=== PATIENT | male | born 1990 | race Caucasian/White ===

== ENCOUNTER 2023-10-12 20:40 | Emergency (ER) | payer SELFPAY ==
[2023-10-12] VITALS (27 sets, daily range): BP systolic 116–152; BP diastolic 68–100; PULSE 64–101; RESP 15–27; TEMP 37; O2SAT 86–99; BMI 34.7
--- NOTE | 2023-10-12 20:52 | XR_ITS ---
[address] [address] Patient Name: KWAKU DURBIN MRN: [id number] date: 1990 Sex: M Assigned Patient Location: ER Current Patient Location: ED.MAIN Accession/Order Number: [id number] Exam Date: 10/12/2023 21:00 Report Date: 10/12/2023 21:47 At the request of: VERONIQUE KING Procedure: XR acute abdomen series EXAM TYPE: XR acute abdomen series EXAM DATE AND TIME: 10/12/2023 9:00 PM EST INDICATION: 33 years old Male with Epigastric pain COMPARISON: None. TECHNIQUE: Frontal view of the chest. Supine and upright views of the abdomen. FINDINGS: No pneumothorax, pleural effusion or focal consolidation. Heart size is within normal limits. Normal nonobstructive bowel gas pattern. No subdiaphragmatic free intraperitoneal air. No pathologic calcifications. Moderate to large volume of stool is seen in the colon. Visualized osseous structures appear unremarkable. XR/XR acute abdomen series IMPRESSION: No acute abnormality. Moderate to large volume of stool is seen in the colon. Electronically authenticated by: SHANIKA RHOADES Date: 10/12/2023 21:47
--- NOTE | 2023-10-12 20:52 | ECG_ITS ---
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
--- NOTE | 2023-10-12 20:58 | ED.GENADUL1 ---
Documented by User: MARCELLUS Bennett 10/12/23 21:37 HPI - General Adult General Chief complaint: Chest Pain Stated complaint: Chest Pain x3 days Time Seen by Provider: 10/12/23 20:47 History of Present Illness HPI narrative: Is a 33-year-old male who presents to the emergency department with concern for epigastric discomfort over the last 3 days. He was using Pepto-Bismol and Tums with some improvement but states the pain worsened today. His significant other at bedside is concerned because the patient had his gallbladder removed 2 years ago and when she had hers removed, she also developed pancreatitis. He had no other associated abdominal surgeries other than the cholecystectomy 2 years ago. He has not had any fevers, chills, nausea, vomiting, diarrhea, urinary symptoms. He reports pain is in the epigastrium and radiates through to his back. He occasionally has left upper quadrant pain. Related Data Home Medications Medication Instructions Recorded Confirmed No Known Home Medications 10/12/23 10/12/23 Allergies Allergy/AdvReac Type Severity Reaction Status Date / Time No Known Drug Allergies Allergy Verified 10/12/23 20:50 Review of Systems ROS Constitutional Denies: fever or chills Ears, nose, mouth, and throat Denies: throat pain Cardiovascular Denies: chest pain Respiratory Denies: shortness of breath Gastrointestinal Reports: abdominal pain; Denies: nausea, vomiting or diarrhea Genitourinary Denies: painful urination Musculoskeletal Denies: back pain Integumentary/Breast Denies: rash Neurological Denies: headache Hematologic/Lymphatic Denies: easy bruising or easy bleeding PFSH PFS Social History Smoking status: Current every day smoker Exam Narrative Exam Narrative: Gen.: Awake, alert, in no distress Head: Normocephalic, atraumatic ENT: Moist mucous membranes Respiratory: No respiratory distress, lungs clear bilaterally Cardio: Regular rate and rhythm Gastrointestinal: Abdomen is soft, nondistended and Tender in the epigastrium with no guarding or rebound. No right upper quadrant tenderness. Extremities: Moves extremities equally Psych: Normal mood and affect Neuro: No focal neuro deficit Skin: Warm, dry, intact Constitutional Vital Signs, click to edit/add: Last Vital Signs Temp 98.6 F 10/12/23 20:47 Pulse 90 10/12/23 22:10 Resp 15 10/12/23 22:10 BP 133/68 10/12/23 23:15 Pulse Ox 96 10/13/23 00:00 O2 Del Method Room Air 10/12/23 20:47 Course Vital Signs Vital signs: Vital Signs Temperature 98.6 F 10/12/23 20:47 Pulse Rate 64 10/12/23 20:47 Respiratory Rate 16 10/12/23 20:47 Blood Pressure 152/100 H 10/12/23 20:47 Pulse Oximetry 99 10/12/23 20:47 Oxygen Delivery Method Room Air 10/12/23 20:47 Temperature 98.6 F 10/12/23 20:47 Pulse Rate 90 10/12/23 22:10 Respiratory Rate 15 10/12/23 22:10 Blood Pressure 133/68 10/12/23 23:15 Pulse Oximetry 96 10/13/23 00:00 Oxygen Delivery Method Room Air 10/12/23 20:47 Medical Decision Making MDM Narrative Medical decision making narrative: 2135: Ordered to have IV fluids, Zofran, Protonix, GI cocktail. He was noted to have mild anemia and low platelet count, consistent with history of blood disorder. He has elevated bilirubin and globally elevated LFTs, he will be sent back over for CT of the abdomen and pelvis with IV contrast. Case is turned over to attending physician at this time for disposition. Medical Records Medical records reviewed: Yes I reviewed the patient's medical records Lab Data Lab results reviewed: Yes I reviewed the patient's lab results Labs: Lab Results 10/12/23 Range/Units 21:00 WBC 14.2 H (4.0-11.0) 10^3/uL RBC 3.04 L (4.70-6.10) 10^6/uL Hgb 9.8 L (14.0-18.0) g/dL Hct 30.6 L (42.0-54.0) % MCV 100.7 H (80.0-94.0) fL MCH 32.2 (25.9-34.0) pg MCHC 32.0 (29.9-35.2) g/dL RDW 17.3 H (11.0-15.0) % Plt Count 22 L* (150-450) 10^3/uL MPV 9.0 L (9.5-13.5) fL Neut % (Auto) 60.3 (43.0-75.0) % Lymph % (Auto) 27.2 (20.5-60.0) % Jerome % (Auto) 7.8 (1.7-12.0) % Eos % (Auto) 2.5 (0.9-7.0) % Baso % (Auto) 0.7 (0.2-2.0) % Neut # (Auto) 8.6 H (1.4-6.5) 10^3/uL Lymph # (Auto) 3.9 H (1.2-3.8) 10^3/uL Jerome # (Auto) 1.1 H (0.3-0.8) 10^3/uL Eos # (Auto) 0.4 (0.0-0.7) 10^3/uL Baso # (Auto) 0.1 (0.0-0.1) 10^3/uL Abs Immat Gran (auto) 0.21 H (0.00-0.03) 10^3/uL Imm/Tot Granulo (auto) 1.5 H (0.0-0.5) % PT 10.9 (9.0-11.6) sec INR 1.03 APTT 27.3 (22.3-36.2) sec Sodium 142 (136-145) mmol/L Potassium 3.9 (3.5-5.1) mmol/L Chloride 105 (98-107) mmol/L Carbon Dioxide 26.2 (21.0-32.0) mmol/L Anion Gap 14.7 BUN 16.0 (7.0-18.0) mg/dL Creatinine 1.11 (0.70-1.30) mg/dL Est GFR ( Amer) >60 (>=60) Est GFR (Non-Af Amer) >60 (>=60) BUN/Creatinine Ratio 14.4 Glucose 111 H (74-106) mg/dL Calcium 9.3 (8.5-10.1) mg/dL Total Bilirubin 2.6 H (0.2-1.0) mg/dL AST 62 H (15-37) U/L ALT 98 H (16-63) U/L Alkaline Phosphatase 132 H (46-116) U/L Troponin I High Sens 20.3 (4.0-76.1) pg/mL Total Protein 8.2 (6.4-8.2) g/dL Albumin 3.7 (3.4-5.0) g/dL Globulin 4.5 g/dL Albumin/Globulin Ratio 0.8 Lipase 20.0 (16.0-77.0) U/L ECG Data Attestation: I personally reviewed and interpreted this ECG as follows: (Sinus tachycardia at a rate of 102, no acute ST elevation or ectopy. EKG reviewed by attending physician) Discharge Plan Discharge Chief Complaint: Chest Pain Clinical Impression: Abdominal pain, Thrombocytopenia, GERD (gastroesophageal reflux disease) Patient Disposition: Home, Self-Care Prescriptions / Home Meds: No Action No Known Home Medications Instructions: GERD (Gastroesophageal Reflux Disease) (ED), Thrombocytopenia (ED) Additional Instructions: take prilosec daily and follow up with your doctor this upcoming week for recheck Stand Alone Forms: Portal Instructions Referrals: ABBIE RIVERA [Primary Care Provider] - 1 week Documented by User: Vincenzo Pa MD 10/13/23 00:44 HPI - General Adult General Chief complaint: Chest Pain Stated complaint: Chest Pain x3 days Time Seen by Provider: 10/12/23 20:47 Related Data Home Medications Medication Instructions Recorded Confirmed No Known Home Medications 10/12/23 10/12/23 Allergies Allergy/AdvReac Type Severity Reaction Status Date / Time No Known Drug Allergies Allergy Verified 10/12/23 20:50 PFSH PFSH Social History Smoking status: Current every day smoker Exam Constitutional Vital Signs, click to edit/add: Last Vital Signs Temp 98.6 F 10/12/23 20:47 Pulse 90 10/12/23 22:10 Resp 15 10/12/23 22:10 BP 133/68 10/12/23 23:15 Pulse Ox 96 10/13/23 00:00 O2 Del Method Room Air 10/12/23 20:47 Course Vital Signs Vital signs: Vital Signs Temperature 98.6 F 10/12/23 20:47 Pulse Rate 64 10/12/23 20:47 Respiratory Rate 16 10/12/23 20:47 Blood Pressure 152/100 H 10/12/23 20:47 Pulse Oximetry 99 10/12/23 20:47 Oxygen Delivery Method Room Air 10/12/23 20:47 Temperature 98.6 F 10/12/23 20:47 Pulse Rate 90 10/12/23 22:10 Respiratory Rate 15 10/12/23 22:10 Blood Pressure 133/68 10/12/23 23:15 Pulse Oximetry 96 10/13/23 00:00 Oxygen Delivery Method Room Air 10/12/23 20:47 Medical Decision Making MDM Narrative Medical decision making narrative: 2135: Ordered to have IV fluids, Zofran, Protonix, GI cocktail. He was noted to have mild anemia and low platelet count, consistent with history of blood disorder. He has elevated bilirubin and globally elevated LFTs, he will be sent back over for CT of the abdomen and pelvis with IV contrast. Case is turned over to attending physician at this time for disposition. CT returned without findings to explain patient's abdominal pain. Patient has mild elevated LFTs. Was able to recall they have been elevated before. Also states he has treated his acid reflux with OTC medications in the past. Ws treated with protonix and GI cocktail here in the department with resolution of his abdominal pain. Discharged home and advised to use Prilosec daily and to follow up with his family doctor for a recheck in the next couple of days Lab Data Labs: Lab Results 10/12/23 Range/Units 21:00 WBC 14.2 H (4.0-11.0) 10^3/uL RBC 3.04 L (4.70-6.10) 10^6/uL Hgb 9.8 L (14.0-18.0) g/dL Hct 30.6 L (42.0-54.0) % MCV 100.7 H (80.0-94.0) fL MCH 32.2 (25.9-34.0) pg MCHC 32.0 (29.9-35.2) g/dL RDW 17.3 H (11.0-15.0) % Plt Count 22 L* (150-450) 10^3/uL MPV 9.0 L (9.5-13.5) fL Neut % (Auto) 60.3 (43.0-75.0) % Lymph % (Auto) 27.2 (20.5-60.0) % Jerome % (Auto) 7.8 (1.7-12.0) % Eos % (Auto) 2.5 (0.9-7.0) % Baso % (Auto) 0.7 (0.2-2.0) % Neut # (Auto) 8.6 H (1.4-6.5) 10^3/uL Lymph # (Auto) 3.9 H (1.2-3.8) 10^3/uL Jerome # (Auto) 1.1 H (0.3-0.8) 10^3/uL Eos # (Auto) 0.4 (0.0-0.7) 10^3/uL Baso # (Auto) 0.1 (0.0-0.1) 10^3/uL Abs Immat Gran (auto) 0.21 H (0.00-0.03) 10^3/uL Imm/Tot Granulo (auto) 1.5 H (0.0-0.5) % PT 10.9 (9.0-11.6) sec INR 1.03 APTT 27.3 (22.3-36.2) sec Sodium 142 (136-145) mmol/L Potassium 3.9 (3.5-5.1) mmol/L Chloride 105 (98-107) mmol/L Carbon Dioxide 26.2 (21.0-32.0) mmol/L Anion Gap 14.7 BUN 16.0 (7.0-18.0) mg/dL Creatinine 1.11 (0.70-1.30) mg/dL Est GFR ( Amer) >60 (>=60) Est GFR (Non-Af Amer) >60 (>=60) BUN/Creatinine Ratio 14.4 Glucose 111 H (74-106) mg/dL Calcium 9.3 (8.5-10.1) mg/dL Total Bilirubin 2.6 H (0.2-1.0) mg/dL AST 62 H (15-37) U/L ALT 98 H (16-63) U/L Alkaline Phosphatase 132 H (46-116) U/L Troponin I High Sens 20.3 (4.0-76.1) pg/mL Total Protein 8.2 (6.4-8.2) g/dL Albumin 3.7 (3.4-5.0) g/dL Globulin 4.5 g/dL Albumin/Globulin Ratio 0.8 Lipase 20.0 (16.0-77.0) U/L Discharge Plan Discharge Chief Complaint: Chest Pain Clinical Impression: Abdominal pain, Thrombocytopenia, GERD (gastroesophageal reflux disease) Patient Disposition: Home, Self-Care Prescriptions / Home Meds: No Action No Known Home Medications Instructions: GERD (Gastroesophageal Reflux Disease) (ED), Thrombocytopenia (ED) Additional Instructions: take prilosec daily and follow up with your doctor this upcoming week for recheck Stand Alone Forms: Portal Instructions Referrals: ABBIE RIVERA [Primary Care Provider] - 1 week
[2023-10-12 21:14] LABS: Basophils Absolute Auto 0.1 10^3/uL (0.0-0.1); Basophils Percent Auto 0.7 % (0.2-2.0); Eosinophils Absolute Auto 0.4 10^3/uL (0.0-0.7); Eosinophils Percent Auto 2.5 % (0.9-7.0); Hematocrit 30.6 % (42.0-54.0); Hemoglobin 9.8 g/dL (14.0-18.0); Immature Granulocytes Abs Auto 0.21 10^3/uL (0.00-0.03); Immature Granulocytes Pct Auto 1.5 % (0.0-0.5); Lymphocytes Absolute Auto 3.9 10^3/uL (1.2-3.8); Lymphocytes Percent Auto 27.2 % (20.5-60.0); Mean Corpuscular Hemoglobin 32.2 pg (25.9-34.0); Mean Corpuscular Volume 100.7 fL (80.0-94.0); Monocytes Absolute Auto 1.1 10^3/uL (0.3-0.8); Monocytes Percent Auto 7.8 % (1.7-12.0); Neutrophils Absolute Auto 8.6 10^3/uL (1.4-6.5); Neutrophils Percent Auto 60.3 % (43.0-75.0); Red Blood Count 3.04 10^6/uL (4.70-6.10); Red Cell Distribution Width 17.3 % (11.0-15.0); White Blood Count 14.2 10^3/uL (4.0-11.0)
[2023-10-12 21:25] LABS: Platelet Count 22 10^3/uL (150-450)
[2023-10-12] MEDS: lidocaine HCL 15 ML, MAG HYDROX/ALUMINUM HYD/SIMETH 30 ML, HYOSCYAMINE SULFATE 0.25 MG PO (21:27)
[2023-10-12] MEDS: 0.9 % SODIUM CHLORIDE 1,000 ML 1000 ML IV (21:28)
[2023-10-12] MEDS: PANTOPRAZOLE SODIUM 40 MG VIAL IV (21:28)
[2023-10-12] MEDS: ONDANSETRON PF 4 MG/2 ML VIAL IV (21:28)
[2023-10-12 21:30] LABS: Alanine Aminotransferase 98 U/L (16-63); Albumin Globulin Ratio 0.8; Albumin Level 3.7 g/dL (3.4-5.0); Alkaline Phosphatase 132 U/L (46-116); Anion Gap 14.7; Aspartate Amino Transferase 62 U/L (15-37); BUN Creatinine Ratio 14.4; Bilirubin Total 2.6 mg/dL (0.2-1.0); Calcium 9.3 mg/dL (8.5-10.1); Carbon Dioxide 26.2 mmol/L (21.0-32.0); Chloride 105 mmol/L (98-107); Estimated GFR (African America >60 (>=60); Estimated GFR (Non-African Ame >60 (>=60); Globulin 4.5 g/dL; Glucose 111 mg/dL (74-106); INR 1.03; Partial Thromboplastin Time 27.3 sec (22.3-36.2); Potassium 3.9 mmol/L (3.5-5.1); Prothrombin Time 10.9 sec (9.0-11.6); Sodium 142 mmol/L (136-145); Total Protein 8.2 g/dL (6.4-8.2); Troponin I High Sensitivity 20.3 pg/mL (4.0-76.1)
--- NOTE | 2023-10-12 21:34 | CT_ITS ---
The [address] [address] Patient Name: KWAKU DURBIN MRN: [id number] date: 1990 Sex: M Assigned Patient Location: ER Current Patient Location: ER Accession/Order Number: [id number] Exam Date: 10/12/2023 22:12 Report Date: 10/12/2023 23:07 At the request of: VERONIQUE KING Procedure: CT abdomen pelvis w con EXAM: CT abdomen pelvis w con HISTORY: Abdominal pain COMPARISON: CT abdomen and pelvis examination dated 05/16/2021. TECHNIQUE: Axial CT images through the abdomen and pelvis were obtained after the intravenous administration of 100 mL Omnipaque 300 contrast. Coronal and sagittal reformats were obtained. Dose reduction techniques were achieved by using automated exposure control and/or adjustment of mA and/or kV according to patient size and/or use of iterative reconstruction technique. FINDINGS: There is mild bibasilar atelectasis. Abdomen: The liver and spleen enhance homogeneously without focal lesion. There is no intra or extrahepatic biliary duct dilatation. The gallbladder is surgically absent. The pancreas, adrenal glands, kidneys, and bowel loops, including the appendix, are unremarkable. There are multiple prominent and enlarged portal caval lymph nodes measuring up to 1.3 cm in short axis diameter, not significantly changed compared to prior examination (series 3, image 48). Pelvis: The bladder and rectum are unremarkable. There are mildly enlarged left inguinal lymph nodes measuring up to 1.3 cm in short axis diameter (series 3, image 181). Bone windows show no aggressive osseous lesions. CT/CT abdomen pelvis w con IMPRESSION: 1. No specific etiology identified to explain the patient's abdominal pain. 2. Status post cholecystectomy. 3. Normal appendix. 4. Mildly enlarged left inguinal lymph nodes, increased in size compared to prior examination though nonspecific. 5. Multiple prominent and enlarged portacaval lymph nodes, not significantly changed compared to prior examination. Electronically authenticated by: Anisa FISHER Date: 10/12/2023 23:07
[2023-10-13] VITALS: O2SAT 96
[2023-10-13 00:49] VITALS: PULSE 88; O2SAT 99
== END 2023-10-13 00:50 | disposition home or self-care (01) ==
PROVIDERS: Physician Assistant; Emergency Provider Internal Medicine; PCP Nurse Practitioner
DX: R10.13 Epigastric pain (principal); D69.6 Thrombocytopenia, unspecified; K21.9 Gastro-esophageal reflux disease without esophagitis; Z90.49 Acquired absence of other specified parts of digestive tract; F17.200 Nicotine dependence, unspecified, uncomplicated
CPT/HCPCS: 36415; 74022; 74177; 80053; 83690; 84484; 85025; 85610; 85730; 93005; 96374; 96375; 99285; J2405; Q9967

== ENCOUNTER 2025-03-20 11:05 | Emergency (ER) | payer SELFPAY ==
[2025-03-20 11:08] VITALS: BP 146/90; PULSE 87; TEMP 36.9; O2SAT 100; BMI 37.2
--- OUTSIDE RECORDS SUMMARY | 2025-03-20 11:14 | XMS_ITS | CCD ---
Author Organization [facility] Care Team Providers Care Junior Project Manager Name Role Phone GRIS, DR KOKO Gardiner Attending Unavailable GRIS, DR KOKO Gardiner Consulting Unavailable GRIS, DR KOKO Gardiner Primary Care Unavailable GRIS, DR KOKO Gardiner Admitting Unavailable FANJEFFERY, DR VEGA Consulting Unavailable NADERER, DR HAI Damian Consulting Unavailable NADERER, DR HAI Damian Procedure Practitioner Katia KING, MARCELLUS PIPER Consulting Unavailable SULEMAN, LEIGHTON Consulting Unavailable Cleveland Ybarra Consulting Unavailable GRIS, DR KOKO Gardiner Attending Unavailable LANDRY, DR KOKO Gardiner Consulting Unavailable GRIS, DR KOKO Gardiner Primary Care Unavailable LANDRY, DR KOKO Gardiner Admitting Unavailable LANDRY, DR KOKO Gardiner Referring Unavailable LANDRY, DR KOKO Gardiner Consulting Unavailable GRIS, DR KOKO Gardiner Primary Care Unavailable LANDRY, DR KOKO Gardiner Admitting Unavailable GRIS, DR KOKO Gardiner Attending Unavailable LANDRY, DR KOKO Gardiner Primary Care Unavailable GARNER, DR CHRIS Lloyd Admitting Unavailable GARNER, DR CHRIS Lloyd Attending Unavailable GARNER, DR CHRIS Lloyd Consulting Unavailable MARKER, DR PARK Admitting Unavailable MARKER, DR PARK Attending Unavailable MARKER, DR PARK Consulting Unavailable GRIS, DR KOKO Gardiner Primary Care Unavailable AHSHANIKA GAMA Consulting Unavailable GRIS, DR KOKO Gardiner Attending Unavailable LANDRY, DR KOKO Gardiner Consulting Unavailable GRIS, DR KOKO Gardiner Primary Care Unavailable GRIS, DR KOKO Gardiner Admitting Unavailable ASHLEIGH, DR CASSIA Aguilar Consulting Unavaildusty BELL, DR OLGA Castellon Consulting Unavailable LORENZA, DR WANDA Lloyd Consulting Unavailable ARIAN REYES Consulting Unavailable Cleveland Garcia Consulting Unavailable Koko Landry MD Primary Care Provider [phone] Mel Parnell Primary Care Physician Mel Parnell Attending Unavailable Mel Parnell Admitting Unavailable Mel Parnell Attending Unavailable Gris VALADEZ, Koko [place] Primary Care Provider Gris VALADEZ, Koko [place] Primary Care Provider Marina DIAMOND, Cydney Mullen Unavailable Unavail able [facility] Primary Care Unavailable MAZZONI, MARTA Referring Unavailable [facility] Primary Care Unavailable MAZZONI, MARTA [facility]available MAZZONI, MARTA Referring [facility]available MAZZONI, MARTA Referring Un[facility] Care Unavailable LANDRY, KOKO [place] Primary Care Unavailable MAZZONI, MARTA Referring [facility] Care Unavailable MAZZONI, MARTA Referring Unavailable MAZZONI, MARTA Attending Unavailable [facility] Primary Care Unavailable MAZZONI, MARTA Referring [facility] Unavailable MAZZONI, MARTA Referring [facility] Primary Care Unavailable MAZZONI, MARTA Referring Unavailable MAZZONI, MARTA Attending Unavailable [facility] Primary Care Unavailable MAZZONI, MARTA Referring Unavailable [facility] Primary Care Unavailable MAZZONI, MARTA Referring Unavailable JUANI HALL Attending Unavailable [facility] Primary Care Unavailable MAZZONI, MARTA Referring Unavailable [facility] Primary Care Unavailable MAZZONI, MARTA Referring Unavailable MAZZONI, MARTA Attending Unavailable [facility] Primary Care Unavailable MAZZONI, MARTA [facility] Unavailable MAZZONI, MARTA Referring Unavailable ELIZA MONTOYA Attending Unavailable [facility] Primary Care Unavailable MAZZONI, MARTA Referring Un[facility] Care Unavailable MAZZONI, MARTA Referring Un[facility] Care Unavailable [facility] Primary Care Unavailable [facility] Primary Care Unavailable MAZZONI, MARTA Referring Unavailable [facility] Primary Care Unavailable NATHALIA RHODES Referring Unavailable [facility] Primary Care Unavailable MAZZONI, MARTA Referring Unavailable MAZZONI, MARTA Attending [facility] Care Unavailable MAZZONI, MARTA Referring Unavailable LANDRYKOKO BROUSSARD LONNY Primary Care Unavailable MARTA KRISHNA Referring Unavailable GRIS KOKO MUKHERJEE Primary Care Unavailable MARTA KRISHNA Referring Unavailable Medications Current Medications Medication Drug Class(es) Dates Sig (Normalized) Sig (Original) amoxicillin 875 mg oral tablet (1 source) Penicillin-class Antibacterial Start: 06-20-2023 End: 06-27-2023 take 1 tablet by mouth twice daily amoxicillin 875 mg Tab 875 mg = 1 tab(s), Oral, BID, X 7 day(s), # 14 tab(s), Refills(s) 0, Pharmacy: [facility]/pharmacy #[id number], 183.5, cm, 06/20/23 9:32:00 EDT, Height/Length Dosing, 120.3, kg, 06/20/23 9:32:00 EDT, Weight Dosing Start Date: 06/20/23 Stop Date: 06/27/23 Status: Ordered caplacizumab-yhdp 11 mg injection (2 sources) Start: 10-27-2023 End: 11-26-2023 inject 11 mg by subcutaneous injection every twenty-four hours caplacizumab-yhdp (CABLIVI) 11 mg injection Indications: TTP (thrombotic thrombocytopenic purpura) ([facility]) Inject 11 mg subcutaneously every 24 hours. Add diluent as directed. Swirl, but do NOT shake. Refrigerate. 30 Each 0 10/27/2023 11/26/2023 Active Comment on above: Inject 11 mg subcuta neously every 24 hours. Add diluent as directed. Swirl, but do NOT shake. Refrigerate. pantoprazole 40 mg delayed release oral tablet (20 sources) Proton Pump Inhibitor Start: 10-29-2023 take 1 tablet by mouth once daily pantoprazole DR (PROTONIX) 40 mg tablet Take 1 tablet by mouth once daily. 30 tablet 2 10/29/2023 Active Start: 10-29-2021 End: 01-27-2022 take 1 tablet by mouth once daily, then take 6 tablets by mouth in the morning pantoprazole DR (PROTONIX) 40 mg tablet Take 1 tablet by mouth DAILY (6 AM). 30 tablet 2 10/29/2021 Suspended Comment on above: Take 1 tablet by ena th DAILY (6 AM). Take 1 tablet by ena th once daily. predniSONE 10 mg oral tablet (10 sources) Start: End: take 2 tablets by mouth once daily, then take 1 tablet by mouth once daily predniSONE (DELTASONE) 10 mg tablet Indications: TTP (thrombotic thrombocytopenic purpura) (HCC) Take 2 tablets by mouth once daily. for two weeks, then one tablet once daily for one week 60 tablet 09/20/2024 10/20/2024 Active Start: 06-24-2024 End: 07-22-2024 take 4 tablets by mouth once daily, then take 3 tablets by mouth once daily, then take 2 tablets by mouth once daily, then take 1 tablet by mouth once daily predniSONE (DELTASONE) 10 mg tablet Indications: TTP (thrombotic thrombocytopenic purpura) (HCC) Take 4 tablets by mouth once daily for 7 days, THEN 3 tablets once daily for 7 days, THEN 2 tablets once daily for 7 days, THEN 1 tablet once daily for 7 days. 70 tablet 06/24/2024 07/22/2024 Active Start: 05-20-2024 End: 06-24-2024 take 1 tablet by mouth once daily predniSONE (DELTASONE) 10 mg tablet Indications: TTP (thrombotic thrombopenic purpura) (HCC) Take 1 tablet by mouth once daily. 40 tablet 1 05/20/2024 06/24/2024 Discontinued Start: 10-30-2023 End: 12-21-2023 predniSONE (DELTASONE) 10 mg tablet Take 8 tablets by mouth once daily for 3 days, THEN 7 tablets once daily for 7 days, THEN 6 tablets once daily for 7 days, THEN 5 tablets once daily for 7 days, THEN 4 tablets once daily for 7 days, THEN 3 tablets once daily for 7 days, THEN 2 tablets once daily for 7 days, THEN 1 tablet once daily for 7 days. Patient should start on October 30, 2023. 220 tablet 0 10/30/2023 12/21/2023 Active PREDNISONE ORAL Take by mouth every other day. 0 Suspended PREDNISONE ORAL Take by mouth every other day. 0 Active Comment on above: Take by mouth every other day. Take 8 tablets by mo [facility] once daily for 3 days, THEN 7 tablets once daily for 7 days, THEN 6 tablets once daily for 7 days, THEN 5 tablets once daily for 7 days, THEN 4 tablets once daily for 7 days, THEN 3 tablets once daily for 7 days, THEN 2 tablets once daily for 7 days, THEN 1 tablet once daily for 7 days. Patient should start on October 30, 2023. sulfamethoxazole 800 mg / trimethoprim 160 mg oral tablet (16 sources) Dihydrofolate Reductase Inhibitor Antibacterial, Sulfonamide Antimicrobial Start: 4 take 1 tablet by mouth once sulfamethoxazo le-trimethopri m (BACTRIM DS) 800-160 mg per tablet Take 1 tablet by mouth every Friday, Friday, and Friday. 36 tablet 10/29/2023 Active Comment on above: Take 1 tablet by ena th every Friday, Friday, and Friday. Completed/Discontinued Medications Medication Drug Class(es) Dates Sig (Normalized) Sig (Original) acetaminophen 500 mg oral tablet (3 sources) Start: 01-07-2025 End: 01-07-2025 take 1 dose by mouth once, then take 4000 mg by mouth once daily 1,000 mg, ORAL, ONCE, 1 dose, On Fri01/07/25 at 1000, No more than 4000 mg of acetaminophen should be given per day (FROM ALL SOURCES) Start: 12-31-2024 End: 12-31-2024 take 1 dose by mouth once, then take 4000 mg by mouth once daily 1,000 mg, ORAL, ONCE, 1 dose, On Fri12/31/24 at 1000, No more than 4000 mg of acetaminophen should be given per day (FROM ALL SOURCES) Start: 12-24-2024 End: 12-24-2024 take 1 dose by mouth once, then take 4000 mg by mouth once daily 1,000 mg, ORAL, ONCE, 1 dose, On Fri12/24/24 at 0900, No more than 4000 mg of acetaminophen should be given per day (FROM ALL SOURCES) diphenhydrAMINE hydrochloride 25 mg oral capsule (3 sources) Histamine-1 Receptor Antagonist Start: 01-07-2025 End: 01-07-2025 take 1 dose by mouth once 50 mg, ORAL, ONCE, 1 dose, On Fri01/07/25 at 1000 Start: 12-31-2024 End: 12-31-2024 take 1 dose by mouth once 50 mg, ORAL, ONCE, 1 dose, O n Fri12/31/24 at 1000 Start: 12-24-2024 End: 12-24-2024 take 1 dose by mouth once 50 mg, ORAL, ONCE, 1 dose, O n Fri12/24/24 at 0900 IBUPROFEN-ACETAMINOPHEN ORAL (3 sources) IBUPROFEN-ACETAM INOPHEN ORAL Take by mouth. 0 Suspended IBUPROFEN-ACETAM INOPHEN ORAL Take by mouth. 0 Active Comment on above: Take by mouth. methylPREDNISolone 125 mg injection (3 sources) Corticosteroid Start: 01-07-2025 End: 01-07-2025 125 mg, INTRAVENOUS, ONCE, 1 dose, On Fri01/07/25 at 1000 Start: 12-31-2024 End: 12-31-2024 125 mg, INTRAVENOUS, ONCE, 1 dose, On Fri12/31/24 at 1000 Start: 12-24-2024 End: 12-24-2024 125 mg, INTRAVENOUS, ONCE, 1 dose, On Fri12/24/24 at 0900 nicotine 2 mg chewing gum (6 sources) Cholinergic Nicotinic Agonist Start: 10-29-2023 End: 06-24-2024 take 4 mg by mouth every two hours as needed nicotine polacrilex (NICORETTE) 2 mg gum Take 2 Each by mouth every 2 hours as needed. 50 Each 10/29/2023 06/24/2024 Discontinued Comment on above: Take 2 Each by mouth every 2 hours as needed. omeprazole 20 mg delayed release oral capsule (3 sources) Proton Pump Inhibitor take 1 capsule by mouth once daily omeprazole (PRILOSEC) 20 mg capsule Take 20 mg by mouth once daily. 0 Suspended Comment on above: Take 20 mg by mouth once daily. riTUXimab 900 mg in NaCl 0.9% 250 mL (RITUXAN) (1 source) Start: 12-31-2024 End: 12-31-2024 900 mg (rounded from 982.5 mg = 375 mg/m2 2.62 m2 Treatment Plan BSA from Recorded weight), INTRAVENOUS, ONCE, 1 dose, On Fri12/31/24 at 1030, EXP: 01/01/2025 0945 RT Total Volume = 250 ml Initiate infusion at a rate of 100 mg/hr. In the absence of infusion toxicity, increase rate by 100 mg/hr increments at 30-minute intervals, to a maximum of 400 mg/hr Refrigerate riTUXimab 900 mg in NaCl 0.9% 630 mL (RITUXAN) (2 sources) Start: 01-07-2025 End: 01-07-2025 900 mg (rounded from 982.5 mg = 375 mg/m2 2.62 m2 Treatment Plan BSA from Recorded weight), INTRAVENOUS, ONCE, 1 dose, On Fri01/07/25 at 1000, EXP: 01/08/2025 1010 RT Infuse at rate of 100mg/hr. If no hypotension, increase rate every 30 minutes by 100mg/hr to a maximum rate of 400mg/hr. Refrigerate Start: 12-24-2024 End: 12-24-2024 900 mg (rounded from 982.5 m g = 375 mg/m2 2.62 m2 Treatment Plan BSA from Recorded weight), INTRAVENOUS, ONCE, 1 dose, On Fri12/24/24 at 0900, EXP: 12/25/2024 0900 RT. Infuse at rate of 100mg/hr. If no hypotension, increase rate every 30 minutes by 100mg/hr to a maximum rate of 400mg/hr. Refrigerate Problems Active Problems Problem Classification Problem Date Documented Date Episodic/Chronic Abdominal pain (6 sources) Right upper quadrant pain; Translations: [Epigastric pain] Onset: 05-07-2021 Episodic Biliary tract disease (2 sources) Acute cholecystitis; Translations: [Chronic cholecystitis] Onset: 05-22-2021 Episodic Coagulation and hemorrhagic disorders (4 sources) Thrombocytopenia, unspecified; Translations: [Disorder of hemostatic system] Onset: 05-16-2021 Chronic Deficiency and other anemia (1 source) Hereditary hemolytic anemia, unspecified; Translations: [HEREDITARY HEMOLYTIC ANEMIA UNS] Onset: 05-30-2021 Chronic Esophageal disorders (1 source) Gastro-esophageal reflux disease without esophagitis; Translations: [GERD WITHOUT ESOPHAGITIS] Onset: 05-08-2021 Chronic Fluid and electrolyte disorders (1 source) Dehydration; Translations: [DEHYDRATION] Onset: 05-16-2021 Episodic Malaise and fatigue (1 source) Fatigue 06-20-2023 Episodic Nausea and vomiting (4 sources) Nausea with vomiting, unspecified; Translations: [NAUSEA WITH VOMITING UNSPECIFIED] Onset: 05-14-2021 Episodic Other circulatory disease (20 sources) Thrombotic thrombocytopenic purpura; Translations: [TTP (thrombotic thrombocytopenic purpura) (HCC)] Onset: 05-18-2021 Resolved: 05-23-2021 10-27-2023 Chronic Other circulatory disease (1 source) Acquired thrombotic thrombocytopenic purpura; Translations: [Acquired TTP (HCC)] 10-23-2023 Chronic Other nutritional; endocrine; and metabolic disorders (1 source) Other disorders of bilirubin metabolism; 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] Onset: 05-30-2021 Chronic Other nutritional; endocrine; and metabolic disorders (20 sources) Obese class I; Translations: [Obesity, unspecified] Onset: 05-23-2021 05-24-2021 Chronic Other upper respiratory disease (1 source) Seasonal allergy 06-20-2023 Chronic Other upper respiratory infections (1 source) Sinusitis 06-20-2023 Chronic Otitis media and related conditions (1 source) Otitis media of right ear 06-20-2023 Episodic Pancreatic disorders (not diabetes) (1 source) Acute pancreatitis without necrosis or infection, unspecified; Translations: [ACUTE PANCREATITIS WO NECRS/INF UNS] Onset: 05-30-2021 Episodic Residual codes; unclassified (1 source) Acquired absence of other specified parts of digestive tract; Translations: [ACQ ABSENCE OTH PART DIGESTV TRACT] Onset: 05-30-2021 Episodic Substance-related disorders (20 sources) Nicotine dependence, cigarettes, uncomplicated; Translations: [Nicotine dependence] Onset: 05-21-2021 05-23-2021 Chronic Systemic lupus erythematosus and connective tissue disorders (3 sources) Thrombotic microangiopathy; Translations: [Thrombotic thrombocytopenic purpura] Onset: 05-30-2021 Chronic Unclassified (4 sources) CONTACT W/AND (SUSP) EXPOS COVID-19; Translations: [CONTACT W/AND (SUSP) EXPOS COVID-19] Onset: 09-19-2020 Unclassified (2 sources) Patient encounter status 06-20-2023 Unclassified (1 source) Established Patient Onset: 12-17-2024 Urinary tract infections (1 source) Urinary tract infection, site not specified; Translations: [UTI SITE NOT SPECIFIED] Onset: 05-30-2021 Episodic Viral infection (1 source) COVID-19; Translations: [COVID-19] Onset: 09-14-2020 Past or Other Problems Problem Classification Problem Date Documented Da te Episodic/Chronic Acute and unspecified renal failure (17 sources) Acute renal failure syndrome; Translations: [Acute kidney failure, unspecified] Onset: 10-24-2023 Resolved: 10-28-2023 10-24-2023 Episodic Diabetes mellitus without complication (16 sources) Steroid-induced hyperglycemia; Translations: [Hyperglycemia, unspecified] Onset: 10-30-2023 10-30-2023 Episodic Diseases of white blood cells (18 sources) Elevated white blood cell count, unspecified; Translations: [Band neutrophil count above reference range] Onset: 05-30-2021 Resolved: 10-28-2023 10-26-2023 Chronic Unclassified (1 source) CONTACT W/AND (SUSP) EXPOS COVID-19; Translations: [CONTACT W/AND (SUSP) EXPOS COVID-19] Onset: 09-15-2020 Results Test Name Value Interpretation Reference Range Facility [id number] EVAL INTERPon 03-11 [id number] INTERP Normal [facility] Comment on above: Order Comment: Speci men Type: BLOOD SPECIMENOrdering Facility: [facility] Address: [address] [place] [address] Result Comment: Norm al - See comment below.[id number] ACTIVITY ASSAY: [id number] activity was measured using fluorescence resonance energy transfer (FRET) technology with a recombinant VWF86 substrate. The RGNBLY55 activity level is not decreased.SUMMARY: There is no current laboratory evidence for thrombotic thrombocytopenic purpura (TTP).Correlation between clinical findings, transfusion therapy and [id number] activity and inhibitor assay results is suggested. Performed By: #### L [id number], ADM13 ####[facility] LABIA [id number] [place] [address] [place] [id number] PATHOLOGIST INTERP Reviewed by Aminata Osuna MD Normal [facility] Comment on above: Order Comment: Speci men Type: BLOOD SPECIMENOrdering Facility: [facility] Address: [address] [place] [address] Performed By: #### L [id number], ADM13 ####[facility] LABCLIA [id number] [place] [id number] [place] [id number] EVALUATIONon 2024 vWf cleaving protease actual/normal Chromogenic method (PPP) [Rel catalytic activity/Vol] 123 % High 60-121 [facility] Comment on above: Order Comment: Speci men Type: BLOOD SPECIMENOrdering Facility: [facility] Address: [address] [place] [address] Result Comment: This test was developed, and its performance characteristics determined by the [facility] Department of Pathology and Laboratory Medicine. It has not been cleared or approved by the FDA. The [facility] Department of Pathology and Laboratory Medicine is regulated under CLIA as qualified to perform high-complexity testing. This test is used for clinical purposes. It should not be regarded as investigational or for research. Performed By: #### L [id number], ADM13 ####[facility] LABCLIA [id number] [place] [address] [place] CBC W Auto Differential pane l (Bld)on 03-11-2025 Basophils (Bld) [#/Vol] 0.08 10*3/uL Normal <0.11 [facility] Comment on above: Order Comment: Speci men Type: BLOOD SPECIMENOrdering Facility: [facility] Address: [address] [place] [address] Performed By: #### 5 7021-8 ####[facility] LABCLIA [id number] [place] [address] Basophils/100 WBC (Bld) 1.0 % Normal [facility] Comment on above: Order Comment: Speci men Type: BLOOD SPECIMENOrdering Facility: [facility] Address: [address] [place] [address] Performed By: #### 5 7021-8 ####[facility] LABCLIA [id number] [place] [address] Differential cell count method Nom (Bld) Auto Normal [facility] Comment on above: Order Comment: Speci men Type: BLOOD SPECIMENOrdering Facility: [facility] Address: [address] [place] [address] Performed By: #### 5 7021-8 ####[facility] LABCLIA [id number] [place] [address] Eosinophils (Bld) [#/Vol] 0.32 10*3/uL Normal <0.46 [facility] Comment on above: Order Comment: Speci men Type: BLOOD SPECIMENOrdering Facility: [facility] Address: [address] [place] [address] Performed By: #### 5 7021-8 ####[facility] LABCLIA [id number] [place] [address] Eosinophils/100 WBC (Bld) 4.1 % Normal [facility] Comment on above: Order Comment: Speci men Type: BLOOD SPECIMENOrdering Facility: [facility] Address: [address] [place] [address] Performed By: #### 5 7021-8 ####[facility] LABCLIA [id number] [place] [address] Erythrocyte distribution width (RBC) [Ratio] 12.7 % Normal 11.5-15.0 [facility] Comment on above: Order Comment: Speci men Type: BLOOD SPECIMENOrdering Facility: [facility] Address: [address] [place] [address] Performed By: #### 5 7021-8 ####[facility] LABCLIA [id number] [place] [address] Hematocrit (Bld) [Volume fraction] 43.1 % Normal 39.0-51.0 [facility] Comment on above: Order Comment: Speci men Type: BLOOD SPECIMENOrdering Facility: [facility] Address: [address] [place] [address] Performed By: #### 5 7021-8 ####[facility] LABCLIA [id number] [place] [address] Hemoglobin (Bld) [Mass/Vol] 14.4 g/dL Normal 13.0-17.0 [facility] Comment on above: Order Comment: Speci men Type: BLOOD SPECIMENOrdering Facility: [facility] Address: [address] [place] [address] Performed By: #### 5 7021-8 ####[facility] LABCLIA [id number] [place] [address] Immature granulocytes (Bld) [#/Vol] 0.03 10*3/uL Normal <0.10 [facility] Comment on above: Order Comment: Speci men Type: BLOOD SPECIMENOrdering Facility: [facility] Address: [address] [place] [address] Performed By: #### 5 7021-8 ####[facility] LABCLIA [id number] [place] [address] Immature granulocytes/100 WBC (Bld) 0.4 % Normal [facility] Comment on above: Order Comment: Speci men Type: BLOOD SPECIMENOrdering Facility: [facility] Address: [address] [place] [address] Performed By: #### 5 7021-8 ####[facility] LABCLIA [id number] [place] [address] Lymphocytes (Bld) [#/Vol] 2.72 10*3/uL Normal 1.00-4.00 [facility] Comment on above: Order Comment: Speci men Type: BLOOD SPECIMENOrdering Facility: [facility] Address: [address] [place] [address] Performed By: #### 5 7021-8 ####[facility] LABCLIA [id number] [place] [address] Lymphocytes/100 WBC (Bld) 34.9 % Normal [facility] Comment on above: Order Comment: Speci men Type: BLOOD SPECIMENOrdering Facility: [facility] Address: [address] [place] [address] Performed By: #### 5 7021-8 ####[facility] LABCLIA [id number] [place] [address] MCH (RBC) [Entitic mass] 30.6 pg Normal 26.0-34.0 [facility] Comment on above: Order Comment: Speci men Type: BLOOD SPECIMENOrdering Facility: [facility] Address: [address] [place] [address] Performed By: #### 5 7021-8 ####[facility] LABCLIA [id number] [place] [address] MCHC (RBC) [Mass/Vol] 33.4 g/dL Normal 30.5-36.0 [facility] Comment on above: Order Comment: Speci men Type: BLOOD SPECIMENOrdering Facility: [facility] Address: [address] [place] [address] Performed By: #### 5 7021-8 ####[facility] LABCLIA [id number] [place] [address] MCV (RBC) [Entitic vol] 91.5 fL Normal 80.0-100.0 [facility] Comment on above: Order Comment: Speci men Type: BLOOD SPECIMENOrdering Facility: [facility] Address: [address] [place] [address] Performed By: #### 5 7021-8 ####[facility] LABCLIA [id number] [place] [address] Monocytes (Bld) [#/Vol] 0.79 10*3/uL Normal <0.87 [facility] Comment on above: Order Comment: Speci men Type: BLOOD SPECIMENOrdering Facility: [facility] Address: [address] [place] [address] Performed By: #### 5 7021-8 ####[facility] [facility] LABCLIA [id number] [place] [address] Monocytes/100 WBC (Bld) 10.1 % Normal [facility] Comment on above: Order Comment: Speci men Type: BLOOD SPECIMENOrdering Facility: [facility] Address: [address] [place] [address] Performed By: #### 5 7021-8 ####[facility] LABCLIA [id number] [place] [address] Neutrophils (Bld) [#/Vol] 3.86 10*3/uL Normal 1.45-7.50 [facility] Comment on above: Order Comment: Speci men Type: BLOOD SPECIMENOrdering Facility: [facility] Address: [address] [place] [address] Performed By: #### 5 7021-8 ####[facility] LABCLIA [id number] [place] [address] Neutrophils/100 WBC (Bld) 49.5 % Normal [facility] Comment on above: Order Comment: Speci men Type: BLOOD SPECIMENOrdering Facility: [facility] Address: [address] [place] [address] Performed By: #### 5 7021-8 ####[facility] LABCLIA [id number] [place] [address] Nucleated RBC (Bld) [#/Vol] 10*3/uL Normal <0.01 [facility] Comment on above: Order Comment: Speci men Type: BLOOD SPECIMENOrdering Facility: [facility] Address: [address] [place] [address] Performed By: #### 5 7021-8 ####[facility] LABCLIA [id number] [place] [address] Nucleated RBC/100 WBC (Bld) [Ratio] 0.0 /100 WBC Normal [facility] Comment on above: Order Comment: Speci men Type: BLOOD SPECIMENOrdering Facility: [facility] Address: [address] [place] [address] Performed By: #### 5 7021-8 ####[facility] LABIA [id number] [place] [address] Platelet mean volume (Bld) [Entitic vol] 9.1 fL Normal 9.0-12.7 [facility] Comment on above: Order Comment: Speci men Type: BLOOD SPECIMENOrdering Facility: [facility] Address: [address] [place] [address] Performed By: #### 5 7021-8 ####[facility] LABCLIA [id number] [place] [address] Platelets (Bld) [#/Vol] 299 10*3/uL Normal 150-400 [facility] Comment on above: Order Comment: Speci men Type: BLOOD SPECIMENOrdering Facility: [facility] Address: [address] [place] [address] Performed By: #### 5 7021-8 ####[facility] LABCLIA [id number] [place] [address] RBC (Bld) [#/Vol] 4.71 10*6/uL Normal 4.20-6.00 [facility] Comment on above: Order Comment: Speci men Type: BLOOD SPECIMENOrdering Facility: [facility] Address: [address] [place] [address] Performed By: #### 5 7021-8 ####[facility] LABCLIA [id number] [place] [address] WBC (Bld) [#/Vol] 7.80 10*3/uL Normal 3.70-11.00 [facility] Comment on above: Order Comment: Speci men Type: BLOOD SPECIMENOrdering Facility: [facility] Address: [address] [place] [address] Performed By: #### 5 7021-8 ####[facility] LABCLIA [id number] [place] [address] Comprehensive metabolic 2000 panelon 03-11-2025 Albumin [Mass/Vol] 4.4 g/dL Normal 3.9-4.9 [facility] Comment on above: Order Comment: Speci men Type: BLOOD SPECIMENOrdering Facility: [facility] Address: [address] [place] [address] Performed By: #### 2 4323-8 ####[facility] LABCLIA [id number] [place] [address] ALP [Catalytic activity/Vol] 106 U/L Normal 38-113 [facility] Comment on above: Order Comment: Speci men Type: BLOOD SPECIMENOrdering Facility: [facility] Address: [address] [place] [address] Performed By: #### 2 4323-8 ####[facility] LABCLIA [id number] [place] [address] ALT [Catalytic activity/Vol] 96 U/L High 10-54 [facility] Comment on above: Order Comment: Speci men Type: BLOOD SPECIMENOrdering Facility: [facility] Address: [address] [place] [address] Performed By: #### 2 4323-8 ####[facility] LABCLIA [id number] [place] [address] Anion gap [Moles/Vol] 7 mmol/L Low 8-15 [facility] Comment on above: Order Comment: Speci men Type: BLOOD SPECIMENOrdering Facility: [facility] Address: [address] [place] [address] Performed By: #### 2 4323-8 ####[facility] LABCLIA [id number] [place] [address] AST [Catalytic activity/Vol] 41 U/L High 14-40 [facility] Comment on above: Order Comment: Speci men Type: BLOOD SPECIMENOrdering Facility: [facility] Address: [address] [place] [address] Performed By: #### 2 4323-8 ####[facility] LABCLIA [id number] [place] [address] Bilirubin [Mass/Vol] 0.7 mg/dL Normal 0.2-1.3 [facility] Comment on above: Order Comment: Speci men Type: BLOOD SPECIMENOrdering Facility: [facility] Address: [address] [place] [address] Performed By: #### 2 4323-8 ####[facility] LABCLIA [id number] [place] [address] Calcium [Mass/Vol] 9.5 mg/dL Normal 8.5-10.2 [facility] Comment on above: Order Comment: Speci men Type: BLOOD SPECIMENOrdering Facility: [facility] Address: [address] [place] [address] Performed By: #### 2 4323-8 ####[facility] LABCLIA [id number] [place] [address] Chloride [Moles/Vol] 104 mmol/L Normal 98-107 [facility] Comment on above: Order Comment: Speci men Type: BLOOD SPECIMENOrdering Facility: [facility] Address: [address] [place] [address] Performed By: #### 2 4323-8 ####[facility] LABCLIA [id number] [place] [address] CO2 [Moles/Vol] 25 mmol/L Normal 22-30 [facility] Comment on above: Order Comment: Speci men Type: BLOOD SPECIMENOrdering Facility: [facility] Address: [address] [place] [address] Performed By: #### 2 4323-8 ####[facility] LABCLIA [id number] [place] [address] Creatinine [Mass/Vol] 0.90 mg/dL Normal 0.73-1.22 [facility] Comment on above: Order Comment: Speci men Type: BLOOD SPECIMENOrdering Facility: [facility] Address: [address] [place] [address] Performed By: #### 2 4323-8 ####[facility] LABCLIA [id number] [place] [address] eGFRcr SerPlBld CKD-EPI 2020 114 mL/min/1.73m??? Normal >=60 [facility] Comment on above: Order Comment: Nicole griffiths Type: BLOOD SPECIMENOrdering Facility: [facility] Address: [address] [place] [address] Result Comment: Julita mated Glomerular Filtration Rate (eGFR) is calculated using the 2020 CKD-EPI creatinine equation. This equation utilizes serum creatinine, sex, and age as parameters. The creatinine assay has traceable calibration to isotope dilution-mass spectrometry. Refer to KDIGO guidelines for clinical interpretation. In patients with unstable renal function, e.g. those with acute kidney injury, the eGFR may not accurately reflect actual GFR. Performed By: #### 2 4323-8 ####[facility] LABCLIA [id number] [place] [address] Glucose [Mass/Vol] 103 mg/dL High 74-99 [facility] Comment on above: Order Comment: Nicole griffiths Type: BLOOD SPECIMENOrdering Facility: [facility] Address: [address] [place] [address] Result Comment: The [place] [employer] (ADA) provides guidance for cutoff values for fasting glucose and random glucose. The ADA defines fasting as no caloric intake for at least 8 hours. Fasting plasma glucose results between 100 to 125 mg/dL indicate increased risk for diabetes (prediabetes).Fasting plasma glucose results greater than or equal to 126 mg/dL meet the criteria for diagnosis of diabetes. In the absence of unequivocal hyperglycemia, results should be confirmed by repeat testing. In a patient with classic symptoms of hyperglycemia or hyperglycemic crisis, random plasma glucose results greater than or equal to 200 mg/dL meet the criteria for diagnosis of diabetes.Reference: Standards of Medical Care in Diabetes 2016, [place] [employer]. Diabetes Care. 2016.39(Suppl 1). Performed By: #### 2 4323-8 ####[facility] LABCLIA [id number] [place] [address] Potassium [Moles/Vol] 4.4 mmol/L Normal 3.7-5.1 [facility] Comment on above: Order Comment: Nicole griffiths Type: BLOOD SPECIMENOrdering Facility: [facility] Address: [address] [place] [address] Performed By: #### 2 4323-8 ####[facility] LABCLIA [id number] [place] [address] Protein [Mass/Vol] 7.2 g/dL Normal 6.3-8.0 [facility] Comment on above: Order Comment: Speci men Type: BLOOD SPECIMENOrdering Facility: [facility] Address: [address] [place] [address] Performed By: #### 2 4323-8 ####[facility] LABCLIA [id number] [place] [address] Sodium [Moles/Vol] 136 mmol/L Normal 136-144 [facility] Comment on above: Order Comment: Speci men Type: BLOOD SPECIMENOrdering Facility: [facility] Address: [address] [place] [address] Performed By: #### 2 4323-8 ####[facility] LABCLIA [id number] [place] [address] Urea nitrogen [Mass/Vol] 13 mg/dL Normal 9-24 [facility] Comment on above: Order Comment: Speci men Type: BLOOD SPECIMENOrdering Facility: [facility] Address: [address] [place] [address] Performed By: #### 2 4323-8 ####[facility] LABCLIA [id number] [place] [address] Haptoglob SerPl-mCncon 03-11 Haptoglobin [Mass/Vol] 119 mg/dL Normal 31-238 [facility] Comment on above: Order Comment: Speci men Type: BLOOD SPECIMENOrdering Facility: [facility] Address: [address] [place] [address] Performed By: #### 4 542-7 ####[facility] LABCLIA [id number] [place] [id number] [place] [id number] EVAL INTERPon 01-28 YPLPSW72 INTERP Normal [facility] Comment on above: Order Comment: Nicole griffiths Type: BLOOD SPECIMENOrdering Facility: [facility] Address: [address] [place] [address] Result Comment: Hernán dickens - see comment below.No laboratory evidence for thrombotic thrombocytopenic purpura (TTP).[id number] ACTIVITY ASSAY:MRKJDL70 activity was measured using Fluorescence resonance energy transfer (FRET) technology with a recombinant VWF86 substrate. The FXZMJY17 activity is normal (111%).JLQIAG66 INHIBITOR SCREEN AND/OR INHIBITOR ASSAY:Not performed because QCJWRB59 activity was not decreased below 30%.SUMMARY:There is no current laboratory evidence for thrombotic thrombocytopenic purpura (TTP).Recent transfusion or plasma exchange therapy can falsely normalize UOACEO16 level, and mask the diagnosis of thrombotic thrombocytopenic purpura (TTP). Please correlate these laboratory results with clinical findings, transfusion and medication history. Performed By: #### L QE6277, ADM13 ####[facility] LABIA [id number] [place] [address] [place] [id number] PATHOLOGIST INTERP Reviewed by Angelica Glynn DO, MPH Normal [facility] Comment on above: Order Comment: Nicole griffiths Type: BLOOD SPECIMENOrdering Facility: [facility] Address: [address] [place] [address] Performed By: #### L ZR4093, ADM13 ####[facility] TROYIA [id number] [place] [address] [place] [id number] EVALUATIONon 2024 vWf cleaving protease actual/normal Chromogenic method (PPP) [Rel catalytic activity/Vol] 111 % Normal 60-121 [facility] Comment on above: Order Comment: Nicole [facility] Type: BLOOD SPECIMENOrdering Facility: [facility] Address: [address] [place] [address] Result Comment: This test was developed, and its performance characteristics determined by the [facility] Department of Pathology and Laboratory Medicine. It has not been cleared or approved by the FDA. The [facility] Department of Pathology and Laboratory Medicine is regulated under CLIA as qualified to perform high-complexity testing. This test is used for clinical purposes. It should not be regarded as investigational or for research. Performed By: #### L MQ6267, ADM13 ####[facility] [id number] [place] [address] [place] CBC W Auto Differential pane l (Bld)on 01-28-2025 Basophils (Bld) [#/Vol] 0.08 10*3/uL Normal <0.11 [facility] Comment on above: Order Comment: Speci men Type: BLOOD SPECIMENOrdering Facility: [facility] Address: [address] [place] [address] Performed By: #### 5 7021-8 ####[facility] [id number] [place] [address] [place] Basophils/100 WBC (Bld) 1.0 % Normal [facility] Comment on above: Order Comment: Speci men Type: BLOOD SPECIMENOrdering Facility: [facility] Address: [address] [place] [address] Performed By: #### 5 7021-8 ####[facility] [id number] [place] [address] [place] Differential cell count method Nom (Bld) Auto Normal [facility] Comment on above: Order Comment: Speci men Type: BLOOD SPECIMENOrdering Facility: [facility] Address: [address] [place] [address] Performed By: #### 5 7021-8 ####[facility] [id number] [place] [address] [place] Eosinophils (Bld) [#/Vol] 0.39 10*3/uL Normal <0.46 [facility] Comment on above: Order Comment: Speci men Type: BLOOD SPECIMENOrdering Facility: [facility] Address: [address] [place] [address] Performed By: #### 5 7021-8 ####[facility] [id number] [place] [address] [place] Eosinophils/100 WBC (Bld) 5.0 % Normal [facility] Comment on above: Order Comment: Speci men Type: BLOOD SPECIMENOrdering Facility: [facility] Address: [address] [place] [address] Performed By: #### 5 7021-8 ####[facility] [id number] [place] [address] [place] Erythrocyte distribution width (RBC) [Ratio] 12.6 % Normal 11.5-15.0 [facility] Comment on above: Order Comment: Speci men Type: BLOOD SPECIMENOrdering Facility: [facility] Address: [address] [place] [address] Performed By: #### 5 7021-8 ####[facility] [id number] [place] [address] [place] Hematocrit (Bld) [Volume fraction] 39.9 % Normal 39.0-51.0 [facility] Comment on above: Order Comment: Speci men Type: BLOOD SPECIMENOrdering Facility: [facility] Address: [address] [place] [address] Performed By: #### 5 7021-8 ####[facility] [id number] [place] [address] [place] Hemoglobin (Bld) [Mass/Vol] 13.7 g/dL Normal 13.0-17.0 [facility] Comment on above: Order Comment: Speci men Type: BLOOD SPECIMENOrdering Facility: [facility] Address: [address] [place] [address] Performed By: #### 5 7021-8 ####[facility] [id number] [place] [address] [place] Immature granulocytes (Bld) [#/Vol] 0.03 10*3/uL Normal <0.10 [facility] Comment on above: Order Comment: Speci men Type: BLOOD SPECIMENOrdering Facility: [facility] Address: [address] [place] [address] Performed By: #### 5 7021-8 ####[facility] [id number] [place] [address] STATES [facility] Immature granulocytes/100 WBC (Bld) 0.4 % Normal [facility] Comment on above: Order Comment: Speci men Type: BLOOD SPECIMENOrdering Facility: [facility] Address: [address] [place] [address] Performed By: #### 5 7021-8 ####[facility] [id number] [place] [address] [place] Lymphocytes (Bld) [#/Vol] 2.93 10*3/uL Normal 1.00-4.00 [facility] Comment on above: Order Comment: Speci men Type: BLOOD SPECIMENOrdering Facility: [facility] Address: [address] [place] [address] Performed By: #### 5 7021-8 ####[facility] [id number] [place] [address] [place] Lymphocytes/100 WBC (Bld) 37.5 % Normal [facility] Comment on above: Order Comment: Speci men Type: BLOOD SPECIMENOrdering Facility: [facility] Address: [address] [place] [address] Performed By: #### 5 7021-8 ####[facility] [id number] [place] [address] [place] MCH (RBC) [Entitic mass] 30.8 pg Normal 26.0-34.0 [facility] Comment on above: Order Comment: Speci men Type: BLOOD SPECIMENOrdering Facility: [facility] Address: [address] [place] [address] Performed By: #### 5 7021-8 ####[facility] [id number] [place] [address] [place] MCHC (RBC) [Mass/Vol] 34.3 g/dL Normal 30.5-36.0 [facility] Comment on above: Order Comment: Speci men Type: BLOOD SPECIMENOrdering Facility: [facility] Address: [address] [place] [address] Performed By: #### 5 7021-8 ####[facility] [id number] [place] [address] [place] MCV (RBC) [Entitic vol] 89.7 fL Normal 80.0-100.0 [facility] Comment on above: Order Comment: Speci men Type: BLOOD SPECIMENOrdering Facility: [facility] Address: [address] [place] [address] Performed By: #### 5 7021-8 ####[facility] [id number] [place] [address] [place] Monocytes (Bld) [#/Vol] 0.85 10*3/uL Normal <0.87 [facility] Comment on above: Order Comment: Speci men Type: BLOOD SPECIMENOrdering Facility: [facility] Address: [address] [place] [address] Performed By: #### 5 7021-8 ####[facility] [id number] [place] [address] [place] Monocytes/100 WBC (Bld) 10.9 % Normal [facility] Comment on above: Order Comment: Speci men Type: BLOOD SPECIMENOrdering Facility: [facility] Address: [address] [place] [address] Performed By: #### 5 7021-8 ####[facility] [id number] [place] [address] [place] Neutrophils (Bld) [#/Vol] 3.53 10*3/uL Normal 1.45-7.50 [facility] Comment on above: Order Comment: Speci men Type: BLOOD SPECIMENOrdering Facility: [facility] Address: [address] [place] [address] Performed By: #### 5 7021-8 ####[facility] [id number] [address] [place] Neutrophils/100 WBC (Bld) 45.2 % Normal [facility] Comment on above: Order Comment: Speci men Type: BLOOD SPECIMENOrdering Facility: [facility] Address: [address] [place] [address] Performed By: #### 5 7021-8 ####[facility] [id number] [place] [address] [place] Nucleated RBC (Bld) [#/Vol] 10*3/uL Normal <0.01 [facility] Comment on above: Order Comment: Speci men Type: BLOOD SPECIMENOrdering Facility: [facility] Address: [address] [place] [address] Performed By: #### 5 7021-8 ####[facility] [id number] [place] [address] [place] Nucleated RBC/100 WBC (Bld) [Ratio] 0.0 /100 WBC Normal [facility] Comment on above: Order Comment: Speci men Type: BLOOD SPECIMENOrdering Facility: [facility] Address: [address] [place] [address] Performed By: #### 5 7021-8 ####[facility] [id number] [place] [address] [place] Platelet mean volume (Bld) [Entitic vol] 9.3 fL Normal 9.0-12.7 [facility] Comment on above: Order Comment: Speci men Type: BLOOD SPECIMENOrdering Facility: [facility] Address: [address] [place] [address] Performed By: #### 5 7021-8 ####[facility] [id number] [place] [address] [place] Platelets (Bld) [#/Vol] 310 10*3/uL Normal 150-400 [facility] Comment on above: Order Comment: Speci men Type: BLOOD SPECIMENOrdering Facility: [facility] Address: [address] [place] [address] Performed By: #### 5 7021-8 ####[facility] [id number] [place] [address] [place] RBC (Bld) [#/Vol] 4.45 10*6/uL Normal 4.20-6.00 [facility] Comment on above: Order Comment: Speci men Type: BLOOD SPECIMENOrdering Facility: [facility] Address: [address] [place] [address] Performed By: #### 5 7021-8 ####[facility] [id number] [place] [address] [place] WBC (Bld) [#/Vol] 7.81 10*3/uL Normal 3.70-11.00 [facility] Comment on above: Order Comment: Speci men Type: BLOOD SPECIMENOrdering Facility: [facility] Address: [address] [place] [address] Performed By: #### 5 7021-8 ####[facility] [id number] [place] [address] [place] CNOVSPon 01-28-2025 CNOVSP Normal [facility] Comprehensive metabolic 2000 panelon 01-28-2025 Albumin [Mass/Vol] 4.1 g/dL Normal 3.9-4.9 [facility] Comment on above: Order Comment: Speci men Type: BLOOD SPECIMENOrdering Facility: [facility] Address: [address] [place] [address] Performed By: #### 2 4323-8 ####[facility] [id number] [place] [address] [place] ALP [Catalytic activity/Vol] 98 U/L Normal 38-113 [facility] Comment on above: Order Comment: Speci men Type: BLOOD SPECIMENOrdering Facility: [facility] Address: [address] [place] [address] Performed By: #### 2 4323-8 ####[facility] [id number] [place] [address] [place] ALT [Catalytic activity/Vol] 99 U/L High 10-54 [facility] Comment on above: Order Comment: Speci men Type: BLOOD SPECIMENOrdering Facility: [facility] Address: [address] [place] [address] Performed By: #### 2 4323-8 ####[facility] [id number] [place] [address] [place] Anion gap [Moles/Vol] 8 mmol/L Normal 8-15 [facility] Comment on above: Order Comment: Speci men Type: BLOOD SPECIMENOrdering Facility: [facility] Address: [address] [place] [address] Performed By: #### 2 4323-8 ####[facility] [id number] [place] [address] [place] AST [Catalytic activity/Vol] 41 U/L High 14-40 [facility] Comment on above: Order Comment: Speci men Type: BLOOD SPECIMENOrdering Facility: [facility] Address: [address] [place] [address] Performed By: #### 2 4323-8 ####[facility] [id number] [address] [place] [address] [place] Bilirubin [Mass/Vol] 0.4 mg/dL Normal 0.2-1.3 [facility] Comment on above: Order Comment: Speci men Type: BLOOD SPECIMENOrdering Facility: [facility] Address: [address] [id number] Performed By: #### 2 4323-8 ####[facility] [id number] [place] [address] [place] Calcium [Mass/Vol] 9.2 mg/dL Normal 8.5-10.2 [facility] Comment on above: Order Comment: Speci men Type: BLOOD SPECIMENOrdering Facility: [facility] Address: [address] [place] [address] Performed By: #### 2 4323-8 ####[facility] [id number] [place] [address] [place] Chloride [Moles/Vol] 105 mmol/L Normal 98-107 [facility] Comment on above: Order Comment: Speci men Type: BLOOD SPECIMENOrdering Facility: [facility] Address: [address] [place] [address] Performed By: #### 2 4323-8 ####[facility] [id number] [place] [address] [place] CO2 [Moles/Vol] 26 mmol/L Normal 22-30 [facility] Comment on above: Order Comment: Speci men Type: BLOOD SPECIMENOrdering Facility: [facility] Address: [address] [place] [address] Performed By: #### 2 4323-8 ####[facility] [id number] [place] [address] [place] Creatinine [Mass/Vol] 0.93 mg/dL Normal 0.73-1.22 [facility] Comment on above: Order Comment: Speci men Type: BLOOD SPECIMENOrdering Facility: [facility] Address: [address] [place] [address] Performed By: #### 2 4323-8 ####[facility] [id number] [place] [address] [place] Creatinine and Glomerular filtration rate.predicted panel (S/P/Bld) 109 mL/min/1.73m??? Normal >=60 [facility] Comment on above: Order Comment: Nicole griffiths Type: BLOOD SPECIMENOrdering Facility: [facility] Address: [address] [place] [address] Result Comment: Julita mated Glomerular Filtration Rate (eGFR) is calculated using the 2020 CKD-EPI creatinine equation. This equation utilizes serum creatinine, sex, and age as parameters. The creatinine assay has traceable calibration to isotope dilution-mass spectrometry. Refer to KDIGO guidelines for clinical interpretation. In patients with unstable renal function, e.g. those with acute kidney injury, the eGFR may not accurately reflect actual GFR. Performed By: #### 2 4323-8 ####[facility] [id number] [place] [address] [place] Glucose [Mass/Vol] 88 mg/dL Normal 74-99 [facility] Comment on above: Order Comment: Nicole griffiths Type: BLOOD SPECIMENOrdering Facility: [facility] Address: [address] [place] [address] Result Comment: The [place] [employer] (ADA) provides guidance for cutoff values for fasting glucose and random glucose. The ADA defines fasting as no caloric intake for at least 8 hours. Fasting plasma glucose results between 100 to 125 mg/dL indicate increased risk for diabetes (prediabetes).Fasting plasma glucose results greater than or equal to 126 mg/dL meet the criteria for diagnosis of diabetes. In the absence of unequivocal hyperglycemia, results should be confirmed by repeat testing. In a patient with classic symptoms of hyperglycemia or hyperglycemic crisis, random plasma glucose results greater than or equal to 200 mg/dL meet the criteria for diagnosis of diabetes.Reference: Standards of Medical Care in Diabetes 2016, [place] [employer]. Diabetes Care. 2016.39(Suppl 1). Performed By: #### 2 4323-8 ####[facility] [id number] [place] [address] [place] Potassium [Moles/Vol] 4.6 mmol/L Normal 3.7-5.1 [facility] Comment on above: Order Comment: Speci men Type: BLOOD SPECIMENOrdering Facility: [facility] Address: [address] [place] [address] Performed By: #### 2 4323-8 ####[facility] [id number] [place] [address] [place] Protein [Mass/Vol] 6.8 g/dL Normal 6.3-8.0 [facility] Comment on above: Order Comment: Speci men Type: BLOOD SPECIMENOrdering Facility: [facility] Address: [address] [place] [address] Performed By: #### 2 4323-8 ####[facility] [id number] [place] [address] [place] Sodium [Moles/Vol] 139 mmol/L Normal 136-144 [facility] Comment on above: Order Comment: Speci men Type: BLOOD SPECIMENOrdering Facility: [facility] Address: [address] [place] [address] Performed By: #### 2 4323-8 ####[facility] [id number] [place] [address] [place] Urea nitrogen [Mass/Vol] 13 mg/dL Normal 9-24 [facility] Comment on above: Order Comment: Speci men Type: BLOOD SPECIMENOrdering Facility: [facility] Address: [address] [place] [address] Performed By: #### 2 4323-8 ####[facility] [id number] [place] [address] [place] Haptoglob SerPl-mCncon 01-28 Haptoglobin [Mass/Vol] 118 mg/dL Normal 31-238 [facility] Comment on above: Order Comment: Speci men Type: BLOOD SPECIMENOrdering Facility: [facility] Address: [address] [place] [address] Performed By: #### 4 542-7 ####[facility] LABIA [id number] [place] [address] [place] [id number] EVAL INTERPon 01-14 [id number] INTERP Normal [facility] Comment on above: Order Comment: Nicole griffiths Type: BLOOD SPECIMENOrdering Facility: [facility] Address: [address] [place] [address] Result Comment: Hernán al - See comment below.[id number] ACTIVITY ASSAY: [id number] activity was measured using fluorescence resonance energy transfer (FRET) technology with a recombinant VWF86 substrate. The TDCRYC79 activity level is normal.[id number] INHIBITOR SCREEN AND/OR INHIBITOR ASSAY: Not indicated with normal PXKCKD37 activity.SUMMARY: There is no current laboratory evidence for thrombotic thrombocytopenic purpura (TTP). History of TTP noted. Current results suggest TTP in remission.Correlation between clinical findings, transfusion therapy and SGZRJE60 activity and inhibitor assay results is suggested. Performed By: #### A DM13, [id number] ####[facility] [id number] [place] [address] [place] [id number] PATHOLOGIST INTERP Reviewed by Claudia Dumont M.D., Ph.D Normal [facility] Comment on above: Order Comment: Nicole griffiths Type: BLOOD SPECIMENOrdering Facility: [facility] Address: [address] [place] [address] Performed By: #### A DM13, [id number] ####[facility] [id number] [place] [address] [place] [id number] EVALUATIONon 2024 vWf cleaving protease actual/normal Chromogenic method (PPP) [Rel catalytic activity/Vol] 111 % Normal 60-121 [facility] Comment on above: Order Comment: Nicole griffiths Type: BLOOD SPECIMENOrdering Facility: [facility] Address: [address] [place] [address] Result Comment: This test was developed, and its performance characteristics determined by the [facility] Department of Pathology and Laboratory Medicine. It has not been cleared or approved by the FDA. The [facility] Department of Pathology and Laboratory Medicine is regulated under CLIA as qualified to perform high-complexity testing. This test is used for clinical purposes. It should not be regarded as investigational or for research. Performed By: #### A DM13, [id number] ####[facility] LABCLIA [id number] [place] [address] [place] CBC W Auto Differential pane l (Bld)on 01-14-2025 Basophils (Bld) [#/Vol] 0.07 10*3/uL Normal <0.11 [facility] Comment on above: Order Comment: Speci men Type: BLOOD SPECIMENOrdering Facility: [facility] Address: [address] [place] [address] Performed By: #### 5 7021-8 ####[facility] LABCLIA [id number] [place] [address] Basophils/100 WBC (Bld) 0.8 % Normal [facility] Comment on above: Order Comment: Speci men Type: BLOOD SPECIMENOrdering Facility: [facility] Address: [address] [place] [address] Performed By: #### 5 7021-8 ####[facility] LABIA [id number] [place] [address] Differential cell count method Nom (Bld) Auto Normal [facility] Comment on above: Order Comment: Speci men Type: BLOOD SPECIMENOrdering Facility: [facility] Address: [address] [place] [address] Performed By: #### 5 7021-8 ####[facility] LABCLIA [id number] [place] [address] Eosinophils (Bld) [#/Vol] 0.19 10*3/uL Normal <0.46 [facility] Comment on above: Order Comment: Speci men Type: BLOOD SPECIMENOrdering Facility: [facility] Address: [address] [place] [address] Performed By: #### 5 7021-8 ####[facility] LABCLIA [id number] [place] [address] Eosinophils/100 WBC (Bld) 2.2 % Normal [facility] Comment on above: Order Comment: Speci men Type: BLOOD SPECIMENOrdering Facility: [facility] Address: [address] [place] [address] Performed By: #### 5 7021-8 ####[facility] LABCLIA [id number] [place] [address] Erythrocyte distribution width (RBC) [Ratio] 12.7 % Normal 11.5-15.0 [facility] Comment on above: Order Comment: Speci men Type: BLOOD SPECIMENOrdering Facility: [facility] Address: [address] [place] [address] Performed By: #### 5 7021-8 ####[facility] LABCLIA [id number] [place] [address] Hematocrit (Bld) [Volume fraction] 43.6 % Normal 39.0-51.0 [facility] Comment on above: Order Comment: Speci men Type: BLOOD SPECIMENOrdering Facility: [facility] Address: [address] [place] [address] Performed By: #### 5 7021-8 ####[facility] LABCLIA [id number] [place] [address] Hemoglobin (Bld) [Mass/Vol] 14.7 g/dL Normal 13.0-17.0 [facility] Comment on above: Order Comment: Speci men Type: BLOOD SPECIMENOrdering Facility: [facility] Address: [address] [place] [address] Performed By: #### 5 7021-8 ####[facility] LABCLIA [id number] [place] [address] Immature granulocytes (Bld) [#/Vol] 0.04 10*3/uL Normal <0.10 [facility] Comment on above: Order Comment: Speci men Type: BLOOD SPECIMENOrdering Facility: [facility] Address: [address] [place] [address] Performed By: #### 5 7021-8 ####[facility] LABCLIA [id number] [place] [address] Immature granulocytes/100 WBC (Bld) 0.5 % Normal [facility] Comment on above: Order Comment: Speci men Type: BLOOD SPECIMENOrdering Facility: [facility] Address: [address] [place] [address] Performed By: #### 5 7021-8 ####[facility] LABCLIA [id number] [place] [address] Lymphocytes (Bld) [#/Vol] 3.11 10*3/uL Normal 1.00-4.00 [facility] Comment on above: Order Comment: Speci men Type: BLOOD SPECIMENOrdering Facility: [facility] Address: [address] [place] [address] Performed By: #### 5 7021-8 ####[facility] LABCLIA [id number] [place] [address] Lymphocytes/100 WBC (Bld) 35.6 % Normal [facility] Comment on above: Order Comment: Speci men Type: BLOOD SPECIMENOrdering Facility: [facility] Address: [address] [place] [address] Performed By: #### 5 7021-8 ####[facility] LABCLIA [id number] [place] [address] MCH (RBC) [Entitic mass] 30.8 pg Normal 26.0-34.0 [facility] Comment on above: Order Comment: Speci men Type: BLOOD SPECIMENOrdering Facility: [facility] Address: [address] [place] [address] Performed By: #### 5 7021-8 ####[facility] LABCLIA [id number] [place] [address] MCHC (RBC) [Mass/Vol] 33.7 g/dL Normal 30.5-36.0 [facility] Comment on above: Order Comment: Speci men Type: BLOOD SPECIMENOrdering Facility: [facility] Address: [address] [place] [address] Performed By: #### 5 7021-8 ####[facility] LABCLIA [id number] [place] [address] MCV (RBC) [Entitic vol] 91.2 fL Normal 80.0-100.0 [facility] Comment on above: Order Comment: Speci men Type: BLOOD SPECIMENOrdering Facility: [facility] Address: [address] [place] [address] Performed By: #### 5 7021-8 ####[facility] LABCLIA [id number] [place] [address] Monocytes (Bld) [#/Vol] 0.87 10*3/uL High <0.87 [facility] Comment on above: Order Comment: Speci men Type: BLOOD SPECIMENOrdering Facility: [facility] Address: [address] [place] [address] Performed By: #### 5 7021-8 ####[facility] LABCLIA [id number] [place] [address] Monocytes/100 WBC (Bld) 10.0 % Normal [facility] Comment on above: Order Comment: Speci men Type: BLOOD SPECIMENOrdering Facility: [facility] Address: [address] [place] [address] Performed By: #### 5 7021-8 ####[facility] LABCLIA [id number] [place] [address] Neutrophils (Bld) [#/Vol] 4.46 10*3/uL Normal 1.45-7.50 [facility] Comment on above: Order Comment: Speci men Type: BLOOD SPECIMENOrdering Facility: [facility] Address: [address] [place] [address] Performed By: #### 5 7021-8 ####[facility] LABCLIA [id number] [place] [address] Neutrophils/100 WBC (Bld) 50.9 % Normal [facility] Comment on above: Order Comment: Speci men Type: BLOOD SPECIMENOrdering Facility: [facility] Address: [address] [place] [address] Performed By: #### 5 7021-8 ####[facility] LABCLIA [id number] [place] [address] Nucleated RBC (Bld) [#/Vol] 10*3/uL Normal <0.01 [facility] Comment on above: Order Comment: Speci men Type: BLOOD SPECIMENOrdering Facility: [facility] Address: [address] [place] [address] Performed By: #### 5 7021-8 ####[facility] LABCLIA [id number] [place] [address] Nucleated RBC/100 WBC (Bld) [Ratio] 0.0 /100 WBC Normal [facility] Comment on above: Order Comment: Speci men Type: BLOOD SPECIMENOrdering Facility: [facility] Address: [address] [place] [address] Performed By: #### 5 7021-8 ####[facility] LABCLIA [id number] [place] [address] Platelet mean volume (Bld) [Entitic vol] 9.2 fL Normal 9.0-12.7 [facility] Comment on above: Order Comment: Speci men Type: BLOOD SPECIMENOrdering Facility: [facility] Address: [address] [place] [address] Performed By: #### 5 7021-8 ####[facility] LABCLIA [id number] [place] [address] Platelets (Bld) [#/Vol] 299 10*3/uL Normal 150-400 [facility] Comment on above: Order Comment: Speci men Type: BLOOD SPECIMENOrdering Facility: [facility] Address: [address] [place] [address] Performed By: #### 5 7021-8 ####[facility] LAB[facility] [id number] [place] [address] RBC (Bld) [#/Vol] 4.78 10*6/uL Normal 4.20-6.00 [facility] Comment on above: Order Comment: Speci men Type: BLOOD SPECIMENOrdering Facility: [facility] Address: [address] [place] [address] Performed By: #### 5 7021-8 ####[facility] LABIA [id number] [place] [address] WBC (Bld) [#/Vol] 8.74 10*3/uL Normal 3.70-11.00 [facility] Comment on above: Order Comment: Speci men Type: BLOOD SPECIMENOrdering Facility: [facility] Address: [address] [place] [address] Performed By: #### 5 7021-8 ####[facility] LABIA [id number] [place] [address] Comprehensive metabolic 2000 panelon 01-14-2025 Albumin [Mass/Vol] 4.3 g/dL Normal 3.9-4.9 [facility] Comment on above: Order Comment: Speci men Type: BLOOD SPECIMENOrdering Facility: [facility] Address: [address] [place] [address] Performed By: #### 2 4323-8 ####[facility] LABIA [id number] [place] [address] ALP [Catalytic activity/Vol] 100 U/L Normal 38-113 [facility] Comment on above: Order Comment: Speci men Type: BLOOD SPECIMENOrdering Facility: [facility] Address: [address] [place] [address] Performed By: #### 2 4323-8 ####[facility] LABCLIA [id number] [place] [address] ALT [Catalytic activity/Vol] 88 U/L High 10-54 [facility] Comment on above: Order Comment: Speci men Type: BLOOD SPECIMENOrdering Facility: [facility] Address: [address] [place] [address] Performed By: #### 2 4323-8 ####[facility] LABCLIA [id number] [place] [address] Anion gap [Moles/Vol] 10 mmol/L Normal 8-15 [facility] Comment on above: Order Comment: Speci men Type: BLOOD SPECIMENOrdering Facility: [facility] Address: [address] [place] [address] Performed By: #### 2 4323-8 ####[facility] LABCLIA [id number] [place] [address] AST [Catalytic activity/Vol] 29 U/L Normal 14-40 [facility] Comment on above: Order Comment: Speci men Type: BLOOD SPECIMENOrdering Facility: [facility] Address: [address] [place] [address] Performed By: #### 2 4323-8 ####[facility] LABCLIA [id number] [place] [address] Bilirubin [Mass/Vol] 0.7 mg/dL Normal 0.2-1.3 [facility] Comment on above: Order Comment: Speci men Type: BLOOD SPECIMENOrdering Facility: [facility] Address: [address] [place], [place] [address] Performed By: #### 2 4323-8 ####[facility] LABCLIA [id number] [place] [address] Calcium [Mass/Vol] 9.6 mg/dL Normal 8.5-10.2 [facility] Comment on above: Order Comment: Speci men Type: BLOOD SPECIMENOrdering Facility: [facility] Address: [address] [place] [address] Performed By: #### 2 4323-8 ####[facility] LABCLIA [id number] [place] [address] Chloride [Moles/Vol] 101 mmol/L Normal 98-107 [facility] Comment on above: Order Comment: Speci men Type: BLOOD SPECIMENOrdering Facility: [facility] Address: [address] [place] [address] Performed By: #### 2 4323-8 ####[facility] LABCLIA [id number] [place] [address] CO2 [Moles/Vol] 25 mmol/L Normal 22-30 [facility] Comment on above: Order Comment: Speci men Type: BLOOD SPECIMENOrdering Facility: [facility] Address: [address] [place] [address] Performed By: #### 2 4323-8 ####[facility] LABCLIA [id number] [place] [address] Creatinine [Mass/Vol] 0.82 mg/dL Normal 0.73-1.22 [facility] Comment on above: Order Comment: Speci men Type: BLOOD SPECIMENOrdering Facility: [facility] Address: [address] [place] [address] Performed By: #### 2 4323-8 ####[facility] LABCLIA [id number] [place] [address] Creatinine and Glomerular filtration rate.predicted panel (S/P/Bld) 117 mL/min/1.73m??? Normal >=60 [facility] Comment on above: Order Comment: Speci men Type: BLOOD SPECIMENOrdering Facility: [facility] Address: [address] [place] [address] Result Comment: Julita mated Glomerular Filtration Rate (eGFR) is calculated using the 2020 CKD-EPI creatinine equation. This equation utilizes serum creatinine, sex, and age as parameters. The creatinine assay has traceable calibration to isotope dilution-mass spectrometry. Refer to KDIGO guidelines for clinical interpretation. In patients with unstable renal function, e.g. those with acute kidney injury, the eGFR may not accurately reflect actual GFR. Performed By: #### 2 4323-8 ####[facility] LABCLIA [id number] [place] [address] Glucose [Mass/Vol] 111 mg/dL High 74-99 [facility] Comment on above: Order Comment: Nicole griffiths Type: BLOOD SPECIMENOrdering Facility: [facility] Address: [address] [place] [address] Result Comment: The [place] [employer] (ADA) provides guidance for cutoff values for fasting glucose and random glucose. The ADA defines fasting as no caloric intake for at least 8 hours. Fasting plasma glucose results between 100 to 125 mg/dL indicate increased risk for diabetes (prediabetes).Fasting plasma glucose results greater than or equal to 126 mg/dL meet the criteria for diagnosis of diabetes. In the absence of unequivocal hyperglycemia, results should be confirmed by repeat testing. In a patient with classic symptoms of hyperglycemia or hyperglycemic crisis, random plasma glucose results greater than or equal to 200 mg/dL meet the criteria for diagnosis of diabetes.Reference: Standards of Medical Care in Diabetes 2016, [place] [employer]. Diabetes Care. 2016.39(Suppl 1). Performed By: #### 2 4323-8 ####[facility] LABCLIA [id number] [place] [address] Potassium [Moles/Vol] 4.3 mmol/L Normal 3.7-5.1 [facility] Comment on above: Order Comment: Nicole griffiths Type: BLOOD SPECIMENOrdering Facility: [facility] Address: [address] [place] [address] Performed By: #### 2 4323-8 ####[facility] LABCLIA [id number] [place] [address] Protein [Mass/Vol] 6.8 g/dL Normal 6.3-8.0 [facility] Comment on above: Order Comment: Nicole griffiths Type: BLOOD SPECIMENOrdering Facility: [facility] Address: [address] [place] [address] Performed By: #### 2 4323-8 ####[facility] LABCLIA [id number] [place] [address] Sodium [Moles/Vol] 136 mmol/L Normal 136-144 [facility] Comment on above: Order Comment: Speci men Type: BLOOD SPECIMENOrdering Facility: [facility] Address: [address] [place] [address] Performed By: #### 2 4323-8 ####[facility] LABCLIA [id number] [place] [address] Urea nitrogen [Mass/Vol] 8 mg/dL Low 9-24 [facility] Comment on above: Order Comment: Speci men Type: BLOOD SPECIMENOrdering Facility: [facility] Address: [address] [place] [address] Performed By: #### 2 4323-8 ####[facility] LABCLIA [id number] [place] [address] Haptoglob SerPl-mCncon 01-14 Haptoglobin [Mass/Vol] 158 mg/dL Normal 31-238 [facility] Comment on above: Order Comment: Speci men Type: BLOOD SPECIMENOrdering Facility: [facility] Address: [address] [place] [address] Performed By: #### 4 542-7 ####[facility] LABCLIA [id number] [place] [address] [place] [id number] EV[place] INTERPon 01-07 [id number] INTERP Normal [facility] Comment on above: Order Comment: Speci men Type: BLOOD SPECIMENOrdering Facility: [facility] Address: [address] [place] [address] Result Comment: Hernán al - See comment below.[id number] ACTIVITY ASSAY: [id number] activity was measured using fluorescence resonance energy transfer (FRET) technology with a recombinant VWF86 substrate. The KDHKII30 activity level is normal.SUMMARY: There is no current laboratory evidence for thrombotic thrombocytopenic purpura (TTP).Correlation between clinical findings, transfusion therapy and OWBUIK06 activity and inhibitor assay results is suggested. Performed By: #### L FS7643, ADM13 ####[facility] [id number] [address] [place] [id number] PATHOLOGIST INTERP Reviewed by Matthew Gibbs MD Normal [facility] Comment on above: Order Comment: Speci men Type: BLOOD SPECIMENOrdering Facility: [facility] Address: [address] [place] [address] Performed By: #### L [id number], ADM13 ####[facility] [id number] [address] OF [place] [id number] EVALUATIONon 2024 vWf cleaving protease actual/normal Chromogenic method (PPP) [Rel catalytic activity/Vol] 96 % Normal 60-121 [facility] Comment on above: Order Comment: Nicole griffiths Type: BLOOD SPECIMENOrdering Facility: [facility] Address: [address] [place] [address] Result Comment: This test was developed, and its performance characteristics determined by the [facility] Department of Pathology and Laboratory Medicine. It has not been cleared or approved by the FDA. The [facility] Department of Pathology and Laboratory Medicine is regulated under CLIA as qualified to perform high-complexity testing. This test is used for clinical purposes. It should not be regarded as investigational or for research. Performed By: #### L UK8802, ADM13 ####[facility] [id number] [place] [id number] [place] CBC W Auto Differential pane l (Bld)on 01-07-2025 Basophils (Bld) [#/Vol] 0.09 10*3/uL [facility] Basophils/100 WBC (Bld) 1.2 % [facility] Differential cell count method Nom (Bld) Auto [facility] Eosinophils (Bld) [#/Vol] 0.43 10*3/uL [facility] Eosinophils/100 WBC (Bld) 5.6 % [facility] Erythrocyte distribution width (RBC) [Ratio] 13.1 % 11.5 - 15.0 % [facility] Hematocrit (Bld) [Volume fraction] 42.6 % 39.0 - 51.0 % [facility] Hemoglobin (Bld) [Mass/Vol] 14.5 g/dL 13.0 - 17.0 g/dL [facility] Immature granulocytes (Bld) [#/Vol] 0.03 10*3/uL [facility] Immature granulocytes/100 WBC (Bld) 0.4 % [facility] Interpretation and review of laboratory results Abnormal [facility] Lymphocytes (Bld) [#/Vol] 2.46 10*3/uL [facility] Lymphocytes/100 WBC (Bld) 32 % [facility] MCH (RBC) [Entitic mass] 30.7 pg 26.0 - 34.0 pg [facility] MCHC (RBC) [Mass/Vol] 34 g/dL 30.5 - 36.0 g/dL [facility] MCV (RBC) [Entitic vol] 90.3 fL 80.0 - 100.0 fL [facility] Monocytes (Bld) [#/Vol] 0.91 10*3/uL High [facility] Monocytes/100 WBC (Bld) 11.8 % [facility] Neutrophils (Bld) [#/Vol] 3.77 10*3/uL [facility] Neutrophils/100 WBC (Bld) 49 % [facility] Nucleated RBC (Bld) [#/Vol] [facility] Nucleated RBC/100 WBC (Bld) [Ratio] 0 % /100 WBC [facility] Platelet mean volume (Bld) [Entitic vol] 9.3 fL 9.0 - 12.7 fL [facility] Platelets (Bld) [#/Vol] 267 10*3/uL [facility] RBC (Bld) [#/Vol] 4.72 10*6/uL 4.20 - 6.0 0 m/uL [facility] WBC (Bld) [#/Vol] 7.69 10*3/uL [facility] Basophils (Bld) [#/Vol] 0.09 10*3/uL Normal <0.11 [facility] Comment on above: Order Comment: Speci men Type: BLOOD SPECIMENOrdering Facility: [facility] Address: [address] [place] [address] Performed By: #### 5 7021-8 ####[facility] LABCLIA [id number] [place] [address] Basophils/100 WBC (Bld) 1.2 % Normal [facility] Comment on above: Order Comment: Speci men Type: BLOOD SPECIMENOrdering Facility: [facility] Address: [address] [place] [address] Performed By: #### 5 7021-8 ####[facility] LABCLIA [id number] [place] [address] Differential cell count method Nom (Bld) Auto Normal [facility] Comment on above: Order Comment: Speci men Type: BLOOD SPECIMENOrdering Facility: [facility] Address: [address] [place] [address] Performed By: #### 5 7021-8 ####[facility] LABCLIA [id number] [place] [address] Eosinophils (Bld) [#/Vol] 0.43 10*3/uL Normal <0.46 [facility] Comment on above: Order Comment: Speci men Type: BLOOD SPECIMENOrdering Facility: [facility] Address: [address] [place] [address] Performed By: #### 5 7021-8 ####[facility] LABCLIA [id number] [place] [address] Eosinophils/100 WBC (Bld) 5.6 % Normal [facility] Comment on above: Order Comment: Speci men Type: BLOOD SPECIMENOrdering Facility: [facility] Address: [address] [place] [address] Performed By: #### 5 7021-8 ####[facility] LABCLIA [id number] [place] [address] Erythrocyte distribution width (RBC) [Ratio] 13.1 % Normal 11.5-15.0 [facility] Comment on above: Order Comment: Speci men Type: BLOOD SPECIMENOrdering Facility: [facility] Address: [address] [place] [address] Performed By: #### 5 7021-8 ####[facility] LABCLIA [id number] [place] [address] Hematocrit (Bld) [Volume fraction] 42.6 % Normal 39.0-51.0 [facility] Comment on above: Order Comment: Speci men Type: BLOOD SPECIMENOrdering Facility: [facility] Address: [address] [place] [address] Performed By: #### 5 7021-8 ####[facility] LABCLIA [id number] [place] [address] Hemoglobin (Bld) [Mass/Vol] 14.5 g/dL Normal 13.0-17.0 [facility] Comment on above: Order Comment: Speci men Type: BLOOD SPECIMENOrdering Facility: [facility] Address: [address] [place] [address] Performed By: #### 5 7021-8 ####[facility] LABCLIA [id number] [place] [address] Immature granulocytes (Bld) [#/Vol] 0.03 10*3/uL Normal <0.10 [facility] Comment on above: Order Comment: Speci men Type: BLOOD SPECIMENOrdering Facility: [facility] Address: [address] [place] [address] Performed By: #### 5 7021-8 ####[facility] LABCLIA [id number] [place] [address] Immature granulocytes/100 WBC (Bld) 0.4 % Normal [facility] Comment on above: Order Comment: Speci men Type: BLOOD SPECIMENOrdering Facility: [facility] Address: [address] [place] [address] Performed By: #### 5 7021-8 ####[facility] LABCLIA [id number] [place] [address] Lymphocytes (Bld) [#/Vol] 2.46 10*3/uL Normal 1.00-4.00 [facility] Comment on above: Order Comment: Speci men Type: BLOOD SPECIMENOrdering Facility: [facility] Address: [address] [place] [address] Performed By: #### 5 7021-8 ####[facility] LABCLIA [id number] [place] [address] Lymphocytes/100 WBC (Bld) 32.0 % Normal [facility] Comment on above: Order Comment: Speci men Type: BLOOD SPECIMENOrdering Facility: [facility] Address: [address] [place] [address] Performed By: #### 5 7021-8 ####[facility] LABIA [id number] [place] [address] MCH (RBC) [Entitic mass] 30.7 pg Normal 26.0-34.0 [facility] Comment on above: Order Comment: Speci men Type: BLOOD SPECIMENOrdering Facility: [facility] Address: [address] [place] [address] Performed By: #### 5 7021-8 ####[facility] LABCLIA [id number] [place] [address] MCHC (RBC) [Mass/Vol] 34.0 g/dL Normal 30.5-36.0 [facility] Comment on above: Order Comment: Speci men Type: BLOOD SPECIMENOrdering Facility: [facility] Address: [address] [place] [address] Performed By: #### 5 7021-8 ####[facility] LABIA [id number] [place] [address] MCV (RBC) [Entitic vol] 90.3 fL Normal 80.0-100.0 [facility] Comment on above: Order Comment: Speci men Type: BLOOD SPECIMENOrdering Facility: [facility] Address: [address] [place] [address] Performed By: #### 5 7021-8 ####[facility] LABCLIA [id number] [place] [address] Monocytes (Bld) [#/Vol] 0.91 10*3/uL High <0.87 [facility] Comment on above: Order Comment: Speci men Type: BLOOD SPECIMENOrdering Facility: [facility] Address: [address] [place] [address] Performed By: #### 5 7021-8 ####[facility] LABCLIA [id number] [place] [address] Monocytes/100 WBC (Bld) 11.8 % Normal [facility] Comment on above: Order Comment: Speci men Type: BLOOD SPECIMENOrdering Facility: [facility] Address: [address] [place] [address] Performed By: #### 5 7021-8 ####[facility] LABCLIA [id number] [place] [address] Neutrophils (Bld) [#/Vol] 3.77 10*3/uL Normal 1.45-7.50 [facility] Comment on above: Order Comment: Speci men Type: BLOOD SPECIMENOrdering Facility: [facility] Address: [address] [place] [address] Performed By: #### 5 7021-8 ####[facility] LABCLIA [id number] [place] [address] Neutrophils/100 WBC (Bld) 49.0 % Normal [facility] Comment on above: Order Comment: Speci men Type: BLOOD SPECIMENOrdering Facility: [facility] Address: [address] [place] [address] Performed By: #### 5 7021-8 ####[facility] LABCLIA [id number] [place] [address] Nucleated RBC (Bld) [#/Vol] 10*3/uL Normal <0.01 [facility] Comment on above: Order Comment: Speci men Type: BLOOD SPECIMENOrdering Facility: [facility] Address: [address] [place] [address] Performed By: #### 5 7021-8 ####[facility] LABCLIA [id number] [place] [address] Nucleated RBC/100 WBC (Bld) [Ratio] 0.0 /100 WBC Normal [facility] Comment on above: Order Comment: Speci men Type: BLOOD SPECIMENOrdering Facility: [facility] Address: [address] [place] [address] Performed By: #### 5 7021-8 ####[facility] LABCLIA [id number] [place] [address] Platelet mean volume (Bld) [Entitic vol] 9.3 fL Normal 9.0-12.7 [facility] Comment on above: Order Comment: Speci men Type: BLOOD SPECIMENOrdering Facility: [facility] Address: [address] [place] [address] Performed By: #### 5 7021-8 ####[facility] LABCLIA [id number] [place] [address] Platelets (Bld) [#/Vol] 267 10*3/uL Normal 150-400 [facility] Comment on above: Order Comment: Speci men Type: BLOOD SPECIMENOrdering Facility: [facility] Address: [address] [place] [address] Performed By: #### 5 7021-8 ####[facility] LABCLIA [id number] [place] [address] RBC (Bld) [#/Vol] 4.72 10*6/uL Normal 4.20-6.00 [facility] Comment on above: Order Comment: Speci men Type: BLOOD SPECIMENOrdering Facility: [facility] Address: [address] [place] [address] Performed By: #### 5 7021-8 ####[facility] LABCLIA [id number] [place] [address] WBC (Bld) [#/Vol] 7.69 10*3/uL Normal 3.70-11.00 [facility] Comment on above: Order Comment: Speci men Type: BLOOD SPECIMENOrdering Facility: [facility] Address: [address] [place] [address] Performed By: #### 5 7021-8 ####[facility] LABCLIA [id number] [place] [address] Comprehensive metabolic 2000 panelOrdered By: You Todd on 01-07-2025 Albumin [Mass/Vol] 4.2 g/dL 3.9 - 4.9 g/dL [facility] ALP [Catalytic activity/Vol] 100 U/L 38 - 113 U/L [facility] ALT [Catalytic activity/Vol] 91 U/L High 10 - 54 U/L [facility] Anion gap [Moles/Vol] 11 mmol/L 8 - 15 mmol/L [facility] AST [Catalytic activity/Vol] 45 U/L High 14 - 40 U/L [facility] Bilirubin [Mass/Vol] 0.8 mg/dL 0.2 - 1 .3 mg/dL [facility] Calcium [Mass/Vol] 9.4 mg/dL 8.5 - 10. 2 mg/dL [facility] Chloride [Moles/Vol] 106 mmol/L 98 - 10 7 mmol/L [facility] CO2 [Moles/Vol] 24 mmol/L 22 - 30 mmol/L [facility] Creatinine [Mass/Vol] 0.73 mg/dL 0.73 - 1.22 mg/dL [facility] GFR/1.73 sq M.predicted among non-blacks MDRD (S/P/Bld) [Vol rate/Area] 121 mL/min/{1.73_m2} - PINF [facility] Comment on above: Estimated Glomerular Filtration Rate (eGFR) is calculated using the 2020 CKD-EPI creatinine equation. This equation utilizes serum creatinine, sex, and age as parameters. The creatinine assay has traceable calibration to isotope dilution-mass spectrometry. Refer to KDIGO guidelines for clinical interpretation. In patients with unstable renal function, e.g. those with acute kidney injury, the eGFR may not accurately reflect actual GFR. Glucose [Mass/Vol] 115 mg/dL High 74 - 99 mg/dL [facility] Comment on above: The [place] Diabete s Association (ADA) provides guidance for cutoff values for fasting glucose and random glucose. The ADA defines fasting as no caloric intake for at least 8 hours. Fasting plasma glucose results between 100 to 125 mg/dL indicate increased risk for diabetes (prediabetes). Fasting plasma glucose results greater than or equal to 126 mg/dL meet the criteria for diagnosis of diabetes. In the absence of unequivocal hyperglycemia, results should be confirmed by repeat testing. In a patient with classic symptoms of hyperglycemia or hyperglycemic crisis, random plasma glucose results greater than or equal to 200 mg/dL meet the criteria for diagnosis of diabetes. Reference: Standards of Medical Care in Diabetes 2016, [place] [employer]. Diabetes Care. 2016.39(Suppl 1). Interpretation and review of laboratory results Abnormal [facility] Potassium [Moles/Vol] 3.7 mmol/L 3.7 - 5.1 mmol/L [facility] Protein [Mass/Vol] 6.9 g/dL 6.3 - 8.0 g/dL [facility] Sodium [Moles/Vol] 141 mmol/L 136 - 144 mmol/L [facility] Urea nitrogen [Mass/Vol] 10 mg/dL 9 - 24 mg/dL [facility] Comprehensive metabolic 2000 panelon 01-07-2025 Albumin [Mass/Vol] 4.2 g/dL Normal 3.9-4.9 [facility] Comment on above: Order Comment: Speci men Type: BLOOD SPECIMENOrdering Facility: [facility] Address: [address] [place] [address] Performed By: #### 2 4323-8 ####[facility] LABCLIA [id number] [place] [address] ALP [Catalytic activity/Vol] 100 U/L Normal 38-113 [facility] Comment on above: Order Comment: Speci men Type: BLOOD SPECIMENOrdering Facility: [facility] Address: [address] [place] [address] Performed By: #### 2 4323-8 ####[facility] LABCLIA [id number] [place] [address] ALT [Catalytic activity/Vol] 91 U/L High 10-54 [facility] Comment on above: Order Comment: Speci men Type: BLOOD SPECIMENOrdering Facility: [facility] Address: [address] [place] [address] Performed By: #### 2 4323-8 ####[facility] LABCLIA [id number] [place] [address] Anion gap [Moles/Vol] 11 mmol/L Normal 8-15 [facility] Comment on above: Order Comment: Speci men Type: BLOOD SPECIMENOrdering Facility: [facility] Address: [address] [place] [address] Performed By: #### 2 4323-8 ####[facility] LABCLIA [id number] [place] [address] AST [Catalytic activity/Vol] 45 U/L High 14-40 [facility] Comment on above: Order Comment: Speci men Type: BLOOD SPECIMENOrdering Facility: [facility] Address: [address] [place] [address] Performed By: #### 2 4323-8 ####[facility] LABCLIA [id number] [place] [address] Bilirubin [Mass/Vol] 0.8 mg/dL Normal 0.2-1.3 [facility] Comment on above: Order Comment: Speci men Type: BLOOD SPECIMENOrdering Facility: [facility] Address: [address] [place], [place] [address] Performed By: #### 2 4323-8 ####[facility] LABCLIA [id number] [place] [address] Calcium [Mass/Vol] 9.4 mg/dL Normal 8.5-10.2 [facility] Comment on above: Order Comment: Speci men Type: BLOOD SPECIMENOrdering Facility: [facility] Address: [address] [place] [address] Performed By: #### 2 4323-8 ####[facility] LABCLIA [id number] [place] [address] Chloride [Moles/Vol] 106 mmol/L Normal 98-107 [facility] Comment on above: Order Comment: Speci men Type: BLOOD SPECIMENOrdering Facility: [facility] Address: [address] [place] [address] Performed By: #### 2 4323-8 ####[facility] LABCLIA [id number] [place] [address] CO2 [Moles/Vol] 24 mmol/L Normal 22-30 [facility] Comment on above: Order Comment: Speci men Type: BLOOD SPECIMENOrdering Facility: [facility] Address: [address] [place] [address] Performed By: #### 2 4323-8 ####[facility] LABCLIA [id number] [place] [address] Creatinine [Mass/Vol] 0.73 mg/dL Normal 0.73-1.22 [facility] Comment on above: Order Comment: Speci men Type: BLOOD SPECIMENOrdering Facility: [facility] Address: [address] [place] [address] Performed By: #### 2 4323-8 ####[facility] LABCLIA [id number] [place] [address] Creatinine and Glomerular filtration rate.predicted panel (S/P/Bld) 121 mL/min/1.73m??? Normal >=60 [facility] Comment on above: Order Comment: Speci men Type: BLOOD SPECIMENOrdering Facility: [facility] Address: [address] [place] [address] Result Comment: Julita mated Glomerular Filtration Rate (eGFR) is calculated using the 2020 CKD-EPI creatinine equation. This equation utilizes serum creatinine, sex, and age as parameters. The creatinine assay has traceable calibration to isotope dilution-mass spectrometry. Refer to KDIGO guidelines for clinical interpretation. In patients with unstable renal function, e.g. those with acute kidney injury, the eGFR may not accurately reflect actual GFR. Performed By: #### 2 4323-8 ####[facility] LABCLIA [id number] [place] [address] Glucose [Mass/Vol] 115 mg/dL High 74-99 [facility] Comment on above: Order Comment: Speci men Type: BLOOD SPECIMENOrdering Facility: [facility] Address: [address] [place] [address] Result Comment: The [place] Diabetes Association (ADA) provides guidance for cutoff values for fasting glucose and random glucose. The ADA defines fasting as no caloric intake for at least 8 hours. Fasting plasma glucose results between 100 to 125 mg/dL indicate increased risk for diabetes (prediabetes).Fasting plasma glucose results greater than or equal to 126 mg/dL meet the criteria for diagnosis of diabetes. In the absence of unequivocal hyperglycemia, results should be confirmed by repeat testing. In a patient with classic symptoms of hyperglycemia or hyperglycemic crisis, random plasma glucose results greater than or equal to 200 mg/dL meet the criteria for diagnosis of diabetes.Reference: Standards of Medical Care in Diabetes 2016, [place] [employer]. Diabetes Care. 2016.39(Suppl 1). Performed By: #### 2 4323-8 ####[facility] LABCLIA [id number] [place] [address] Potassium [Moles/Vol] 3.7 mmol/L Normal 3.7-5.1 [facility] Comment on above: Order Comment: Savannahi aye Type: BLOOD SPECIMENOrdering Facility: [facility] Address: [address] [place] [address] Performed By: #### 2 4323-8 ####[facility] LABCLIA [id number] [place] [address] Protein [Mass/Vol] 6.9 g/dL Normal 6.3-8.0 [facility] Comment on above: Order Comment: Speci men Type: BLOOD SPECIMENOrdering Facility: [facility] Address: [address] [place] [address] Performed By: #### 2 4323-8 ####[facility] LABCLIA [id number] [place] [address] Sodium [Moles/Vol] 141 mmol/L Normal 136-144 [facility] Comment on above: Order Comment: Speci men Type: BLOOD SPECIMENOrdering Facility: [facility] Address: [address] [place] [address] Performed By: #### 2 4323-8 ####[facility] LABCLIA [id number] [place] [address] Urea nitrogen [Mass/Vol] 10 mg/dL Normal 9-24 [facility] Comment on above: Order Comment: Speci men Type: BLOOD SPECIMENOrdering Facility: [facility] Address: [address] [place] [address] Performed By: #### 2 4323-8 ####[facility] LABCLIA [id number] [place] [address] Haptoglob SerPl-mCncon 01-07 Haptoglobin [Mass/Vol] 176 mg/dL Normal 31-238 [facility] Comment on above: Order Comment: Speci men Type: BLOOD SPECIMENOrdering Facility: [facility] Address: [address] [place] [address] Performed By: #### 4 542-7 ####[facility] LABCLIA [id number] [place] [address] [place] [id number] [place] INTERPon 12-31 [id number] INTERP Normal [facility] Comment on above: Order Comment: Speci men Type: BLOOD SPECIMENOrdering Facility: [facility] Address: [address] [place] [address] Result Comment: Norm al - See comment below.[id number] ACTIVITY ASSAY: [id number] activity was measured using fluorescence resonance energy transfer (FRET) technology with a recombinant VWF86 substrate. The ZKHLOB16 activity level is normal.SUMMARY: There is no current laboratory evidence for thrombotic thrombocytopenic purpura (TTP). History of TTP noted. Current results suggest TTP in remission.Correlation between clinical findings, transfusion therapy and FLPHJC59 activity and inhibitor assay results is suggested. Performed By: #### A DM13, [id number] ####[facility] LABCLIA [id number] [place] [id number] [place] [id number] PATHOLOGIST INTERP Reviewed by Claudia Dumont M.D., Ph.D Normal [facility] Comment on above: Order Comment: Nicole griffiths Type: BLOOD SPECIMENOrdering Facility: [facility] Address: [address] [place] [address] Performed By: #### A DM13, [id number] ####[facility] LABIA [id number] [place] [address] [place] [id number] EVALUATIONon 2024 vWf cleaving protease actual/normal Chromogenic method (PPP) [Rel catalytic activity/Vol] 87 % Normal 60-121 [facility] Comment on above: Order Comment: Nicole griffiths Type: BLOOD SPECIMENOrdering Facility: [facility] Address: [address] [place] [address] Result Comment: This test was developed, and its performance characteristics determined by the [facility] Department of Pathology and Laboratory Medicine. It has not been cleared or approved by the FDA. The [facility] Department of Pathology and Laboratory Medicine is regulated under CLIA as qualified to perform high-complexity testing. This test is used for clinical purposes. It should not be regarded as investigational or for research. Performed By: #### A DM13, [id number] ####[facility] LABIA [id number] [place] [address] [place] CBC W Auto Differential pane l (Bld)on 12-31-2024 Basophils (Bld) [#/Vol] 0.08 10*3/[facility] Basophils/100 WBC (Bld) 1.1 % [facility] Differential cell count method Nom (Bld) Auto [facility] Eosinophils (Bld) [#/Vol] 0.25 10*3/uL [facility] Eosinophils/100 WBC (Bld) 3.3 % [facility] Erythrocyte distribution width (RBC) [Ratio] 12.9 % 11.5 - 15.0 % [facility] Hematocrit (Bld) [Volume fraction] 43 % 39.0 - 51.0 % [facility] Hemoglobin (Bld) [Mass/Vol] 14.7 g/dL 13.0 - 17.0 g/dL [facility] Immature granulocytes (Bld) [#/Vol] [facility] Immature granulocytes/100 WBC (Bld) 0.3 % [facility] Lymphocytes (Bld) [#/Vol] 2.22 10*3/uL [facility] Lymphocytes/100 WBC (Bld) 29.4 % [facility] MCH (RBC) [Entitic mass] 30.8 pg 26.0 - 34.0 pg [facility] MCHC (RBC) [Mass/Vol] 34.2 g/dL 30.5 - 36.0 g/dL [facility] MCV (RBC) [Entitic vol] 90 fL 80.0 - 100.0 fL [facility] Monocytes (Bld) [#/Vol] 0.65 10*3/uL [facility] Monocytes/100 WBC (Bld) 8.6 % [facility] Neutrophils (Bld) [#/Vol] 4.34 10*3/uL [facility] Neutrophils/100 WBC (Bld) 57.3 % [facility] Nucleated RBC (Bld) [#/Vol] [facility] Nucleated RBC/100 WBC (Bld) [Ratio] 0 % /100 WBC [facility] Platelet mean volume (Bld) [Entitic vol] 9.5 fL 9.0 - 12.7 fL [facility] Platelets (Bld) [#/Vol] 288 10*3/uL [facility] RBC (Bld) [#/Vol] 4.78 10*6/uL 4.20 - 6.0 0 m/uL [facility] WBC (Bld) [#/Vol] 7.56 10*3/uL [facility] Basophils (Bld) [#/Vol] 0.08 10*3/uL Normal <0.11 [facility] Comment on above: Order Comment: Speci men Type: BLOOD SPECIMENOrdering Facility: [facility] Address: [address] [place] [address] Performed By: #### 5 7021-8 ####[facility] LABCLIA [id number] [place] [address] Basophils/100 WBC (Bld) 1.1 % Normal [facility] Comment on above: Order Comment: Speci men Type: BLOOD SPECIMENOrdering Facility: [facility] Address: [address] [place] [address] Performed By: #### 5 7021-8 ####[facility] LABCLIA [id number] [place] [address] Differential cell count method Nom (Bld) Auto Normal [facility] Comment on above: Order Comment: Speci men Type: BLOOD SPECIMENOrdering Facility: [facility] Address: [address] [place] [address] Performed By: #### 5 7021-8 ####[facility] LABCLIA [id number] [place] [address] Eosinophils (Bld) [#/Vol] 0.25 10*3/uL Normal <0.46 [facility] Comment on above: Order Comment: Speci men Type: BLOOD SPECIMENOrdering Facility: [facility] Address: [address] [place] [address] Performed By: #### 5 7021-8 ####[facility] LABCLIA [id number] [place] [address] Eosinophils/100 WBC (Bld) 3.3 % Normal [facility] Comment on above: Order Comment: Speci men Type: BLOOD SPECIMENOrdering Facility: [facility] Address: [address] [place] [address] Performed By: #### 5 7021-8 ####[facility] LABCLIA [id number] [place] [address] Erythrocyte distribution width (RBC) [Ratio] 12.9 % Normal 11.5-15.0 [facility] Comment on above: Order Comment: Speci men Type: BLOOD SPECIMENOrdering Facility: [facility] Address: [address] [place] [address] Performed By: #### 5 7021-8 ####[facility] LABCLIA [id number] [place] [address] Hematocrit (Bld) [Volume fraction] 43.0 % Normal 39.0-51.0 [facility] Comment on above: Order Comment: Speci men Type: BLOOD SPECIMENOrdering Facility: [facility] Address: [address] [place] [address] Performed By: #### 5 7021-8 ####[facility] LABCLIA [id number] [place] [address] Hemoglobin (Bld) [Mass/Vol] 14.7 g/dL Normal 13.0-17.0 [facility] Comment on above: Order Comment: Speci men Type: BLOOD SPECIMENOrdering Facility: [facility] Address: [address] [place] [address] Performed By: #### 5 7021-8 ####[facility] LABIA [id number] [place] [address] Immature granulocytes (Bld) [#/Vol] 10*3/uL Normal <0.10 [facility] Comment on above: Order Comment: Speci men Type: BLOOD SPECIMENOrdering Facility: [facility] Address: [address] [place] [address] Performed By: #### 5 7021-8 ####[facility] LABCLIA [id number] [place] [address] Immature granulocytes/100 WBC (Bld) 0.3 % Normal [facility] Comment on above: Order Comment: Speci men Type: BLOOD SPECIMENOrdering Facility: [facility] Address: [address] [place] [address] Performed By: #### 5 7021-8 ####[facility] LABCLIA [id number] [place] [address] Lymphocytes (Bld) [#/Vol] 2.22 10*3/uL Normal 1.00-4.00 [facility] Comment on above: Order Comment: Speci men Type: BLOOD SPECIMENOrdering Facility: [facility] Address: [address] [place] [address] Performed By: #### 5 7021-8 ####[facility] LABCLIA [id number] [place] [address] Lymphocytes/100 WBC (Bld) 29.4 % Normal [facility] Comment on above: Order Comment: Speci men Type: BLOOD SPECIMENOrdering Facility: [facility] Address: [address] [place] [address] Performed By: #### 5 7021-8 ####[facility] LABCLIA [id number] [place] [address] MCH (RBC) [Entitic mass] 30.8 pg Normal 26.0-34.0 [facility] Comment on above: Order Comment: Speci men Type: BLOOD SPECIMENOrdering Facility: [facility] Address: [address] [place] [address] Performed By: #### 5 7021-8 ####[facility] LABCLIA [id number] [place] [address] MCHC (RBC) [Mass/Vol] 34.2 g/dL Normal 30.5-36.0 [facility] Comment on above: Order Comment: Speci men Type: BLOOD SPECIMENOrdering Facility: [facility] Address: [address] [place] [address] Performed By: #### 5 7021-8 ####[facility] LABIA [id number] [place] [address] MCV (RBC) [Entitic vol] 90.0 fL Normal 80.0-100.0 [facility] Comment on above: Order Comment: Speci men Type: BLOOD SPECIMENOrdering Facility: [facility] Address: [address] [place] [address] Performed By: #### 5 7021-8 ####[facility] LABCLIA [id number] [place] [address] Monocytes (Bld) [#/Vol] 0.65 10*3/uL Normal <0.87 [facility] Comment on above: Order Comment: Speci men Type: BLOOD SPECIMENOrdering Facility: [facility] Address: [address] [place] [address] Performed By: #### 5 7021-8 ####[facility] LABCLIA [id number] [place] [address] Monocytes/100 WBC (Bld) 8.6 % Normal [facility] Comment on above: Order Comment: Speci men Type: BLOOD SPECIMENOrdering Facility: [facility] Address: [address] [place] [address] Performed By: #### 5 7021-8 ####[facility] LABCLIA [id number] [place] [address] Neutrophils (Bld) [#/Vol] 4.34 10*3/uL Normal 1.45-7.50 [facility] Comment on above: Order Comment: Speci men Type: BLOOD SPECIMENOrdering Facility: [facility] Address: [address] [place] [address] Performed By: #### 5 7021-8 ####[facility] LABCLIA [id number] [place] [address] Neutrophils/100 WBC (Bld) 57.3 % Normal [facility] Comment on above: Order Comment: Speci men Type: BLOOD SPECIMENOrdering Facility: [facility] Address: [address] [place] [address] Performed By: #### 5 7021-8 ####[facility] LABCLIA [id number] [place] [address] Nucleated RBC (Bld) [#/Vol] 10*3/uL Normal <0.01 [facility] Comment on above: Order Comment: Speci men Type: BLOOD SPECIMENOrdering Facility: [facility] Address: [address] [place] [address] Performed By: #### 5 7021-8 ####[facility] LABCLIA [id number] [place] [address] Nucleated RBC/100 WBC (Bld) [Ratio] 0.0 /100 WBC Normal [facility] Comment on above: Order Comment: Speci men Type: BLOOD SPECIMENOrdering Facility: [facility] Address: [address] [place] [address] Performed By: #### 5 7021-8 ####[facility] LABCLIA [id number] [place] [address] Platelet mean volume (Bld) [Entitic vol] 9.5 fL Normal 9.0-12.7 [facility] Comment on above: Order Comment: Speci men Type: BLOOD SPECIMENOrdering Facility: [facility] Address: [address] [place] [address] Performed By: #### 5 7021-8 ####[facility] LABCLIA [id number] [place] [address] Platelets (Bld) [#/Vol] 288 10*3/uL Normal 150-400 [facility] Comment on above: Order Comment: Speci men Type: BLOOD SPECIMENOrdering Facility: [facility] Address: [address] [place] [address] Performed By: #### 5 7021-8 ####[facility] LABCLIA [id number] [place] [address] RBC (Bld) [#/Vol] 4.78 10*6/uL Normal 4.20-6.00 [facility] Comment on above: Order Comment: Speci men Type: BLOOD SPECIMENOrdering Facility: [facility] Address: [address] [place], [place] [address] Performed By: #### 5 7021-8 ####[facility] LABCLIA [id number] [place] [address] WBC (Bld) [#/Vol] 7.56 10*3/uL Normal 3.70-11.00 [facility] Comment on above: Order Comment: Speci men Type: BLOOD SPECIMENOrdering Facility: [facility] Address: [address] [place] [address] Performed By: #### 5 7021-8 ####[facility] LABCLIA [id number] [place] [address] Comprehensive metabolic 2000 panelOrdered By: Elizabeth Roldan on 12-31-2024 Albumin [Mass/Vol] 4.3 g/dL 3.9 - 4.9 g/dL [facility] ALP [Catalytic activity/Vol] 93 U/L 38 - 113 U/L [facility] ALT [Catalytic activity/Vol] 99 U/L High 10 - 54 U/L [facility] Anion gap [Moles/Vol] 12 mmol/L 8 - 15 mmol/L [facility] AST [Catalytic activity/Vol] 39 U/L 14 - 40 U/L [facility] Bilirubin [Mass/Vol] 0.7 mg/dL 0.2 - 1 .3 mg/dL [facility] Calcium [Mass/Vol] 9.7 mg/dL 8.5 - 10. 2 mg/dL [facility] Chloride [Moles/Vol] 103 mmol/L 98 - 10 7 mmol/L [facility] CO2 [Moles/Vol] 23 mmol/L 22 - 30 mmol/L [facility] Creatinine [Mass/Vol] 0.76 mg/dL 0.73 - 1.22 mg/dL [facility] GFR/1.73 sq M.predicted among non-blacks MDRD (S/P/Bld) [Vol rate/Area] 119 mL/min/{1.73_m2} - PINF [facility] Comment on above: Estimated Glomerular Filtration Rate (eGFR) is calculated using the 2020 CKD-EPI creatinine equation. This equation utilizes serum creatinine, sex, and age as parameters. The creatinine assay has traceable calibration to isotope dilution-mass spectrometry. Refer to KDIGO guidelines for clinical interpretation. In patients with unstable renal function, e.g. those with acute kidney injury, the eGFR may not accurately reflect actual GFR. Glucose [Mass/Vol] 114 mg/dL High 74 - 99 mg/dL [facility] Comment on above: The [place] Di[employer] Association (ADA) provides guidance for cutoff values for fasting glucose and random glucose. The ADA defines fasting as no caloric intake for at least 8 hours. Fasting plasma glucose results between 100 to 125 mg/dL indicate increased risk for diabetes (prediabetes). Fasting plasma glucose results greater than or equal to 126 mg/dL meet the criteria for diagnosis of diabetes. In the absence of unequivocal hyperglycemia, results should be confirmed by repeat testing. In a patient with classic symptoms of hyperglycemia or hyperglycemic crisis, random plasma glucose results greater than or equal to 200 mg/dL meet the criteria for diagnosis of diabetes. Reference: Standards of Medical Care in Diabetes 2016, [place] [employer]. Diabetes Care. 2016.39(Suppl 1). Interpretation and review of laboratory results Abnormal [facility] Potassium [Moles/Vol] 3.8 mmol/L 3.7 - 5.1 mmol/L [facility] Protein [Mass/Vol] 7 g/dL 6.3 - 8.0 g/dL [facility] Sodium [Moles/Vol] 138 mmol/L 136 - 144 mmol/L [facility] Urea nitrogen [Mass/Vol] 12 mg/dL 9 - 24 mg/dL [facility] Comprehensive metabolic 2000 panelon 12-31-2024 Albumin [Mass/Vol] 4.3 g/dL Normal 3.9-4.9 [facility] Comment on above: Order Comment: Speci men Type: BLOOD SPECIMENOrdering Facility: [facility] Address: [address] [place] [address] Performed By: #### 2 4323-8 ####[facility] LABCLIA [id number] [place] [address] ALP [Catalytic activity/Vol] 93 U/L Normal 38-113 [facility] Comment on above: Order Comment: Speci men Type: BLOOD SPECIMENOrdering Facility: [facility] Address: [address] [place] [address] Performed By: #### 2 4323-8 ####[facility] LABCLIA [id number] [place] [address] ALT [Catalytic activity/Vol] 99 U/L High 10-54 [facility] Comment on above: Order Comment: Speci men Type: BLOOD SPECIMENOrdering Facility: [facility] Address: [address] [place] [address] Performed By: #### 2 4323-8 ####[facility] LABCLIA [id number] [place] [address] Anion gap [Moles/Vol] 12 mmol/L Normal 8-15 [facility] Comment on above: Order Comment: Speci men Type: BLOOD SPECIMENOrdering Facility: [facility] Address: [address] [place] [address] Performed By: #### 2 4323-8 ####[facility] LABCLIA [id number] [place] [address] AST [Catalytic activity/Vol] 39 U/L Normal 14-40 [facility] Comment on above: Order Comment: Speci men Type: BLOOD SPECIMENOrdering Facility: [facility] Address: [address] [place] [address] Performed By: #### 2 4323-8 ####[facility] LABCLIA [id number] [place] [address] Bilirubin [Mass/Vol] 0.7 mg/dL Normal 0.2-1.3 [facility] Comment on above: Order Comment: Speci men Type: BLOOD SPECIMENOrdering Facility: [facility] Address: [address] [place], [place] [address] Performed By: #### 2 4323-8 ####[facility] LABCLIA [id number] [place] [address] Calcium [Mass/Vol] 9.7 mg/dL Normal 8.5-10.2 [facility] Comment on above: Order Comment: Speci men Type: BLOOD SPECIMENOrdering Facility: [facility] Address: [address] [place] [address] Performed By: #### 2 4323-8 ####[facility] LABCLIA [id number] [place] [address] Chloride [Moles/Vol] 103 mmol/L Normal 98-107 [facility] Comment on above: Order Comment: Speci men Type: BLOOD SPECIMENOrdering Facility: [facility] Address: [address] [place] [address] Performed By: #### 2 4323-8 ####[facility] LABCLIA [id number] [place] [address] CO2 [Moles/Vol] 23 mmol/L Normal 22-30 [facility] Comment on above: Order Comment: Speci men Type: BLOOD SPECIMENOrdering Facility: [facility] Address: [address] [place] [address] Performed By: #### 2 4323-8 ####[facility] LABCLIA [id number] [place] [address] Creatinine [Mass/Vol] 0.76 mg/dL Normal 0.73-1.22 [facility] Comment on above: Order Comment: Speci men Type: BLOOD SPECIMENOrdering Facility: [facility] Address: [address] [place] [address] Performed By: #### 2 4323-8 ####[facility] LABCLIA [id number] [place] [address] Creatinine and Glomerular filtration rate.predicted panel (S/P/Bld) 119 mL/min/1.73m??? Normal >=60 [facility] Comment on above: Order Comment: Speci men Type: BLOOD SPECIMENOrdering Facility: [facility] Address: [address] [place] [address] Result Comment: Julita mated Glomerular Filtration Rate (eGFR) is calculated using the 2020 CKD-EPI creatinine equation. This equation utilizes serum creatinine, sex, and age as parameters. The creatinine assay has traceable calibration to isotope dilution-mass spectrometry. Refer to KDIGO guidelines for clinical interpretation. In patients with unstable renal function, e.g. those with acute kidney injury, the eGFR may not accurately reflect actual GFR. Performed By: #### 2 4323-8 ####[facility] LABCLIA [id number] [place] [address] Glucose [Mass/Vol] 114 mg/dL High 74-99 [facility] Comment on above: Order Comment: Speci men Type: BLOOD SPECIMENOrdering Facility: [facility] Address: [address] [place] [address] Result Comment: The [place] Diabetes Association (ADA) provides guidance for cutoff values for fasting glucose and random glucose. The ADA defines fasting as no caloric intake for at least 8 hours. Fasting plasma glucose results between 100 to 125 mg/dL indicate increased risk for diabetes (prediabetes).Fasting plasma glucose results greater than or equal to 126 mg/dL meet the criteria for diagnosis of diabetes. In the absence of unequivocal hyperglycemia, results should be confirmed by repeat testing. In a patient with classic symptoms of hyperglycemia or hyperglycemic crisis, random plasma glucose results greater than or equal to 200 mg/dL meet the criteria for diagnosis of diabetes.Reference: Standards of Medical Care in Diabetes 2016, [place] [employer]. Diabetes Care. 2016.39(Suppl 1). Performed By: #### 2 4323-8 ####[facility] LABCLIA [id number] [place] [address] Potassium [Moles/Vol] 3.8 mmol/L Normal 3.7-5.1 [facility] Comment on above: Order Comment: Savannahi aye Type: BLOOD SPECIMENOrdering Facility: [facility] Address: [address] [place] [address] Performed By: #### 2 4323-8 ####[facility] LABCLIA [id number] [place] [address] Protein [Mass/Vol] 7.0 g/dL Normal 6.3-8.0 [facility] Comment on above: Order Comment: Speci men Type: BLOOD SPECIMENOrdering Facility: [facility] Address: [address] [place] [address] Performed By: #### 2 4323-8 ####[facility] LABCLIA [id number] [place] [address] Sodium [Moles/Vol] 138 mmol/L Normal 136-144 [facility] Comment on above: Order Comment: Speci men Type: BLOOD SPECIMENOrdering Facility: [facility] Address: [address] [place] [address] Performed By: #### 2 4323-8 ####[facility] LABCLIA [id number] [place] [address] Urea nitrogen [Mass/Vol] 12 mg/dL Normal 9-24 [facility] Comment on above: Order Comment: Speci men Type: BLOOD SPECIMENOrdering Facility: [facility] Address: [address] [place] [address] Performed By: #### 2 4323-8 ####[facility] LABCLIA [id number] [place] [address] Haptoglob SerPl-mCncon 12-31 Haptoglobin [Mass/Vol] 131 mg/dL Normal 31-238 [facility] Comment on above: Order Comment: Speci men Type: BLOOD SPECIMENOrdering Facility: [facility] Address: [address] [place] [address] Performed By: #### 4 542-7 ####[facility] LABCLIA [id number] [place] [address] [place] [id number] EVAL INTERPon 12-24 [id number] INTERP Normal [facility] Comment on above: Order Comment: Speci men Type: BLOOD SPECIMENOrdering Facility: [facility] Address: [address] [place] [address] Result Comment: Norm al - See comment below.[id number] ACTIVITY ASSAY: LBCLQD04 activity was measured using fluorescence resonance energy transfer (FRET) technology with a recombinant VWF86 substrate. The HTTDBQ36 activity level is normal.SUMMARY: History of thrombotic thrombocytopenic purpura (TTP) noted. Current results suggest TTP is in remission.Correlation between clinical findings, transfusion therapy and YFBSLT68 activity and inhibitor assay results is suggested. Performed By: #### A DM13, [id number] ####[facility] LABCLIA [id number] [place] [address] [place] [id number] PATHOLOGIST INTERP Reviewed by Claudia Dumont M.D., Ph.D Normal [facility] Comment on above: Order Comment: Specgrzegorz griffiths Type: BLOOD SPECIMENOrdering Facility: [facility] Address: [address] [place] [address] Performed By: #### A DM13, [id number] ####[facility] LABIA [id number] [place] [address] [place] [id number] EVALUATIONon 2024 vWf cleaving protease actual/normal Chromogenic method (PPP) [Rel catalytic activity/Vol] 67 % Normal 60-121 [facility] Comment on above: Order Comment: Nicole griffiths Type: BLOOD SPECIMENOrdering Facility: [facility] Address: [address] [place] [address] Result Comment: This test was developed, and its performance characteristics determined by the [facility] Department of Pathology and Laboratory Medicine. It has not been cleared or approved by the FDA. The [facility] Department of Pathology and Laboratory Medicine is regulated under CLIA as qualified to perform high-complexity testing. This test is used for clinical purposes. It should not be regarded as investigational or for research. Performed By: #### A DM13, [id number] ####[facility] LABIA [id number] [place] [address] [place] CBC W Auto Differential pane l (Bld)on 12-24-2024 Basophils (Bld) [#/Vol] 0.07 10*3/uL NINF [facility] Basophils/100 WBC (Bld) 0.9 % [facility] Differential cell count method Nom (Bld) Auto [facility] Eosinophils (Bld) [#/Vol] 0.31 10*3/uL [facility] Eosinophils/100 WBC (Bld) 4.2 % [facility] Erythrocyte distribution width (RBC) [Ratio] 13.1 % 11.5 - 15.0 % [facility] Hematocrit (Bld) [Volume fraction] 38.1 % Low 39.0 - 51.0 % [facility] Hemoglobin (Bld) [Mass/Vol] 13 g/dL 13.0 - 17.0 g/dL [facility] Immature granulocytes (Bld) [#/Vol] 0.03 10*3/uL [facility] Immature granulocytes/100 WBC (Bld) 0.4 % [facility] Interpretation and review of laboratory results Abnormal [facility] Lymphocytes (Bld) [#/Vol] 2.7 10*3/uL [facility] Lymphocytes/100 WBC (Bld) 36.4 % [facility] MCH (RBC) [Entitic mass] 30.9 pg 26.0 - 34.0 pg [facility] MCHC (RBC) [Mass/Vol] 34.1 g/dL 30.5 - 36.0 g/dL [facility] MCV (RBC) [Entitic vol] 90.5 fL 80.0 - 100.0 fL [facility] Monocytes (Bld) [#/Vol] 0.93 10*3/uL High [facility] Monocytes/100 WBC (Bld) 12.5 % [facility] Neutrophils (Bld) [#/Vol] 3.38 10*3/uL [facility] Neutrophils/100 WBC (Bld) 45.6 % [facility] Nucleated RBC (Bld) [#/Vol] [facility] Nucleated RBC/100 WBC (Bld) [Ratio] 0 % /100 WBC [facility] Platelet mean volume (Bld) [Entitic vol] 9.1 fL 9.0 - 12.7 fL [facility] Platelets (Bld) [#/Vol] 257 10*3/uL [facility] RBC (Bld) [#/Vol] 4.21 10*6/uL 4.20 - 6.0 0 m/uL [facility] WBC (Bld) [#/Vol] 7.42 10*3/uL [facility] Basophils (Bld) [#/Vol] 0.07 10*3/uL Normal <0.11 [facility] Comment on above: Order Comment: Speci men Type: BLOOD SPECIMENOrdering Facility: [facility] Address: [address] [place] [address] Performed By: #### 5 7021-8 ####[facility] LABCLIA [id number] [place] [address] Basophils/100 WBC (Bld) 0.9 % Normal [facility] Comment on above: Order Comment: Speci men Type: BLOOD SPECIMENOrdering Facility: [facility] Address: [address] [place] [address] Performed By: #### 5 7021-8 ####[facility] LABCLIA [id number] [place] [address] Differential cell count method Nom (Bld) Auto Normal [facility] Comment on above: Order Comment: Speci men Type: BLOOD SPECIMENOrdering Facility: [facility] Address: [address] [place] [address] Performed By: #### 5 7021-8 ####[facility] LABCLIA [id number] [place] [address] Eosinophils (Bld) [#/Vol] 0.31 10*3/uL Normal <0.46 [facility] Comment on above: Order Comment: Speci men Type: BLOOD SPECIMENOrdering Facility: [facility] Address: [address] [place] [address] Performed By: #### 5 7021-8 ####[facility] LABCLIA [id number] [place] [address] Eosinophils/100 WBC (Bld) 4.2 % Normal [facility] Comment on above: Order Comment: Speci men Type: BLOOD SPECIMENOrdering Facility: [facility] Address: [address] [place] [address] Performed By: #### 5 7021-8 ####[facility] LABCLIA [id number] [place] [address] Erythrocyte distribution width (RBC) [Ratio] 13.1 % Normal 11.5-15.0 [facility] Comment on above: Order Comment: Speci men Type: BLOOD SPECIMENOrdering Facility: [facility] Address: [address] [place] [address] Performed By: #### 5 7021-8 ####[facility] LABCLIA [id number] [place] [address] Hematocrit (Bld) [Volume fraction] 38.1 % Low 39.0-51.0 [facility] Comment on above: Order Comment: Speci men Type: BLOOD SPECIMENOrdering Facility: [facility] Address: [address] [place] [address] Performed By: #### 5 7021-8 ####[facility] LABCLIA [id number] [place] [address] Hemoglobin (Bld) [Mass/Vol] 13.0 g/dL Normal 13.0-17.0 [facility] Comment on above: Order Comment: Speci men Type: BLOOD SPECIMENOrdering Facility: [facility] Address: [address] [place] [address] Performed By: #### 5 7021-8 ####[facility] LABCLIA [id number] [place] [address] Immature granulocytes (Bld) [#/Vol] 0.03 10*3/uL Normal <0.10 [facility] Comment on above: Order Comment: Speci men Type: BLOOD SPECIMENOrdering Facility: [facility] Address: [address] [place] [address] Performed By: #### 5 7021-8 ####[facility] LABCLIA [id number] [place] [address] Immature granulocytes/100 WBC (Bld) 0.4 % Normal [facility] Comment on above: Order Comment: Speci men Type: BLOOD SPECIMENOrdering Facility: [facility] Address: [address] [place] [address] Performed By: #### 5 7021-8 ####[facility] LABCLIA [id number] [place] [address] Lymphocytes (Bld) [#/Vol] 2.70 10*3/uL Normal 1.00-4.00 [facility] Comment on above: Order Comment: Speci men Type: BLOOD SPECIMENOrdering Facility: [facility] Address: [address] [place] [address] Performed By: #### 5 7021-8 ####[facility] LABCLIA [id number] [place] [address] Lymphocytes/100 WBC (Bld) 36.4 % Normal [facility] Comment on above: Order Comment: Speci men Type: BLOOD SPECIMENOrdering Facility: [facility] Address: [address] [place] [address] Performed By: #### 5 7021-8 ####[facility] LABCLIA [id number] [place] [address] MCH (RBC) [Entitic mass] 30.9 pg Normal 26.0-34.0 [facility] Comment on above: Order Comment: Speci men Type: BLOOD SPECIMENOrdering Facility: [facility] Address: [address] [place] [address] Performed By: #### 5 7021-8 ####[facility] LABCLIA [id number] [place] [address] MCHC (RBC) [Mass/Vol] 34.1 g/dL Normal 30.5-36.0 [facility] Comment on above: Order Comment: Speci men Type: BLOOD SPECIMENOrdering Facility: [facility] Address: [address] [place] [address] Performed By: #### 5 7021-8 ####[facility] LABCLIA [id number] [place] [address] MCV (RBC) [Entitic vol] 90.5 fL Normal 80.0-100.0 [facility] Comment on above: Order Comment: Speci men Type: BLOOD SPECIMENOrdering Facility: [facility] Address: [address] [place] [address] Performed By: #### 5 7021-8 ####[facility] LABCLIA [id number] [place] [address] Monocytes (Bld) [#/Vol] 0.93 10*3/uL High <0.87 [facility] Comment on above: Order Comment: Speci men Type: BLOOD SPECIMENOrdering Facility: [facility] Address: [address] [place] [address] Performed By: #### 5 7021-8 ####[facility] LABCLIA [id number] [place] [address] Monocytes/100 WBC (Bld) 12.5 % Normal [facility] Comment on above: Order Comment: Speci men Type: BLOOD SPECIMENOrdering Facility: [facility] Address: [address] [place] [address] Performed By: #### 5 7021-8 ####[facility] LABCLIA [id number] [place] [address] Neutrophils (Bld) [#/Vol] 3.38 10*3/uL Normal 1.45-7.50 [facility] Comment on above: Order Comment: Speci men Type: BLOOD SPECIMENOrdering Facility: [facility] Address: [address] [place] [address] Performed By: #### 5 7021-8 ####[facility] LABCLIA [id number] [place] [address] Neutrophils/100 WBC (Bld) 45.6 % Normal [facility] Comment on above: Order Comment: Speci men Type: BLOOD SPECIMENOrdering Facility: [facility] Address: [address] [place] [address] Performed By: #### 5 7021-8 ####[facility] LABCLIA [id number] [place] [address] Nucleated RBC (Bld) [#/Vol] 10*3/uL Normal <0.01 [facility] Comment on above: Order Comment: Speci men Type: BLOOD SPECIMENOrdering Facility: [facility] Address: [address] [place] [address] Performed By: #### 5 7021-8 ####[facility] LABCLIA [id number] [place] [address] Nucleated RBC/100 WBC (Bld) [Ratio] 0.0 /100 WBC Normal [facility] Comment on above: Order Comment: Speci men Type: BLOOD SPECIMENOrdering Facility: [facility] Address: [address] [place] [address] Performed By: #### 5 7021-8 ####[facility] LABIA [id number] [place] [address] Platelet mean volume (Bld) [Entitic vol] 9.1 fL Normal 9.0-12.7 [facility] Comment on above: Order Comment: Speci men Type: BLOOD SPECIMENOrdering Facility: [facility] Address: [address] [place] [address] Performed By: #### 5 7021-8 ####[facility] LABCLIA [id number] [place] [address] Platelets (Bld) [#/Vol] 257 10*3/uL Normal 150-400 [facility] Comment on above: Order Comment: Speci men Type: BLOOD SPECIMENOrdering Facility: [facility] Address: [address] [place] [address] Performed By: #### 5 7021-8 ####[facility] LABCLIA [id number] [place] [address] RBC (Bld) [#/Vol] 4.21 10*6/uL Normal 4.20-6.00 [facility] Comment on above: Order Comment: Speci men Type: BLOOD SPECIMENOrdering Facility: [facility] Address: [address] [place], [place] [address] Performed By: #### 5 7021-8 ####[facility] LABIA [id number] [place] [address] WBC (Bld) [#/Vol] 7.42 10*3/uL Normal 3.70-11.00 [facility] Comment on above: Order Comment: Speci men Type: BLOOD SPECIMENOrdering Facility: [facility] Address: [address] [place], [place] [address] Performed By: #### 5 7021-8 ####[facility] LABCLIA [id number] [place] [address] Comprehensive metabolic 2000 panelOrdered By: You Todd on 12-24-2024 Albumin [Mass/Vol] 3.4 g/dL Low 3.9 - 4.9 g/dL [facility] ALP [Catalytic activity/Vol] 73 U/L 38 - 113 U/L [facility] ALT [Catalytic activity/Vol] 73 U/L High 10 - 54 U/L [facility] Anion gap [Moles/Vol] 7 mmol/L Low 8 - 15 mmol/L [facility] AST [Catalytic activity/Vol] 29 U/L 14 - 40 U/L [facility] Bilirubin [Mass/Vol] 0.4 mg/dL 0.2 - 1 .3 mg/dL [facility] Calcium [Mass/Vol] 7.4 mg/dL Low 8.5 - 10. 2 mg/dL [facility] Chloride [Moles/Vol] 119 mmol/L High 98 - 10 7 mmol/L [facility] CO2 [Moles/Vol] 21 mmol/L Low 22 - 30 mmol/L [facility] Creatinine [Mass/Vol] 0.58 mg/dL Low 0.73 - 1.22 mg/dL [facility] GFR/1.73 sq M.predicted among non-blacks MDRD (S/P/Bld) [Vol rate/Area] 130 mL/min/{1.73_m2} - PINF [facility] Comment on above: Estimated Glomerular Filtration Rate (eGFR) is calculated using the 2020 CKD-EPI creatinine equation. This equation utilizes serum creatinine, sex, and age as parameters. The creatinine assay has traceable calibration to isotope dilution-mass spectrometry. Refer to KDIGO guidelines for clinical interpretation. In patients with unstable renal function, e.g. those with acute kidney injury, the eGFR may not accurately reflect actual GFR. Glucose [Mass/Vol] 66 mg/dL Low 74 - 99 mg/dL [facility] Comment on above: The [place] Diab[employer] s Association (ADA) provides guidance for cutoff values for fasting glucose and random glucose. The ADA defines fasting as no caloric intake for at least 8 hours. Fasting plasma glucose results between 100 to 125 mg/dL indicate increased risk for diabetes (prediabetes). Fasting plasma glucose results greater than or equal to 126 mg/dL meet the criteria for diagnosis of diabetes. In the absence of unequivocal hyperglycemia, results should be confirmed by repeat testing. In a patient with classic symptoms of hyperglycemia or hyperglycemic crisis, random plasma glucose results greater than or equal to 200 mg/dL meet the criteria for diagnosis of diabetes. Reference: Standards of Medical Care in Diabetes 2016, [place] [employer]. Diabetes Care. 2016.39(Suppl 1). Interpretation and review of laboratory results Abnormal [facility] Potassium [Moles/Vol] 3.2 mmol/L Low 3.7 - 5.1 mmol/L [facility] Protein [Mass/Vol] 5.5 g/dL Low 6.3 - 8.0 g/dL [facility] Sodium [Moles/Vol] 147 mmol/L High 136 - 144 mmol/L [facility] Urea nitrogen [Mass/Vol] 11 mg/dL 9 - 24 mg/dL [facility] Comprehensive metabolic 2000 panelon 12-24-2024 Albumin [Mass/Vol] 3.4 g/dL Low 3.9-4.9 [facility] Comment on above: Order Comment: Speci men Type: BLOOD SPECIMENOrdering Facility: [facility] Address: [facility] [place] [address] Performed By: #### 2 4323-8 ####[facility] LABCLIA [id number] [place] [address] ALP [Catalytic activity/Vol] 73 U/L Normal 38-113 [facility] Comment on above: Order Comment: Speci men Type: BLOOD SPECIMENOrdering Facility: [facility] Address: [address] [place] [address] Performed By: #### 2 4323-8 ####[facility] LABCLIA [id number] [place] [address] ALT [Catalytic activity/Vol] 73 U/L High 10-54 [facility] Comment on above: Order Comment: Speci men Type: BLOOD SPECIMENOrdering Facility: [facility] Address: [address] [place] [address] Performed By: #### 2 4323-8 ####[facility] LABCLIA [id number] [place] [address] Anion gap [Moles/Vol] 7 mmol/L Low 8-15 [facility] Comment on above: Order Comment: Speci men Type: BLOOD SPECIMENOrdering Facility: [facility] Address: [address] [place] [address] Performed By: #### 2 4323-8 ####[facility] LABCLIA [id number] [place] [address] AST [Catalytic activity/Vol] 29 U/L Normal 14-40 [facility] Comment on above: Order Comment: Speci men Type: BLOOD SPECIMENOrdering Facility: [facility] Address: [address] [place] [address] Performed By: #### 2 4323-8 ####[facility] LABCLIA [id number] [place] [address] Bilirubin [Mass/Vol] 0.4 mg/dL Normal 0.2-1.3 [facility] Comment on above: Order Comment: Speci men Type: BLOOD SPECIMENOrdering Facility: [facility] Address: [address] [place] [address] Performed By: #### 2 4323-8 ####[facility] LABCLIA [id number] [place] [address] Calcium [Mass/Vol] 7.4 mg/dL Low 8.5-10.2 [facility] Comment on above: Order Comment: Speci men Type: BLOOD SPECIMENOrdering Facility: [facility] Address: [address] [place] [address] Performed By: #### 2 4323-8 ####[facility] LABCLIA [id number] [place] [address] Chloride [Moles/Vol] 119 mmol/L High 98-107 [facility] Comment on above: Order Comment: Speci men Type: BLOOD SPECIMENOrdering Facility: [facility] Address: [address] [place] [address] Performed By: #### 2 4323-8 ####[facility] LABCLIA [id number] [place] [address] CO2 [Moles/Vol] 21 mmol/L Low 22-30 [facility] Comment on above: Order Comment: Speci men Type: BLOOD SPECIMENOrdering Facility: [facility] Address: [address] [place] [address] Performed By: #### 2 4323-8 ####[facility] LABCLIA [id number] [place] [address] Creatinine [Mass/Vol] 0.58 mg/dL Low 0.73-1.22 [facility] Comment on above: Order Comment: Speci men Type: BLOOD SPECIMENOrdering Facility: [facility] Address: [address] [place] [address] Performed By: #### 2 4323-8 ####[facility] LABCLIA [id number] [place] [address] Creatinine and Glomerular filtration rate.predicted panel (S/P/Bld) 130 mL/min/1.73m??? Normal >=60 [facility] Comment on above: Order Comment: Speci men Type: BLOOD SPECIMENOrdering Facility: [facility] Address: [address] [place] [address] Result Comment: Jultia mated Glomerular Filtration Rate (eGFR) is calculated using the 2020 CKD-EPI creatinine equation. This equation utilizes serum creatinine, sex, and age as parameters. The creatinine assay has traceable calibration to isotope dilution-mass spectrometry. Refer to KDIGO guidelines for clinical interpretation. In patients with unstable renal function, e.g. those with acute kidney injury, the eGFR may not accurately reflect actual GFR. Performed By: #### 2 4323-8 ####[facility] LABCLIA [id number] [place] [address] Glucose [Mass/Vol] 66 mg/dL Low 74-99 [facility] Comment on above: Order Comment: Speci men Type: BLOOD SPECIMENOrdering Facility: [facility] Address: [address] [place], [place] [address] Result Comment: The [place] Diabetes Association (ADA) provides guidance for cutoff values for fasting glucose and random glucose. The ADA defines fasting as no caloric intake for at least 8 hours. Fasting plasma glucose results between 100 to 125 mg/dL indicate increased risk for diabetes (prediabetes).Fasting plasma glucose results greater than or equal to 126 mg/dL meet the criteria for diagnosis of diabetes. In the absence of unequivocal hyperglycemia, results should be confirmed by repeat testing. In a patient with classic symptoms of hyperglycemia or hyperglycemic crisis, random plasma glucose results greater than or equal to 200 mg/dL meet the criteria for diagnosis of diabetes.Reference: Standards of Medical Care in Diabetes 2016, [place] [employer]. Diabetes Care. 2016.39(Suppl 1). Performed By: #### 2 4323-8 ####[facility] LABIA [id number] [place] [address] Potassium [Moles/Vol] 3.2 mmol/L Low 3.7-5.1 [facility] Comment on above: Order Comment: Nicole griffiths Type: BLOOD SPECIMENOrdering Facility: [facility] Address: [address] [place] [address] Performed By: #### 2 4323-8 ####[facility] LABCLIA [id number] [place] [address] Protein [Mass/Vol] 5.5 g/dL Low 6.3-8.0 [facility] Comment on above: Order Comment: Speci men Type: BLOOD SPECIMENOrdering Facility: [facility] Address: [address] [place] [address] Performed By: #### 2 4323-8 ####[facility] LABCLIA [id number] [place] [address] Sodium [Moles/Vol] 147 mmol/L High 136-144 [facility] Comment on above: Order Comment: Speci men Type: BLOOD SPECIMENOrdering Facility: [facility] Address: [address] [place] [address] Performed By: #### 2 4323-8 ####[facility] LABCLIA [id number] [place] [address] Urea nitrogen [Mass/Vol] 11 mg/dL Normal 9-24 [facility] Comment on above: Order Comment: Speci men Type: BLOOD SPECIMENOrdering Facility: [facility] Address: [address] [place] [address] Performed By: #### 2 4323-8 ####[facility] LABCLIA [id number] [place] [address] Haptoglob SerPl-mCncon 12-24 Haptoglobin [Mass/Vol] 90 mg/dL Normal 31-238 [facility] Comment on above: Order Comment: Speci men Type: BLOOD SPECIMENOrdering Facility: [facility] Address: [address] [place] [address] Performed By: #### 4 542-7 ####[facility] LABCLIA [id number] [place] [address] [place] [id number] EV[place] INTERPon 12-17 OLLRYU69 INTERP Normal [facility] Comment on above: Order Comment: Speci men Type: BLOOD SPECIMENOrdering Facility: [facility] Address: [address] [place] [address] Result Comment: Abno rmal - see comment below.Mildly low ESHEOL80 activity.FVDRKY40 ACTIVITY ASSAY:PLVFEK34 activity was measured using Fluorescence resonance energy transfer (FRET) technology with a recombinant VWF86 substrate. The YRPDBP78 activity is mildly decreased.History of thrombotic thrombocytopenic purpura (TTP) noted. Current results suggest TTP in treatment. Performed By: #### L OB1818, ADM13 ####[facility] LABIA [id number] [place] [address] [place] [id number] PATHOLOGIST INTERP Reviewed by Claudia Dumont M.D., Ph.D Normal [facility] Comment on above: Order Comment: Nicole griffiths Type: BLOOD SPECIMENOrdering Facility: [facility] Address: [address] [place] [address] Performed By: #### L XW2562, ADM13 ####[facility] [id number] [address] [place] [id number] EVALUATIONon 2024 vWf cleaving protease actual/normal Chromogenic method (PPP) [Rel catalytic activity/Vol] 38 % Low 60-121 [facility] Comment on above: Order Comment: Nicole griffiths Type: BLOOD SPECIMENOrdering Facility: [facility] Address: [address] [place] [address] Result Comment: This test was developed, and its performance characteristics determined by the [facility] Department of Pathology and Laboratory Medicine. It has not been cleared or approved by the FDA. The [facility] Department of Pathology and Laboratory Medicine is regulated under CLIA as qualified to perform high-complexity testing. This test is used for clinical purposes. It should not be regarded as investigational or for research. Performed By: #### L ED2772, ADM13 ####[facility] TROY[facility] [id number] [place] [address] [place] CBC W Auto Differential pane l (Bld)on 12-17-2024 Basophils (Bld) [#/Vol] 0.10 10*3/uL Normal <0.11 [facility] Comment on above: Order Comment: Nicole griffiths Type: BLOOD SPECIMENOrdering Facility: [facility] Address: [address] [place] [address] Performed By: #### 5 7021-8 ####[facility] [id number] [place] [address] [place] Basophils/100 WBC (Bld) 1.2 % Normal [facility] Comment on above: Order Comment: Speci men Type: BLOOD SPECIMENOrdering Facility: [facility] Address: [address] [place] [address] Performed By: #### 5 7021-8 ####[facility] [id number] [place] [address] [place] Differential cell count method Nom (Bld) Auto Normal [facility] Comment on above: Order Comment: Speci men Type: BLOOD SPECIMENOrdering Facility: [facility] Address: [address] [place] [address] Performed By: #### 5 7021-8 ####[facility] [id number] [place] [address] [place] Eosinophils (Bld) [#/Vol] 0.47 10*3/uL High <0.46 [facility] Comment on above: Order Comment: Speci men Type: BLOOD SPECIMENOrdering Facility: [facility] Address: [address] [place] [address] Performed By: #### 5 7021-8 ####[facility] [id number] [place] [address] [place] Eosinophils/100 WBC (Bld) 5.8 % Normal [facility] Comment on above: Order Comment: Speci men Type: BLOOD SPECIMENOrdering Facility: [facility] Address: [address] [place] [address] Performed By: #### 5 7021-8 ####[facility] [place] [id number] [place] [address] [place] Erythrocyte distribution width (RBC) [Ratio] 12.7 % Normal 11.5-15.0 [facility] Comment on above: Order Comment: Speci men Type: BLOOD SPECIMENOrdering Facility: [facility] Address: [address] [place] [address] Performed By: #### 5 7021-8 ####[facility] [id number] [place] [address] [place] Hematocrit (Bld) [Volume fraction] 42.4 % Normal 39.0-51.0 [facility] Comment on above: Order Comment: Speci men Type: BLOOD SPECIMENOrdering Facility: [facility] Address: [address] [place] [address] Performed By: #### 5 7021-8 ####[facility] [place] [id number] [place] [address] [place] Hemoglobin (Bld) [Mass/Vol] 14.5 g/dL Normal 13.0-17.0 [facility] Comment on above: Order Comment: Speci men Type: BLOOD SPECIMENOrdering Facility: [facility] Address: [address] [place] [address] Performed By: #### 5 7021-8 ####[facility] [place] [id number] [place] [address] [place] Immature granulocytes (Bld) [#/Vol] 10*3/uL Normal <0.10 [facility] Comment on above: Order Comment: Speci men Type: BLOOD SPECIMENOrdering Facility: [facility] Address: [address] [place] [address] Performed By: #### 5 7021-8 ####[facility] [place] [id number] [place] [address] [place] Immature granulocytes/100 WBC (Bld) 0.2 % Normal [facility] Comment on above: Order Comment: Speci men Type: BLOOD SPECIMENOrdering Facility: [facility] Address: [address] [place] [address] Performed By: #### 5 7021-8 ####[facility] [id number] [place] [address] [place] Lymphocytes (Bld) [#/Vol] 3.50 10*3/uL Normal 1.00-4.00 [facility] Comment on above: Order Comment: Speci men Type: BLOOD SPECIMENOrdering Facility: [facility] Address: [address] [place] [address] Performed By: #### 5 7021-8 ####[facility] [id number] [place] [address] [place] Lymphocytes/100 WBC (Bld) 43.2 % Normal [facility] Comment on above: Order Comment: Speci men Type: BLOOD SPECIMENOrdering Facility: [facility] Address: [address] [place] [address] Performed By: #### 5 7021-8 ####[facility] [place] [id number] [place] [address] [place] MCH (RBC) [Entitic mass] 30.5 pg Normal 26.0-34.0 [facility] Comment on above: Order Comment: Speci men Type: BLOOD SPECIMENOrdering Facility: [facility] Address: [address] [place] [address] Performed By: #### 5 7021-8 ####[facility] [id number] [place] [address] [place] MCHC (RBC) [Mass/Vol] 34.2 g/dL Normal 30.5-36.0 [facility] Comment on above: Order Comment: Speci men Type: BLOOD SPECIMENOrdering Facility: [facility] Address: [address] [place] [address] Performed By: #### 5 7021-8 ####[facility] [id number] [place] [address] [place] MCV (RBC) [Entitic vol] 89.1 fL Normal 80.0-100.0 [facility] Comment on above: Order Comment: Speci men Type: BLOOD SPECIMENOrdering Facility: [facility] Address: [address] [place] [address] Performed By: #### 5 7021-8 ####[facility] [id number] [place] [address] [place] Monocytes (Bld) [#/Vol] 0.73 10*3/uL Normal <0.87 [facility] Comment on above: Order Comment: Speci men Type: BLOOD SPECIMENOrdering Facility: [facility] Address: [address] [place] [address] Performed By: #### 5 7021-8 ####[facility] [place] [place] [id number] [place] [address] [place] Monocytes/100 WBC (Bld) 9.0 % Normal [facility] Comment on above: Order Comment: Speci men Type: BLOOD SPECIMENOrdering Facility: [facility] Address: [address] [place] [address] Performed By: #### 5 7021-8 ####[facility] [id number] [place] [address] [place] Neutrophils (Bld) [#/Vol] 3.28 10*3/uL Normal 1.45-7.50 [facility] Comment on above: Order Comment: Speci men Type: BLOOD SPECIMENOrdering Facility: [facility] Address: [address] [place] [address] Performed By: #### 5 7021-8 ####[facility] [id number] [place] [address] [place] Neutrophils/100 WBC (Bld) 40.6 % Normal [facility] Comment on above: Order Comment: Speci men Type: BLOOD SPECIMENOrdering Facility: [facility] Address: [address] [place] [address] Performed By: #### 5 7021-8 ####[facility] [id number] [place] [address] [place] Nucleated RBC (Bld) [#/Vol] 10*3/uL Normal <0.01 [facility] Comment on above: Order Comment: Speci men Type: BLOOD SPECIMENOrdering Facility: [facility] Address: [address] [place] [address] Performed By: #### 5 7021-8 ####[facility] [id number] [place] [address] [place] Nucleated RBC/100 WBC (Bld) [Ratio] 0.0 /100 WBC Normal [facility] Comment on above: Order Comment: Speci men Type: BLOOD SPECIMENOrdering Facility: [facility] Address: [address] [place] [address] Performed By: #### 5 7021-8 ####[facility] [id number] [place] [address] [place] Platelet mean volume (Bld) [Entitic vol] 9.3 fL Normal 9.0-12.7 [facility] Comment on above: Order Comment: Speci men Type: BLOOD SPECIMENOrdering Facility: [facility] Address: [address] [place] [address] Performed By: #### 5 7021-8 ####[facility] [id number] [place] [address] [place] Platelets (Bld) [#/Vol] 274 10*3/uL Normal 150-400 [facility] Comment on above: Order Comment: Speci men Type: BLOOD SPECIMENOrdering Facility: [facility] Address: [address] [place] [address] Performed By: #### 5 7021-8 ####[facility] [id number] [place] [address] [place] RBC (Bld) [#/Vol] 4.76 10*6/uL Normal 4.20-6.00 [facility] Comment on above: Order Comment: Speci men Type: BLOOD SPECIMENOrdering Facility: [facility] Address: [address] [place] [address] Performed By: #### 5 7021-8 ####[facility] [id number] [place] [address] [place] WBC (Bld) [#/Vol] 8.10 10*3/uL Normal 3.70-11.00 [facility] Comment on above: Order Comment: Speci men Type: BLOOD SPECIMENOrdering Facility: [facility] Address: [address] [place] [address] Performed By: #### 5 7021-8 ####[facility] [id number] [place] [address] [place] CNOVSPon 12-17-2024 CNOVSP Normal [facility] Comprehensive metabolic 2000 panelon 12-17-2024 Albumin [Mass/Vol] 4.3 g/dL Normal 3.9-4.9 [facility] Comment on above: Order Comment: Speci men Type: BLOOD SPECIMENOrdering Facility: [facility] Address: [address] [place] [address] Performed By: #### 2 4323-8 ####[facility] [id number] [place] [address] [place] ALP [Catalytic activity/Vol] 94 U/L Normal 38-113 [facility] Comment on above: Order Comment: Speci men Type: BLOOD SPECIMENOrdering Facility: [facility] Address: [address] [place] [address] Performed By: #### 2 4323-8 ####[facility] [id number] [address] [id number] [address] [place] ALT [Catalytic activity/Vol] 97 U/L High 10-54 [facility] Comment on above: Order Comment: Speci men Type: BLOOD SPECIMENOrdering Facility: [facility] Address: [address] [place] [address] Performed By: #### 2 4323-8 ####[facility] [id number] [place] [address] [place] Anion gap [Moles/Vol] 10 mmol/L Normal 8-15 [facility] Comment on above: Order Comment: Speci men Type: BLOOD SPECIMENOrdering Facility: [facility] Address: [address] [place] [address] Performed By: #### 2 4323-8 ####[facility] [place] [id number] [place] [address] [place] AST [Catalytic activity/Vol] 40 U/L Normal 14-40 [facility] Comment on above: Order Comment: Speci men Type: BLOOD SPECIMENOrdering Facility: [facility] Address: [address] [place] [address] Performed By: #### 2 4323-8 ####[facility] [id number] [place] [address] [place] Bilirubin [Mass/Vol] 0.4 mg/dL Normal 0.2-1.3 [facility] Comment on above: Order Comment: Speci men Type: BLOOD SPECIMENOrdering Facility: [facility] Address: [address] [place] [address] Performed By: #### 2 4323-8 ####[facility] [id number] [place] [address] [place] Calcium [Mass/Vol] 9.2 mg/dL Normal 8.5-10.2 [facility] Comment on above: Order Comment: Speci men Type: BLOOD SPECIMENOrdering Facility: [facility] Address: [address] [place] [address] Performed By: #### 2 4323-8 ####[facility] [id number] [place] [address] [place] Chloride [Moles/Vol] 105 mmol/L Normal 98-107 [facility] Comment on above: Order Comment: Speci men Type: BLOOD SPECIMENOrdering Facility: [facility] Address: [address] [place] [address] Performed By: #### 2 4323-8 ####[facility] [id number] [place] [address] [place] CO2 [Moles/Vol] 26 mmol/L Normal 22-30 [facility] Comment on above: Order Comment: Speci men Type: BLOOD SPECIMENOrdering Facility: [facility] Address: [address] [place] [address] Performed By: #### 2 4323-8 ####[facility] [id number] [place] [address] [place] Creatinine [Mass/Vol] 0.83 mg/dL Normal 0.73-1.22 [facility] Comment on above: Order Comment: Speci men Type: BLOOD SPECIMENOrdering Facility: [facility] Address: [address] [place] [address] Performed By: #### 2 4323-8 ####[facility] [id number] [place] [address] [place] Creatinine and Glomerular filtration rate.predicted panel (S/P/Bld) 116 mL/min/1.73m??? Normal >=60 [facility] Comment on above: Order Comment: Speci men Type: BLOOD SPECIMENOrdering Facility: [facility] Address: [address] [place] [address] Result Comment: Julita mated Glomerular Filtration Rate (eGFR) is calculated using the 2020 CKD-EPI creatinine equation. This equation utilizes serum creatinine, sex, and age as parameters. The creatinine assay has traceable calibration to isotope dilution-mass spectrometry. Refer to KDIGO guidelines for clinical interpretation. In patients with unstable renal function, e.g. those with acute kidney injury, the eGFR may not accurately reflect actual GFR. Performed By: #### 2 4323-8 ####[facility] [id number] [place] [address] [place] Glucose [Mass/Vol] 104 mg/dL High 74-99 [facility] Comment on above: Order Comment: Speci aye Type: BLOOD SPECIMENOrdering Facility: [facility] Address: [address] [place] [address] Result Comment: The [place] [employer] (ADA) provides guidance for cutoff values for fasting glucose and random glucose. The ADA defines fasting as no caloric intake for at least 8 hours. Fasting plasma glucose results between 100 to 125 mg/dL indicate increased risk for diabetes (prediabetes).Fasting plasma glucose results greater than or equal to 126 mg/dL meet the criteria for diagnosis of diabetes. In the absence of unequivocal hyperglycemia, results should be confirmed by repeat testing. In a patient with classic symptoms of hyperglycemia or hyperglycemic crisis, random plasma glucose results greater than or equal to 200 mg/dL meet the criteria for diagnosis of diabetes.Reference: Standards of Medical Care in Diabetes 2016, [place] [employer]. Diabetes Care. 2016.39(Suppl 1). Performed By: #### 2 4323-8 ####[facility] [id number] [place] [address] [place] Potassium [Moles/Vol] 4.3 mmol/L Normal 3.7-5.1 [facility] Comment on above: Order Comment: Nicole griffiths Type: BLOOD SPECIMENOrdering Facility: [facility] Address: [address] [place] [id number] Performed By: #### 2 4323-8 ####[facility] [id number] [place] [address] [place] Protein [Mass/Vol] 7.1 g/dL Normal 6.3-8.0 [facility] Comment on above: Order Comment: Speci men Type: BLOOD SPECIMENOrdering Facility: [facility] Address: [address] [place] [address] Performed By: #### 2 4323-8 ####[facility] [id number] [place] [address] [place] Sodium [Moles/Vol] 141 mmol/L Normal 136-144 [facility] Comment on above: Order Comment: Speci men Type: BLOOD SPECIMENOrdering Facility: [facility] Address: [address] [place] [address] Performed By: #### 2 4323-8 ####[facility] [id number] [place] [address] [place] Urea nitrogen [Mass/Vol] 12 mg/dL Normal 9-24 [facility] Comment on above: Order Comment: Speci men Type: BLOOD SPECIMENOrdering Facility: [facility] Address: [address] [place] [address] Performed By: #### 2 4323-8 ####[facility] [id number] [place] [address] [place] HBV core Ab Ser Qlon 025 HBV core Ab Ql (S) Negative Normal Negative [facility] Comment on above: Order Comment: Speci men Type: BLOOD SPECIMENOrdering Facility: [facility] Address: [address] [place] [address] Result Comment: No e vidence of current or past infection with Hepatitis B virus. Should recent infection be suspected, repeat testing may be considered 3-4 weeks after this draw. Performed By: #### 2 2322-2, 06566-7, 5195-3 ####[facility] [id number] [address] [place] HBV surface Ab Ql (S)on 11-24 HBV surface Ab Qn (S) 19.30 mIU/mL Normal C [facility] Comment on above: Order Comment: Speci men Type: BLOOD SPECIMENOrdering Facility: [facility] Address: [address] [place] [address] Result Comment: <8 m IU/mL: No serological evidence of immunity to Hepatitis B Virus.>/= 8 to <12 mIU/mL: No serological evidence of immunity to Hepatitis B Virus.>/= 12 mIU/mL: Consistent with serological evidence of immunity to Hepatitis B Virus. Performed By: #### 2 2322-2, 99572-9, 5-3 ####[facility]CL[facility] [id number] [place] [address] [place] HBV surface Ab Ser Qlon 11-24 HBV surface Ab Ql (S) Positive Normal [facility] Comment on above: Order Comment: Speci men Type: BLOOD SPECIMENOrdering Facility: [facility] Address: [address] [place] [address] Result Comment: Cons istent with serological evidence of immunity to Hepatitis B Virus. Performed By: #### 2 2322-2, 12228-6, 5194-3 ####[facility]CL[facility] [id number] [place] [address] [place] HBV surface Ag Ser Qlon 11-24 HBV surface Ag Ql (S) Negative Normal Negative [facility] Comment on above: Order Comment: Speci men Type: BLOOD SPECIMENOrdering Facility: [facility] Address: [address] [place] [address] Performed By: #### 2 2322-2, 42659-8, 5194-3 ####[facility] [id number] [place] [address] [place] HCV Ab Ser Qlon 12-17-2024 HCV Ab Ql (S) Negative Normal Negative [facility] Comment on above: Order Comment: Speci men Type: BLOOD SPECIMENOrdering Facility: [facility] Address: [address] [place] [address] Result Comment: The result suggests no evidence of infection with Hepatitis C virus. Should recent infection be suspected, repeat testing may be considered 4-6 weeks after this draw. Performed By: #### 1 6128-1 ####[facility] [id number] [place] [address] [place] Haptoglob SerPl-mCncon 12-17 Haptoglobin [Mass/Vol] 135 mg/dL Normal 31-238 [facility] Comment on above: Order Comment: Nicole griffiths Type: BLOOD SPECIMENOrdering Facility: [facility] Address: [address] [place] [address] Performed By: #### 4 542-7 ####[facility] [id number] [place] [address] [place] IgG SerPl-mCncon 12-17-2024 IgG [Mass/Vol] 1048 mg/dL Normal 700-1600 [facility] Comment on above: Order Comment: Nicole griffiths Type: BLOOD SPECIMENOrdering Facility: [facility] Address: [address] [place] [address] Performed By: #### 2 465-3 ####[facility] [id number] [place] [address] [place] [id number] EVAL INTERPon 12-09 [id number] INTERP Normal [facility] Comment on above: Order Comment: Nicole griffiths Type: BLOOD SPECIMENOrdering Facility: [facility] Address: [address] [place] [address] Result Comment: Abno rmal - see comment below.Low JWXPHY21 activity.MZRPAC48 ACTIVITY ASSAY:HLRPKG27 activity was measured using Fluorescence resonance energy transfer (FRET) technology with a recombinant VWF86 substrate.The OOUTUP92 activity is mildly decreased. Unlikely thrombotic thrombocytopenic purpura (TTP), suggest searching for other causes. Decreased TZMFAS10 activity can be observed in idiopathic (autoimmune-related) thrombotic thrombocytopenic purpura (TTP), or other clinical conditions such as hemolytic uremic syndrome, hematopoietic stem cell or solid organ transplantation, sepsis, DIC, HIV infection, inflammation, bloody diarrhea, liver disease, , malignancy, or certain drug effects (e.g.,clopidogrel, cyclosporin, mitomycin C, ticlopidine, etc), and congenital XTGAUD32 deficiency (Jae-Lisa syndrome). Performed By: #### L IS2823, 13 ####[facility] [id number] [place] [address] [place] [id number] PATHOLOGIST INTERP Reviewed by Claudia Dumont M.D., Ph.D Normal [facility] Comment on above: Order Comment: Speci men Type: BLOOD SPECIMENOrdering Facility: [facility] Address: [address] [place] [address] Performed By: #### L IP8194, 13 ####[facility] [id number] [place] [address] [place] QAFBTO28 EVALUATIONon 2024 vWf cleaving protease actual/normal Chromogenic method (PPP) [Rel catalytic activity/Vol] 37 % Low 60-121 [facility] Comment on above: Order Comment: Savannahi aye Type: BLOOD SPECIMENOrdering Facility: [facility] Address: [address] [place] [address] Result Comment: This test was developed, and its performance characteristics determined by the [facility] Department of Pathology and Laboratory Medicine. It has not been cleared or approved by the FDA. The [facility] Department of Pathology and Laboratory Medicine is regulated under CLIA as qualified to perform high-complexity testing. This test is used for clinical purposes. It should not be regarded as investigational or for research. Performed By: #### L FZ6165, ADM13 ####[facility] [id number] [place] [address] [place] CBC W Auto Differential pane l (Bld)on 12-09-2024 Basophils (Bld) [#/Vol] 0.09 10*3/uL Normal <0.11 [facility] Comment on above: Order Comment: Speci men Type: BLOOD SPECIMENOrdering Facility: [facility] Address: [address] [place] [address] Performed By: #### 5 7021-8 ####[facility] LABCLIA [id number] [place] [address] Basophils/100 WBC (Bld) 0.9 % Normal [facility] Comment on above: Order Comment: Speci men Type: BLOOD SPECIMENOrdering Facility: [facility] Address: [address] [place] [address] Performed By: #### 5 7021-8 ####[facility] LABCL[facility] [id number] [place] [address] Differential cell count method Nom (Bld) Auto Normal [facility] Comment on above: Order Comment: Speci men Type: BLOOD SPECIMENOrdering Facility: [facility] Address: [address] [place] [address] Performed By: #### 5 7021-8 ####[facility]CL[facility] [id number] [place] [address] Eosinophils (Bld) [#/Vol] 0.32 10*3/uL Normal <0.46 [facility] Comment on above: Order Comment: Speci men Type: BLOOD SPECIMENOrdering Facility: [facility] Address: [address] [place] [address] Performed By: #### 5 7021-8 ####[facility]CL[facility] [id number] [place] [address] Eosinophils/100 WBC (Bld) 3.3 % Normal [facility] Comment on above: Order Comment: Speci men Type: BLOOD SPECIMENOrdering Facility: [facility] Address: [address] [place] [address] Performed By: #### 5 7021-8 ####[facility]CLIA [id number] [place] [address] Erythrocyte distribution width (RBC) [Ratio] 13.2 % Normal 11.5-15.0 [facility] Comment on above: Order Comment: Speci men Type: BLOOD SPECIMENOrdering Facility: [facility] Address: [address] [place] [address] Performed By: #### 5 7021-8 ####[facility]CLIA [id number] [place] [address] Hematocrit (Bld) [Volume fraction] 45.0 % Normal 39.0-51.0 [facility] Comment on above: Order Comment: Speci men Type: BLOOD SPECIMENOrdering Facility: [facility] Address: [address] [place] [address] Performed By: #### 5 7021-8 ####[facility]CLIA [id number] [place] [address] Hemoglobin (Bld) [Mass/Vol] 15.1 g/dL Normal 13.0-17.0 [facility] Comment on above: Order Comment: Speci men Type: BLOOD SPECIMENOrdering Facility: [facility] Address: [address] [place] [address] Performed By: #### 5 7021-8 ####[facility]CL[facility] [id number] [place] [address] Immature granulocytes (Bld) [#/Vol] 10*3/uL Normal <0.10 [facility] Comment on above: Order Comment: Speci men Type: BLOOD SPECIMENOrdering Facility: [facility] Address: [address] [place] [address] Performed By: #### 5 7021-8 ####[facility]CLIA [id number] [place] [address] Immature granulocytes/100 WBC (Bld) 0.2 % Normal [facility] Comment on above: Order Comment: Speci men Type: BLOOD SPECIMENOrdering Facility: [facility] Address: [address] [place] [address] Performed By: #### 5 7021-8 ####[facility] LABCLIA [id number] [place] [address] Lymphocytes (Bld) [#/Vol] 3.86 10*3/uL Normal 1.00-4.00 [facility] Comment on above: Order Comment: Speci men Type: BLOOD SPECIMENOrdering Facility: [facility] Address: [address] [place] [address] Performed By: #### 5 7021-8 ####[facility]CLIA [id number] [place] [address] Lymphocytes/100 WBC (Bld) 40.0 % Normal [facility] Comment on above: Order Comment: Speci men Type: BLOOD SPECIMENOrdering Facility: [facility] Address: [address] [place] [address] Performed By: #### 5 7021-8 ####[facility] LABCLIA [id number] [place] [address] MCH (RBC) [Entitic mass] 30.7 pg Normal 26.0-34.0 [facility] Comment on above: Order Comment: Speci men Type: BLOOD SPECIMENOrdering Facility: [facility] Address: [address] [place] [address] Performed By: #### 5 7021-8 ####[facility]CLIA [id number] [place] [address] MCHC (RBC) [Mass/Vol] 33.6 g/dL Normal 30.5-36.0 [facility] Comment on above: Order Comment: Speci men Type: BLOOD SPECIMENOrdering Facility: [facility] Address: [address] [place] [address] Performed By: #### 5 7021-8 ####[facility]CLIA [id number] [place] [address] MCV (RBC) [Entitic vol] 91.5 fL Normal 80.0-100.0 [facility] Comment on above: Order Comment: Speci men Type: BLOOD SPECIMENOrdering Facility: [facility] Address: [address] [place] [address] Performed By: #### 5 7021-8 ####[facility]CLIA [id number] [place] [address] Monocytes (Bld) [#/Vol] 0.84 10*3/uL Normal <0.87 [facility] Comment on above: Order Comment: Speci men Type: BLOOD SPECIMENOrdering Facility: [facility] Address: [address] [place] [address] Performed By: #### 5 7021-8 ####[facility]CLIA [id number] [place] [address] Monocytes/100 WBC (Bld) 8.7 % Normal [facility] Comment on above: Order Comment: Speci men Type: BLOOD SPECIMENOrdering Facility: [facility] Address: [address] [place] [address] Performed By: #### 5 7021-8 ####[facility]CLIA [id number] [place] [address] Neutrophils (Bld) [#/Vol] 4.52 10*3/uL Normal 1.45-7.50 [facility] Comment on above: Order Comment: Speci men Type: BLOOD SPECIMENOrdering Facility: [facility] Address: [address] [place] [address] Performed By: #### 5 7021-8 ####[facility] LABCLIA [id number] [place] [address] Neutrophils/100 WBC (Bld) 46.9 % Normal [facility] Comment on above: Order Comment: Speci men Type: BLOOD SPECIMENOrdering Facility: [facility] Address: [address] [place] [address] Performed By: #### 5 7021-8 ####[facility] LABCLIA [id number] [place] [address] Nucleated RBC (Bld) [#/Vol] 10*3/uL Normal <0.01 [facility] Comment on above: Order Comment: Speci men Type: BLOOD SPECIMENOrdering Facility: [facility] Address: [address] [place] [address] Performed By: #### 5 7021-8 ####[facility] LABCLIA [id number] [place] [address] Nucleated RBC/100 WBC (Bld) [Ratio] 0.0 /100 WBC Normal [facility] Comment on above: Order Comment: Speci men Type: BLOOD SPECIMENOrdering Facility: [facility] Address: [address] [place] [address] Performed By: #### 5 7021-8 ####[facility] LABCLIA [id number] [place] [address] Platelet mean volume (Bld) [Entitic vol] 9.1 fL Normal 9.0-12.7 [facility] Comment on above: Order Comment: Speci men Type: BLOOD SPECIMENOrdering Facility: [facility] Address: [address] [place] [address] Performed By: #### 5 7021-8 ####[facility] LABCLIA [id number] [place] [address] Platelets (Bld) [#/Vol] 288 10*3/uL Normal 150-400 [facility] Comment on above: Order Comment: Speci men Type: BLOOD SPECIMENOrdering Facility: [facility] Address: [address] [place] [address] Performed By: #### 5 7021-8 ####[facility] LABCLIA [id number] [place] [address] RBC (Bld) [#/Vol] 4.92 10*6/uL Normal 4.20-6.00 [facility] Comment on above: Order Comment: Speci men Type: BLOOD SPECIMENOrdering Facility: [facility] Address: [address] [place] [address] Performed By: #### 5 7021-8 ####[facility] LABCLIA [id number] [place] [address] WBC (Bld) [#/Vol] 9.65 10*3/uL Normal 3.70-11.00 [facility] Comment on above: Order Comment: Speci men Type: BLOOD SPECIMENOrdering Facility: [facility] Address: [address] [place] [address] Performed By: #### 5 7021-8 ####[facility] LABCLIA [id number] [place] [address] CNOVSPon 12-09-2024 CNOVSP Normal [facility] metabolic 2000 panelon 12-09-2024 Albumin [Mass/Vol] 4.4 g/dL Normal 3.9-4.9 [facility] Comment on above: Order Comment: Speci men Type: BLOOD SPECIMENOrdering Facility: [facility] Address: [address] [place] [address] Performed By: #### 2 4323-8 ####[facility] LABCLIA [id number] [place] [address] ALP [Catalytic activity/Vol] 97 U/L Normal 38-113 [facility] Comment on above: Order Comment: Speci men Type: BLOOD SPECIMENOrdering Facility: [facility] Address: [address] [place] [address] Performed By: #### 2 4323-8 ####[facility] LABCLIA [id number] [place] [address] ALT [Catalytic activity/Vol] 94 U/L High 10-54 [facility] Comment on above: Order Comment: Speci men Type: BLOOD SPECIMENOrdering Facility: [facility] Address: [address] [place] [address] Performed By: #### 2 4323-8 ####[facility] LABCLIA [id number] [place] [address] Anion gap [Moles/Vol] 9 mmol/L Normal 8-15 [facility] Comment on above: Order Comment: Speci men Type: BLOOD SPECIMENOrdering Facility: [facility] Address: [address] [place] [address] Performed By: #### 2 4323-8 ####[facility] LABCLIA [id number] [place] [address] AST [Catalytic activity/Vol] 38 U/L Normal 14-40 [facility] Comment on above: Order Comment: Speci men Type: BLOOD SPECIMENOrdering Facility: [facility] Address: [address] [place] [address] Performed By: #### 2 4323-8 ####[facility] LABCLIA [id number] [place] [address] Bilirubin [Mass/Vol] 0.6 mg/dL Normal 0.2-1.3 [facility] Comment on above: Order Comment: Speci men Type: BLOOD SPECIMENOrdering Facility: [facility] Address: [address] [place] [address] Performed By: #### 2 4323-8 ####[facility] LABCLIA [id number] [place] [address] Calcium [Mass/Vol] 10.0 mg/dL Normal 8.5-10.2 [facility] Comment on above: Order Comment: Speci men Type: BLOOD SPECIMENOrdering Facility: [facility] Address: [address] [place] [address] Performed By: #### 2 4323-8 ####[facility] LABCLIA [id number] [place] [address] Chloride [Moles/Vol] 105 mmol/L Normal 98-107 [facility] Comment on above: Order Comment: Speci men Type: BLOOD SPECIMENOrdering Facility: [facility] Address: [address] [place] [address] Performed By: #### 2 4323-8 ####[facility] LABCLIA [id number] [place] [address] CO2 [Moles/Vol] 25 mmol/L Normal 22-30 [facility] Comment on above: Order Comment: Speci men Type: BLOOD SPECIMENOrdering Facility: [facility] Address: [address] [place] [address] Performed By: #### 2 4323-8 ####[facility] LABCLIA [id number] [place] [address] Creatinine [Mass/Vol] 0.89 mg/dL Normal 0.73-1.22 [facility] Comment on above: Order Comment: Speci men Type: BLOOD SPECIMENOrdering Facility: [facility] Address: [address] [place] [address] Performed By: #### 2 4323-8 ####[facility] LABIA [id number] [place] [address] Creatinine and Glomerular filtration rate.predicted panel (S/P/Bld) 114 mL/min/1.73m??? Normal >=60 [facility] Comment on above: Order Comment: Speci men Type: BLOOD SPECIMENOrdering Facility: [facility] Address: [address] [place] [address] Result Comment: Julita mated Glomerular Filtration Rate (eGFR) is calculated using the 2020 CKD-EPI creatinine equation. This equation utilizes serum creatinine, sex, and age as parameters. The creatinine assay has traceable calibration to isotope dilution-mass spectrometry. Refer to KDIGO guidelines for clinical interpretation. In patients with unstable renal function, e.g. those with acute kidney injury, the eGFR may not accurately reflect actual GFR. Performed By: #### 2 4323-8 ####[facility] LABIA [id number] [place] [address] Glucose [Mass/Vol] 101 mg/dL High 74-99 [facility] Comment on above: Order Comment: Speci men Type: BLOOD SPECIMENOrdering Facility: [facility] Address: [address] [place] [address] Result Comment: The [place] [employer] (ADA) provides guidance for cutoff values for fasting glucose and random glucose. The ADA defines fasting as no caloric intake for at least 8 hours. Fasting plasma glucose results between 100 to 125 mg/dL indicate increased risk for diabetes (prediabetes).Fasting plasma glucose results greater than or equal to 126 mg/dL meet the criteria for diagnosis of diabetes. In the absence of unequivocal hyperglycemia, results should be confirmed by repeat testing. In a patient with classic symptoms of hyperglycemia or hyperglycemic crisis, random plasma glucose results greater than or equal to 200 mg/dL meet the criteria for diagnosis of diabetes.Reference: Standards of Medical Care in Diabetes 2016, [place] [employer]. Diabetes Care. 2016.39(Suppl 1). Performed By: #### 2 4323-8 ####[facility] LABCLIA [id number] [place] [address] Potassium [Moles/Vol] 5.3 mmol/L High 3.7-5.1 [facility] Comment on above: Order Comment: Speci men Type: BLOOD SPECIMENOrdering Facility: [facility] Address: [address] [place] [address] Performed By: #### 2 4323-8 ####[facility] LABCLIA [id number] [place] [address] Protein [Mass/Vol] 7.2 g/dL Normal 6.3-8.0 [facility] Comment on above: Order Comment: Speci men Type: BLOOD SPECIMENOrdering Facility: [facility] Address: [address] [place] [address] Performed By: #### 2 4323-8 ####[facility] LABCLIA [id number] [place] [address] Sodium [Moles/Vol] 139 mmol/L Normal 136-144 [facility] Comment on above: Order Comment: Speci men Type: BLOOD SPECIMENOrdering Facility: [facility] Address: [address] [place] [address] Performed By: #### 2 4323-8 ####[facility] LABCLIA [id number] [place] [address] Urea nitrogen [Mass/Vol] 13 mg/dL Normal 9-24 [facility] Comment on above: Order Comment: Nicole griffiths Type: BLOOD SPECIMENOrdering Facility: [facility] Address: [address] [place] [address] Performed By: #### 2 4323-8 ####DONYDCMANOJ [facility] LABCLIA [id number] [place] [address] Haptoglob SerPl-mCncon 12-09 Haptoglobin [Mass/Vol] 150 mg/dL Normal 31-238 [facility] Comment on above: Order Comment: Nicole griffiths Type: BLOOD SPECIMENOrdering Facility: [facility] Address: [address] [place] [address] Performed By: #### 4 542-7 ####[facility] LABCLIA [id number] [address] [place] [id number] [place] INTERPon 12-03 PMIVWQ99 INTERP Normal [facility] Comment on above: Order Comment: Nicole griffiths Type: BLOOD SPECIMENOrdering Facility: [facility] Address: [address] [place] [address] Result Comment: Moni salmon - see comment below.[id number] ACTIVITY ASSAY: TJQWKX86 activity was measured using Fluorescence resonance energy transfer (FRET) technology with a recombinant VWF86 substrate. The KXBVSV89 activity is decreased.Unlikely thrombotic thrombocytopenic purpura (TTP), suggest searching for other causesDecreased GMZBJP58 activity can be observed in idiopathic (autoimmune-related) thrombotic thrombocytopenic purpura (TTP), or other clinical conditions such as hemolytic uremic syndrome, hematopoietic stem cell or solid organ transplantation, sepsis, DIC, HIV infection, inflammation, bloody diarrhea, liver disease, , malignancy, or certain drug effects (e.g.,clopidogrel, cyclosporin, mitomycin C, ticlopidine, etc), and congenital ZBFHOV23 deficiency (Jae-Lisa syndrome). If clinically indicated, antibody assay is suggested to rule out thrombotic thrombocytopenic purpura (TTP), idiopathic (autoimmune-related) type. Performed By: #### L DP9518, ADM13 ####[facility] LABCLIA [id number] [place] [address] [place] [id number] PATHOLOGIST INTERP Reviewed by Aminata Osuna MD Normal [facility] Comment on above: Order Comment: Speci men Type: BLOOD SPECIMENOrdering Facility: [facility] Address: [address] [place] [address] Performed By: #### L AW5962, ADM13 ####[facility] LABCLIA [id number] [place] [id number] [place] [id number] EVALUATIONon 2024 vWf cleaving protease actual/normal Chromogenic method (PPP) [Rel catalytic activity/Vol] 32 % Low 60-121 [facility] Comment on above: Order Comment: Nicole griffiths Type: BLOOD SPECIMENOrdering Facility: [facility] Address: [address] [place] [address] Result Comment: This test was developed, and its performance characteristics determined by the [facility] Department of Pathology and Laboratory Medicine. It has not been cleared or approved by the FDA. The [facility] Department of Pathology and Laboratory Medicine is regulated under CLIA as qualified to perform high-complexity testing. This test is used for clinical purposes. It should not be regarded as investigational or for research. Performed By: #### L BD6853, ADM13 ####[facility] LABIA [id number] [place] [address] [place] CBC W Auto Differential pane l (Bld)on 12-03-2024 Basophils (Bld) [#/Vol] 0.06 10*3/uL Normal <0.11 [facility] Comment on above: Order Comment: Speci men Type: BLOOD SPECIMENOrdering Facility: [facility] Address: [address] [place] [address] Performed By: #### 5 7021-8 ####[facility] LABCLIA [id number] [place] [address] Basophils/100 WBC (Bld) 0.6 % Normal [facility] Comment on above: Order Comment: Speci men Type: BLOOD SPECIMENOrdering Facility: [facility] Address: [address] [place] [address] Performed By: #### 5 7021-8 ####[facility] LABCLIA [id number] [place] [address] Differential cell count method Nom (Bld) Auto Normal [facility] Comment on above: Order Comment: Speci men Type: BLOOD SPECIMENOrdering Facility: [facility] Address: [address] [place] [address] Performed By: #### 5 7021-8 ####[facility] LABCLIA [id number] [place] [address] Eosinophils (Bld) [#/Vol] 0.08 10*3/uL Normal <0.46 [facility] Comment on above: Order Comment: Speci men Type: BLOOD SPECIMENOrdering Facility: [facility] Address: [address] [place] [address] Performed By: #### 5 7021-8 ####[facility] LABCLIA [id number] [place] [address] Eosinophils/100 WBC (Bld) 0.8 % Normal [facility] Comment on above: Order Comment: Speci men Type: BLOOD SPECIMENOrdering Facility: [facility] Address: [address] [place] [address] Performed By: #### 5 7021-8 ####[facility] LABCLIA [id number] [place] [address] Erythrocyte distribution width (RBC) [Ratio] 13.2 % Normal 11.5-15.0 [facility] Comment on above: Order Comment: Speci men Type: BLOOD SPECIMENOrdering Facility: [facility] Address: [address] [place] [address] Performed By: #### 5 7021-8 ####[facility] LABCLIA [id number] [place] [address] Hematocrit (Bld) [Volume fraction] 43.4 % Normal 39.0-51.0 [facility] Comment on above: Order Comment: Speci men Type: BLOOD SPECIMENOrdering Facility: [facility] Address: [address] [place] [address] Performed By: #### 5 7021-8 ####[facility] LABCLIA [id number] [place] [address] Hemoglobin (Bld) [Mass/Vol] 14.6 g/dL Normal 13.0-17.0 [facility] Comment on above: Order Comment: Speci men Type: BLOOD SPECIMENOrdering Facility: [facility] Address: [address] [place] [address] Performed By: #### 5 7021-8 ####[facility] LABCLIA [id number] [place] [address] Immature granulocytes (Bld) [#/Vol] 0.03 10*3/uL Normal <0.10 [facility] Comment on above: Order Comment: Speci men Type: BLOOD SPECIMENOrdering Facility: [facility] Address: [address] [place] [address] Performed By: #### 5 7021-8 ####[facility] LABCLIA [id number] [place] [address] Immature granulocytes/100 WBC (Bld) 0.3 % Normal [facility] Comment on above: Order Comment: Speci men Type: BLOOD SPECIMENOrdering Facility: [facility] Address: [address] [place] [address] Performed By: #### 5 7021-8 ####[facility] LABCLIA [id number] [place] [address] Lymphocytes (Bld) [#/Vol] 3.77 10*3/uL Normal 1.00-4.00 [facility] Comment on above: Order Comment: Speci men Type: BLOOD SPECIMENOrdering Facility: [facility] Address: [address] [place] [address] Performed By: #### 5 7021-8 ####[facility] LABCLIA [id number] [place] [address] Lymphocytes/100 WBC (Bld) 38.1 % Normal [facility] Comment on above: Order Comment: Speci men Type: BLOOD SPECIMENOrdering Facility: [facility] Address: [address] [place] [address] Performed By: #### 5 7021-8 ####[facility] LABCLIA [id number] [place] [address] MCH (RBC) [Entitic mass] 30.5 pg Normal 26.0-34.0 [facility] Comment on above: Order Comment: Speci men Type: BLOOD SPECIMENOrdering Facility: [facility] Address: [address] [place] [address] Performed By: #### 5 7021-8 ####[facility] LABIA [id number] [place] [address] MCHC (RBC) [Mass/Vol] 33.6 g/dL Normal 30.5-36.0 [facility] Comment on above: Order Comment: Speci men Type: BLOOD SPECIMENOrdering Facility: [facility] Address: [address] [place] [address] Performed By: #### 5 7021-8 ####[facility] LABCLIA [id number] [place] [address] MCV (RBC) [Entitic vol] 90.8 fL Normal 80.0-100.0 [facility] Comment on above: Order Comment: Speci men Type: BLOOD SPECIMENOrdering Facility: [facility] Address: [address] [place] [address] Performed By: #### 5 7021-8 ####[facility] LABIA [id number] [place] [address] Monocytes (Bld) [#/Vol] 0.52 10*3/uL Normal <0.87 [facility] Comment on above: Order Comment: Speci men Type: BLOOD SPECIMENOrdering Facility: [facility] Address: [address] [place] [address] Performed By: #### 5 7021-8 ####[facility] LABCLIA [id number] [place] [address] Monocytes/100 WBC (Bld) 5.3 % Normal [facility] Comment on above: Order Comment: Speci men Type: BLOOD SPECIMENOrdering Facility: [facility] Address: [address] [place] [address] Performed By: #### 5 7021-8 ####[facility] LABCLIA [id number] [place] [address] Neutrophils (Bld) [#/Vol] 5.44 10*3/uL Normal 1.45-7.50 [facility] Comment on above: Order Comment: Speci men Type: BLOOD SPECIMENOrdering Facility: [facility] Address: [address] [place] [address] Performed By: #### 5 7021-8 ####[facility] LABCLIA [id number] [place] [address] Neutrophils/100 WBC (Bld) 54.9 % Normal [facility] Comment on above: Order Comment: Speci men Type: BLOOD SPECIMENOrdering Facility: [facility] Address: [address] [place] [address] Performed By: #### 5 7021-8 ####[facility] LABCLIA [id number] [place] [address] Nucleated RBC (Bld) [#/Vol] 10*3/uL Normal <0.01 [facility] Comment on above: Order Comment: Speci men Type: BLOOD SPECIMENOrdering Facility: [facility] Address: [address] [place] [address] Performed By: #### 5 7021-8 ####[facility] LABCLIA [id number] [place] [address] Nucleated RBC/100 WBC (Bld) [Ratio] 0.0 /100 WBC Normal [facility] Comment on above: Order Comment: Speci men Type: BLOOD SPECIMENOrdering Facility: [facility] Address: [address] [place] [address] Performed By: #### 5 7021-8 ####[facility] LABCLIA [id number] [place] [address] Platelet mean volume (Bld) [Entitic vol] 9.1 fL Normal 9.0-12.7 [facility] Comment on above: Order Comment: Speci men Type: BLOOD SPECIMENOrdering Facility: [facility] Address: [address] [place] [address] Performed By: #### 5 7021-8 ####[facility] LABIA [id number] [place] [address] Platelets (Bld) [#/Vol] 310 10*3/uL Normal 150-400 [facility] Comment on above: Order Comment: Speci men Type: BLOOD SPECIMENOrdering Facility: [facility] Address: [address] [place] [address] Performed By: #### 5 7021-8 ####[facility] LABCLIA [id number] [place] [address] RBC (Bld) [#/Vol] 4.78 10*6/uL Normal 4.20-6.00 [facility] Comment on above: Order Comment: Speci men Type: BLOOD SPECIMENOrdering Facility: [facility] Address: [address] [place] [address] Performed By: #### 5 7021-8 ####[facility] LABIA [id number] [place] [address] WBC (Bld) [#/Vol] 9.90 10*3/uL Normal 3.70-11.00 [facility] Comment on above: Order Comment: Speci men Type: BLOOD SPECIMENOrdering Facility: [facility] Address: [address] [place] [id number] Performed By: #### 5 7021-8 ####DAGOBERTO [facility] LABCLIA [id number] [place] [address] Comprehensive metabolic 2000 panelon 12-03-2024 Albumin [Mass/Vol] 4.6 g/dL Normal 3.9-4.9 [facility] Comment on above: Order Comment: Speci men Type: BLOOD SPECIMENOrdering Facility: [facility] Address: [address] [place], [place] [address] Performed By: #### 2 4323-8 ####[facility] LABCLIA [id number] [place] [address] [place] ALP [Catalytic activity/Vol] 89 U/L Normal 38-113 [facility] Comment on above: Order Comment: Speci men Type: BLOOD SPECIMENOrdering Facility: [facility] Address: [address] [place], [place] [address] Performed By: #### 2 4323-8 ####[facility] LABCLIA [id number] [place] [address] [place] ALT [Catalytic activity/Vol] 106 U/L High 10-54 [facility] Comment on above: Order Comment: Speci men Type: BLOOD SPECIMENOrdering Facility: [facility] Address: [address] [place], [place] [address] Performed By: #### 2 4323-8 ####[facility] LABCLIA [id number] [place] [id number] [place] Anion gap [Moles/Vol] 11 mmol/L Normal 8-15 [facility] Comment on above: Order Comment: Speci men Type: BLOOD SPECIMENOrdering Facility: [facility] Address: [address] [place], [place] [address] Performed By: #### 2 4323-8 ####[facility] LABCLIA [id number] [place] [id number] [place] AST [Catalytic activity/Vol] 39 U/L Normal 14-40 [facility] Comment on above: Order Comment: Speci men Type: BLOOD SPECIMENOrdering Facility: [facility] Address: [address] [place] [address] Performed By: #### 2 4323-8 ####[facility] LABCLIA [id number] [place] [address] [place] Bilirubin [Mass/Vol] 0.6 mg/dL Normal 0.2-1.3 [facility] Comment on above: Order Comment: Speci men Type: BLOOD SPECIMENOrdering Facility: [facility] Address: [address] [place] [address] Performed By: #### 2 4323-8 ####[facility] LABCLIA [id number] [place] [address] [place] Calcium [Mass/Vol] 10.4 mg/dL High 8.5-10.2 [facility] Comment on above: Order Comment: Speci men Type: BLOOD SPECIMENOrdering Facility: [facility] Address: [address] [place] [address] Performed By: #### 2 4323-8 ####[facility] LABCLIA [id number] [place] [address] [place] Chloride [Moles/Vol] 103 mmol/L Normal 98-107 [facility] Comment on above: Order Comment: Speci men Type: BLOOD SPECIMENOrdering Facility: [facility] Address: [address] [place] [address] Performed By: #### 2 4323-8 ####[facility] LABCLIA [id number] [place] [id number] [place] CO2 [Moles/Vol] 26 mmol/L Normal 22-30 [facility] Comment on above: Order Comment: Speci men Type: BLOOD SPECIMENOrdering Facility: [facility] Address: [address] [place] [address] Performed By: #### 2 4323-8 ####[facility] [id number] [place] [id number] [place] Creatinine [Mass/Vol] 0.87 mg/dL Normal 0.73-1.22 [facility] Comment on above: Order Comment: Speci men Type: BLOOD SPECIMENOrdering Facility: [facility] Address: [address] [place] [address] Performed By: #### 2 4323-8 ####[facility] LABIA [id number] [address] [place] Creatinine and Glomerular filtration rate.predicted panel (S/P/Bld) 115 mL/min/1.73m??? Normal >=60 [facility] Comment on above: Order Comment: Speci men Type: BLOOD SPECIMENOrdering Facility: [facility] Address: [address] [place] [address] Result Comment: Julita mated Glomerular Filtration Rate (eGFR) is calculated using the 2020 CKD-EPI creatinine equation. This equation utilizes serum creatinine, sex, and age as parameters. The creatinine assay has traceable calibration to isotope dilution-mass spectrometry. Refer to KDIGO guidelines for clinical interpretation. In patients with unstable renal function, e.g. those with acute kidney injury, the eGFR may not accurately reflect actual GFR. Performed By: #### 2 4323-8 ####[facility]IA [id number] [place] [id number] [place] Glucose [Mass/Vol] 111 mg/dL High 74-99 [facility] Comment on above: Order Comment: Speci men Type: BLOOD SPECIMENOrdering Facility: [facility] Address: [address] [place] [address] Result Comment: The [place] Diabetes [employer] (ADA) provides guidance for cutoff values for fasting glucose and random glucose. The ADA defines fasting as no caloric intake for at least 8 hours. Fasting plasma glucose results between 100 to 125 mg/dL indicate increased risk for diabetes (prediabetes).Fasting plasma glucose results greater than or equal to 126 mg/dL meet the criteria for diagnosis of diabetes. In the absence of unequivocal hyperglycemia, results should be confirmed by repeat testing. In a patient with classic symptoms of hyperglycemia or hyperglycemic crisis, random plasma glucose results greater than or equal to 200 mg/dL meet the criteria for diagnosis of diabetes.Reference: Standards of Medical Care in Diabetes 2016, [place] [employer]. Diabetes Care. 2016.39(Suppl 1). Performed By: #### 2 4323-8 ####[facility] LABCLIA [id number] [address] [address] [place] Potassium [Moles/Vol] 4.3 mmol/L Normal 3.7-5.1 [facility] Comment on above: Order Comment: Speci men Type: BLOOD SPECIMENOrdering Facility: [facility] Address: [address] [place] [address] Performed By: #### 2 4323-8 ####[facility]IA [id number] [place] [id number] [place] Protein [Mass/Vol] 7.7 g/dL Normal 6.3-8.0 [facility] Comment on above: Order Comment: Speci men Type: BLOOD SPECIMENOrdering Facility: [facility] Address: [address] [place] [address] Performed By: #### 2 4323-8 ####[facility] LABCLIA [id number] [place] [id number] [place] Sodium [Moles/Vol] 140 mmol/L Normal 136-144 [facility] Comment on above: Order Comment: Speci men Type: BLOOD SPECIMENOrdering Facility: [facility] Address: [address] [place] [address] Performed By: #### 2 4323-8 ####[facility] LABCLIA [id number] [address] [address] [place] Urea nitrogen [Mass/Vol] 12 mg/dL Normal 9-24 [facility] Comment on above: Order Comment: Speci men Type: BLOOD SPECIMENOrdering Facility: [facility] Address: [address] [place] [address] Performed By: #### 2 4323-8 ####[facility] LABCLIA [id number] [place] [address] [place] Haptoglob SerPl-mCncon 12-03 Haptoglobin [Mass/Vol] 108 mg/dL Normal 31-238 [facility] Comment on above: Order Comment: Speci men Type: BLOOD SPECIMENOrdering Facility: [facility] Address: [address] [place] [address] Performed By: #### 4 542-7 ####[facility] LABCLIA [id number] [place] [address] [place] [id number] EVAL INTERPon 11-19 [id number] INTERP Normal [facility] Comment on above: Order Comment: Savannahi men Type: BLOOD SPECIMENOrdering Facility: [facility] Address: [address] [place] [address] Result Comment: Abno rmal - see comment below.No laboratory evidence for thrombotic thrombocytopenic purpura (TTP).Decreased GPAYXU00 inkxctepMYRCQY16 ACTIVITY ASSAY:FJGZXB39 activity was measured using Fluorescence resonance energy transfer (FRET) technology with a recombinant VWF86 substrate.The RNGHDZ79 activity is decreased.MZRKWL93 INHIBITOR SCREEN AND/OR INHIBITOR ASSAY:WOVCVZ62 inhibitor assay was performed using mixing studies after 1:1 mixing of normal pooled plasma and the patient's plasma, and residual RCZNGR54 activity was measured using FRET technology. No FMOGIP37 inhibitor is detected (< or = 0.4 Inhibitor Units).The history of thrombotic thrombocytopenic purpura (TTP) is noted. In comparison with previous results from 10/29/2024, the current TRFYEG65 activity is more decreased.Please correlate these laboratory results with clinical findings, medication and transfusion history. Performed By: #### L EX3772, ADM13 ####[facility] LABCLIA [id number] [address] [place] [id number] PATHOLOGIST INTERP Reviewed by Claudia Dumont M.D., Ph.D Normal [facility] Comment on above: Order Comment: Specgrzegorz griffiths Type: BLOOD SPECIMENOrdering Facility: [facility] Address: [address] [place] [address] Performed By: #### L JC7574, ADM13 ####[facility] [id number] [address] [place] [id number] EVALUATIONon 2024 vWf cleaving protease actual/normal Chromogenic method (PPP) [Rel catalytic activity/Vol] 27 % Low 60-121 [facility] Comment on above: Order Comment: Nicole griffiths Type: BLOOD SPECIMENOrdering Facility: [facility] Address: [address] [place] [address] Result Comment: This test was developed, and its performance characteristics determined by the [facility] Department of Pathology and Laboratory Medicine. It has not been cleared or approved by the FDA. The [facility] Department of Pathology and Laboratory Medicine is regulated under CLIA as qualified to perform high-complexity testing. This test is used for clinical purposes. It should not be regarded as investigational or for research. Performed By: #### L LC4039, ADM13 ####[facility] LABCLIA [id number] [address] [place] vWf cleaving protease inhibitor Qn (PPP) <0.4 Normal <=0.4 [facility] Comment on above: Order Comment: Speci aye Type: BLOOD SPECIMENOrdering Facility: [facility] Address: [address] [place] [address] Result Comment: This test was developed, and its performance characteristics determined by the [facility] Department of Pathology and Laboratory Medicine. It has not been cleared or approved by the FDA. The [facility] Department of Pathology and Laboratory Medicine is regulated under CLIA as qualified to perform high-complexity testing. This test is used for clinical purposes. It should not be regarded as investigational or for research. Performed By: #### L CZ6897, ADM13 ####[facility] LABCLIA [id number] [address], [place] [address] [place] CBC W Auto Differential pane l (Bld)on 11-19-2024 Basophils (Bld) [#/Vol] 0.07 10*3/uL Normal <0.11 [facility] Comment on above: Order Comment: Speci men Type: BLOOD SPECIMENOrdering Facility: [facility] Address: [address] [place] [address] Performed By: #### 5 7021-8 ####[facility] LABCLIA [id number] [address], [place] [address] [place] Basophils/100 WBC (Bld) 0.7 % Normal [facility] Comment on above: Order Comment: Speci men Type: BLOOD SPECIMENOrdering Facility: [facility] Address: [address] [place] [address] Performed By: #### 5 7021-8 ####[facility] LABCLIA [id number] [address], [place] [address] [place] Differential cell count method Nom (Bld) Auto Normal [facility] Comment on above: Order Comment: Speci men Type: BLOOD SPECIMENOrdering Facility: [facility] Address: [address] [place] [address] Performed By: #### 5 7021-8 ####[facility] LABCLIA [id number] [place] [address] [place] Eosinophils (Bld) [#/Vol] 0.24 10*3/uL Normal <0.46 [facility] Comment on above: Order Comment: Speci men Type: BLOOD SPECIMENOrdering Facility: [facility] Address: [address] [place] [address] Performed By: #### 5 7021-8 ####[facility] LABCLIA [id number] [address], [facility]95 [place] Eosinophils/100 WBC (Bld) 2.6 % Normal [facility] Comment on above: Order Comment: Speci men Type: BLOOD SPECIMENOrdering Facility: [facility] Address: [address] [place] [address] Performed By: #### 5 7021-8 ####[facility] LABCLIA [id number] [place] [id number] [place] Erythrocyte distribution width (RBC) [Ratio] 13.1 % Normal 11.5-15.0 [facility] Comment on above: Order Comment: Speci men Type: BLOOD SPECIMENOrdering Facility: [facility] Address: [address] [place] [address] Performed By: #### 5 7021-8 ####[facility] [id number] [place] [address] [place] Hematocrit (Bld) [Volume fraction] 44.6 % Normal 39.0-51.0 [facility] Comment on above: Order Comment: Speci men Type: BLOOD SPECIMENOrdering Facility: [facility] Address: [address] [place] [address] Performed By: #### 5 7021-8 ####[facility]IA [id number] [place] [address] [place] Hemoglobin (Bld) [Mass/Vol] 14.7 g/dL Normal 13.0-17.0 [facility] Comment on above: Order Comment: Speci men Type: BLOOD SPECIMENOrdering Facility: [facility] Address: [address] [place] [address] Performed By: #### 5 7021-8 ####[facility] [id number] [place] [address] [place] Immature granulocytes (Bld) [#/Vol] 10*3/uL Normal <0.10 [facility] Comment on above: Order Comment: Speci men Type: BLOOD SPECIMENOrdering Facility: [facility] Address: [address] [place] [address] Performed By: #### 5 7021-8 ####[facility]IA [id number] [place] [address] [place] Immature granulocytes/100 WBC (Bld) 0.2 % Normal [facility] Comment on above: Order Comment: Speci men Type: BLOOD SPECIMENOrdering Facility: [facility] Address: [address] [place] [address] Performed By: #### 5 7021-8 ####[facility] LABIA [id number] [place] [address] [place] Lymphocytes (Bld) [#/Vol] 4.12 10*3/uL High 1.00-4.00 [facility] Comment on above: Order Comment: Speci men Type: BLOOD SPECIMENOrdering Facility: [facility] Address: [address] [place] [address] Performed By: #### 5 7021-8 ####[facility]IA [id number] [place] [address] [place] Lymphocytes/100 WBC (Bld) 44.0 % Normal [facility] Comment on above: Order Comment: Speci men Type: BLOOD SPECIMENOrdering Facility: [facility] Address: [address] [place] [address] Performed By: #### 5 7021-8 ####[facility]IA [id number] [place] [address] [place] MCH (RBC) [Entitic mass] 30.8 pg Normal 26.0-34.0 [facility] Comment on above: Order Comment: Speci men Type: BLOOD SPECIMENOrdering Facility: [facility] Address: [address] [place] [address] Performed By: #### 5 7021-8 ####[facility]IA [id number] [place] [address] [place] MCHC (RBC) [Mass/Vol] 33.0 g/dL Normal 30.5-36.0 [facility] Comment on above: Order Comment: Speci men Type: BLOOD SPECIMENOrdering Facility: [facility] Address: [address] [place] [address] Performed By: #### 5 7021-8 ####[facility] LABCLIA [id number] [place] [address] [place] MCV (RBC) [Entitic vol] 93.3 fL Normal 80.0-100.0 [facility] Comment on above: Order Comment: Speci men Type: BLOOD SPECIMENOrdering Facility: [facility] Address: [address] [place] [address] Performed By: #### 5 7021-8 ####[facility] [id number] [place] [address] [place] Monocytes (Bld) [#/Vol] 0.85 10*3/uL Normal <0.87 [facility] Comment on above: Order Comment: Speci men Type: BLOOD SPECIMENOrdering Facility: [facility] Address: [address] [place] [address] Performed By: #### 5 7021-8 ####[facility]IA [id number] [place] [address] [place] Monocytes/100 WBC (Bld) 9.1 % Normal [facility] Comment on above: Order Comment: Speci men Type: BLOOD SPECIMENOrdering Facility: [facility] Address: [address] [place] [address] Performed By: #### 5 7021-8 ####[facility] LABIA [id number] [place] [id number] [place] Neutrophils (Bld) [#/Vol] 4.07 10*3/uL Normal 1.45-7.50 [facility] Comment on above: Order Comment: Speci men Type: BLOOD SPECIMENOrdering Facility: [facility] Address: [address] [place] [address] Performed By: #### 5 7021-8 ####[facility] LABCLIA [id number] [place] [address] [place] Neutrophils/100 WBC (Bld) 43.4 % Normal [facility] Comment on above: Order Comment: Speci men Type: BLOOD SPECIMENOrdering Facility: [facility] Address: [address] [place] [address] Performed By: #### 5 7021-8 ####[facility] LABCLIA [id number] [place] [address] [place] Nucleated RBC (Bld) [#/Vol] 10*3/uL Normal <0.01 [facility] Comment on above: Order Comment: Speci men Type: BLOOD SPECIMENOrdering Facility: [facility] Address: [address] [place] [address] Performed By: #### 5 7021-8 ####[facility] [id number] [place] [address] [place] Nucleated RBC/100 WBC (Bld) [Ratio] 0.0 /100 WBC Normal [facility] Comment on above: Order Comment: Speci men Type: BLOOD SPECIMENOrdering Facility: [facility] Address: [address] [place] [address] Performed By: #### 5 7021-8 ####[facility] [id number] [place] [id number] [place] Platelet mean volume (Bld) [Entitic vol] 10.9 fL Normal 9.0-12.7 [facility] Comment on above: Order Comment: Speci men Type: BLOOD SPECIMENOrdering Facility: [facility] Address: [address] [place] [address] Performed By: #### 5 7021-8 ####[facility] [id number] [place] [id number] [place] Platelets (Bld) [#/Vol] 302 10*3/uL Normal 150-400 [facility] Comment on above: Order Comment: Speci men Type: BLOOD SPECIMENOrdering Facility: [facility] Address: [address] [place] [address] Performed By: #### 5 7021-8 ####[facility] LABCLIA [id number] [place] [address] [place] RBC (Bld) [#/Vol] 4.78 10*6/uL Normal 4.20-6.00 [facility] Comment on above: Order Comment: Speci men Type: BLOOD SPECIMENOrdering Facility: [facility] Address: [address] [place] [address] Performed By: #### 5 7021-8 ####[facility] LABCLIA [id number] [place] [address] [place] WBC (Bld) [#/Vol] 9.37 10*3/uL Normal 3.70-11.00 [facility] Comment on above: Order Comment: Speci men Type: BLOOD SPECIMENOrdering Facility: [facility] Address: [address] [place] [address] Performed By: #### 5 7021-8 ####[facility] LABCLIA [id number] [place] [id number] [place] Comprehensive metabolic 2000 panelon 11-19-2024 Albumin [Mass/Vol] 4.6 g/dL Normal 3.9-4.9 [facility] Comment on above: Order Comment: Speci men Type: BLOOD SPECIMENOrdering Facility: [facility] Address: [address] [place] [address] Performed By: #### 2 4323-8 ####[facility] LABCLIA [id number] [place] [id number] [place] ALP [Catalytic activity/Vol] 100 U/L Normal 38-113 [facility] Comment on above: Order Comment: Speci men Type: BLOOD SPECIMENOrdering Facility: [facility] Address: [address] [place] [id number] Performed By: #### 2 4323-8 ####[facility] LABCLIA [id number] [address] [address] [place] ALT [Catalytic activity/Vol] 124 U/L High 10-54 [facility] Comment on above: Order Comment: Speci men Type: BLOOD SPECIMENOrdering Facility: [facility] Address: [address] [place], [place] [address] Performed By: #### 2 4323-8 ####[facility] LABCLIA [id number] [place] [id number] [place] Anion gap [Moles/Vol] 20 mmol/L High 8-15 [facility] Comment on above: Order Comment: Speci men Type: BLOOD SPECIMENOrdering Facility: [facility] Address: [address] [place] [address] Performed By: #### 2 4323-8 ####[facility] LABCLIA [id number] [place] [id number] [place] AST [Catalytic activity/Vol] 54 U/L High 14-40 [facility] Comment on above: Order Comment: Speci men Type: BLOOD SPECIMENOrdering Facility: [facility] Address: [address] [place], [place] [address] Performed By: #### 2 4323-8 ####[facility]CLIA [id number] [address] [address] [place] Bilirubin [Mass/Vol] 0.4 mg/dL Normal 0.2-1.3 [facility] Comment on above: Order Comment: Speci men Type: BLOOD SPECIMENOrdering Facility: [facility] Address: [address] [place], [place] [address] Performed By: #### 2 4323-8 ####[facility]CLIA [id number] [facility] [address] [place] [address] [place] Calcium [Mass/Vol] 10.2 mg/dL Normal 8.5-10.2 [facility] Comment on above: Order Comment: Speci men Type: BLOOD SPECIMENOrdering Facility: [facility] Address: [address] [place], [place] [address] Performed By: #### 2 4323-8 ####[facility] LABCLIA [id number] [address] [place] [address] [place] Chloride [Moles/Vol] 105 mmol/L Normal 98-107 [facility] Comment on above: Order Comment: Speci men Type: BLOOD SPECIMENOrdering Facility: [facility] Address: [address] [place] [address] Performed By: #### 2 4323-8 ####[facility]CL[facility] [id number] [place] [id number] [place] CO2 [Moles/Vol] 19 mmol/L Low 22-30 [facility] Comment on above: Order Comment: Speci men Type: BLOOD SPECIMENOrdering Facility: [facility] Address: [address] [place] [address] Performed By: #### 2 4323-8 ####[facility]CLIA [id number] [place] [id number] [place] Creatinine [Mass/Vol] 0.94 mg/dL Normal 0.73-1.22 [facility] Comment on above: Order Comment: Speci men Type: BLOOD SPECIMENOrdering Facility: [facility] Address: [address] [place] [address] Performed By: #### 2 4323-8 ####[facility]CLIA [id number] [address] [address] [place] Creatinine and Glomerular filtration rate.predicted panel (S/P/Bld) 108 mL/min/1.73m??? Normal >=60 [facility] Comment on above: Order Comment: Nicole griffiths Type: BLOOD SPECIMENOrdering Facility: [facility] Address: [address] [place] [address] Result Comment: Julita mated Glomerular Filtration Rate (eGFR) is calculated using the 2020 CKD-EPI creatinine equation. This equation utilizes serum creatinine, sex, and age as parameters. The creatinine assay has traceable calibration to isotope dilution-mass spectrometry. Refer to KDIGO guidelines for clinical interpretation. In patients with unstable renal function, e.g. those with acute kidney injury, the eGFR may not accurately reflect actual GFR. Performed By: #### 2 4323-8 ####[facility] [id number] [place] [address] [place] Glucose [Mass/Vol] 98 mg/dL Normal 74-99 [facility] Comment on above: Order Comment: Nicole griffiths Type: BLOOD SPECIMENOrdering Facility: [facility] Address: [address] [place] [address] Result Comment: The [place] [employer] (ADA) provides guidance for cutoff values for fasting glucose and random glucose. The ADA defines fasting as no caloric intake for at least 8 hours. Fasting plasma glucose results between 100 to 125 mg/dL indicate increased risk for diabetes (prediabetes).Fasting plasma glucose results greater than or equal to 126 mg/dL meet the criteria for diagnosis of diabetes. In the absence of unequivocal hyperglycemia, results should be confirmed by repeat testing. In a patient with classic symptoms of hyperglycemia or hyperglycemic crisis, random plasma glucose results greater than or equal to 200 mg/dL meet the criteria for diagnosis of diabetes.Reference: Standards of Medical Care in Diabetes 2016, [place] [employer]. Diabetes Care. 2016.39(Suppl 1). Performed By: #### 2 4323-8 ####[facility] [id number] [place] [address] [place] Potassium [Moles/Vol] 4.6 mmol/L Normal 3.7-5.1 [facility] Comment on above: Order Comment: Nicole griffiths Type: BLOOD SPECIMENOrdering Facility: [facility] Address: [address] [place] [address] Performed By: #### 2 4323-8 ####[facility]CL[facility] [id number] [address] [place] [address] [place] Protein [Mass/Vol] 7.6 g/dL Normal 6.3-8.0 [facility] Comment on above: Order Comment: Speci men Type: BLOOD SPECIMENOrdering Facility: [facility] Address: [address] [place] [address] Performed By: #### 2 4323-8 ####[facility]CL[facility] [id number] [address] [place] [address] [place] Sodium [Moles/Vol] 144 mmol/L Normal 136-144 [facility] Comment on above: Order Comment: Speci men Type: BLOOD SPECIMENOrdering Facility: [facility] Address: [address] [place] [address] Performed By: #### 2 4323-8 ####[facility]CL[facility] [id number] [address], [facility]95 [place] Urea nitrogen [Mass/Vol] 14 mg/dL Normal 9-24 [facility] Comment on above: Order Comment: Speci men Type: BLOOD SPECIMENOrdering Facility: [facility] Address: [address] [place] [address] Performed By: #### 2 4323-8 ####[facility]CL[facility] [id number] [address] [place] [address] [place] Haptoglob SerPl-mCncon 11-19 Haptoglobin [Mass/Vol] 112 mg/dL Normal 31-238 [facility] Comment on above: Order Comment: Speci men Type: BLOOD SPECIMENOrdering Facility: [facility] Address: [address] [place] [address] Performed By: #### 4 542-7 ####[facility] LABCLIA [id number] [address] [place] [address] [place] [id number] EVAL INTERPon 10-29 [id number] INTERP Normal [facility] Comment on above: Order Comment: Speci men Type: BLOOD SPECIMENOrdering Facility: [facility] Address: [address] [place] [address] Result Comment: Moni salmon - see comment below.Significant findings:1. Mildly decreased QDBHQD35 fesozgopBVJHYK75 ACTIVITY ASSAY: CEDVRA29 activity was measured using Fluorescence resonance energy transfer (FRET) technology with a recombinant VWF86 substrate. The XQYSQX92 activity is mildly decreased (41%).LOBESU07 INHIBITOR SCREEN AND/OR INHIBITOR ASSAY: Not performed because PKTUTO89 activity was not decreased below 30%.SUMMARY: The history of thrombotic thrombocytopenic purpura (TTP) is noted. In comparison with previous results from 10/08/2024, the current PJYHGQ45 activity is slightly more decreased. Decreased ERPUUZ78 activity can be observed in idiopathic (autoimmune-related) thrombotic thrombocytopenic purpura (TTP), or other clinical conditions such as hemolytic uremic syndrome, hematopoietic stem cell or solid organ transplantation, sepsis, DIC, HIV infection, inflammation, bloody diarrhea, liver disease, , malignancy, or certain drug effects (e.g.,clopidogrel, cyclosporin, mitomycin C, ticlopidine, etc), and congenital NRGZIJ02 deficiency (Jae-Lisa syndrome). Severe hemolysis (Hb 2 g/L), hyperbilirubinemia, hyperlipidemia and elevated von Willebrand factor antigen levels can interfere with PNKCML52 activity assay. Recent transfusion or plasma exchange therapy can falsely normalize STCDSL72 level, and mask the diagnosis of thrombotic thrombocytopenic purpura (TTP). Please correlate these laboratory results with clinical findings, medication and transfusion history Performed By: #### L DM6739, ADM13 ####[facility] LABCLIA [id number] [place] [address] [place] [id number] PATHOLOGIST INTERP Reviewed by Angelica Glynn DO, MPH Normal [facility] Comment on above: Order Comment: Speci men Type: BLOOD SPECIMENOrdering Facility: [facility] Address: [address] [place] [address] Performed By: #### L OM9862, ADM13 ####[facility] LABCLIA [id number] [place] [address] [place] [id number] EVALUATIONon 2024 vWf cleaving protease actual/normal Chromogenic method (PPP) [Rel catalytic activity/Vol] 41 % Low 60-121 [facility] Comment on above: Order Comment: Speci men Type: BLOOD SPECIMENOrdering Facility: [facility] Address: [address] [place] [address] Result Comment: This test was developed, and its performance characteristics determined by the [facility] Department of Pathology and Laboratory Medicine. It has not been cleared or approved by the FDA. The [facility] Department of Pathology and Laboratory Medicine is regulated under CLIA as qualified to perform high-complexity testing. This test is used for clinical purposes. It should not be regarded as investigational or for research. Performed By: #### L IV1080, ADM13 ####[facility] LABCLIA [id number] [place] [address] [place] CBC W Auto Differential pane l (Bld)on 10-29-2024 Basophils (Bld) [#/Vol] 0.10 10*3/uL Normal <0.11 [facility] Comment on above: Order Comment: Speci men Type: BLOOD SPECIMENOrdering Facility: [facility] Address: [address] [place] [address] Performed By: #### 5 7021-8 ####[facility] LABIA [id number] [place] [address] [place] Basophils/100 WBC (Bld) 1.0 % Normal [facility] Comment on above: Order Comment: Speci men Type: BLOOD SPECIMENOrdering Facility: [facility] Address: [address] [place] [address] Performed By: #### 5 7021-8 ####[facility] LABIA [id number] [place] [address] [place] Differential cell count method Nom (Bld) Auto Normal [facility] Comment on above: Order Comment: Speci men Type: BLOOD SPECIMENOrdering Facility: [facility] Address: [address] [place] [address] Performed By: #### 5 7021-8 ####[facility] LABCLIA [id number] [address], [place] [address] [place] Eosinophils (Bld) [#/Vol] 0.32 10*3/uL Normal <0.46 [facility] Comment on above: Order Comment: Speci men Type: BLOOD SPECIMENOrdering Facility: [facility] Address: [address] [place] [address] Performed By: #### 5 7021-8 ####[facility] LABCLIA [id number] [address], [place] [address] [place] Eosinophils/100 WBC (Bld) 3.2 % Normal [facility] Comment on above: Order Comment: Speci men Type: BLOOD SPECIMENOrdering Facility: [facility] Address: [address] [place] [address] Performed By: #### 5 7021-8 ####[facility] LABCLIA [id number] [facility] [address], [place] [address] [place] Erythrocyte distribution width (RBC) [Ratio] 13.0 % Normal 11.5-15.0 [facility] Comment on above: Order Comment: Speci men Type: BLOOD SPECIMENOrdering Facility: [facility] Address: [address] [place] [address] Performed By: #### 5 7021-8 ####[facility] LABCLIA [id number] [facility] [address], [facility] [place] Hematocrit (Bld) [Volume fraction] 44.7 % Normal 39.0-51.0 [facility] Comment on above: Order Comment: Speci men Type: BLOOD SPECIMENOrdering Facility: [facility] Address: [address] [place] [address] Performed By: #### 5 7021-8 ####[facility] LABCLIA [id number] [place] [address] [place] Hemoglobin (Bld) [Mass/Vol] 14.7 g/dL Normal 13.0-17.0 [facility] Comment on above: Order Comment: Speci men Type: BLOOD SPECIMENOrdering Facility: [facility] Address: [address] [place] [address] Performed By: #### 5 7021-8 ####[facility] LABCLIA [id number] [place] [address] [place] Immature granulocytes (Bld) [#/Vol] 10*3/uL Normal <0.10 [facility] Comment on above: Order Comment: Speci men Type: BLOOD SPECIMENOrdering Facility: [facility] Address: [address] [place] [address] Performed By: #### 5 7021-8 ####[facility] LABCLIA [id number] [place] [address] [place] Immature granulocytes/100 WBC (Bld) 0.2 % Normal [facility] Comment on above: Order Comment: Speci men Type: BLOOD SPECIMENOrdering Facility: [facility] Address: [address] [place] [address] Performed By: #### 5 7021-8 ####[facility] LABCLIA [id number] [place] [address] [place] Lymphocytes (Bld) [#/Vol] 4.22 10*3/uL High 1.00-4.00 [facility] Comment on above: Order Comment: Speci men Type: BLOOD SPECIMENOrdering Facility: [facility] Address: [address] [place] [address] Performed By: #### 5 7021-8 ####[facility] LABCLIA [id number] [place] [address] [place] Lymphocytes/100 WBC (Bld) 41.9 % Normal [facility] Comment on above: Order Comment: Speci men Type: BLOOD SPECIMENOrdering Facility: [facility] Address: [address] [place] [address] Performed By: #### 5 7021-8 ####[facility] LABIA [id number] [place] [address] [place] MCH (RBC) [Entitic mass] 30.7 pg Normal 26.0-34.0 [facility] Comment on above: Order Comment: Speci men Type: BLOOD SPECIMENOrdering Facility: [facility] Address: [address] [place] [address] Performed By: #### 5 7021-8 ####[facility] LABIA [id number] [place] [address] [place] MCHC (RBC) [Mass/Vol] 32.9 g/dL Normal 30.5-36.0 [facility] Comment on above: Order Comment: Speci men Type: BLOOD SPECIMENOrdering Facility: [facility] Address: [address] [place] [address] Performed By: #### 5 7021-8 ####[facility] LABIA [id number] [place] [address] [place] MCV (RBC) [Entitic vol] 93.3 fL Normal 80.0-100.0 [facility] Comment on above: Order Comment: Speci men Type: BLOOD SPECIMENOrdering Facility: [facility] Address: [address] [place] [address] Performed By: #### 5 7021-8 ####[facility] LABIA [id number] [place] [address] [place] Monocytes (Bld) [#/Vol] 0.97 10*3/uL High <0.87 [facility] Comment on above: Order Comment: Speci men Type: BLOOD SPECIMENOrdering Facility: [facility] Address: [address] [place] [address] Performed By: #### 5 7021-8 ####[facility] LABCLIA [id number] [place] [address] [place] Monocytes/100 WBC (Bld) 9.6 % Normal [facility] Comment on above: Order Comment: Speci men Type: BLOOD SPECIMENOrdering Facility: [facility] Address: [address] [place] [address] Performed By: #### 5 7021-8 ####[facility] LABCLIA [id number] [place] [address] [place] Neutrophils (Bld) [#/Vol] 4.44 10*3/uL Normal 1.45-7.50 [facility] Comment on above: Order Comment: Speci men Type: BLOOD SPECIMENOrdering Facility: [facility] Address: [address] [place] [address] Performed By: #### 5 7021-8 ####[facility] LABCLIA [id number] [place] [address] [place] Neutrophils/100 WBC (Bld) 44.1 % Normal [facility] Comment on above: Order Comment: Speci men Type: BLOOD SPECIMENOrdering Facility: [facility] Address: [address] [place] [address] Performed By: #### 5 7021-8 ####[facility] LABCLIA [id number] [place] [address] [place] Nucleated RBC (Bld) [#/Vol] 10*3/uL Normal <0.01 [facility] Comment on above: Order Comment: Speci men Type: BLOOD SPECIMENOrdering Facility: [facility] Address: [address] [place] [address] Performed By: #### 5 7021-8 ####[facility] LABCLIA [id number] [place] [address] [place] Nucleated RBC/100 WBC (Bld) [Ratio] 0.0 /100 WBC Normal [facility] Comment on above: Order Comment: Speci men Type: BLOOD SPECIMENOrdering Facility: [facility] Address: [address] [place] [address] Performed By: #### 5 7021-8 ####[facility] LABIA [id number] [place] [address] [place] Platelet mean volume (Bld) [Entitic vol] 10.5 fL Normal 9.0-12.7 [facility] Comment on above: Order Comment: Speci men Type: BLOOD SPECIMENOrdering Facility: [facility] Address: [address] [place] [address] Performed By: #### 5 7021-8 ####[facility] LABIA [id number] [place] [address] [place] Platelets (Bld) [#/Vol] 314 10*3/uL Normal 150-400 [facility] Comment on above: Order Comment: Speci men Type: BLOOD SPECIMENOrdering Facility: [facility] Address: [address] [place] [address] Performed By: #### 5 7021-8 ####[facility] LABIA [id number] [place] [address] [place] RBC (Bld) [#/Vol] 4.79 10*6/uL Normal 4.20-6.00 [facility] Comment on above: Order Comment: Speci men Type: BLOOD SPECIMENOrdering Facility: [facility] Address: [address] [place] [address] Performed By: #### 5 7021-8 ####[facility] LABCLIA [id number] [place] [address] [place] WBC (Bld) [#/Vol] 10.07 10*3/uL Normal 3.70-11.00 [facility] Comment on above: Order Comment: Speci men Type: BLOOD SPECIMENOrdering Facility: [facility] Address: [address] [place] [address] Performed By: #### 5 7021-8 ####[facility] LABIA [id number] [place] [address] [place] [id number] EVAL INTERPon 10-08 VPVVHW09 INTERP Normal [facility] Comment on above: Order Comment: Speci men Type: BLOOD SPECIMENOrdering Facility: [facility] Address: [address] [place] [address] Result Comment: Abno rmal - see comment below.Significant findings:Mildly decreased VEMCFQ46 juhwrfejGOPCLS49 ACTIVITY ASSAY:VHNAWK82 activity was measured using Fluorescence resonance energy transfer (FRET) technology with a recombinant VWF86 substrate.The XFQCKN19 activity is mildly decreased.History of thrombotic thrombocytopenic purpura (TTP) is noted. In comparison with previous results from 09/17/2024 , the current VLGMPI58 activity is more increased. Please correlate these laboratory results with clinical findings and medication history.HJR 10/11/2024 Performed By: #### L ST2525, ADM13 ####[facility] [id number] [place] [address] [place] [id number] PATHOLOGIST INTERP Reviewed by Ramón Newell MD, PhD Normal [facility] Comment on above: Order Comment: Nicole griffiths Type: BLOOD SPECIMENOrdering Facility: [facility] Address: [address] [place] [address] Performed By: #### L BM9309, ADM13 ####[facility] [id number] [place] [address] [place] [id number] EVALUATIONon 2024 vWf cleaving protease actual/normal Chromogenic method (PPP) [Rel catalytic activity/Vol] 53 % Low 60-121 [facility] Comment on above: Order Comment: Savannahi men Type: BLOOD SPECIMENOrdering Facility: [facility] Address: [address] [place] [address] Result Comment: This test was developed, and its performance characteristics determined by the [facility] Department of Pathology and Laboratory Medicine. It has not been cleared or approved by the FDA. The [facility] Department of Pathology and Laboratory Medicine is regulated under CLIA as qualified to perform high-complexity testing. This test is used for clinical purposes. It should not be regarded as investigational or for research. Performed By: #### L DA0704, ADM13 ####[facility] LABCLIA [id number] [facility] [address] [place] CBC W Auto Differential pane l (Bld)on 10-08-2024 Basophils (Bld) [#/Vol] 0.08 10*3/uL Normal <0.11 [facility] Comment on above: Order Comment: Speci men Type: BLOOD SPECIMENOrdering Facility: [facility] Address: [address] [place] [address] Performed By: #### 5 7021-8 ####[facility] LABCLIA [id number] [place] [address] Basophils/100 WBC (Bld) 0.9 % Normal [facility] Comment on above: Order Comment: Speci men Type: BLOOD SPECIMENOrdering Facility: [facility] Address: [address] [place] [address] Performed By: #### 5 7021-8 ####[facility] LABCLIA [id number] [place] [address] Differential cell count method Nom (Bld) Auto Normal [facility] Comment on above: Order Comment: Speci men Type: BLOOD SPECIMENOrdering Facility: [facility] Address: [address] [place] [address] Performed By: #### 5 7021-8 ####[facility] LABCLIA [id number] [place] [address] Eosinophils (Bld) [#/Vol] 0.22 10*3/uL Normal <0.46 [facility] Comment on above: Order Comment: Speci men Type: BLOOD SPECIMENOrdering Facility: [facility] Address: [address] [place] [address] Performed By: #### 5 7021-8 ####[facility] LABCLIA [id number] [place] [address] Eosinophils/100 WBC (Bld) 2.5 % Normal [facility] Comment on above: Order Comment: Speci men Type: BLOOD SPECIMENOrdering Facility: [facility] Address: [address] [place] [address] Performed By: #### 5 7021-8 ####[facility] LABCLIA [id number] [place] [address] Erythrocyte distribution width (RBC) [Ratio] 13.2 % Normal 11.5-15.0 [facility] Comment on above: Order Comment: Speci men Type: BLOOD SPECIMENOrdering Facility: [facility] Address: [address] [place] [address] Performed By: #### 5 7021-8 ####[facility] LABCLIA [id number] [place] [address] Hematocrit (Bld) [Volume fraction] 44.1 % Normal 39.0-51.0 [facility] Comment on above: Order Comment: Speci men Type: BLOOD SPECIMENOrdering Facility: [facility] Address: [address] [place] [address] Performed By: #### 5 7021-8 ####[facility] LABCLIA [id number] [place] [address] Hemoglobin (Bld) [Mass/Vol] 14.3 g/dL Normal 13.0-17.0 [facility] Comment on above: Order Comment: Speci men Type: BLOOD SPECIMENOrdering Facility: [facility] Address: [address] [place] [address] Performed By: #### 5 7021-8 ####[facility] LABCLIA [id number] [place] [address] Immature granulocytes (Bld) [#/Vol] 10*3/uL Normal <0.10 [facility] Comment on above: Order Comment: Speci men Type: BLOOD SPECIMENOrdering Facility: [facility] Address: [address] [place] [address] Performed By: #### 5 7021-8 ####[facility] LABIA [id number] [place] [address] Immature granulocytes/100 WBC (Bld) 0.2 % Normal [facility] Comment on above: Order Comment: Speci men Type: BLOOD SPECIMENOrdering Facility: [facility] Address: [address] [place] [address] Performed By: #### 5 7021-8 ####[facility] LABCLIA [id number] [place] [address] Lymphocytes (Bld) [#/Vol] 2.50 10*3/uL Normal 1.00-4.00 [facility] Comment on above: Order Comment: Speci men Type: BLOOD SPECIMENOrdering Facility: [facility] Address: [address] [place] [address] Performed By: #### 5 7021-8 ####[facility] LABIA [id number] [place] [address] Lymphocytes/100 WBC (Bld) 28.0 % Normal [facility] Comment on above: Order Comment: Speci men Type: BLOOD SPECIMENOrdering Facility: [facility] Address: [address] [place] [address] Performed By: #### 5 7021-8 ####[facility] LABCLIA [id number] [place] [address] MCH (RBC) [Entitic mass] 30.6 pg Normal 26.0-34.0 [facility] Comment on above: Order Comment: Speci men Type: BLOOD SPECIMENOrdering Facility: [facility] Address: [address] [place] [address] Performed By: #### 5 7021-8 ####[facility] LABCLIA [id number] [place] [address] MCHC (RBC) [Mass/Vol] 32.4 g/dL Normal 30.5-36.0 [facility] Comment on above: Order Comment: Speci men Type: BLOOD SPECIMENOrdering Facility: [facility] Address: [address] [place] [address] Performed By: #### 5 7021-8 ####[facility] LABCLIA [id number] [place] [address] MCV (RBC) [Entitic vol] 94.2 fL Normal 80.0-100.0 [facility] Comment on above: Order Comment: Speci men Type: BLOOD SPECIMENOrdering Facility: [facility] Address: [address] [place] [address] Performed By: #### 5 7021-8 ####[facility] LABCLIA [id number] [place] [address] Monocytes (Bld) [#/Vol] 0.81 10*3/uL Normal <0.87 [facility] Comment on above: Order Comment: Speci men Type: BLOOD SPECIMENOrdering Facility: [facility] Address: [address] [place] [address] Performed By: #### 5 7021-8 ####[facility] LABCLIA [id number] [place] [address] Monocytes/100 WBC (Bld) 9.1 % Normal [facility] Comment on above: Order Comment: Speci men Type: BLOOD SPECIMENOrdering Facility: [facility] Address: [address] [place] [address] Performed By: #### 5 7021-8 ####[facility] LABCLIA [id number] [place] [address] Neutrophils (Bld) [#/Vol] 5.29 10*3/uL Normal 1.45-7.50 [facility] Comment on above: Order Comment: Speci men Type: BLOOD SPECIMENOrdering Facility: [facility] Address: [address] [place] [address] Performed By: #### 5 7021-8 ####[facility] LABCLIA [id number] [place] [address] Neutrophils/100 WBC (Bld) 59.3 % Normal [facility] Comment on above: Order Comment: Speci men Type: BLOOD SPECIMENOrdering Facility: [facility] Address: [address] [place] [address] Performed By: #### 5 7021-8 ####[facility] LABCLIA [id number] [place] [address] Nucleated RBC (Bld) [#/Vol] 10*3/uL Normal <0.01 [facility] Comment on above: Order Comment: Speci men Type: BLOOD SPECIMENOrdering Facility: [facility] Address: [address] [place] [address] Performed By: #### 5 7021-8 ####[facility] LABCLIA [id number] [place] [address] Nucleated RBC/100 WBC (Bld) [Ratio] 0.0 /100 WBC Normal [facility] Comment on above: Order Comment: Speci men Type: BLOOD SPECIMENOrdering Facility: [facility] Address: [address] [place] [address] Performed By: #### 5 7021-8 ####[facility] LABCLIA [id number] [place] [address] Platelet mean volume (Bld) [Entitic vol] 9.1 fL Normal 9.0-12.7 [facility] Comment on above: Order Comment: Speci men Type: BLOOD SPECIMENOrdering Facility: [facility] Address: [address] [place] [address] Performed By: #### 5 7021-8 ####[facility] LABCLIA [id number] [place] [address] Platelets (Bld) [#/Vol] 297 10*3/uL Normal 150-400 [facility] Comment on above: Order Comment: Speci men Type: BLOOD SPECIMENOrdering Facility: [facility] Address: [address] [place] [address] Performed By: #### 5 7021-8 ####[facility] LABIA [id number] [place] [address] RBC (Bld) [#/Vol] 4.68 10*6/uL Normal 4.20-6.00 [facility] Comment on above: Order Comment: Speci men Type: BLOOD SPECIMENOrdering Facility: [facility] Address: [address] [place] [address] Performed By: #### 5 7021-8 ####[facility] LABIA [id number] [place] [address] WBC (Bld) [#/Vol] 8.92 10*3/uL Normal 3.70-11.00 [facility] Comment on above: Order Comment: Speci men Type: BLOOD SPECIMENOrdering Facility: [facility] Address: [address] [place] [address] Performed By: #### 5 7021-8 ####[facility] LABIA [id number] [place] [address] Comprehensive metabolic 2000 panelon 10-08-2024 Albumin [Mass/Vol] 4.5 g/dL Normal 3.9-4.9 [facility] Comment on above: Order Comment: Speci men Type: BLOOD SPECIMENOrdering Facility: [facility] Address: [address] [place] [address] Performed By: #### 2 4323-8 ####[facility] LABIA [id number] [place] [address] ALP [Catalytic activity/Vol] 88 U/L Normal 38-113 [facility] Comment on above: Order Comment: Speci men Type: BLOOD SPECIMENOrdering Facility: [facility] Address: [address] [place] [address] Performed By: #### 2 4323-8 ####[facility] LABCLIA [id number] [place] [address] ALT [Catalytic activity/Vol] 142 U/L High 10-54 [facility] Comment on above: Order Comment: Speci men Type: BLOOD SPECIMENOrdering Facility: [facility] Address: [address] [place], [place] [address] Performed By: #### 2 4323-8 ####[facility] [facility] LABCLIA [id number] [place] [address] Anion gap [Moles/Vol] 9 mmol/L Normal 8-15 [facility] Comment on above: Order Comment: Speci men Type: BLOOD SPECIMENOrdering Facility: [facility] Address: [address] [place] [address] Performed By: #### 2 4323-8 ####[facility] LABCLIA [id number] [place] [address] AST [Catalytic activity/Vol] 44 U/L High 14-40 [facility] Comment on above: Order Comment: Speci men Type: BLOOD SPECIMENOrdering Facility: [facility] Address: [address] [place] [address] Performed By: #### 2 4323-8 ####[facility] LABCLIA [id number] [place] [address] Bilirubin [Mass/Vol] 0.6 mg/dL Normal 0.2-1.3 [facility] Comment on above: Order Comment: Speci men Type: BLOOD SPECIMENOrdering Facility: [facility] Address: [address] [place] [address] Performed By: #### 2 4323-8 ####[facility] LABCLIA [id number] [place] [address] Calcium [Mass/Vol] 9.8 mg/dL Normal 8.5-10.2 [facility] Comment on above: Order Comment: Speci men Type: BLOOD SPECIMENOrdering Facility: [facility] Address: [address] [place] [address] Performed By: #### 2 4323-8 ####[facility] LABCLIA [id number] [place] [address] Chloride [Moles/Vol] 107 mmol/L Normal 98-107 [facility] Comment on above: Order Comment: Speci men Type: BLOOD SPECIMENOrdering Facility: [facility] Address: [address] [place] [address] Performed By: #### 2 4323-8 ####[facility] LABCLIA [id number] [place] [address] CO2 [Moles/Vol] 27 mmol/L Normal 22-30 [facility] Comment on above: Order Comment: Speci men Type: BLOOD SPECIMENOrdering Facility: [facility] Address: [address] [place] [address] Performed By: #### 2 4323-8 ####[facility] LABCLIA [id number] [place] [address] Creatinine [Mass/Vol] 0.89 mg/dL Normal 0.73-1.22 [facility] Comment on above: Order Comment: Speci men Type: BLOOD SPECIMENOrdering Facility: [facility] Address: [address] [place] [address] Performed By: #### 2 4323-8 ####[facility] LABCLIA [id number] [place] [address] Creatinine and Glomerular filtration rate.predicted panel (S/P/Bld) 114 mL/min/1.73m??? Normal >=60 [facility] Comment on above: Order Comment: Speci men Type: BLOOD SPECIMENOrdering Facility: [facility] Address: [address] [place] [address] Result Comment: Julita mated Glomerular Filtration Rate (eGFR) is calculated using the 2020 CKD-EPI creatinine equation. This equation utilizes serum creatinine, sex, and age as parameters. The creatinine assay has traceable calibration to isotope dilution-mass spectrometry. Refer to KDIGO guidelines for clinical interpretation. In patients with unstable renal function, e.g. those with acute kidney injury, the eGFR may not accurately reflect actual GFR. Performed By: #### 2 4323-8 ####[facility] LABCLIA [id number] [place] [address] Glucose [Mass/Vol] 104 mg/dL High 74-99 [facility] Comment on above: Order Comment: Nicole griffiths Type: BLOOD SPECIMENOrdering Facility: [facility] Address: [address] [place] [address] Result Comment: The [place] [employer] (ADA) provides guidance for cutoff values for fasting glucose and random glucose. The ADA defines fasting as no caloric intake for at least 8 hours. Fasting plasma glucose results between 100 to 125 mg/dL indicate increased risk for diabetes (prediabetes).Fasting plasma glucose results greater than or equal to 126 mg/dL meet the criteria for diagnosis of diabetes. In the absence of unequivocal hyperglycemia, results should be confirmed by repeat testing. In a patient with classic symptoms of hyperglycemia or hyperglycemic crisis, random plasma glucose results greater than or equal to 200 mg/dL meet the criteria for diagnosis of diabetes.Reference: Standards of Medical Care in Diabetes 2016, [place] [employer]. Diabetes Care. 2016.39(Suppl 1). Performed By: #### 2 4323-8 ####[facility] LABCLIA [id number] [place] [address] Potassium [Moles/Vol] 4.9 mmol/L Normal 3.7-5.1 [facility] Comment on above: Order Comment: Nicole griffiths Type: BLOOD SPECIMENOrdering Facility: [facility] Address: [address] [place] [address] Performed By: #### 2 4323-8 ####[facility] LABCLIA [id number] [place] [address] Protein [Mass/Vol] 6.9 g/dL Normal 6.3-8.0 [facility] Comment on above: Order Comment: Nicole griffiths Type: BLOOD SPECIMENOrdering Facility: [facility] Address: [address] [place] [address] Performed By: #### 2 4323-8 ####[facility] LABCLIA [id number] [place] [address] Sodium [Moles/Vol] 143 mmol/L Normal 136-144 [facility] Comment on above: Order Comment: Speci men Type: BLOOD SPECIMENOrdering Facility: [facility] Address: [address] [place] [address] Performed By: #### 2 4323-8 ####[facility] LABCLIA [id number] [place] [address] Urea nitrogen [Mass/Vol] 13 mg/dL Normal 9-24 [facility] Comment on above: Order Comment: Speci men Type: BLOOD SPECIMENOrdering Facility: [facility] Address: [address] [place] [address] Performed By: #### 2 4323-8 ####[facility] LABCLIA [id number] [place] [address] Haptoglob SerPl-mCncon 10-08 Haptoglobin [Mass/Vol] 136 mg/dL Normal 31-238 [facility] Comment on above: Order Comment: Speci men Type: BLOOD SPECIMENOrdering Facility: [facility] Address: [address] [place] [address] Performed By: #### 4 542-7 ####[facility] LABCLIA [id number] [place] [address] [place] [id number] [place] INTERPon 09-21 [id number] INTERP Normal [facility] Comment on above: Order Comment: Speci men Type: BLOOD SPECIMENOrdering Facility: [facility] Address: [address] [place] [address] Result Comment: Inte rp\X09\Abnormal - see comment below.Decreased [id number] phzsyxroALKCIQ96 ACTIVITY ASSAY:FKTNPF69 activity was measured using Fluorescence resonance energy transfer (FRET) technology with a recombinant VWF86 substrate.The MTUHBS31 activity is decreased.History of thrombotic thrombocytopenic purpura (TTP) is noted. In comparison with previous results from 09/17/2024 , current YTORBQ74 activity is more decreased raising concerns for relapsing TTP. Performed By: #### L SN3885, ADM13 ####[facility] LABIA [id number] [place] [address] [place] [id number] PATHOLOGIST INTERP Reviewed by Claudia Dumont M.D., Ph.D Normal [facility] Comment on above: Order Comment: Nicole griffiths Type: BLOOD SPECIMENOrdering Facility: [facility] Address: [address] [place] [address] Performed By: #### L QQ8599, ADM13 ####[facility] [id number] [place] [address] [place] [id number] EVALUATIONon 2024 vWf cleaving protease actual/normal Chromogenic method (PPP) [Rel catalytic activity/Vol] 30 % Low 60-121 [facility] Comment on above: Order Comment: Nicole griffiths Type: BLOOD SPECIMENOrdering Facility: [facility] Address: [address] [place] [address] Result Comment: This test was developed, and its performance characteristics determined by the [facility] Department of Pathology and Laboratory Medicine. It has not been cleared or approved by the FDA. The [facility] Department of Pathology and Laboratory Medicine is regulated under CLIA as qualified to perform high-complexity testing. This test is used for clinical purposes. It should not be regarded as investigational or for research. Performed By: #### L EV8426, ADM13 ####[facility] [id number] [place] [address] [place] CBC W Auto Differential pane l (Bld)on 09-21-2024 Basophils (Bld) [#/Vol] 0.07 10*3/uL Normal <0.11 [facility] Comment on above: Order Comment: Nicole griffiths Type: BLOOD SPECIMENOrdering Facility: [facility] Address: [address] [place] [address] Performed By: #### 5 7021-8 ####[facility] LABCLIA [id number] [place] [address] Basophils/100 WBC (Bld) 0.9 % Normal [facility] Comment on above: Order Comment: Speci men Type: BLOOD SPECIMENOrdering Facility: [facility] Address: [address] [place] [address] Performed By: #### 5 7021-8 ####[facility] LABCLIA [id number] [place] [address] Differential cell count method Nom (Bld) Auto Normal [facility] Comment on above: Order Comment: Speci men Type: BLOOD SPECIMENOrdering Facility: [facility] Address: [address] [place] [address] Performed By: #### 5 7021-8 ####[facility] LABCLIA [id number] [place] [address] Eosinophils (Bld) [#/Vol] 0.16 10*3/uL Normal <0.46 [facility] Comment on above: Order Comment: Speci men Type: BLOOD SPECIMENOrdering Facility: [facility] Address: [address] [place] [address] Performed By: #### 5 7021-8 ####[facility] LABCLIA [id number] [place] [address] Eosinophils/100 WBC (Bld) 2.0 % Normal [facility] Comment on above: Order Comment: Speci men Type: BLOOD SPECIMENOrdering Facility: [facility] Address: [address] [place] [address] Performed By: #### 5 7021-8 ####[facility] LABCLIA [id number] [place] [address] Erythrocyte distribution width (RBC) [Ratio] 12.4 % Normal 11.5-15.0 [facility] Comment on above: Order Comment: Speci men Type: BLOOD SPECIMENOrdering Facility: [facility] Address: [address] [place] [address] Performed By: #### 5 7021-8 ####[facility] LABCLIA [id number] [place] [address] Hematocrit (Bld) [Volume fraction] 41.2 % Normal 39.0-51.0 [facility] Comment on above: Order Comment: Speci men Type: BLOOD SPECIMENOrdering Facility: [facility] Address: [address] [place] [address] Performed By: #### 5 7021-8 ####[facility] LABCLIA [id number] [place] [address] Hemoglobin (Bld) [Mass/Vol] 13.9 g/dL Normal 13.0-17.0 [facility] Comment on above: Order Comment: Speci men Type: BLOOD SPECIMENOrdering Facility: [facility] Address: [address] [place] [address] Performed By: #### 5 7021-8 ####[facility] LABCLIA [id number] [place] [address] Immature granulocytes (Bld) [#/Vol] 0.03 10*3/uL Normal <0.10 [facility] Comment on above: Order Comment: Speci men Type: BLOOD SPECIMENOrdering Facility: [facility] Address: [address] [place] [address] Performed By: #### 5 7021-8 ####[facility] LABCLIA [id number] [place] [address] Immature granulocytes/100 WBC (Bld) 0.4 % Normal [facility] Comment on above: Order Comment: Speci men Type: BLOOD SPECIMENOrdering Facility: [facility] Address: [address] [place] [address] Performed By: #### 5 7021-8 ####[facility] LABCLIA [id number] [place] [address] Lymphocytes (Bld) [#/Vol] 2.52 10*3/uL Normal 1.00-4.00 [facility] Comment on above: Order Comment: Speci men Type: BLOOD SPECIMENOrdering Facility: [facility] Address: [address] [place] [address] Performed By: #### 5 7021-8 ####[facility] LABCLIA [id number] [place] [address] Lymphocytes/100 WBC (Bld) 31.5 % Normal [facility] Comment on above: Order Comment: Speci men Type: BLOOD SPECIMENOrdering Facility: [facility] Address: [address] [place] [address] Performed By: #### 5 7021-8 ####[facility] LABCLIA [id number] [place] [address] MCH (RBC) [Entitic mass] 30.8 pg Normal 26.0-34.0 [facility] Comment on above: Order Comment: Speci men Type: BLOOD SPECIMENOrdering Facility: [facility] Address: [address] [place] [address] Performed By: #### 5 7021-8 ####[facility] LABCLIA [id number] [place] [address] MCHC (RBC) [Mass/Vol] 33.7 g/dL Normal 30.5-36.0 [facility] Comment on above: Order Comment: Speci men Type: BLOOD SPECIMENOrdering Facility: [facility] Address: [address] [place] [address] Performed By: #### 5 7021-8 ####[facility] LABCLIA [id number] [place] [address] MCV (RBC) [Entitic vol] 91.4 fL Normal 80.0-100.0 [facility] Comment on above: Order Comment: Speci men Type: BLOOD SPECIMENOrdering Facility: [facility] Address: [address] [place] [address] Performed By: #### 5 7021-8 ####[facility] LABCLIA [id number] [place] [address] Monocytes (Bld) [#/Vol] 0.76 10*3/uL Normal <0.87 [facility] Comment on above: Order Comment: Speci men Type: BLOOD SPECIMENOrdering Facility: [facility] Address: [address] [place] [address] Performed By: #### 5 7021-8 ####[facility] LABCLIA [id number] [place] [address] Monocytes/100 WBC (Bld) 9.5 % Normal [facility] Comment on above: Order Comment: Speci men Type: BLOOD SPECIMENOrdering Facility: [facility] Address: [address] [place] [address] Performed By: #### 5 7021-8 ####[facility] LABCLIA [id number] [place] [address] Neutrophils (Bld) [#/Vol] 4.46 10*3/uL Normal 1.45-7.50 [facility] Comment on above: Order Comment: Speci men Type: BLOOD SPECIMENOrdering Facility: [facility] Address: [address] [place] [address] Performed By: #### 5 7021-8 ####[facility] LABCLIA [id number] [place] [address] Neutrophils/100 WBC (Bld) 55.7 % Normal [facility] Comment on above: Order Comment: Speci men Type: BLOOD SPECIMENOrdering Facility: [facility] Address: [address] [place] [address] Performed By: #### 5 7021-8 ####[facility] LABCLIA [id number] [place] [address] Nucleated RBC (Bld) [#/Vol] 10*3/uL Normal <0.01 [facility] Comment on above: Order Comment: Speci men Type: BLOOD SPECIMENOrdering Facility: [facility] Address: [address] [place] [address] Performed By: #### 5 7021-8 ####DONYDCMANOJ [facility] LABIA [id number] [place] [address] Nucleated RBC/100 WBC (Bld) [Ratio] 0.0 /100 WBC Normal [facility] Comment on above: Order Comment: Speci men Type: BLOOD SPECIMENOrdering Facility: [facility] Address: [address] [place] [address] Performed By: #### 5 7021-8 ####DAGOBERTO [facility] LABIA [id number] [place] [address] Platelet mean volume (Bld) [Entitic vol] 8.9 fL Low 9.0-12.7 [facility] Comment on above: Order Comment: Speci men Type: BLOOD SPECIMENOrdering Facility: [facility] Address: [address] [place] [address] Performed By: #### 5 7021-8 ####DAGOBERTO [facility] LABIA [id number] [place] [address] Platelets (Bld) [#/Vol] 314 10*3/uL Normal 150-400 [facility] Comment on above: Order Comment: Speci men Type: BLOOD SPECIMENOrdering Facility: [facility] Address: [address] [place] [address] Performed By: #### 5 7021-8 ####[facility] LABIA [id number] [place] [address] RBC (Bld) [#/Vol] 4.51 10*6/uL Normal 4.20-6.00 [facility] Comment on above: Order Comment: Speci men Type: BLOOD SPECIMENOrdering Facility: [facility] Address: [address] [place] [address] Performed By: #### 5 7021-8 ####[facility] LABCLIA [id number] [place] [address] WBC (Bld) [#/Vol] 8.00 10*3/uL Normal 3.70-11.00 [facility] Comment on above: Order Comment: Speci men Type: BLOOD SPECIMENOrdering Facility: [facility] Address: [address] [place] [address] Performed By: #### 5 7021-8 ####[facility] LABCLIA [id number] [place] [address] CNPNon 09-20-2024 CNPN Normal [facility] [id number] [place] INTERPon 09-17 [id number] INTERP Normal [facility] Comment on above: Order Comment: Speci men Type: BLOOD SPECIMENOrdering Facility: [facility] Address: [address] [place] [address] Result Comment: Abno rmal - see comment below.Decreased [id number] ACTIVITY ASSAY:SRJSTE96 activity was measured using Fluorescence resonance energy transfer (FRET) technology with a recombinant VWF86 substrate.The HXIGIZ38 activity is decreased.History of thrombotic thrombocytopenic purpura (TTP) is noted. In comparison with previous results from 06/04/24, current MXDSUB63 activity is more decreased raising concerns for relapsing TTP. Performed By: #### L FI3647, ADM13 ####[facility] LABIA [id number] [place] [address] [place] [id number] PATHOLOGIST INTERP Reviewed by Claudia Dumont M.D., Ph.D Normal [facility] Comment on above: Order Comment: Speci men Type: BLOOD SPECIMENOrdering Facility: [facility] Address: [address] [place] [address] Performed By: #### L XC1928, ADM13 ####[facility] LABCLIA [id number] [place] [id number] [place] [id number] EVALUATIONon 2024 vWf cleaving protease actual/normal Chromogenic method (PPP) [Rel catalytic activity/Vol] 36 % Low 60-121 [facility] Comment on above: Order Comment: Speci men Type: BLOOD SPECIMENOrdering Facility: [facility] Address: [address] [place] [address] Result Comment: This test was developed, and its performance characteristics determined by the [facility] Department of Pathology and Laboratory Medicine. It has not been cleared or approved by the FDA. The [facility] Department of Pathology and Laboratory Medicine is regulated under CLIA as qualified to perform high-complexity testing. This test is used for clinical purposes. It should not be regarded as investigational or for research. Performed By: #### L KK1510, ADM13 ####[facility] LABCLIA [id number] [place] [address] [place] CBC W Auto Differential pane l (Bld)on 09-17-2024 Basophils (Bld) [#/Vol] 0.07 10*3/uL Normal <0.11 [facility] Comment on above: Order Comment: Speci men Type: BLOOD SPECIMENOrdering Facility: [facility] Address: [address] [place] [address] Performed By: #### 5 7021-8 ####[facility] LABCLIA [id number] [place] [id number] Basophils/100 WBC (Bld) 0.7 % Normal [facility] Comment on above: Order Comment: Speci men Type: BLOOD SPECIMENOrdering Facility: [facility] Address: [address] [place] [address] Performed By: #### 5 7021-8 ####[facility] LABCLIA [id number] [place] [address] Differential cell count method Nom (Bld) Auto Normal [facility] Comment on above: Order Comment: Speci men Type: BLOOD SPECIMENOrdering Facility: [facility] Address: [address] [place] [address] Performed By: #### 5 7021-8 ####[facility] LABCLIA [id number] [place] [address] Eosinophils (Bld) [#/Vol] 0.10 10*3/uL Normal <0.46 [facility] Comment on above: Order Comment: Speci men Type: BLOOD SPECIMENOrdering Facility: [facility] Address: [address] [place] [address] Performed By: #### 5 7021-8 ####[facility] LABCLIA [id number] [place] [address] Eosinophils/100 WBC (Bld) 1.0 % Normal [facility] Comment on above: Order Comment: Speci men Type: BLOOD SPECIMENOrdering Facility: [facility] Address: [address] [place] [address] Performed By: #### 5 7021-8 ####[facility] LABIA [id number] [place] [address] Erythrocyte distribution width (RBC) [Ratio] 12.8 % Normal 11.5-15.0 [facility] Comment on above: Order Comment: Speci men Type: BLOOD SPECIMENOrdering Facility: [facility] Address: [address] [place] [address] Performed By: #### 5 7021-8 ####[facility] LABCLIA [id number] [place] [address] Hematocrit (Bld) [Volume fraction] 45.9 % Normal 39.0-51.0 [facility] Comment on above: Order Comment: Speci men Type: BLOOD SPECIMENOrdering Facility: [facility] Address: [address] [place] [address] Performed By: #### 5 7021-8 ####[facility] LABIA [id number] [place] [address] Hemoglobin (Bld) [Mass/Vol] 15.5 g/dL Normal 13.0-17.0 [facility] Comment on above: Order Comment: Speci men Type: BLOOD SPECIMENOrdering Facility: [facility] Address: [address] [place] [address] Performed By: #### 5 7021-8 ####[facility] LABCLIA [id number] [place] [address] Immature granulocytes (Bld) [#/Vol] 0.05 10*3/uL Normal <0.10 [facility] Comment on above: Order Comment: Speci men Type: BLOOD SPECIMENOrdering Facility: [facility] Address: [address] [place] [address] Performed By: #### 5 7021-8 ####[facility] LABIA [id number] [place] [address] Immature granulocytes/100 WBC (Bld) 0.5 % Normal [facility] Comment on above: Order Comment: Speci men Type: BLOOD SPECIMENOrdering Facility: [facility] Address: [address] [place] [address] Performed By: #### 5 7021-8 ####[facility] LABIA [id number] [place] [address] Lymphocytes (Bld) [#/Vol] 1.99 10*3/uL Normal 1.00-4.00 [facility] Comment on above: Order Comment: Speci men Type: BLOOD SPECIMENOrdering Facility: [facility] Address: [address] [place] [address] Performed By: #### 5 7021-8 ####[facility] LABCLIA [id number] [place] [address] Lymphocytes/100 WBC (Bld) 19.0 % Normal [facility] Comment on above: Order Comment: Speci men Type: BLOOD SPECIMENOrdering Facility: [facility] Address: [address] [place] [address] Performed By: #### 5 7021-8 ####[facility] LABIA [id number] [place] [address] MCH (RBC) [Entitic mass] 30.8 pg Normal 26.0-34.0 [facility] Comment on above: Order Comment: Speci men Type: BLOOD SPECIMENOrdering Facility: [facility] Address: [address] [place] [address] Performed By: #### 5 7021-8 ####[facility] LABCLIA [id number] [place] [address] MCHC (RBC) [Mass/Vol] 33.8 g/dL Normal 30.5-36.0 [facility] Comment on above: Order Comment: Speci men Type: BLOOD SPECIMENOrdering Facility: [facility] Address: [address] [place] [address] Performed By: #### 5 7021-8 ####[facility] LABCLIA [id number] [place] [address] MCV (RBC) [Entitic vol] 91.1 fL Normal 80.0-100.0 [facility] Comment on above: Order Comment: Speci men Type: BLOOD SPECIMENOrdering Facility: [facility] Address: [address] [place] [address] Performed By: #### 5 7021-8 ####[facility] LABCLIA [id number] [place] [address] Monocytes (Bld) [#/Vol] 1.50 10*3/uL High <0.87 [facility] Comment on above: Order Comment: Speci men Type: BLOOD SPECIMENOrdering Facility: [facility] Address: [address] [place] [address] Performed By: #### 5 7021-8 ####[facility] LABCLIA [id number] [place] [address] Monocytes/100 WBC (Bld) 14.3 % Normal [facility] Comment on above: Order Comment: Speci men Type: BLOOD SPECIMENOrdering Facility: [facility] Address: [address] [place] [address] Performed By: #### 5 7021-8 ####[facility] LABCLIA [id number] [place] [address] Neutrophils (Bld) [#/Vol] 6.75 10*3/uL Normal 1.45-7.50 [facility] Comment on above: Order Comment: Speci men Type: BLOOD SPECIMENOrdering Facility: [facility] Address: [address] [place] [address] Performed By: #### 5 7021-8 ####[facility] LABCLIA [id number] [place] [address] Neutrophils/100 WBC (Bld) 64.5 % Normal [facility] Comment on above: Order Comment: Speci men Type: BLOOD SPECIMENOrdering Facility: [facility] Address: [address] [place] [address] Performed By: #### 5 7021-8 ####[facility] LABCLIA [id number] [place] [address] Nucleated RBC (Bld) [#/Vol] 10*3/uL Normal <0.01 [facility] Comment on above: Order Comment: Speci men Type: BLOOD SPECIMENOrdering Facility: [facility] Address: [address] [place] [address] Performed By: #### 5 7021-8 ####[facility] LABCLIA [id number] [place] [address] Nucleated RBC/100 WBC (Bld) [Ratio] 0.0 /100 WBC Normal [facility] Comment on above: Order Comment: Speci men Type: BLOOD SPECIMENOrdering Facility: [facility] Address: [address] [place] [address] Performed By: #### 5 7021-8 ####[facility] LABIA [id number] [place] [address] Platelet mean volume (Bld) [Entitic vol] 9.0 fL Normal 9.0-12.7 [facility] Comment on above: Order Comment: Speci men Type: BLOOD SPECIMENOrdering Facility: [facility] Address: [address] [place] [address] Performed By: #### 5 7021-8 ####[facility] LABCLIA [id number] [place] [address] Platelets (Bld) [#/Vol] 246 10*3/uL Normal 150-400 [facility] Comment on above: Order Comment: Speci men Type: BLOOD SPECIMENOrdering Facility: [facility] Address: [address] [place] [address] Performed By: #### 5 7021-8 ####[facility] LABCLIA [id number] [place] [address] RBC (Bld) [#/Vol] 5.04 10*6/uL Normal 4.20-6.00 [facility] Comment on above: Order Comment: Speci men Type: BLOOD SPECIMENOrdering Facility: [facility] Address: [address] [place] [address] Performed By: #### 5 7021-8 ####[facility] LABIA [id number] [place] [address] WBC (Bld) [#/Vol] 10.46 10*3/uL Normal 3.70-11.00 [facility] Comment on above: Order Comment: Speci men Type: BLOOD SPECIMENOrdering Facility: [facility] Address: [address] [place] [address] Performed By: #### 5 7021-8 ####[facility] LABCLIA [id number] [place] [address] Comprehensive metabolic 2000 panelon 09-17-2024 Albumin [Mass/Vol] 4.5 g/dL Normal 3.9-4.9 [facility] Comment on above: Order Comment: Speci men Type: BLOOD SPECIMENOrdering Facility: [facility] Address: [address] [place] [address] Performed By: #### 2 4323-8 ####[facility] LABCLIA [id number] [place] [address] ALP [Catalytic activity/Vol] 101 U/L Normal 38-113 [facility] Comment on above: Order Comment: Speci men Type: BLOOD SPECIMENOrdering Facility: [facility] Address: [address] [place] [address] Performed By: #### 2 4323-8 ####[facility] LABCLIA [id number] [place] [address] ALT [Catalytic activity/Vol] 81 U/L High 10-54 [facility] Comment on above: Order Comment: Speci men Type: BLOOD SPECIMENOrdering Facility: [facility] Address: [address] [place] [address] Performed By: #### 2 4323-8 ####[facility] LABCLIA [id number] [place] [address] Anion gap [Moles/Vol] 10 mmol/L Normal 8-15 [facility] Comment on above: Order Comment: Speci men Type: BLOOD SPECIMENOrdering Facility: [facility] Address: [address] [place] [address] Performed By: #### 2 4323-8 ####[facility] LABCLIA [id number] [place] [address] AST [Catalytic activity/Vol] 20 U/L Normal 14-40 [facility] Comment on above: Order Comment: Speci men Type: BLOOD SPECIMENOrdering Facility: [facility] Address: [address] [place] [address] Performed By: #### 2 4323-8 ####[facility] LABCLIA [id number] [place] [address] Bilirubin [Mass/Vol] 0.9 mg/dL Normal 0.2-1.3 [facility] Comment on above: Order Comment: Speci men Type: BLOOD SPECIMENOrdering Facility: [facility] Address: [address] [place] [address] Performed By: #### 2 4323-8 ####[facility] LABCLIA [id number] [place] [address] Calcium [Mass/Vol] 9.7 mg/dL Normal 8.5-10.2 [facility] Comment on above: Order Comment: Speci men Type: BLOOD SPECIMENOrdering Facility: [facility] Address: [address] [place] [address] Performed By: #### 2 4323-8 ####[facility] LABCLIA [id number] [place] [address] Chloride [Moles/Vol] 99 mmol/L Normal 98-107 [facility] Comment on above: Order Comment: Speci men Type: BLOOD SPECIMENOrdering Facility: [facility] Address: [address] [place] [address] Performed By: #### 2 4323-8 ####[facility] LABCLIA [id number] [place] [address] CO2 [Moles/Vol] 28 mmol/L Normal 22-30 [facility] Comment on above: Order Comment: Speci men Type: BLOOD SPECIMENOrdering Facility: [facility] Address: [address] [place] [address] Performed By: #### 2 4323-8 ####[facility] LABCLIA [id number] [place] [address] Creatinine [Mass/Vol] 1.07 mg/dL Normal 0.73-1.22 [facility] Comment on above: Order Comment: Speci men Type: BLOOD SPECIMENOrdering Facility: [facility] Address: [address] [place] [address] Performed By: #### 2 4323-8 ####[facility] LABCLIA [id number] [place] [address] Creatinine and Glomerular filtration rate.predicted panel (S/P/Bld) 92 mL/min/1.73m??? Normal >=60 [facility] Comment on above: Order Comment: Nicole griffiths Type: BLOOD SPECIMENOrdering Facility: [facility] Address: [address] [id number] Result Comment: Julita mated Glomerular Filtration Rate (eGFR) is calculated using the 2020 CKD-EPI creatinine equation. This equation utilizes serum creatinine, sex, and age as parameters. The creatinine assay has traceable calibration to isotope dilution-mass spectrometry. Refer to KDIGO guidelines for clinical interpretation. In patients with unstable renal function, e.g. those with acute kidney injury, the eGFR may not accurately reflect actual GFR. Performed By: #### 2 4323-8 ####[facility] LABCLIA [id number] [place] [address] Glucose [Mass/Vol] 92 mg/dL Normal 74-99 [facility] Comment on above: Order Comment: Nicole griffiths Type: BLOOD SPECIMENOrdering Facility: [facility] Address: [address] [id number] Result Comment: The [place] [employer] (ADA) provides guidance for cutoff values for fasting glucose and random glucose. The ADA defines fasting as no caloric intake for at least 8 hours. Fasting plasma glucose results between 100 to 125 mg/dL indicate increased risk for diabetes (prediabetes).Fasting plasma glucose results greater than or equal to 126 mg/dL meet the criteria for diagnosis of diabetes. In the absence of unequivocal hyperglycemia, results should be confirmed by repeat testing. In a patient with classic symptoms of hyperglycemia or hyperglycemic crisis, random plasma glucose results greater than or equal to 200 mg/dL meet the criteria for diagnosis of diabetes.Reference: Standards of Medical Care in Diabetes 2016, [place] [employer]. Diabetes Care. 2016.39(Suppl 1). Performed By: #### 2 4323-8 ####[facility] LABCLIA [id number] [place] [address] Potassium [Moles/Vol] 3.7 mmol/L Normal 3.7-5.1 [facility] Comment on above: Order Comment: Nicole griffiths Type: BLOOD SPECIMENOrdering Facility: [facility] Address: [address] [place] [address] Performed By: #### 2 4323-8 ####[facility] LABCLIA [id number] [place] [address] Protein [Mass/Vol] 7.8 g/dL Normal 6.3-8.0 [facility] Comment on above: Order Comment: Speci men Type: BLOOD SPECIMENOrdering Facility: [facility] Address: [address] [place] [address] Performed By: #### 2 4323-8 ####[facility] LABCLIA [id number] [place] [address] Sodium [Moles/Vol] 137 mmol/L Normal 136-144 [facility] Comment on above: Order Comment: Speci men Type: BLOOD SPECIMENOrdering Facility: [facility] Address: [address] [place] [address] Performed By: #### 2 4323-8 ####[facility] LABCLIA [id number] [place] [address] Urea nitrogen [Mass/Vol] 12 mg/dL Normal 9-24 [facility] Comment on above: Order Comment: Speci men Type: BLOOD SPECIMENOrdering Facility: [facility] Address: [address] [place] [address] Performed By: #### 2 4323-8 ####[facility] LABCLIA [id number] [place] [address] [id number] [place] INTERPon 07-20 [id number] INTERP Normal [facility] Comment on above: Order Comment: Speci men Type: BLOOD SPECIMENOrdering Facility: [facility] Address: [address] [place] [address] Result Comment: Abno rmal - see comment below.Mildly decreased CQSBUF52 activity and negative inhibitor sgjiQWWCZQ05 ACTIVITY ASSAY:RMCISX82 activity was measured using Fluorescence resonance energy transfer (FRET) technology with a recombinant VWF86 substrate.The DAXAQK54 activity is mildly decreased.WGWJEY79 INHIBITOR SCREEN AND/OR INHIBITOR ASSAY:GWHIQN58 inhibitor assay was performed using mixing studies after 1:1 mixing of normal pooled plasma and the patient's plasma, and residual YUGAJF49 activity was measured using FRET technology. No MWTKTY29 inhibitor is detected (< or = 0.4 Inhibitor Units).Cannot exclude thrombotic thrombocytopenic purpura (TTP). History of TTP is noted. In comparison to previous results from 07/05/24, current HENXRQ45 activity is more decreased by inhibitor remains undetectable.Please correlate these laboratory results with clinical findings and medication history. Performed By: #### A DM13, [id number] ####[facility] LABCLIA [id number] [place] [address] [place] [id number] PATHOLOGIST INTERP Reviewed by Claudia Dumont M.D., Ph.D Normal [facility] Comment on above: Order Comment: Nicole griffiths Type: BLOOD SPECIMENOrdering Facility: [facility] Address: [address] [place] [address] Performed By: #### A DM13, [id number] ####[facility] LABIA [id number] [place] [address] [place] [id number] EVALUATIONon 2023 vWf cleaving protease actual/normal Chromogenic method (PPP) [Rel catalytic activity/Vol] 59 % Low >67 [facility] Comment on above: Order Comment: Nicole griffiths Type: BLOOD SPECIMENOrdering Facility: [facility] Address: [address] [place] [address] Result Comment: This test was developed, and its performance characteristics determined by the [facility] Department of Pathology and Laboratory Medicine. It has not been cleared or approved by the FDA. The [facility] Department of Pathology and Laboratory Medicine is regulated under CLIA as qualified to perform high-complexity testing. This test is used for clinical purposes. It should not be regarded as investigational or for research. Performed By: #### A DM13, [id number] ####[facility] LABCLIA [id number] [place] [address] [place] vWf cleaving protease inhibitor Qn (PPP) <0.4 Normal <=0.4 [facility] Comment on above: Order Comment: Speci men Type: BLOOD SPECIMENOrdering Facility: [facility] Address: [address] [place] [address] Result Comment: This test was developed, and its performance characteristics determined by the [facility] Department of Pathology and Laboratory Medicine. It has not been cleared or approved by the FDA. The [facility] Department of Pathology and Laboratory Medicine is regulated under CLIA as qualified to perform high-complexity testing. This test is used for clinical purposes. It should not be regarded as investigational or for research. Performed By: #### A DM13, [id number] ####[facility] LABCLIA [id number] [place] [address] [place] Comprehensive metabolic 2000 panelon 07-20-2024 Albumin [Mass/Vol] 4.3 g/dL Normal 3.9-4.9 [facility] Comment on above: Order Comment: Speci men Type: BLOOD SPECIMENOrdering Facility: [facility] Address: [address] [place] [address] Performed By: #### 2 4323-8 ####[facility] LABCLIA [id number] [place] [address] ALP [Catalytic activity/Vol] 82 U/L Normal 38-113 [facility] Comment on above: Order Comment: Speci men Type: BLOOD SPECIMENOrdering Facility: [facility] Address: [address] [place] [address] Performed By: #### 2 4323-8 ####[facility] LABCLIA [id number] [place] [address] ALT [Catalytic activity/Vol] 67 U/L High 10-54 [facility] Comment on above: Order Comment: Speci men Type: BLOOD SPECIMENOrdering Facility: [facility] Address: [address] [place] [address] Performed By: #### 2 4323-8 ####[facility] LABCLIA [id number] [place] [address] Anion gap [Moles/Vol] 11 mmol/L Normal 8-15 [facility] Comment on above: Order Comment: Speci men Type: BLOOD SPECIMENOrdering Facility: [facility] Address: [address] [place] [address] Performed By: #### 2 4323-8 ####[facility] LABCLIA [id number] [place] [address] AST [Catalytic activity/Vol] 23 U/L Normal 14-40 [facility] Comment on above: Order Comment: Speci men Type: BLOOD SPECIMENOrdering Facility: [facility] Address: [address] [place] [address] Performed By: #### 2 4323-8 ####[facility] LABCLIA [id number] [place] [address] Bilirubin [Mass/Vol] 0.3 mg/dL Normal 0.2-1.3 [facility] Comment on above: Order Comment: Speci men Type: BLOOD SPECIMENOrdering Facility: [facility] Address: [address] [place] [address] Performed By: #### 2 4323-8 ####[facility] LABCLIA [id number] [place] [address] Calcium [Mass/Vol] 9.3 mg/dL Normal 8.5-10.2 [facility] Comment on above: Order Comment: Speci men Type: BLOOD SPECIMENOrdering Facility: [facility] Address: [address] [place] [address] Performed By: #### 2 4323-8 ####[facility] LABCLIA [id number] [place] [address] Chloride [Moles/Vol] 104 mmol/L Normal 98-107 [facility] Comment on above: Order Comment: Speci men Type: BLOOD SPECIMENOrdering Facility: [facility] Address: [address] [place] [address] Performed By: #### 2 4323-8 ####[facility] LABCLIA [id number] [place] [address] CO2 [Moles/Vol] 25 mmol/L Normal 22-30 [facility] Comment on above: Order Comment: Speci men Type: BLOOD SPECIMENOrdering Facility: [facility] Address: [address] [place] [address] Performed By: #### 2 4323-8 ####[facility] LABCLIA [id number] [place] [address] Creatinine [Mass/Vol] 0.85 mg/dL Normal 0.73-1.22 [facility] Comment on above: Order Comment: Speci men Type: BLOOD SPECIMENOrdering Facility: [facility] Address: [address] [place] [address] Performed By: #### 2 4323-8 ####[facility] LABCLIA [id number] [place] [address] Creatinine and Glomerular filtration rate.predicted panel (S/P/Bld) 115 mL/min/1.73m??? Normal >=60 [facility] Comment on above: Order Comment: Speci men Type: BLOOD SPECIMENOrdering Facility: [facility] Address: [address] [place] [address] Result Comment: Julita mated Glomerular Filtration Rate (eGFR) is calculated using the 2020 CKD-EPI creatinine equation. This equation utilizes serum creatinine, sex, and age as parameters. The creatinine assay has traceable calibration to isotope dilution-mass spectrometry. Refer to KDIGO guidelines for clinical interpretation. In patients with unstable renal function, e.g. those with acute kidney injury, the eGFR may not accurately reflect actual GFR. Performed By: #### 2 4323-8 ####[facility] LABCLIA [id number] [place] [address] Glucose [Mass/Vol] 111 mg/dL High 74-99 [facility] Comment on above: Order Comment: Speci men Type: BLOOD SPECIMENOrdering Facility: [facility] Address: [address] [place] [address] Result Comment: The [place] [employer] (ADA) provides guidance for cutoff values for fasting glucose and random glucose. The ADA defines fasting as no caloric intake for at least 8 hours. Fasting plasma glucose results between 100 to 125 mg/dL indicate increased risk for diabetes (prediabetes).Fasting plasma glucose results greater than or equal to 126 mg/dL meet the criteria for diagnosis of diabetes. In the absence of unequivocal hyperglycemia, results should be confirmed by repeat testing. In a patient with classic symptoms of hyperglycemia or hyperglycemic crisis, random plasma glucose results greater than or equal to 200 mg/dL meet the criteria for diagnosis of diabetes.Reference: Standards of Medical Care in Diabetes 2016, [place] [employer]. Diabetes Care. 2016.39(Suppl 1). Performed By: #### 2 4323-8 ####[facility] LABCLIA [id number] [place] [address] Potassium [Moles/Vol] 4.3 mmol/L Normal 3.7-5.1 [facility] Comment on above: Order Comment: Speci men Type: BLOOD SPECIMENOrdering Facility: [facility] Address: [address] [place] [address] Performed By: #### 2 4323-8 ####[facility] LABCLIA [id number] [place] [address] Protein [Mass/Vol] 6.9 g/dL Normal 6.3-8.0 [facility] Comment on above: Order Comment: Speci men Type: BLOOD SPECIMENOrdering Facility: [facility] Address: [address] [place] [address] Performed By: #### 2 4323-8 ####[facility] LABCLIA [id number] [place] [address] Sodium [Moles/Vol] 140 mmol/L Normal 136-144 [facility] Comment on above: Order Comment: Speci men Type: BLOOD SPECIMENOrdering Facility: [facility] Address: [address] [id number] Performed By: #### 2 4323-8 ####[facility] LABCLIA [id number] [place] [address] Urea nitrogen [Mass/Vol] 17 mg/dL Normal - [facility] Comment on above: Order Comment: Speci men Type: BLOOD SPECIMENOrdering Facility: [facility] Address: [address] [place] [address] Performed By: #### 2 4323-8 ####[facility] LABCLIA [id number] [address] [id number] [place] INTERPon 07-05 [id number] INTERP Normal [facility] Comment on above: Order Comment: Speci men Type: BLOOD SPECIMENOrdering Facility: [facility] Address: [address] [place] [address] Result Comment: Hernán al - See comment below.SESVIO55 ACTIVITY ASSAY: AVTOGH87 activity was measured using fluorescence resonance energy transfer (FRET) technology with a recombinant VWF86 substrate. The EFXXUF01 activity level is normal.MYVGVK88 INHIBITOR SCREEN AND/OR INHIBITOR ASSAY: ALKXEL59 inhibitor assay was performed using mixing studies after 1:1 mixing of normal pooled plasma and the patient's plasma, and residual JHOXDS90 activity was measured using FRET technology. No NTEXBZ60 inhibitor is detected (< or = 0.4 Inhibitor Units)SUMMARY: There is no current laboratory evidence for thrombotic thrombocytopenic purpura (TTP). The history of TTP status post therapy is noted. In comparison to previous results from 06/21/24, current SFFBKI71 activity is higher and inhibitor is now undetectable. Correlation between clinical findings and transfusion history is suggested. Performed By: #### L UN4847, ADM13 ####[facility] LABCLIA [id number] [facility] [id number] [address] [place] [id number] PATHOLOGIST INTERP Reviewed by Angelica Glynn DO, MPH Normal [facility] Comment on above: Order Comment: Speci men Type: BLOOD SPECIMENOrdering Facility: [facility] Address: [address] [place] [address] Performed By: #### L TG4074, ADM13 ####[facility] LABCLIA [id number] [address] [id number] [place] [id number] EVALUATIONon 2023 vWf cleaving protease actual/normal Chromogenic method (PPP) [Rel catalytic activity/Vol] 80 % Normal >67 [facility] Comment on above: Order Comment: Nicole griffiths Type: BLOOD SPECIMENOrdering Facility: [facility] Address: [address] [place] [address] Result Comment: This test was developed, and its performance characteristics determined by the [facility] Department of Pathology and Laboratory Medicine. It has not been cleared or approved by the FDA. The [facility] Department of Pathology and Laboratory Medicine is regulated under CLIA as qualified to perform high-complexity testing. This test is used for clinical purposes. It should not be regarded as investigational or for research. Performed By: #### L UW1820, ADM13 ####[facility] LABCLIA [id number] [place] [address] [place] vWf cleaving protease inhibitor Qn (PPP) <0.4 Normal <=0.4 [facility] Comment on above: Order Comment: Nicole griffiths Type: BLOOD SPECIMENOrdering Facility: [facility] Address: [address] [place] [address] Result Comment: This test was developed, and its performance characteristics determined by the [facility] Department of Pathology and Laboratory Medicine. It has not been cleared or approved by the FDA. The [facility] of Pathology and Laboratory Medicine is regulated under CLIA as qualified to perform high-complexity testing. This test is used for clinical purposes. It should not be regarded as investigational or for research. Performed By: #### L GC7194, ADM13 ####[facility] LABIA [id number] [place] [address] [place] CBC W Auto Differential pane l (Bld)on 07-05-2024 Basophils (Bld) [#/Vol] 0.09 10*3/uL Normal <0.11 [facility] Comment on above: Order Comment: Nicole griffiths Type: BLOOD SPECIMENOrdering Facility: [facility] Address: [address] [place] [address] Performed By: #### 5 7021-8 ####[facility] LABCLIA [id number] [place] [address] Basophils/100 WBC (Bld) 0.6 % Normal [facility] Comment on above: Order Comment: Speci men Type: BLOOD SPECIMENOrdering Facility: [facility] Address: [address] [place] [address] Performed By: #### 5 7021-8 ####[facility] LABCLIA [id number] [place] [address] Differential cell count method Nom (Bld) Auto Normal [facility] Comment on above: Order Comment: Speci men Type: BLOOD SPECIMENOrdering Facility: [facility] Address: [address] [place] [address] Performed By: #### 5 7021-8 ####[facility] LABCLIA [id number] [place] [address] Eosinophils (Bld) [#/Vol] 0.03 10*3/uL Normal <0.46 [facility] Comment on above: Order Comment: Speci men Type: BLOOD SPECIMENOrdering Facility: [facility] Address: [address] [place] [address] Performed By: #### 5 7021-8 ####[facility] LABCLIA [id number] [place] [address] Eosinophils/100 WBC (Bld) 0.2 % Normal [facility] Comment on above: Order Comment: Speci men Type: BLOOD SPECIMENOrdering Facility: [facility] Address: [address] [place] [address] Performed By: #### 5 7021-8 ####[facility] LABCLIA [id number] [place] [address] Erythrocyte distribution width (RBC) [Ratio] 13.6 % Normal 11.5-15.0 [facility] Comment on above: Order Comment: Speci men Type: BLOOD SPECIMENOrdering Facility: [facility] Address: [address] [place] [address] Performed By: #### 5 7021-8 ####[facility] LABCLIA [id number] [place] [address] Hematocrit (Bld) [Volume fraction] 43.2 % Normal 39.0-51.0 [facility] Comment on above: Order Comment: Speci men Type: BLOOD SPECIMENOrdering Facility: [facility] Address: [address] [place] [address] Performed By: #### 5 7021-8 ####[facility] LABCLIA [id number] [place] [address] Hemoglobin (Bld) [Mass/Vol] 14.7 g/dL Normal 13.0-17.0 [facility] Comment on above: Order Comment: Speci men Type: BLOOD SPECIMENOrdering Facility: [facility] Address: [address] [place] [address] Performed By: #### 5 7021-8 ####[facility] LABCLIA [id number] [place] [address] Immature granulocytes (Bld) [#/Vol] 0.25 10*3/uL High <0.10 [facility] Comment on above: Order Comment: Speci men Type: BLOOD SPECIMENOrdering Facility: [facility] Address: [address] [place] [address] Performed By: #### 5 7021-8 ####[facility] LABCLIA [id number] [place] [address] Immature granulocytes/100 WBC (Bld) 1.6 % Normal [facility] Comment on above: Order Comment: Speci men Type: BLOOD SPECIMENOrdering Facility: [facility] Address: [address] [place] [address] Performed By: #### 5 7021-8 ####[facility] LABCLIA [id number] [place] [address] Lymphocytes (Bld) [#/Vol] 4.04 10*3/uL High 1.00-4.00 [facility] Comment on above: Order Comment: Speci men Type: BLOOD SPECIMENOrdering Facility: [facility] Address: [address] [place] [address] Performed By: #### 5 7021-8 ####[facility] LABCLIA [id number] [place] [address] Lymphocytes/100 WBC (Bld) 25.3 % Normal [facility] Comment on above: Order Comment: Speci men Type: BLOOD SPECIMENOrdering Facility: [facility] Address: [address] [place] [address] Performed By: #### 5 7021-8 ####[facility] LABCLIA [id number] [place] [address] MCH (RBC) [Entitic mass] 31.1 pg Normal 26.0-34.0 [facility] Comment on above: Order Comment: Speci men Type: BLOOD SPECIMENOrdering Facility: [facility] Address: [address] [place] [address] Performed By: #### 5 7021-8 ####[facility] LABCLIA [id number] [place] [address] MCHC (RBC) [Mass/Vol] 34.0 g/dL Normal 30.5-36.0 [facility] Comment on above: Order Comment: Speci men Type: BLOOD SPECIMENOrdering Facility: [facility] Address: [address] [place] [address] Performed By: #### 5 7021-8 ####[facility] LABCLIA [id number] [place] [address] MCV (RBC) [Entitic vol] 91.5 fL Normal 80.0-100.0 [facility] Comment on above: Order Comment: Speci men Type: BLOOD SPECIMENOrdering Facility: [facility] Address: [address] [place] [address] Performed By: #### 5 7021-8 ####[facility] LABCLIA [id number] [place] [address] Monocytes (Bld) [#/Vol] 1.04 10*3/uL High <0.87 [facility] Comment on above: Order Comment: Speci men Type: BLOOD SPECIMENOrdering Facility: [facility] Address: [address] [place] [address] Performed By: #### 5 7021-8 ####[facility] LABCLIA [id number] [place] [address] Monocytes/100 WBC (Bld) 6.5 % Normal [facility] Comment on above: Order Comment: Speci men Type: BLOOD SPECIMENOrdering Facility: [facility] Address: [address] [place] [address] Performed By: #### 5 7021-8 ####[facility] LABCLIA [id number] [place] [address] Neutrophils (Bld) [#/Vol] 10.52 10*3/uL High 1.45-7.50 [facility] Comment on above: Order Comment: Speci men Type: BLOOD SPECIMENOrdering Facility: [facility] Address: [address] [place] [address] Performed By: #### 5 7021-8 ####[facility] LABCLIA [id number] [place] [address] Neutrophils/100 WBC (Bld) 65.8 % Normal [facility] Comment on above: Order Comment: Speci men Type: BLOOD SPECIMENOrdering Facility: [facility] Address: [address] [place] [address] Performed By: #### 5 7021-8 ####[facility] LABCLIA [id number] [place] [address] Nucleated RBC (Bld) [#/Vol] 10*3/uL Normal <0.01 [facility] Comment on above: Order Comment: Speci men Type: BLOOD SPECIMENOrdering Facility: [facility] Address: [address] [place] [address] Performed By: #### 5 7021-8 ####[facility] LABCLIA [id number] [place] [address] Nucleated RBC/100 WBC (Bld) [Ratio] 0.0 /100 WBC Normal [facility] Comment on above: Order Comment: Speci men Type: BLOOD SPECIMENOrdering Facility: [facility] Address: [address] [place] [address] Performed By: #### 5 7021-8 ####[facility] LABIA [id number] [place] [address] Platelet mean volume (Bld) [Entitic vol] 8.9 fL Low 9.0-12.7 [facility] Comment on above: Order Comment: Speci men Type: BLOOD SPECIMENOrdering Facility: [facility] Address: [address] [place] [address] Performed By: #### 5 7021-8 ####[facility] LABIA [id number] [place] [address] Platelets (Bld) [#/Vol] 335 10*3/uL Normal 150-400 [facility] Comment on above: Order Comment: Speci men Type: BLOOD SPECIMENOrdering Facility: [facility] Address: [address] [place] [address] Performed By: #### 5 7021-8 ####[facility] LABIA [id number] [place] [address] RBC (Bld) [#/Vol] 4.72 10*6/uL Normal 4.20-6.00 [facility] Comment on above: Order Comment: Speci men Type: BLOOD SPECIMENOrdering Facility: [facility] Address: [address] [place] [address] Performed By: #### 5 7021-8 ####[facility] LABCLIA [id number] [place] [address] WBC (Bld) [#/Vol] 15.97 10*3/uL High 3.70-11.00 [facility] Comment on above: Order Comment: Speci men Type: BLOOD SPECIMENOrdering Facility: [facility] Address: [address] [place] [address] Performed By: #### 5 7021-8 ####[facility] LABCLIA [id number] [place] [address] Comprehensive metabolic 2000 panelon 07-05-2024 Albumin [Mass/Vol] 4.7 g/dL Normal 3.9-4.9 [facility] Comment on above: Order Comment: Speci men Type: BLOOD SPECIMENOrdering Facility: [facility] Address: [address] [place] [address] Performed By: #### 2 4323-8 ####[facility] LABCLIA [id number] [place] [address] ALP [Catalytic activity/Vol] 86 U/L Normal 38-113 [facility] Comment on above: Order Comment: Speci men Type: BLOOD SPECIMENOrdering Facility: [facility] Address: [address] [place] [address] Performed By: #### 2 4323-8 ####[facility] LABCLIA [id number] [place] [address] ALT [Catalytic activity/Vol] 72 U/L High 10-54 [facility] Comment on above: Order Comment: Speci men Type: BLOOD SPECIMENOrdering Facility: [facility] Address: [address] [place] [address] Performed By: #### 2 4323-8 ####[facility] LABCLIA [id number] [place] [address] Anion gap [Moles/Vol] 11 mmol/L Normal 8-15 [facility] Comment on above: Order Comment: Speci men Type: BLOOD SPECIMENOrdering Facility: [facility] Address: [address] [place] [address] Performed By: #### 2 4323-8 ####[facility] LABCLIA [id number] [place] [address] AST [Catalytic activity/Vol] 25 U/L Normal 14-40 [facility] Comment on above: Order Comment: Speci men Type: BLOOD SPECIMENOrdering Facility: [facility] Address: [address] [place] [address] Performed By: #### 2 4323-8 ####[facility] LABCLIA [id number] [place] [address] Bilirubin [Mass/Vol] 0.3 mg/dL Normal 0.2-1.3 [facility] Comment on above: Order Comment: Speci men Type: BLOOD SPECIMENOrdering Facility: [facility] Address: [address] [place] [address] Performed By: #### 2 4323-8 ####[facility] LABCLIA [id number] [place] [address] Calcium [Mass/Vol] 10.1 mg/dL Normal 8.5-10.2 [facility] Comment on above: Order Comment: Speci men Type: BLOOD SPECIMENOrdering Facility: [facility] Address: [address] [place] [address] Performed By: #### 2 4323-8 ####[facility] LABCLIA [id number] [place] [address] Chloride [Moles/Vol] 104 mmol/L Normal 98-107 [facility] Comment on above: Order Comment: Speci men Type: BLOOD SPECIMENOrdering Facility: [facility] Address: [address] [place] [address] Performed By: #### 2 4323-8 ####[facility] LABCLIA [id number] [place] [address] CO2 [Moles/Vol] 26 mmol/L Normal 22-30 [facility] Comment on above: Order Comment: Speci men Type: BLOOD SPECIMENOrdering Facility: [facility] Address: [address] [place] [address] Performed By: #### 2 4323-8 ####[facility] LABCLIA [id number] [place] [address] Creatinine [Mass/Vol] 0.83 mg/dL Normal 0.73-1.22 [facility] Comment on above: Order Comment: Speci men Type: BLOOD SPECIMENOrdering Facility: [facility] Address: [address] [place] [address] Performed By: #### 2 4323-8 ####[facility] LABCLIA [id number] [place] [address] Creatinine and Glomerular filtration rate.predicted panel (S/P/Bld) 116 mL/min/1.73m??? Normal >=60 [facility] Comment on above: Order Comment: Speci men Type: BLOOD SPECIMENOrdering Facility: [facility] Address: [address] [place] [address] Result Comment: Julita mated Glomerular Filtration Rate (eGFR) is calculated using the 2020 CKD-EPI creatinine equation. This equation utilizes serum creatinine, sex, and age as parameters. The creatinine assay has traceable calibration to isotope dilution-mass spectrometry. Refer to KDIGO guidelines for clinical interpretation. In patients with unstable renal function, e.g. those with acute kidney injury, the eGFR may not accurately reflect actual GFR. Performed By: #### 2 4323-8 ####[facility] LABCLIA [id number] [place] [address] Glucose [Mass/Vol] 120 mg/dL High 74-99 [facility] Comment on above: Order Comment: Speci men Type: BLOOD SPECIMENOrdering Facility: [facility] Address: [address] [place] [address] Result Comment: The [place] [employer] (ADA) provides guidance for cutoff values for fasting glucose and random glucose. The ADA defines fasting as no caloric intake for at least 8 hours. Fasting plasma glucose results between 100 to 125 mg/dL indicate increased risk for diabetes (prediabetes).Fasting plasma glucose results greater than or equal to 126 mg/dL meet the criteria for diagnosis of diabetes. In the absence of unequivocal hyperglycemia, results should be confirmed by repeat testing. In a patient with classic symptoms of hyperglycemia or hyperglycemic crisis, random plasma glucose results greater than or equal to 200 mg/dL meet the criteria for diagnosis of diabetes.Reference: Standards of Medical Care in Diabetes 2016, [place] [employer]. Diabetes Care. 2016.39(Suppl 1). Performed By: #### 2 4323-8 ####[facility] LABCLIA [id number] [place] [address] Potassium [Moles/Vol] 4.6 mmol/L Normal 3.7-5.1 [facility] Comment on above: Order Comment: Speci men Type: BLOOD SPECIMENOrdering Facility: [facility] Address: [address] [place] [address] Performed By: #### 2 4323-8 ####[facility] LABCLIA [id number] [place] [address] Protein [Mass/Vol] 7.5 g/dL Normal 6.3-8.0 [facility] Comment on above: Order Comment: Speci men Type: BLOOD SPECIMENOrdering Facility: [facility] Address: [address] [place] [address] Performed By: #### 2 4323-8 ####[facility] LABCLIA [id number] [place] [address] Sodium [Moles/Vol] 141 mmol/L Normal 136-144 [facility] Comment on above: Order Comment: Speci men Type: BLOOD SPECIMENOrdering Facility: [facility] Address: [address] [place] [address] Performed By: #### 2 4323-8 ####[facility] LABCLIA [id number] [place] [address] Urea nitrogen [Mass/Vol] 21 mg/dL Normal 9-24 [facility] Comment on above: Order Comment: Specgrzegorz griffiths Type: BLOOD SPECIMENOrdering Facility: [facility] Address: [address] [place] [address] Performed By: #### 2 4323-8 ####DONYDCMANOJ [facility] LABCLIA [id number] [place] [id number] EVALUATIONon 2023 vWf cleaving protease actual/normal Chromogenic method (PPP) [Rel catalytic activity/Vol] 40 % Low >67 [facility] Comment on above: Order Comment: Specgrzegorz griffiths Type: BLOOD SPECIMENOrdering Facility: [facility] Address: [address] [place] [address] Result Comment: This test was developed, and its performance characteristics determined by the [facility] Department of Pathology and Laboratory Medicine. It has not been cleared or approved by the FDA. The [facility] Department of Pathology and Laboratory Medicine is regulated under CLIA as qualified to perform high-complexity testing. This test is used for clinical purposes. It should not be regarded as investigational or for research. Performed By: #### A DM13 ####[facility] LABIA [id number] [place] [address] [place] vWf cleaving protease inhibitor Qn (PPP) 0.7 [place] units High <=0.4 [facility] Comment on above: Order Comment: Nicole griffiths Type: BLOOD SPECIMENOrdering Facility: [facility] Address: [address] [place] [address] Result Comment: This test was developed, and its performance characteristics determined by the [facility] Department of Pathology and Laboratory Medicine. It has not been cleared or approved by the FDA. The [facility] Department of Pathology and Laboratory Medicine is regulated under CLIA as qualified to perform high-complexity testing. This test is used for clinical purposes. It should not be regarded as investigational or for research. Performed By: #### A DM13 ####[facility] LABIA [id number] [place] [address] [place] CBC W Auto Differential pane l (Bld)on 06-21-2024 Basophils (Bld) [#/Vol] 0.07 10*3/uL Normal <0.11 [facility] Comment on above: Order Comment: Speci men Type: BLOOD SPECIMENOrdering Facility: [facility] Address: [address] [place] [address] Performed By: #### 5 7021-8 ####[facility] LABCLIA [id number] [place] [address] Basophils/100 WBC (Bld) 0.6 % Normal [facility] Comment on above: Order Comment: Speci men Type: BLOOD SPECIMENOrdering Facility: [facility] Address: [address] [place] [address] Performed By: #### 5 7021-8 ####[facility] LABCLIA [id number] [place] [address] Differential cell count method Nom (Bld) Auto Normal [facility] Comment on above: Order Comment: Speci men Type: BLOOD SPECIMENOrdering Facility: [facility] Address: [address] [place] [address] Performed By: #### 5 7021-8 ####[facility] LABCLIA [id number] [place] [address] Eosinophils (Bld) [#/Vol] 0.25 10*3/uL Normal <0.46 [facility] Comment on above: Order Comment: Speci men Type: BLOOD SPECIMENOrdering Facility: [facility] Address: [address] [place] [address] Performed By: #### 5 7021-8 ####[facility] LABCLIA [id number] [place] [address] Eosinophils/100 WBC (Bld) 2.1 % Normal [facility] Comment on above: Order Comment: Speci men Type: BLOOD SPECIMENOrdering Facility: [facility] Address: [address] [place] [address] Performed By: #### 5 7021-8 ####[facility] LABCLIA [id number] [place] [address] Erythrocyte distribution width (RBC) [Ratio] 12.7 % Normal 11.5-15.0 [facility] Comment on above: Order Comment: Speci men Type: BLOOD SPECIMENOrdering Facility: [facility] Address: [address] [place] [address] Performed By: #### 5 7021-8 ####[facility] LABCLIA [id number] [place] [address] Hematocrit (Bld) [Volume fraction] 44.8 % Normal 39.0-51.0 [facility] Comment on above: Order Comment: Speci men Type: BLOOD SPECIMENOrdering Facility: [facility] Address: [address] [place] [address] Performed By: #### 5 7021-8 ####[facility] LABCLIA [id number] [place] [address] Hemoglobin (Bld) [Mass/Vol] 15.5 g/dL Normal 13.0-17.0 [facility] Comment on above: Order Comment: Speci men Type: BLOOD SPECIMENOrdering Facility: [facility] Address: [address] [place] [address] Performed By: #### 5 7021-8 ####[facility] LABCLIA [id number] [place] [address] Immature granulocytes (Bld) [#/Vol] 0.08 10*3/uL Normal <0.10 [facility] Comment on above: Order Comment: Speci men Type: BLOOD SPECIMENOrdering Facility: [facility] Address: [address] [place] [address] Performed By: #### 5 7021-8 ####[facility] LABCLIA [id number] [place] [address] Immature granulocytes/100 WBC (Bld) 0.7 % Normal [facility] Comment on above: Order Comment: Speci men Type: BLOOD SPECIMENOrdering Facility: [facility] Address: [address] [place] [address] Performed By: #### 5 7021-8 ####[facility] LABCLIA [id number] [place] [address] Lymphocytes (Bld) [#/Vol] 4.33 10*3/uL High 1.00-4.00 [facility] Comment on above: Order Comment: Speci men Type: BLOOD SPECIMENOrdering Facility: [facility] Address: [address] [place] [address] Performed By: #### 5 7021-8 ####[facility] LABCLIA [id number] [place] [address] Lymphocytes/100 WBC (Bld) 36.0 % Normal [facility] Comment on above: Order Comment: Speci men Type: BLOOD SPECIMENOrdering Facility: [facility] Address: [address] [place] [address] Performed By: #### 5 7021-8 ####[facility] LABCLIA [id number] [place] [address] MCH (RBC) [Entitic mass] 31.3 pg Normal 26.0-34.0 [facility] Comment on above: Order Comment: Speci men Type: BLOOD SPECIMENOrdering Facility: [facility] Address: [address] [place] [address] Performed By: #### 5 7021-8 ####[facility] LABCLIA [id number] [place] [address] MCHC (RBC) [Mass/Vol] 34.6 g/dL Normal 30.5-36.0 [facility] Comment on above: Order Comment: Speci men Type: BLOOD SPECIMENOrdering Facility: [facility] Address: [address] [place] [address] Performed By: #### 5 7021-8 ####[facility] LABCLIA [id number] [place] [address] MCV (RBC) [Entitic vol] 90.3 fL Normal 80.0-100.0 [facility] Comment on above: Order Comment: Speci men Type: BLOOD SPECIMENOrdering Facility: [facility] Address: [address] [place] [address] Performed By: #### 5 7021-8 ####[facility] LABCLIA [id number] [place] [address] Monocytes (Bld) [#/Vol] 0.81 10*3/uL Normal <0.87 [facility] Comment on above: Order Comment: Speci men Type: BLOOD SPECIMENOrdering Facility: [facility] Address: [address] [place] [address] Performed By: #### 5 7021-8 ####[facility] LABCLIA [id number] [place] [address] Monocytes/100 WBC (Bld) 6.7 % Normal [facility] Comment on above: Order Comment: Speci men Type: BLOOD SPECIMENOrdering Facility: [facility] Address: [address] [place] [address] Performed By: #### 5 7021-8 ####[facility] LABCLIA [id number] [place] [address] Neutrophils (Bld) [#/Vol] 6.50 10*3/uL Normal 1.45-7.50 [facility] Comment on above: Order Comment: Speci men Type: BLOOD SPECIMENOrdering Facility: [facility] Address: [address] [place] [address] Performed By: #### 5 7021-8 ####[facility] LABCLIA [id number] [place] [address] Neutrophils/100 WBC (Bld) 53.9 % Normal [facility] Comment on above: Order Comment: Speci men Type: BLOOD SPECIMENOrdering Facility: [facility] Address: [address] [place] [address] Performed By: #### 5 7021-8 ####[facility] LABCLIA [id number] [place] [address] Nucleated RBC (Bld) [#/Vol] 10*3/uL Normal <0.01 [facility] Comment on above: Order Comment: Speci men Type: BLOOD SPECIMENOrdering Facility: [facility] Address: [address] [place] [address] Performed By: #### 5 7021-8 ####[facility] LABCLIA [id number] [place] [address] Nucleated RBC/100 WBC (Bld) [Ratio] 0.0 /100 WBC Normal [facility] Comment on above: Order Comment: Speci men Type: BLOOD SPECIMENOrdering Facility: [facility] Address: [address] [place] [address] Performed By: #### 5 7021-8 ####[facility] LABCLIA [id number] [place] [address] Platelet mean volume (Bld) [Entitic vol] 8.8 fL Low 9.0-12.7 [facility] Comment on above: Order Comment: Speci men Type: BLOOD SPECIMENOrdering Facility: [facility] Address: [address] [place] [address] Performed By: #### 5 7021-8 ####[facility] LABCLIA [id number] [place] [address] Platelets (Bld) [#/Vol] 297 10*3/uL Normal 150-400 [facility] Comment on above: Order Comment: Speci men Type: BLOOD SPECIMENOrdering Facility: [facility] Address: [address] [place] [address] Performed By: #### 5 7021-8 ####[facility] LABCLIA [id number] [place] [address] RBC (Bld) [#/Vol] 4.96 10*6/uL Normal 4.20-6.00 [facility] Comment on above: Order Comment: Speci men Type: BLOOD SPECIMENOrdering Facility: [facility] Address: [address] [place] [address] Performed By: #### 5 7021-8 ####[facility] LABCLIA [id number] [place] [address] WBC (Bld) [#/Vol] 12.04 10*3/uL High 3.70-11.00 [facility] Comment on above: Order Comment: Speci men Type: BLOOD SPECIMENOrdering Facility: [facility] Address: [address] [place] [address] Performed By: #### 5 7021-8 ####[facility] LABCLIA [id number] [place] [address] Comprehensive metabolic 2000 panelon 06-21-2024 Albumin [Mass/Vol] 4.6 g/dL Normal 3.9-4.9 [facility] Comment on above: Order Comment: Speci men Type: BLOOD SPECIMENOrdering Facility: [facility] Address: [address] [place] [address] Performed By: #### 2 4323-8, 2532-0 ####[facility] LABCLIA [id number] [place] [address] ALP [Catalytic activity/Vol] 99 U/L Normal 38-113 [facility] Comment on above: Order Comment: Speci men Type: BLOOD SPECIMENOrdering Facility: [facility] Address: [address] [place] [address] Performed By: #### 2 4323-8, 2532-0 ####[facility] LABCLIA [id number] [place] [address] ALT [Catalytic activity/Vol] 75 U/L High 10-54 [facility] Comment on above: Order Comment: Speci men Type: BLOOD SPECIMENOrdering Facility: [facility] Address: [address] [place] [address] Performed By: #### 2 4323-8, 2531-0 ####[facility] LABCLIA [id number] [place] [address] Anion gap [Moles/Vol] 10 mmol/L Normal 8-15 [facility] Comment on above: Order Comment: Speci men Type: BLOOD SPECIMENOrdering Facility: [facility] Address: [address] [place], [place] [address] Performed By: #### 2 432-8, 2531-0 ####[facility] LABCLIA [id number] [place] [address] AST [Catalytic activity/Vol] 27 U/L Normal 14-40 [facility] Comment on above: Order Comment: Speci men Type: BLOOD SPECIMENOrdering Facility: [facility] Address: [address] [place] [address] Performed By: #### 2 432-8, 2531-0 ####DONYDCMANOJ [facility] LABCLIA [id number] [place] [address] Bilirubin [Mass/Vol] 0.4 mg/dL Normal 0.2-1.3 [facility] Comment on above: Order Comment: Speci men Type: BLOOD SPECIMENOrdering Facility: [facility] Address: [address] [place] [address] Performed By: #### 2 4323-8, 2531-0 ####[facility] LABCLIA [id number] [place] [address] Calcium [Mass/Vol] 9.9 mg/dL Normal 8.5-10.2 [facility] Comment on above: Order Comment: Speci men Type: BLOOD SPECIMENOrdering Facility: [facility] Address: [address] [place] [address] Performed By: #### 2 4323-8, 2531-0 ####[facility] LABCLIA [id number] [place] [address] Chloride [Moles/Vol] 100 mmol/L Normal 98-107 [facility] Comment on above: Order Comment: Speci men Type: BLOOD SPECIMENOrdering Facility: [facility] Address: [address] [place], [place] [address] Performed By: #### 2 4323-8, 2532-0 ####[facility] LABCLIA [id number] [place] [address] CO2 [Moles/Vol] 27 mmol/L Normal 22-30 [facility] Comment on above: Order Comment: Speci men Type: BLOOD SPECIMENOrdering Facility: [facility] Address: [address] [place] [address] Performed By: #### 2 4323-8, 2532-0 ####[facility] LABCLIA [id number] [place] [address] Creatinine [Mass/Vol] 0.95 mg/dL Normal 0.73-1.22 [facility] Comment on above: Order Comment: Speci men Type: BLOOD SPECIMENOrdering Facility: [facility] Address: [address] [place] [address] Performed By: #### 2 4323-8, 2532-0 ####[facility] LABCLIA [id number] [place] [address] Creatinine and Glomerular filtration rate.predicted panel (S/P/Bld) 106 mL/min/1.73m??? Normal >=60 [facility] Comment on above: Order Comment: Speci men Type: BLOOD SPECIMENOrdering Facility: [facility] Address: [address] [place] [address] Result Comment: Julita mated Glomerular Filtration Rate (eGFR) is calculated using the 2020 CKD-EPI creatinine equation. This equation utilizes serum creatinine, sex, and age as parameters. The creatinine assay has traceable calibration to isotope dilution-mass spectrometry. Refer to KDIGO guidelines for clinical interpretation. In patients with unstable renal function, e.g. those with acute kidney injury, the eGFR may not accurately reflect actual GFR. Performed By: #### 2 4323-8, 0 ####[facility] LABCLIA [id number] [place] [address] Glucose [Mass/Vol] 92 mg/dL Normal 74-99 [facility] Comment on above: Order Comment: Speci men Type: BLOOD SPECIMENOrdering Facility: [facility] Address: [address] [place] [address] Result Comment: The [place] Diabetes [employer] (ADA) provides guidance for cutoff values for fasting glucose and random glucose. The ADA defines fasting as no caloric intake for at least 8 hours. Fasting plasma glucose results between 100 to 125 mg/dL indicate increased risk for diabetes (prediabetes).Fasting plasma glucose results greater than or equal to 126 mg/dL meet the criteria for diagnosis of diabetes. In the absence of unequivocal hyperglycemia, results should be confirmed by repeat testing. In a patient with classic symptoms of hyperglycemia or hyperglycemic crisis, random plasma glucose results greater than or equal to 200 mg/dL meet the criteria for diagnosis of diabetes.Reference: Standards of Medical Care in Diabetes 2016, [place] [employer]. Diabetes Care. 2016.39(Suppl 1). Performed By: #### 2 4323-8, 0 ####[facility] LABCLIA [id number] [place] [address] Potassium [Moles/Vol] 4.5 mmol/L Normal 3.7-5.1 [facility] Comment on above: Order Comment: Speci men Type: BLOOD SPECIMENOrdering Facility: [facility] Address: [address] [place] [address] Performed By: #### 2 4323-8, 0 ####[facility] LABIA [id number] [place] [address] Protein [Mass/Vol] 7.7 g/dL Normal 6.3-8.0 [facility] Comment on above: Order Comment: Speci men Type: BLOOD SPECIMENOrdering Facility: [facility] Address: [address] [place] [address] Performed By: #### 2 4323-8, 2532-0 ####[facility] LABCLIA [id number] [place] [address] Sodium [Moles/Vol] 137 mmol/L Normal 136-144 [facility] Comment on above: Order Comment: Speci men Type: BLOOD SPECIMENOrdering Facility: [facility] Address: [address] [place] [address] Performed By: #### 2 4323-8, 2532-0 ####[facility] LABCLIA [id number] [place] [address] Urea nitrogen [Mass/Vol] 13 mg/dL Normal 9-24 [facility] Comment on above: Order Comment: Speci men Type: BLOOD SPECIMENOrdering Facility: [facility] Address: [address] [place] [address] Performed By: #### 2 4323-8, 253-0 ####[facility] LABCLIA [id number] [place] [address] Haptoglob SerPl-mCncon 06-21 Haptoglobin [Mass/Vol] 157 mg/dL Normal 31-238 [facility] Comment on above: Order Comment: Speci men Type: BLOOD SPECIMENOrdering Facility: [facility] Address: [address] [place] [address] Performed By: #### 4 542-7 ####[facility] LABCLIA [id number] [place] [address] [place] LDH SerPl-cCncon 06-21-2024 LDH [Catalytic activity/Vol] 191 U/L Normal 135-225 [facility] Comment on above: Order Comment: Speci men Type: BLOOD SPECIMENOrdering Facility: [facility] Address: [address] [place] [address] Result Comment: Hemo lysis present. The origin of the hemolysis, in vitro versus an in vivo hemolytic process, cannot be distinguished via this assay alone. In vitro hemolysis may lead to non-physiological (spurious) elevation in lactate dehydrogenase (LDH) results. Theresult should be interpreted in context of the clinical setting and other test results. Suggest reorder as clinically indicated. Performed By: #### 2 4323-8, 2532-0 ####[facility] LABCLIA [id number] [place] [address] [id number] EVALUATIONon 2023 vWf cleaving protease actual/normal Chromogenic method (PPP) [Rel catalytic activity/Vol] 66 % Low >67 [facility] Comment on above: Order Comment: Speci aye Type: BLOOD SPECIMENOrdering Facility: [facility] Address: [address] [place] [address] Result Comment: This test was developed, and its performance characteristics determined by the [facility] Department of Pathology and Laboratory Medicine. It has not been cleared or approved by the FDA. The [facility] Department of Pathology and Laboratory Medicine is regulated under CLIA as qualified to perform high-complexity testing. This test is used for clinical purposes. It should not be regarded as investigational or for research. Performed By: #### A DM13 ####[facility] LABCLIA [id number] [place] [address] [place] vWf cleaving protease inhibitor Qn (PPP) <0.4 Normal <=0.4 [facility] Comment on above: Order Comment: Nicole griffiths Type: BLOOD SPECIMENOrdering Facility: [facility] Address: [address] [place] [address] Result Comment: This test was developed, and its performance characteristics determined by the [facility] Department of Pathology and Laboratory Medicine. It has not been cleared or approved by the FDA. The [facility] Department of Pathology and Laboratory Medicine is regulated under CLIA as qualified to perform high-complexity testing. This test is used for clinical purposes. It should not be regarded as investigational or for research. Performed By: #### A DM13 ####[facility] LABCLIA [id number] [place] [address] [place] CBC W Auto Differential pane l (Bld)on 06-04-2024 Basophils (Bld) [#/Vol] 0.09 10*3/uL Normal <0.11 [facility] Comment on above: Order Comment: Speci men Type: BLOOD SPECIMENOrdering Facility: [facility] Address: [address] [place] [address] Performed By: #### 5 7021-8 ####[facility] LABCLIA [id number] [place] [address] Basophils/100 WBC (Bld) 0.9 % Normal [facility] Comment on above: Order Comment: Speci men Type: BLOOD SPECIMENOrdering Facility: [facility] Address: [address] [place] [address] Performed By: #### 5 7021-8 ####[facility] LABCLIA [id number] [place] [address] Differential cell count method Nom (Bld) Auto Normal [facility] Comment on above: Order Comment: Speci men Type: BLOOD SPECIMENOrdering Facility: [facility] Address: [address] [place] [address] Performed By: #### 5 7021-8 ####[facility] LABCLIA [id number] [place] [address] Eosinophils (Bld) [#/Vol] 0.35 10*3/uL Normal <0.46 [facility] Comment on above: Order Comment: Speci men Type: BLOOD SPECIMENOrdering Facility: [facility] Address: [address] [place] [address] Performed By: #### 5 7021-8 ####[facility] LABCLIA [id number] [place] [address] Eosinophils/100 WBC (Bld) 3.6 % Normal [facility] Comment on above: Order Comment: Speci men Type: BLOOD SPECIMENOrdering Facility: [facility] Address: [address] [place] [address] Performed By: #### 5 7021-8 ####[facility] LABCLIA [id number] [place] [address] Erythrocyte distribution width (RBC) [Ratio] 12.6 % Normal 11.5-15.0 [facility] Comment on above: Order Comment: Speci men Type: BLOOD SPECIMENOrdering Facility: [facility] Address: [address] [place] [address] Performed By: #### 5 7021-8 ####[facility] LABCLIA [id number] [place] [address] Hematocrit (Bld) [Volume fraction] 46.2 % Normal 39.0-51.0 [facility] Comment on above: Order Comment: Speci men Type: BLOOD SPECIMENOrdering Facility: [facility] Address: [address] [place] [address] Performed By: #### 5 7021-8 ####[facility] LABCLIA [id number] [place] [address] Hemoglobin (Bld) [Mass/Vol] 15.6 g/dL Normal 13.0-17.0 [facility] Comment on above: Order Comment: Speci men Type: BLOOD SPECIMENOrdering Facility: [facility] Address: [address] [place] [address] Performed By: #### 5 7021-8 ####[facility] LABCLIA [id number] [place] [address] Immature granulocytes (Bld) [#/Vol] 0.06 10*3/uL Normal <0.10 [facility] Comment on above: Order Comment: Speci men Type: BLOOD SPECIMENOrdering Facility: [facility] Address: [address] [place] [address] Performed By: #### 5 7021-8 ####[facility] LABCLIA [id number] [place] [address] Immature granulocytes/100 WBC (Bld) 0.6 % Normal [facility] Comment on above: Order Comment: Speci men Type: BLOOD SPECIMENOrdering Facility: [facility] Address: [address] [place] [address] Performed By: #### 5 7021-8 ####[facility] LABCLIA [id number] [place] [address] Lymphocytes (Bld) [#/Vol] 2.69 10*3/uL Normal 1.00-4.00 [facility] Comment on above: Order Comment: Speci men Type: BLOOD SPECIMENOrdering Facility: [facility] Address: [address] [place] [address] Performed By: #### 5 7021-8 ####[facility] LABCLIA [id number] [place] [address] Lymphocytes/100 WBC (Bld) 27.4 % Normal [facility] Comment on above: Order Comment: Speci men Type: BLOOD SPECIMENOrdering Facility: [facility] Address: [address] [place] [address] Performed By: #### 5 7021-8 ####[facility] LABCLIA [id number] [place] [address] MCH (RBC) [Entitic mass] 30.9 pg Normal 26.0-34.0 [facility] Comment on above: Order Comment: Speci men Type: BLOOD SPECIMENOrdering Facility: [facility] Address: [address] [place] [address] Performed By: #### 5 7021-8 ####[facility] LABCLIA [id number] [place] [address] MCHC (RBC) [Mass/Vol] 33.8 g/dL Normal 30.5-36.0 [facility] Comment on above: Order Comment: Speci men Type: BLOOD SPECIMENOrdering Facility: [facility] Address: [address] [place] [address] Performed By: #### 5 7021-8 ####[facility] LABCLIA [id number] [place] [address] MCV (RBC) [Entitic vol] 91.5 fL Normal 80.0-100.0 [facility] Comment on above: Order Comment: Speci men Type: BLOOD SPECIMENOrdering Facility: [facility] Address: [address] [place] [address] Performed By: #### 5 7021-8 ####[facility] LABCLIA [id number] [place] [address] Monocytes (Bld) [#/Vol] 0.77 10*3/uL Normal <0.87 [facility] Comment on above: Order Comment: Speci men Type: BLOOD SPECIMENOrdering Facility: [facility] Address: [address] [place] [address] Performed By: #### 5 7021-8 ####[facility] LABCLIA [id number] [place] [address] Monocytes/100 WBC (Bld) 7.8 % Normal [facility] Comment on above: Order Comment: Speci men Type: BLOOD SPECIMENOrdering Facility: [facility] Address: [address] [place] [address] Performed By: #### 5 7021-8 ####[facility] LABCLIA [id number] [place] [address] Neutrophils (Bld) [#/Vol] 5.86 10*3/uL Normal 1.45-7.50 [facility] Comment on above: Order Comment: Speci men Type: BLOOD SPECIMENOrdering Facility: [facility] Address: [address] [place] [address] Performed By: #### 5 7021-8 ####[facility] LABCLIA [id number] [place] [address] Neutrophils/100 WBC (Bld) 59.7 % Normal [facility] Comment on above: Order Comment: Speci men Type: BLOOD SPECIMENOrdering Facility: [facility] Address: [address] [place] [address] Performed By: #### 5 7021-8 ####[facility] LABCLIA [id number] [place] [address] Nucleated RBC (Bld) [#/Vol] 10*3/uL Normal <0.01 [facility] Comment on above: Order Comment: Speci men Type: BLOOD SPECIMENOrdering Facility: [facility] Address: [address] [place] [address] Performed By: #### 5 7021-8 ####[facility] LABCLIA [id number] [place] [address] Nucleated RBC/100 WBC (Bld) [Ratio] 0.0 /100 WBC Normal [facility] Comment on above: Order Comment: Speci men Type: BLOOD SPECIMENOrdering Facility: [facility] Address: [address] [place] [address] Performed By: #### 5 7021-8 ####[facility] LABCLIA [id number] [place] [address] Platelet mean volume (Bld) [Entitic vol] 8.9 fL Low 9.0-12.7 [facility] Comment on above: Order Comment: Speci men Type: BLOOD SPECIMENOrdering Facility: [facility] Address: [address] [place] [address] Performed By: #### 5 7021-8 ####[facility] LABCLIA [id number] [place] [address] Platelets (Bld) [#/Vol] 281 10*3/uL Normal 150-400 [facility] Comment on above: Order Comment: Speci men Type: BLOOD SPECIMENOrdering Facility: [facility] Address: [address] [place] [address] Performed By: #### 5 7021-8 ####[facility] LABCLIA [id number] [place] [address] RBC (Bld) [#/Vol] 5.05 10*6/uL Normal 4.20-6.00 [facility] Comment on above: Order Comment: Speci men Type: BLOOD SPECIMENOrdering Facility: [facility] Address: [address] [place], [place] [address] Performed By: #### 5 7021-8 ####[facility] LABCLIA [id number] [place] [address] WBC (Bld) [#/Vol] 9.82 10*3/uL Normal 3.70-11.00 [facility] Comment on above: Order Comment: Speci men Type: BLOOD SPECIMENOrdering Facility: [facility] Address: [address] [place] [address] Performed By: #### 5 7021-8 ####[facility] LABCLIA [id number] [place] [address] Comprehensive metabolic 2000 panelon 06-04-2024 Albumin [Mass/Vol] 4.4 g/dL Normal 3.9-4.9 [facility] Comment on above: Order Comment: Speci men Type: BLOOD SPECIMENOrdering Facility: [facility] Address: [address] [place], [place] [address] Performed By: #### 2 4323-8 ####[facility] LABCLIA [id number] [place] [address] ALP [Catalytic activity/Vol] 97 U/L Normal 38-113 [facility] Comment on above: Order Comment: Speci men Type: BLOOD SPECIMENOrdering Facility: [facility] Address: [address] [place], [place] [address] Performed By: #### 2 4323-8 ####[facility] LABCLIA [id number] [place] [address] ALT [Catalytic activity/Vol] 92 U/L High 10-54 [facility] Comment on above: Order Comment: Speci men Type: BLOOD SPECIMENOrdering Facility: [facility] Address: [address] [place], [place] [address] Performed By: #### 2 4323-8 ####[facility] LABCLIA [id number] [place] [address] Anion gap [Moles/Vol] 10 mmol/L Normal 8-15 [facility] Comment on above: Order Comment: Speci men Type: BLOOD SPECIMENOrdering Facility: [facility] Address: [address] [place] [address] Performed By: #### 2 4323-8 ####[facility] LABCLIA [id number] [place] [address] AST [Catalytic activity/Vol] 33 U/L Normal 14-40 [facility] Comment on above: Order Comment: Speci men Type: BLOOD SPECIMENOrdering Facility: [facility] Address: [address] [place] [address] Performed By: #### 2 4323-8 ####[facility] LABCLIA [id number] [place] [address] Bilirubin [Mass/Vol] 0.4 mg/dL Normal 0.2-1.3 [facility] Comment on above: Order Comment: Speci men Type: BLOOD SPECIMENOrdering Facility: [facility] Address: [address] [place] [address] Performed By: #### 2 4323-8 ####[facility] LABCLIA [id number] [place] [address] Calcium [Mass/Vol] 9.6 mg/dL Normal 8.5-10.2 [facility] Comment on above: Order Comment: Speci men Type: BLOOD SPECIMENOrdering Facility: [facility] Address: [address] [place] [address] Performed By: #### 2 4323-8 ####[facility] LABCLIA [id number] [place] [address] Chloride [Moles/Vol] 102 mmol/L Normal 98-107 [facility] Comment on above: Order Comment: Speci men Type: BLOOD SPECIMENOrdering Facility: [facility] Address: [address] [place] [address] Performed By: #### 2 4323-8 ####[facility] LABCLIA [id number] [place] [address] CO2 [Moles/Vol] 27 mmol/L Normal 22-30 [facility] Comment on above: Order Comment: Speci men Type: BLOOD SPECIMENOrdering Facility: [facility] Address: [address] [place] [address] Performed By: #### 2 4323-8 ####[facility] LABCLIA [id number] [place] [address] Creatinine [Mass/Vol] 0.95 mg/dL Normal 0.73-1.22 [facility] Comment on above: Order Comment: Speci men Type: BLOOD SPECIMENOrdering Facility: [facility] Address: [address] [place] [address] Performed By: #### 2 4323-8 ####[facility] LABCLIA [id number] [place] [address] Creatinine and Glomerular filtration rate.predicted panel (S/P/Bld) 106 mL/min/1.73m??? Normal >=60 [facility] Comment on above: Order Comment: Speci men Type: BLOOD SPECIMENOrdering Facility: [facility] Address: [address] [place] [address] Result Comment: Juilta mated Glomerular Filtration Rate (eGFR) is calculated using the 2020 CKD-EPI creatinine equation. This equation utilizes serum creatinine, sex, and age as parameters. The creatinine assay has traceable calibration to isotope dilution-mass spectrometry. Refer to KDIGO guidelines for clinical interpretation. In patients with unstable renal function, e.g. those with acute kidney injury, the eGFR may not accurately reflect actual GFR. Performed By: #### 2 4323-8 ####[facility] LABCLIA [id number] [place] [address] Glucose [Mass/Vol] 153 mg/dL High 74-99 [facility] Comment on above: Order Comment: Speci men Type: BLOOD SPECIMENOrdering Facility: [facility] Address: [address] [place] [id number] Result Comment: The [place] [employer] (ADA) provides guidance for cutoff values for fasting glucose and random glucose. The ADA defines fasting as no caloric intake for at least 8 hours. Fasting plasma glucose results between 100 to 125 mg/dL indicate increased risk for diabetes (prediabetes).Fasting plasma glucose results greater than or equal to 126 mg/dL meet the criteria for diagnosis of diabetes. In the absence of unequivocal hyperglycemia, results should be confirmed by repeat testing. In a patient with classic symptoms of hyperglycemia or hyperglycemic crisis, random plasma glucose results greater than or equal to 200 mg/dL meet the criteria for diagnosis of diabetes.Reference: Standards of Medical Care in Diabetes 2016, [place] [employer]. Diabetes Care. 2016.39(Suppl 1). Performed By: #### 2 4323-8 ####[facility] LABCLIA [id number] [place] [address] Potassium [Moles/Vol] 4.8 mmol/L Normal 3.7-5.1 [facility] Comment on above: Order Comment: Speci men Type: BLOOD SPECIMENOrdering Facility: [facility] Address: [address] [place] [address] Performed By: #### 2 4323-8 ####[facility] LABCLIA [id number] [place] [address] Protein [Mass/Vol] 7.1 g/dL Normal 6.3-8.0 [facility] Comment on above: Order Comment: Speci men Type: BLOOD SPECIMENOrdering Facility: [facility] Address: [address] [place] [address] Performed By: #### 2 4323-8 ####[facility] LABCLIA [id number] [place] [address] Sodium [Moles/Vol] 139 mmol/L Normal 136-144 [facility] Comment on above: Order Comment: Speci men Type: BLOOD SPECIMENOrdering Facility: [facility] Address: [address] [id number] Performed By: #### 2 4323-8 ####[facility] LABCLIA [id number] [place] [address] Urea nitrogen [Mass/Vol] 13 mg/dL Normal 9-24 [facility] Comment on above: Order Comment: Speci men Type: BLOOD SPECIMENOrdering Facility: [facility] Address: [address] [place] [address] Performed By: #### 2 4323-8 ####[facility] LABCLIA [id number] [place] [address] [id number] EVALUATIONOrdered B y: Camila Elmore on 05-21-2024 Interpretation and review of laboratory results Abnormal [facility] vWf cleaving protease actual/normal Chromogenic method (PPP) [Rel catalytic activity/Vol] 50 % Low 67 - PINF % [facility] Comment on above: This test was develo ped, and its performance characteristics determined by the [facility] Department of Pathology and Laboratory Medicine. It has not been cleared or approved by the FDA. The [facility] Department of Pathology and Laboratory Medicine is regulated under CLIA as qualified to perform high-complexity testing. This test is used for clinical purposes. It should not be regarded as investigational or for research. vWf cleaving protease inhibitor Qn (PPP) 0.6 High NINF [facility] Comment on above: This test was develo ped, and its performance characteristics determined by the [facility] Department of Pathology and Laboratory Medicine. It has not been cleared or approved by the FDA. The [facility] Department of Pathology and Laboratory Medicine is regulated under CLIA as qualified to perform high-complexity testing. This test is used for clinical purposes. It should not be regarded as investigational or for research. [facility] [id number] EVAL INTERPOrdered By: Claudia Dumont on 05-20-2024 [id number] Interp Abnormal - see comment below. Laboratory findings consistent with history of thrombotic thrombocytopenic purpura (TTP) [id number] ACTIVITY ASSAY: KMBEYR29 activity was measured using Fluorescence resonance energy transfer (FRET) technology with a recombinant VWF86 substrate. The BNENZE82 activity is mildly decreased. GKIPYG55 INHIBITOR SCREEN AND/OR INHIBITOR ASSAY: FFPWAG65 inhibitor assay was performed using mixing studies after 1:1 mixing of normal pooled plasma and the patient's plasma, and residual IEJPPL53 activity was measured using FRET technology. VEKTYP88 inhibitor is detected (>0.4 Inhibitor Unit). Prior history of relapsed thrombotic thrombocytopenic purpura (TTP), for which he has /received therapy, is noted. In comparion to most recent previous result (03/02/2024), the WWSUEP42 activity is decreasing with a weak inhibitor detected. Recommend close monitoring of the activity and inhibitor levels. Please correlate these laboratory results with clinical findings and medication history. [facility] Work Phone: [id number] Pathologist Interp Reviewed by Claudia Dumont M.D., Ph.D [facility] Work Phone: [facility] Work Phone: Basic metabolic 2000 panelon 05-20-2024 Anion gap [Moles/Vol] 10 mmol/L 8 - 15 mmol/L [facility] Calcium [Mass/Vol] 10.1 mg/dL 8.5 - 10. 2 mg/dL [facility] Chloride [Moles/Vol] 105 mmol/L 98 - 10 7 mmol/L [facility] CO2 [Moles/Vol] 23 mmol/L 22 - 30 mmol/L [facility] Creatinine [Mass/Vol] 0.97 mg/dL 0.73 - 1.22 mg/dL [facility] GFR/1.73 sq M.predicted among non-blacks MDRD (S/P/Bld) [Vol rate/Area] 104 mL/min/{1.73_m2} - PINF [facility] Comment on above: Estimated Glomerular Filtration Rate (eGFR) is calculated using the 2020 CKD-EPI creatinine equation. This equation utilizes serum creatinine, sex, and age as parameters. The creatinine assay has traceable calibration to isotope dilution-mass spectrometry. Refer to KDIGO guidelines for clinical interpretation. In patients with unstable renal function, e.g. those with acute kidney injury, the eGFR may not accurately reflect actual GFR. Glucose [Mass/Vol] 109 mg/dL High 74 - 99 mg/dL [facility] Comment on above: The [place] Diab[employer] s Association (ADA) provides guidance for cutoff values for fasting glucose and random glucose. The ADA defines fasting as no caloric intake for at least 8 hours. Fasting plasma glucose results between 100 to 125 mg/dL indicate increased risk for diabetes (prediabetes). Fasting plasma glucose results greater than or equal to 126 mg/dL meet the criteria for diagnosis of diabetes. In the absence of unequivocal hyperglycemia, results should be confirmed by repeat testing. In a patient with classic symptoms of hyperglycemia or hyperglycemic crisis, random plasma glucose results greater than or equal to 200 mg/dL meet the criteria for diagnosis of diabetes. Reference: Standards of Medical Care in Diabetes 2016, [place] [employer]. Diabetes Care. 2016.39(Suppl 1). Interpretation and review of laboratory results Abnormal [facility] Potassium [Moles/Vol] 4.4 mmol/L 3.7 - 5.1 mmol/L [facility] Sodium [Moles/Vol] 138 mmol/L 136 - 144 mmol/L [facility] Urea nitrogen [Mass/Vol] 16 mg/dL 9 - 24 mg/dL [facility] CNPNon 05-20-2024 CNPN Normal [facility] HAPTOGLOBIN BLDon 05-20-2024 Haptoglobin [Mass/Vol] 143 mg/dL 31 - 238 mg/dL [facility] Haptoglobin [Mass/Vol]on Interpretation and review of laboratory results Normal [facility] LD LACTATE DEHYDROOrdered By : You Todd on 05-20-2024 LDH [Catalytic activity/Vol] 202 U/L 135 - 225 U/L [facility] Comment on above: Hemolysis present. T he origin of the hemolysis, in vitro versus an in vivo hemolytic process, cannot be distinguished via this assay alone. In vitro hemolysis may lead to non-physiological (spurious) elevation in lactate dehydrogenase (LDH) results. The result should be interpreted in context of the clinical setting and other test results. Suggest reorder as clinically indicated. LDH [Catalytic activity/Vol] Ordered By: You Todd on 05-20-2024 Interpretation and review of laboratory results Normal [facility] [id number] EVALUATIONon 2023 vWf cleaving protease actual/normal Chromogenic method (PPP) [Rel catalytic activity/Vol] 50 % Low >67 [facility] Comment on above: Order Comment: Speci men Type: BLOOD SPECIMENOrdering Facility: [facility] Address: [address] [place] [address] [place] [address] Result Comment: This test was developed, and its performance characteristics determined by the [facility] Department of Pathology and Laboratory Medicine. It has not been cleared or approved by the FDA. The [facility] Department of Pathology and Laboratory Medicine is regulated under CLIA as qualified to perform high-complexity testing. This test is used for clinical purposes. It should not be regarded as investigational or for research. Performed By: #### A DM13 ####[facility] LABCLIA [id number] [place] [id number] [place] vWf cleaving protease inhibitor Qn (PPP) 0.6 [place] units High <=0.4 [facility] Comment on above: Order Comment: Speci men Type: BLOOD SPECIMENOrdering Facility: [facility] Address: [address] [place] [address] Result Comment: This test was developed, and its performance characteristics determined by the [facility] Department of Pathology and Laboratory Medicine. It has not been cleared or approved by the FDA. The [facility] Department of Pathology and Laboratory Medicine is regulated under CLIA as qualified to perform high-complexity testing. This test is used for clinical purposes. It should not be regarded as investigational or for research. Performed By: #### A DM13 ####[facility] LABCLIA [id number] [place] [address] [place] Basic metabolic 2000 panelon 05-19-2024 Anion gap [Moles/Vol] 10 mmol/L Normal 8-15 [facility] Comment on above: Order Comment: Speci men Type: BLOOD SPECIMENOrdering Facility: [facility] Address: [address] [place] [address] Performed By: #### 2 4321-2, 2532-0 ####[facility] LABCLIA [id number] [place] [address] Calcium [Mass/Vol] 10.1 mg/dL Normal 8.5-10.2 [facility] Comment on above: Order Comment: Speci men Type: BLOOD SPECIMENOrdering Facility: [facility] Address: [address] [place] [address] Performed By: #### 2 4321-2, 2532-0 ####[facility] LABCLIA [id number] [place] [address] Chloride [Moles/Vol] 105 mmol/L Normal 98-107 [facility] Comment on above: Order Comment: Speci men Type: BLOOD SPECIMENOrdering Facility: [facility] Address: [address] [place] [address] Performed By: #### 2 4321-2, 2-0 ####[facility] LABCLIA [id number] [place] [address] CO2 [Moles/Vol] 23 mmol/L Normal 22-30 [facility] Comment on above: Order Comment: Speci men Type: BLOOD SPECIMENOrdering Facility: [facility] Address: [address] [place] [address] Performed By: #### 2 432-2, 2531-0 ####[facility] LABCLIA [id number] [place] [address] Creatinine [Mass/Vol] 0.97 mg/dL Normal 0.73-1.22 [facility] Comment on above: Order Comment: Speci men Type: BLOOD SPECIMENOrdering Facility: [facility] Address: [address] [place] [address] Performed By: #### 2 432-2, 2531-0 ####[facility] LABCLIA [id number] [place] [address] Creatinine and Glomerular filtration rate.predicted panel (S/P/Bld) 104 mL/min/1.73m??? Normal >=60 [facility] Comment on above: Order Comment: Speci men Type: BLOOD SPECIMENOrdering Facility: [facility] Address: [address] [place] [address] Result Comment: Julita mated Glomerular Filtration Rate (eGFR) is calculated using the 2020 CKD-EPI creatinine equation. This equation utilizes serum creatinine, sex, and age as parameters. The creatinine assay has traceable calibration to isotope dilution-mass spectrometry. Refer to KDIGO guidelines for clinical interpretation. In patients with unstable renal function, e.g. those with acute kidney injury, the eGFR may not accurately reflect actual GFR. Performed By: #### 2 43208-26, ####[facility] LABCLIA [id number] [place] [address] Glucose [Mass/Vol] 109 mg/dL High 74-99 [facility] Comment on above: Order Comment: Speci men Type: BLOOD SPECIMENOrdering Facility: [facility] Address: [address] [place] [address] Result Comment: The [place] Diabetes Association (ADA) provides guidance for cutoff values for fasting glucose and random glucose. The ADA defines fasting as no caloric intake for at least 8 hours. Fasting plasma glucose results between 100 to 125 mg/dL indicate increased risk for diabetes (prediabetes).Fasting plasma glucose results greater than or equal to 126 mg/dL meet the criteria for diagnosis of diabetes. In the absence of unequivocal hyperglycemia, results should be confirmed by repeat testing. In a patient with classic symptoms of hyperglycemia or hyperglycemic crisis, random plasma glucose results greater than or equal to 200 mg/dL meet the criteria for diagnosis of diabetes.Reference: Standards of Medical Care in Diabetes 2016, [place] [employer]. Diabetes Care. 2016.39(Suppl 1). Performed By: #### 2 43208-26, ####[facility] LABCLIA [id number] [place] [address] Potassium [Moles/Vol] 4.4 mmol/L Normal 3.7-5.1 [facility] Comment on above: Order Comment: Speci men Type: BLOOD SPECIMENOrdering Facility: [facility] Address: [address] [place] [address] Performed By: #### 2 43208-26, ####[facility] LABCLIA [id number] [place] [address] Sodium [Moles/Vol] 138 mmol/L Normal 136-144 [facility] Comment on above: Order Comment: Speci men Type: BLOOD SPECIMENOrdering Facility: [facility] Address: [address] [place] [address] Performed By: #### 2 4321-2, 2532-0 ####[facility] LABCLIA [id number] [place] [address] Urea nitrogen [Mass/Vol] 16 mg/dL Normal 9-24 [facility] Comment on above: Order Comment: Speci men Type: BLOOD SPECIMENOrdering Facility: [facility] Address: [address] [id number] Performed By: #### 2 4321-2, 253-0 ####[facility] LABCLIA [id number] [place] [address] CBC W Auto Differential pane l (Bld)on 05-19-2024 Basophils (Bld) [#/Vol] 0.08 10*3/uL [facility] Basophils/100 WBC (Bld) 1.0 % [facility] Differential cell count method Nom (Bld) Auto [facility] Eosinophils (Bld) [#/Vol] 0.27 10*3/uL [facility] Eosinophils/100 WBC (Bld) 3.3 % [facility] Erythrocyte distribution width (RBC) [Ratio] 12.3 % 11.5 - 15.0 % [facility] Hematocrit (Bld) [Volume fraction] 42.9 % 39.0 - 51.0 % [facility] Hemoglobin (Bld) [Mass/Vol] 14.9 g/dL 13.0 - 17.0 g/dL [facility] Immature granulocytes (Bld) [#/Vol] 0.04 10*3/uL [facility] Immature granulocytes/100 WBC (Bld) 0.5 % [facility] Lymphocytes (Bld) [#/Vol] 3.48 10*3/uL [facility] Lymphocytes/100 WBC (Bld) 42.5 % [facility] MCH (RBC) [Entitic mass] 31.3 pg 26.0 - 34.0 pg [facility] MCHC (RBC) [Mass/Vol] 34.7 g/dL 30.5 - 36.0 g/dL [facility] MCV (RBC) [Entitic vol] 90.1 fL 80.0 - 100.0 fL [facility] Monocytes (Bld) [#/Vol] 0.53 10*3/uL NINF [facility] Monocytes/100 WBC (Bld) 6.5 % [facility] Neutrophils (Bld) [#/Vol] 3.79 10*3/uL [facility] Neutrophils/100 WBC (Bld) 46.2 % [facility] Nucleated RBC (Bld) [#/Vol] NINF [facility] Nucleated RBC/100 WBC (Bld) [Ratio] 0.0 % /100 WBC [facility] Platelet mean volume (Bld) [Entitic vol] 9.2 fL 9.0 - 12.7 fL [facility] Platelets (Bld) [#/Vol] 288 10*3/uL [facility] RBC (Bld) [#/Vol] 4.76 10*6/uL 4.20 - 6.0 0 m/uL [facility] WBC (Bld) [#/Vol] 8.19 10*3/uL [facility] Basophils (Bld) [#/Vol] 0.08 10*3/uL Normal <0.11 [facility] Comment on above: Order Comment: Speci men Type: BLOOD SPECIMENOrdering Facility: [facility] Address: [address] [place] [address] Performed By: #### 5 7021-8 ####[facility] LABCLIA [id number] [place] [address] Basophils/100 WBC (Bld) 1.0 % Normal [facility] Comment on above: Order Comment: Speci men Type: BLOOD SPECIMENOrdering Facility: [facility] Address: [address] [place] [address] Performed By: #### 5 7021-8 ####[facility] LABCLIA [id number] [place] [address] Differential cell count method Nom (Bld) Auto Normal [facility] Comment on above: Order Comment: Speci men Type: BLOOD SPECIMENOrdering Facility: [facility] Address: [address] [place] [address] Performed By: #### 5 7021-8 ####[facility] LABCLIA [id number] [place] [address] Eosinophils (Bld) [#/Vol] 0.27 10*3/uL Normal <0.46 [facility] Comment on above: Order Comment: Speci men Type: BLOOD SPECIMENOrdering Facility: [facility] Address: [address] [place] [address] Performed By: #### 5 7021-8 ####[facility] LABCLIA [id number] [place] [address] Eosinophils/100 WBC (Bld) 3.3 % Normal [facility] Comment on above: Order Comment: Speci men Type: BLOOD SPECIMENOrdering Facility: [facility] Address: [address] [place] [address] Performed By: #### 5 7021-8 ####[facility] LABCLIA [id number] [place] [address] Erythrocyte distribution width (RBC) [Ratio] 12.3 % Normal 11.5-15.0 [facility] Comment on above: Order Comment: Speci men Type: BLOOD SPECIMENOrdering Facility: [facility] Address: [address] [place] [address] Performed By: #### 5 7021-8 ####[facility] LABCLIA [id number] [place] [address] Hematocrit (Bld) [Volume fraction] 42.9 % Normal 39.0-51.0 [facility] Comment on above: Order Comment: Speci men Type: BLOOD SPECIMENOrdering Facility: [facility] Address: [address] [place] [address] Performed By: #### 5 7021-8 ####[facility] LABIA [id number] [place] [address] Hemoglobin (Bld) [Mass/Vol] 14.9 g/dL Normal 13.0-17.0 [facility] Comment on above: Order Comment: Speci men Type: BLOOD SPECIMENOrdering Facility: [facility] Address: [address] [place] [address] Performed By: #### 5 7021-8 ####[facility] LABCLIA [id number] [place] [address] Immature granulocytes (Bld) [#/Vol] 0.04 10*3/uL Normal <0.10 [facility] Comment on above: Order Comment: Speci men Type: BLOOD SPECIMENOrdering Facility: [facility] Address: [address] [place] [address] Performed By: #### 5 7021-8 ####[facility] LABCLIA [id number] [place] [address] Immature granulocytes/100 WBC (Bld) 0.5 % Normal [facility] Comment on above: Order Comment: Speci men Type: BLOOD SPECIMENOrdering Facility: [facility] Address: [address] [place] [address] Performed By: #### 5 7021-8 ####[facility] LABCLIA [id number] [place] [address] Lymphocytes (Bld) [#/Vol] 3.48 10*3/uL Normal 1.00-4.00 [facility] Comment on above: Order Comment: Speci men Type: BLOOD SPECIMENOrdering Facility: [facility] Address: [address] [place] [address] Performed By: #### 5 7021-8 ####[facility] LABCLIA [id number] [place] [address] Lymphocytes/100 WBC (Bld) 42.5 % Normal [facility] Comment on above: Order Comment: Speci men Type: BLOOD SPECIMENOrdering Facility: [facility] Address: [address] [place] [address] Performed By: #### 5 7021-8 ####[facility] LABCLIA [id number] [place] [address] MCH (RBC) [Entitic mass] 31.3 pg Normal 26.0-34.0 [facility] Comment on above: Order Comment: Speci men Type: BLOOD SPECIMENOrdering Facility: [facility] Address: [address] [place] [address] Performed By: #### 5 7021-8 ####[facility] LABCLIA [id number] [place] [address] MCHC (RBC) [Mass/Vol] 34.7 g/dL Normal 30.5-36.0 [facility] Comment on above: Order Comment: Speci men Type: BLOOD SPECIMENOrdering Facility: [facility] Address: [address] [place] [address] Performed By: #### 5 7021-8 ####[facility] LABCLIA [id number] [place] [address] MCV (RBC) [Entitic vol] 90.1 fL Normal 80.0-100.0 [facility] Comment on above: Order Comment: Speci men Type: BLOOD SPECIMENOrdering Facility: [facility] Address: [address] [place] [address] Performed By: #### 5 7021-8 ####[facility] LABCLIA [id number] [place] [address] Monocytes (Bld) [#/Vol] 0.53 10*3/uL Normal <0.87 [facility] Comment on above: Order Comment: Speci men Type: BLOOD SPECIMENOrdering Facility: [facility] Address: [address] [place] [address] Performed By: #### 5 7021-8 ####[facility] LABCLIA [id number] [place] [address] Monocytes/100 WBC (Bld) 6.5 % Normal [facility] Comment on above: Order Comment: Speci men Type: BLOOD SPECIMENOrdering Facility: [facility] Address: [address] [place] [address] Performed By: #### 5 7021-8 ####[facility] LABCLIA [id number] [place] [address] Neutrophils (Bld) [#/Vol] 3.79 10*3/uL Normal 1.45-7.50 [facility] Comment on above: Order Comment: Speci men Type: BLOOD SPECIMENOrdering Facility: [facility] Address: [address] [place] [address] Performed By: #### 5 7021-8 ####[facility] LABCLIA [id number] [place] [address] Neutrophils/100 WBC (Bld) 46.2 % Normal [facility] Comment on above: Order Comment: Speci men Type: BLOOD SPECIMENOrdering Facility: [facility] Address: [address] [place] [address] Performed By: #### 5 7021-8 ####[facility] LABCLIA [id number] [place] [address] Nucleated RBC (Bld) [#/Vol] 10*3/uL Normal <0.01 [facility] Comment on above: Order Comment: Speci men Type: BLOOD SPECIMENOrdering Facility: [facility] Address: [address] [place] [address] Performed By: #### 5 7021-8 ####[facility] LABCLIA [id number] [place] [address] Nucleated RBC/100 WBC (Bld) [Ratio] 0.0 /100 WBC Normal [facility] Comment on above: Order Comment: Speci men Type: BLOOD SPECIMENOrdering Facility: [facility] Address: [address] [place] [address] Performed By: #### 5 7021-8 ####[facility] LABCLIA [id number] [place] [address] Platelet mean volume (Bld) [Entitic vol] 9.2 fL Normal 9.0-12.7 [facility] Comment on above: Order Comment: Speci men Type: BLOOD SPECIMENOrdering Facility: [facility] Address: [address] [place] [address] Performed By: #### 5 7021-8 ####[facility] LABCLIA [id number] [place] [address] Platelets (Bld) [#/Vol] 288 10*3/uL Normal 150-400 [facility] Comment on above: Order Comment: Speci men Type: BLOOD SPECIMENOrdering Facility: [facility] Address: [address] [place] [address] Performed By: #### 5 7021-8 ####[facility] LABCLIA [id number] [place] [address] RBC (Bld) [#/Vol] 4.76 10*6/uL Normal 4.20-6.00 [facility] Comment on above: Order Comment: Speci men Type: BLOOD SPECIMENOrdering Facility: [facility] Address: [address] [place], [place] [address] Performed By: #### 5 7021-8 ####[facility] LABIA [id number] [place] [address] WBC (Bld) [#/Vol] 8.19 10*3/uL Normal 3.70-11.00 [facility] Comment on above: Order Comment: Speci men Type: BLOOD SPECIMENOrdering Facility: [facility] Address: [address] [place] [address] Performed By: #### 5 7021-8 ####[facility] LABIA [id number] [place] [address] CNOVon 05-19-2024 CNOV Normal [facility] Haptoglob SerPl-mCncon 05-19 Haptoglobin [Mass/Vol] 143 mg/dL Normal 31-238 [facility] Comment on above: Order Comment: Speci men Type: BLOOD SPECIMENOrdering Facility: [facility] Address: [address] [place] [address] Performed By: #### 4 542-7 ####[facility] LABCLIA [id number] [facility] [id number] [address] [place] LDH SerPl-cCncon 05-19-2024 LDH [Catalytic activity/Vol] 202 U/L Normal 135-225 [facility] Comment on above: Order Comment: Speci men Type: BLOOD SPECIMENOrdering Facility: [facility] Address: [address] [place] [address] Result Comment: Hemo lysis present. The origin of the hemolysis, in vitro versus an in vivo hemolytic process, cannot be distinguished via this assay alone. In vitro hemolysis may lead to non-physiological (spurious) elevation in lactate dehydrogenase (LDH) results. Theresult should be interpreted in context of the clinical setting and other test results. Suggest reorder as clinically indicated. Performed By: #### 2 4321-2, 2532-0 ####[facility] LABCLIA [id number] [place] [address] CNOVSPon 04-16-2024 CNOVSP Normal [facility] [id number] ACTIVITY ASSAYon vWf cleaving protease actual/normal Chromogenic method (PPP) [Rel catalytic activity/Vol] Low >67 % [facility] [id number] INHIBITOR ASSAYon 0 10-24-2023 vWf cleaving protease inhibitor Qn (PPP) 1.5 [place] units High <0.5 [place] units [facility] CBC W Auto Differential pane l (Bld)on 10-23-2023 Basophils (Bld) [#/Vol] 0.09 10*3/uL <0.11 k/uL [facility] Basophils/100 WBC (Bld) 0.8 % [facility] Differential cell count method Nom (Bld) Auto [facility] Eosinophils (Bld) [#/Vol] 0.43 10*3/uL <0.46 k/uL [facility] Eosinophils/100 WBC (Bld) 3.9 % [facility] Erythrocyte distribution width (RBC) [Ratio] 18.9 % High 11.5 - 15.0 % [facility] Hematocrit (Bld) [Volume fraction] 31.8 % Low 39.0 - 51.0 % [facility] Hemoglobin (Bld) [Mass/Vol] 10.1 g/dL Low 13.0 - 17.0 g/dL [facility] Immature granulocytes (Bld) [#/Vol] 0.10 10*3/uL High <0.10 k/uL [facility] Immature granulocytes/100 WBC (Bld) 0.9 % [facility] Lymphocytes (Bld) [#/Vol] 3.79 10*3/uL 1.00 - 4.00 k/uL [facility] Lymphocytes/100 WBC (Bld) 34.4 % [facility] MCH (RBC) [Entitic mass] 32.8 pg 26.0 - 34.0 pg [facility] MCHC (RBC) [Mass/Vol] 31.8 g/dL 30.5 - 36.0 g/dL [facility] MCV (RBC) [Entitic vol] 103.2 fL High 80.0 - 100.0 fL [facility] Monocytes (Bld) [#/Vol] 0.66 10*3/uL <0.87 k/uL [facility] Monocytes/100 WBC (Bld) 6.0 % [facility] Neutrophils (Bld) [#/Vol] 5.94 10*3/uL 1.45 - 7.50 k/uL [facility] Neutrophils/100 WBC (Bld) 54.0 % [facility] Nucleated RBC (Bld) [#/Vol] 0.02 10*3/uL High <0.01 k/uL [facility] Nucleated RBC/100 WBC (Bld) [Ratio] 0.2 /100 WBC [facility] Platelet mean volume (Bld) [Entitic vol] 10.8 fL 9.0 - 12.7 fL [facility] Platelets (Bld) [#/Vol] 56 10*3/uL Low 150 - 400 k/uL [facility] RBC (Bld) [#/Vol] 3.08 10*6/uL Low 4.20 - 6.0 0 m/uL [facility] WBC (Bld) [#/Vol] 11.01 10*3/uL High 3.70 - 11 .00 k/uL [facility] Comprehensive metabolic 2000 panelon 10-23-2023 Albumin [Mass/Vol] 4.7 g/dL 3.9 - 4.9 g/dL [facility] ALP [Catalytic activity/Vol] 130 U/L High 38 - 113 U/L [facility] ALT [Catalytic activity/Vol] 60 U/L High 10 - 54 U/L [facility] Anion gap [Moles/Vol] 11 mmol/L 9 - 18 mmol/L [facility] AST [Catalytic activity/Vol] 32 U/L 14 - 40 U/L [facility] Bilirubin [Mass/Vol] 1.3 mg/dL 0.2 - 1 .3 mg/dL [facility] Calcium [Mass/Vol] 10.3 mg/dL High 8.5 - 10. 2 mg/dL [facility] Chloride [Moles/Vol] 103 mmol/L 97 - 10 5 mmol/L [facility] CO2 [Moles/Vol] 27 mmol/L 22 - 30 mmol/L [facility] Creatinine [Mass/Vol] 1.13 mg/dL 0.73 - 1.22 mg/dL [facility] Estimated Glomerular Filtration Rate 87 mL/min/1.73m >=60 mL/min/1.73m [facility] Glucose [Mass/Vol] 96 mg/dL 74 - 99 mg/dL [facility] Potassium [Moles/Vol] 4.3 mmol/L 3.7 - 5.1 mmol/L [facility] Protein [Mass/Vol] 7.9 g/dL 6.3 - 8.0 g/dL [facility] Sodium [Moles/Vol] 141 mmol/L 136 - 144 mmol/L [facility] Urea nitrogen [Mass/Vol] 15 mg/dL 9 - 24 mg/dL [facility] HAPTOGLOBIN BLDon 10-23-2023 Haptoglobin [Mass/Vol] Low 31 - 238 mg/dL [facility] LD LACTATE DEHYDROon 024 LDH [Catalytic activity/Vol] 589 U/L High 135 - 225 U/L [facility] RETIC COUNTon 10-23-2023 Reticulocytes (Bld) [#/Vol] 0.02530 10*3/uL High 0.018 - 0.100 M/uL [facility] Reticulocytes (Bld) [#/Vol]o n 10-23-2023 Reticulocytes/100 RBC (Bld) 13.8 % High 0.4 - 2.0 % [facility] ED Note-Physicianon 10-13-19 ED Note-Physician [id number] #1.00TIFF Normal [facility] RAD - CT Reporton 10-13-2023 RAD - CT Report [id number] #1.00TIFF Normal [facility] RAD - MISCon 10-13-2023 RAD - MISC [id number] #1.00TIFF Normal [facility] Ambulatory Visit Summaryon 1 Ambulatory Visit Summary KWAKU NICHOLS III :1990 Visit Date:06/20/2023 Ambulatory Visit Instructions Your Diagnosis Wellness examination Fatigue Clotting disorder Screening for hyperlipidemia Seasonal allergies Right otitis media Sinusitis BMI 35.0-35.9,adult Heavy smoker Your Care Team Attending Physician - Mel Uribe Primary Care Physician - Mel Uribe This Is Your Medications List amoxicillin (amoxicillin 875 mg Tab) Procedures Performed Cholecystostomy. Discharge Vitals Heart Rate (Peripheral) 98 Respiratory Rate 18 Blood Pressure 138/92 Height 183.5 cm Height 72 in Weight 120.3 kg Weight 264.66 lb BMI 35.73 Medications What How Much When Why Instructions New amoxicillin (amoxicillin 875 mg Tab) 1 Tablets By Mouth 2 times a day Wellness examination Fatigue Clotting disorder Screening for hyperlipidemia Seasonal allergies Right otitis media Sinusitis BMI 35.0-35.9,adult Heavy smoker Duration: 7 Days Pickup at [facility]/pharmacy #[id number] Pharmacy Information [facility]/pharmacy #[id number]: [address], [place] [id number] [phone] Allergies No Known Allergies Problems Ongoing - Any problem that you are currently receiving treatment for. Clotting disorder Fatigue Right otitis media Screening for hyperlipidemia Seasonal allergies Sinusitis Wellness examination Patient Survey You may receive a survey via text or e-mail asking about your office visit. Please share your experience with us by completing your survey. We appreciate your feedback and thank you for choosing us for your care. Normal [facility] Auto Diffon 06-20-2023 Basophils/100 WBC (Bld) 1.3 % Normal 0.0-2.0 [facility] Comment on above: Order Comment: Order Added by Discern Expert. Performed By: #### 2 341162, 3359711, 6987814, 2109314, 8544222, 10674182 #### [facility] [address] [place] [address] Basophils/Leukocytes Auto (Bld) [Pure # fraction] 0.1 E9/L Normal 0.0-0.2 [facility] Comment on above: Order Comment: Order Added by Discern Expert. Performed By: #### 2 433756, 8333869, 2862638, 9887485, 4111419, 02877465 #### [facility] [address] [place] [address] Eosinophils/100 WBC (Bld) 7.4 % Normal 0.0-8.0 [facility] Comment on above: Order Comment: Order Added by Discern Expert. Performed By: #### 2 228032, 9696539, 2387323, 1692870, 5426604, 32758120 #### [facility] [address] [place] [address] Eosinophils/Leukocyte s Auto (Bld) [Pure # fraction] 0.6 E9/L High 0.0-0.5 [facility] Comment on above: Order Comment: Order Added by Discern Expert. Performed By: #### 2 715029, 5004522, 3097292, 1567011, 3021328, 69359395 #### [facility] [address] [place] [address] Lymphocytes/100 WBC (Bld) 36.9 % Normal 14.0-50.0 [facility] Comment on above: Order Comment: Order Added by Discern Expert. Performed By: #### 2 150877, 9875053, 2630648, 7904015, 8406858, 54811194 #### [facility] [address] [place] [address] Lymphocytes/Leukocyte s Auto (Bld) [Pure # fraction] 3.2 E9/L Normal 1.0-4.0 [facility] Comment on above: Order Comment: Order Added by Discern Expert. Performed By: #### 2 564024, 4866627, 5065728, 1792251, 5158590, 58581135 #### [facility] [address] [place] [address] Monocytes/100 WBC (Bld) 13.9 % Normal 4.0-14.0 [facility] Comment on above: Order Comment: Order Added by Discern Expert. Performed By: #### 2 826804, 4309601, 5659366, 7673276, 0770331, 05079902 #### [facility] [address] [place] [address] Monocytes/Leukocytes Auto (Bld) [Pure # fraction] 1.2 E9/L High 0.2-1.0 [facility] Comment on above: Order Comment: Order Added by Discern Expert. Performed By: #### 2 537899, 0576285, 0193950, 5973032, 7828693, 18596077 #### [facility] [address] [place] [address] Neutrophils/100 WBC (Bld) 40.5 % Normal 36.0-75.0 [facility] Comment on above: Order Comment: Order Added by Discern Expert. Performed By: #### 2 965023, 0533410, 7114058, 6547304, 5032241, 74490580 #### [facility] [address] [place] [address] Neutrophils/Leukocyte s Auto (Bld) [Pure # fraction] 3.5 E9/L Normal 2.0-7.5 [facility] Comment on above: Order Comment: Order Added by Discern Expert. Performed By: #### 2 698991, 4140557, 8919764, 9264244, 3981055, 84888734 #### [facility] [address] [place] [address] CBC w/ Auto Diffon 3 Erythrocyte distribution width (RBC) [Ratio] 13.4 % Normal 10.9-14.2 [facility] Comment on above: Performed By: #### 2 379430, 3795872, 2102682, 0016379, 6709303, 74487274 #### [facility] [address] [place] [address] Hematocrit (Bld) [Volume fraction] 47.8 % Normal 37.7-49.0 [facility] Comment on above: Performed By: #### 2 080222, 6220420, 1995528, 8918668, 7262208, 95488657 #### [facility] [address] [place] [address] Hemoglobin (Bld) [Mass/Vol] 16.1 g/dL Normal 13.5-17.5 [facility] Comment on above: Performed By: #### 2 629694, 1853692, 7641959, 9499320, 5358651, 83351520 #### [facility] [address] [place] [address] MCH (RBC) [Entitic mass] 31.5 pg Normal 27.0-34.0 [facility] Comment on above: Performed By: #### 2 413373, 0848269, 2040948, 1284762, 6317024, 37693373 #### [facility] [address] [place] [address] MCHC (RBC) [Mass/Vol] 33.7 g/dL Normal 31.4-36.0 [facility] Comment on above: Performed By: #### 2 251808, 0058497, 1251371, 7290744, 8042496, 63279364 #### [facility] [address] [place] [address] MCV (RBC) [Entitic vol] 93.4 fL Normal 80.0-100.0 [facility] Comment on above: Performed By: #### 2 096819, 6355350, 6105780, 5947573, 1475158, 50842782 #### [facility] [address] [place] [address] Platelet mean volume (Bld) [Entitic vol] 8.1 fL Normal 6.4-10.8 [facility] Comment on above: Performed By: #### 2 957160, 5247652, 8399815, 4150425, 5707539, 01749173 #### [facility] [address] [place] [address] Platelets (Bld) [#/Vol] 314.0 E9/L Normal 150.0-500.0 [facility] Comment on above: Performed By: #### 2 909639, 2053525, 4187924, 6676070, 7604027, 49591573 #### [facility] [address] [place] [address] RBC (Bld) [#/Vol] 5.1 E12/L Normal 4.3-5.9 [facility] Comment on above: Performed By: #### 2 079541, 8798208, 3071091, 8600319, 5780828, 27007248 #### [facility] [address] [place] [address] WBC corrected for nucl RBC Auto (Bld) [#/Vol] 8.6 E9/L Normal 4.0-11.0 [facility] Comment on above: Performed By: #### 2 774472, 1042725, 3742353, 4370185, 3791357, 87788237 #### [facility] [address] [place] [address] CHEMISTRYOrdered By: SYSTEM SYSTEM on 06-20-2023 Albumin [Mass/Vol] 4.2 g/dL Normal 3.3 - 5.0 gm/dL [facility] Albumin/Globulin [Mass ratio] 1.3 {ratio} Normal 1.1 - 2.2 [facility] ALP [Catalytic activity/Vol] 98 [iU]/d Normal 21 - 98 Int._Unit/L [facility] ALT No additional P-5'-P [Catalytic activity/Vol] 74 [iU]/d High 6 - 46 Int._Unit/L [facility] Anion gap [Moles/Vol] 10 mmol/L Normal 6 - 16 mEq/L [facility] AST [Catalytic activity/Vol] 35 [iU]/d Normal 5 - 43 Int._Unit/L [facility] Bilirubin [Mass/Vol] 0.3 mg/dL Normal 0.0 - 1 .1 mg/dL [facility] Calcium [Mass/Vol] 9.7 mg/dL Normal 8.9 - 11. 1 mg/dL [facility] Chloride [Moles/Vol] 105 mmol/L Normal 101 - 1 11 mmol/L [facility] Cholesterol [Mass/Vol] 165 mg/dL Normal 120 - 200 mg/dL [facility] Cholesterol in HDL [Mass/Vol] 30 mg/dL Invalid Interpretation Code [facility] Comment on above: Interpretive Data: H DL > or equal to 60 mg/dL: Low cardiovascular risk HDL < 40 mg/dL : High cardiovascular risk Cholesterol in LDL [Mass/Vol] 98 mg/dL Normal <=129mg/dL [facility] Cholesterol in VLDL [Mass/Vol] 48 mg/dL High 7 - 40 mg/dL [facility] CO2 [Moles/Vol] 25 mmol/L Normal 21 - 31 mmol/L [facility] Creatinine [Mass/Vol] 1.0 mg/dL Normal 0.5 - 1.3 mg/dL [facility] GFR/1.73 sq M.predicted among non-blacks MDRD (S/P/Bld) [Vol rate/Area] 101 mL/min/1.73 m2 Normal >=59mL/min/1. 73 m2 [facility] Comment on above: Interpretive Data: C hronic kidney disease could be indicated at eGFR's of less than 60 mL/min/1.73m2. Kidney failure is indicated at less than 15 mL/min/1.73m2. Globulin (S) [Mass/Vol] 3.3 g/dL Normal 1.4 - 4.0 gm/dL [facility] Glucose [Mass/Vol] 99 mg/dL Normal 55 - 199 mg/dL [facility] Comment on above: Interpretive Data: I f this glucose result represents a fasting glucose, interpretation should refer to the following reference range: 55-99 mg/dL Potassium [Moles/Vol] 3.5 mmol/L Normal 3.5 - 5.3 mmol/L [facility] Protein [Mass/Vol] 7.5 g/dL Normal 6.0 - 7.8 gm/dL [facility] Sodium [Moles/Vol] 136 mmol/L Normal 135 - 145 mmol/L [facility] Triglyceride [Mass/Vol] 239 mg/dL High <=149mg/dL [facility] TSH Qn 1.86 m[IU]/L Normal 0.34 - 5.60 mcIU/mL [facility] Urea nitrogen [Mass/Vol] 11 mg/dL Normal 5 - 21 mg/dL [facility] Urea nitrogen/Creatinine [Mass ratio] 11 mg/mg Normal - 20 [facility] CMPon 06-20-2023 Albumin [Mass/Vol] 4.2 g/dL Normal 3.3-5.0 [facility] Comment on above: Performed By: #### 2 880346, 3365479, 6120799, 9377125, 7055910, 08544209 #### [facility] [address] [place] [address] Albumin/Globulin (S) [Mass conc ratio] 1.3 Normal 1.1-2.2 [facility] Comment on above: Performed By: #### 2 702763, 7882413, 1222148, 3199195, 8843276, 39100125 #### [facility] [address] [place] [address] ALP [Catalytic activity/Vol] 98 Int._Unit/L Normal 21-98 [facility] Comment on above: Performed By: #### 2 954028, 8897113, 9752836, 0778614, 9215686, 47414431 #### [facility] [address] [place] [address] ALT No additional P-5'-P [Catalytic activity/Vol] 74 Int._Unit/L High 6-46 [facility] Comment on above: Performed By: #### 2 366501, 3257113, 5601126, 5770504, 0453374, 34715541 #### [facility] [address] [place] [address] Anion gap [Moles/Vol] 10 mmol/L Normal 6-16 [facility] Comment on above: Performed By: #### 2 211363, 2293436, 4313109, 1663809, 7351171, 14140013 #### [facility] [address] [place] [address] AST [Catalytic activity/Vol] 35 Int._Unit/L Normal 5-43 [facility] Comment on above: Performed By: #### 2 022237, 4575225, 9784339, 3448675, 8201854, 47988274 #### [facility] [address] [place] [address] Bilirubin [Mass/Vol] 0.3 mg/dL Normal 0.0-1.1 [facility] Comment on above: Performed By: #### 2 730501, 5368836, 7781443, 5803636, 0593773, 89725934 #### [facility] [address] [place] [address] Calcium [Mass/Vol] 9.7 mg/dL Normal 8.9-11.1 [facility] Comment on above: Performed By: #### 2 069218, 0514530, 2026711, 7969960, 0531613, 88362323 #### [facility] [address] [place] [address] Chloride [Moles/Vol] 105 mmol/L Normal 101-111 [facility] Comment on above: Performed By: #### 2 532257, 7908470, 5217195, 6412784, 7054615, 40965373 #### [facility] [address] [place] [address] CO2 [Moles/Vol] 25 mmol/L Normal 21-31 [facility] Comment on above: Performed By: #### 2 456175, 8058283, 8647414, 2274368, 0114006, 16845736 #### [facility] [address] [place] [address] Creatinine [Mass/Vol] 1.0 mg/dL Normal 0.5-1.3 [facility] Comment on above: Performed By: #### 2 970425, 9834122, 3099217, 8060836, 8226562, 95012818 #### [facility] [address] [place] [address] Globulin (S) [Mass/Vol] 3.3 g/dL Normal 1.4-4.0 [facility] Comment on above: Performed By: #### 2 575318, 2294734, 0570021, 8264451, 6442865, 02865557 #### [facility] [address] [place] [address] Glucose [Mass/Vol] 99 mg/dL Normal 55-199 [facility] Comment on above: Result Comment: If t his glucose result represents a fasting glucose, interpretation should refer to the following reference range: 55-99 mg/dL Performed By: #### 2 186553, 3270522, 4201142, 9074847, 1498039, 78260134 #### [facility] [address] [place] [address] Potassium [Moles/Vol] 3.5 mmol/L Normal 3.5-5.3 [facility] Comment on above: Performed By: #### 2 263822, 9928095, 3396836, 0850999, 1968023, 96170464 #### [facility] [address] [place] [address] Protein [Mass/Vol] 7.5 g/dL Normal 6.0-7.8 [facility] Comment on above: Performed By: #### 2 528370, 0735035, 1872241, 9539776, 9287843, 56782693 #### [facility] [address] [place] [address] Sodium [Moles/Vol] 136 mmol/L Normal 135-145 [facility] Comment on above: Performed By: #### 2 798523, 0996973, 2833700, 3621180, 9884466, 39852932 #### [facility] [address] [place] [address] Urea nitrogen [Mass/Vol] 11 mg/dL Normal 5-21 [facility] Comment on above: Performed By: #### 2 437712, 0618075, 0746511, 0067993, 0038989, 71782539 #### [facility] [address] [place] [address] Urea nitrogen/Creatinine [Mass ratio] 11 No Units Normal 10-20 [facility] Comment on above: Performed By: #### 2 173579, 1772971, 2664033, 4063122, 0841031, 14007807 #### [facility] [address] [place] [address] Consenton 06-20-2023 Consent [id number] #1.00TIFF Normal [facility] Family Medicine Office/Clini c Noteon 06-20-2023 Family Medicine Office/Clinic Note HPI Staff Kwaku is a 33 year old male presenting to establish care Establish Care: History: Any previous diagnosis: Blood disorder History of seeing any specialist: [facility] [employer] out of [facility] When was your last doctors visit: Last provider: Dr Landry Any recent labs: none in the last year Health Maintenance UTD: Colonoscopy: no PSA: no Respiratory C/O: Onset: 2 days ago Body aches: no Chest congestion: yes Chills: no Cough: yes Sputum production: yes brown Sore throat: no Ear complaints: no Eye itching/watering: no Fever: no Headache: yes Nasal congestion: yes Nasal discharge: yes clear Poor appetite: no Reduced activity: no Sinus pain/pressure: no Sneezing: no Wheezing: no Ill contacts: no Remedies tried: Cold/Flu/sinus tablet Questions/Concerns: pt states he usually will get a Kenalog shot and works well History of Present Illness pt presents today to establish care. has not had a wellness visit in years Review of Systems PHQ Score Initial Depression Screen Score: 0 ROS - Provider Constitutional: no fever, no chills, no sweats, no fatigue Respiratory: no shortness of breath, yes cough, no orthopnea, no wheezing., nasal congestion, chest congestion Cardiovascular: no chest pain, no palpitations, no edema. Neurologic: no headache, no dizziness, no numbness, no weakness. Physical Exam Vitals & Measurements HR: 98(Peripheral) RR: 18 BP: 138/92 SpO2: 97% HT: 72 in HT: 183.5 cm WT: 120.3 kg WT: 264.66 lb BMI: 35.73 General: alert, no acute distress ENMT: oral mucosa moist, no pharyngeal erythema or exudate, right TM and canal red moderate amount of fluid Cardiovascular: regular rate and rhythm, normal peripheral perfusion Respiratory: Lungs CTA, respirations non labored Extremities: no deformity, no trauma Neurological: oriented x 4, LOC appropriate for age, CN II-XII intact, motor strength equal & normal bilaterally, speech normal Assessment/Plan 1. Wellness examination (Z00.00: Encounter for general adult medical examination without abnormal findings) pt presents today to establish. has not had wellness visit in many years. will draw labs in office today. pt has some URI symptoms. otherwise denies needs. all questions answered. RTC as needed Ordered: amoxicillin, 875 mg = 1 tab(s), Oral, BID, X 7 day(s), # 14 tab(s), Refills(s) 0, Pharmacy: [facility] #[id number], 183.5, cm, 06/20/23 9:32:00 EDT, Height/Length Dosing, 120.3, kg, 06/20/23 9:32:00 EDT, Weight Dosing CBC w/ Auto Diff Comprehensive Metabolic Panel Lipid Panel Thyroid Stimulating Hormone 2. Fatigue (R53.83: Other fatigue) TSH drawn Ordered: amoxicillin, 875 mg = 1 tab(s), Oral, BID, X 7 day(s), # 14 tab(s), Refills(s) 0, Pharmacy: [facility] #[id number], 183.5, cm, 06/20/23 9:32:00 EDT, Height/Length Dosing, 120.3, kg, 06/20/23 9:32:00 EDT, Weight Dosing CBC w/ Auto Diff Comprehensive Metabolic Panel Lipid Panel Thyroid Stimulating Hormone 3. Clotting disorder (D68.9: Coagulation defect, unspecified) CBC drawn Ordered: amoxicillin, 875 mg = 1 tab(s), Oral, BID, X 7 day(s), # 14 tab(s), Refills(s) 0, Pharmacy: [facility]/pharmacy #[id number], 183.5, cm, 06/20/23 9:32:00 EDT, Height/Length Dosing, 120.3, kg, 06/20/23 9:32:00 EDT, Weight Dosing CBC w/ Auto Diff Comprehensive Metabolic Panel Lipid Panel Thyroid Stimulating Hormone 4. Screening for hyperlipidemia (Z13.220: Encounter for screening for lipoid disorders) lipid panel drawn Ordered: amoxicillin, 875 mg = 1 tab(s), Oral, BID, X 7 day(s), # 14 tab(s), Refills(s) 0, Pharmacy: [facility]/pharmacy #[id number], 183.5, cm, 06/20/23 9:32:00 EDT, Height/Length Dosing, 120.3, kg, 06/20/23 9:32:00 EDT, Weight Dosing CBC w/ Auto Diff Comprehensive Metabolic Panel Lipid Panel Thyroid Stimulating Hormone 5. Seasonal allergies (J30.2: Other seasonal allergic rhinitis) kenalog 40mg give in office today Ordered: amoxicillin, 875 mg = 1 tab(s), Oral, BID, X 7 day(s), # 14 tab(s), Refills(s) 0, Pharmacy: [facility]/pharmacy #[id number], 183.5, cm, 06/20/23 9:32:00 EDT, Height/Length Dosing, 120.3, kg, 06/20/23 9:32:00 EDT, Weight Dosing 6. Right otitis media (H66.91: Otitis media, unspecified, right ear) RIght otits media noted on exam will send amoxicilin. kenalog given Ordered: amoxicillin, 875 mg = 1 tab(s), Oral, BID, X 7 day(s), # 14 tab(s), Refills(s) 0, Pharmacy: [facility]/pharmacy #[id number], 183.5, cm, 06/20/23 9:32:00 EDT, Height/Length Dosing, 120.3, kg, 06/20/23 9:32:00 EDT, Weight Dosing 7. Sinusitis (J32.9: Chronic sinusitis, unspecified) nasal congestion and sinus tenderness will send amoxicillin Ordered: amoxicillin, 875 mg = 1 tab(s), Oral, BID, X 7 day(s), # 14 tab(s), Refills(s) 0, Pharmacy: [facility]/pharmacy #[id number], 183.5, cm, 06/20/23 9:32:00 EDT, Height/Length Dosing, 120.3, kg, 06/20/23 9:32:00 EDT, Weight Dosing 8. BMI 35.0-35.9,adult (Z68.35: Body mass index [BMI] 35.0-35.9, adult) BMI education complete Ordered: am (more content not included)... Normal [facility] Comment on above: Result Comment: Elec tronically Signed By: Soehila HENSLEY, Mel Lord\.br\Date and Time Signed: 06/20/23 09:55 EDT HEMATOLOGYOrdered By: SYSTEM SYSTEM on 06-20-2023 Basophils/100 WBC (Bld) 1.3 % Normal 0.0 - 2.0 % [facility] Basophils/Leukocytes Auto (Bld) [Pure # fraction] 0.1 E9/L Normal 0.0 - 0.2 E9/L [facility]eAutoSS Eosinophils/100 WBC (Bld) 7.4 % Normal 0.0 - 8.0 % [facility]eAutoSS Eosinophils/Leukocyte s Auto (Bld) [Pure # fraction] 0.6 E9/L High 0.0 - 0.5 E9/L [facility]eAutoSS Lymphocytes/100 WBC (Bld) 36.9 % Normal 14.0 - 50.0 % [facility] Lymphocytes/Leukocyte s Auto (Bld) [Pure # fraction] 3.2 E9/L Normal 1.0 - 4.0 E9/L [facility] Monocytes/100 WBC (Bld) 13.9 % Normal 4.0 - 14.0 % [facility] Monocytes/Leukocytes Auto (Bld) [Pure # fraction] 1.2 E9/L High 0.2 - 1.0 E9/L [facility] Neutrophils/100 WBC (Bld) 40.5 % Normal 36.0 - 75.0 % [facility] Neutrophils/Leukocyte s Auto (Bld) [Pure # fraction] 3.5 E9/L Normal 2.0 - 7.5 E9/L [facility] HEMATOLOGYOrdered By: Cynthia Marie on 06-20-2023 Erythrocyte distribution width (RBC) [Ratio] 13.4 % Normal 10.9 - 14.2 % [facility] Hematocrit (Bld) [Volume fraction] 47.8 % Normal 37.7 - 49.0 % [facility] Hemoglobin (Bld) [Mass/Vol] 16.1 g/dL Normal 13.5 - 17.5 gm/dL [facility] MCH (RBC) [Entitic mass] 31.5 pg Normal 27.0 - 34.0 pg [facility] MCHC (RBC) [Mass/Vol] 33.7 g/dL Normal 31.4 - 36.0 gm/dL [facility] MCV (RBC) [Entitic vol] 93.4 fL Normal 80.0 - 100.0 fL [facility] Platelet mean volume (Bld) [Entitic vol] 8.1 fL Normal 6.4 - 10.8 fL [facility] Platelets (Bld) [#/Vol] 314.0 E9/L Normal 150.0 - 500.0 E9/L [facility] RBC (Bld) [#/Vol] 5.1 E12/L Normal 4.3 - 5.9 E12/L [facility] WBC corrected for nucl RBC Auto (Bld) [#/Vol] 8.6 E9/L Normal 4.0 - 11.0 E9/L [facility] Lipid Panelon 06-20-2023 Cholesterol [Mass/Vol] 165 mg/dL Normal 120-200 [facility] Comment on above: Performed By: #### 2 [id number], [id number], [id number], 2147514, [id number], [id number] #### [facility] [address] [place] [address] Cholesterol in HDL [Mass/Vol] 30 mg/dL Invalid Interpretation Code [facility] Comment on above: Result Comment: HDL > or equal to 60 mg/dL: Low cardiovascular risk HDL < 40 mg/dL : High cardiovascular risk Performed By: #### 2 [id number], 3255181, 1010304, 6260461, [id number], [id number] #### [facility] [address] [place] [address] Cholesterol in LDL [Mass/Vol] 98 mg/dL Normal <=129 [facility] Comment on above: Performed By: #### 2 [id number], 1367776, 1956067, 1390705, [id number], [id number] #### [facility] [address] [place] [address] Cholesterol in VLDL [Mass/Vol] 48 mg/dL High 7-40 [facility] Comment on above: Performed By: #### 2 757995, 0179125, 5019134, 8924379, 8685071, [id number] #### [facility] [address] [place] [address] Triglyceride [Mass/Vol] 239 mg/dL High <=149 [facility] Comment on above: Performed By: #### 2 950683, 1350850, 8853146, 6873182, 8994419, [id number] #### [facility] [address] [place] [address] TSHon 06-20-2023 TSH Qn 1.86 m[IU]/L Normal 0.34-5.60 [facility] Comment on above: Performed By: #### 2 799658, 6350203, 6283572, 7503795, 1957546, [id number] #### [facility] [address] [place] [address] eGFRon 06-20-2023 GFR/1.73 sq M.predicted among non-blacks MDRD (S/P/Bld) [Vol rate/Area] 101 mL/min/1.73 m2 Normal >=59 [facility] Comment on above: Order Comment: Order added by Discern Expert. Result Comment: Pulmonology Technician alondra kidney disease could be indicated at eGFR's of less than 60 mL/min/1.73m2. Kidney failure is indicated at less than 15 mL/min/1.73m2. Performed By: #### 2 638280, 3792864, 9420511, 8591765, 1229138, [id number] #### [facility] [address] [place] [address] FRESH FROZ PLASMAon 05-23-20 FRESH FROZ PLASMA Unit Blood Type A Pos Unit Number [id number] Status Information Transfused Product ID FFP Product Code [id number] [facility] Comment on above: Performed By: #### C XIANG ROGERS LIPA #### [facility] [address] [place] [address] Dr. Ros Jorge PLAT PHER/LRon 05-23-2021 PLAT PHER/LR Unit Blood Type A Pos Unit Number [id number] Status Information Transfused Product ID Platelets Product Code [id number] [facility] Comment on above: Performed By: #### P LTPH #### [facility] [address] [place] [address] Dr. Ros Jorge PLAT PHER/LR Unit Blood Type A Pos Unit Number [id number] Status Information Transfused Product ID Platelets Product Code [id number] [facility] Comment on above: Performed By: #### P LTPH #### [facility] [address] [place] [address] Dr. Ros Jorge PLAT PHER/LR Unit Blood Type A Pos Unit Number [id number] Status Information Transfused Product ID Platelets Product Code [id number] [facility] Comment on above: Performed By: #### C VDAGA #### [facility] [address] [place] [address] Ken Fry PRBC LEUKOREDUCEDon 05-23-20 PRBC LEUKOREDUCED Cross Match Result Compatible Blood Bank Notes completed by jomar sánchez [id number] 05/17/21 Unit Blood Type A Pos Unit Number [id number] Status Information Transfused Product ID Red Blood Cells Product Code [id number] [facility] Comment on above: Performed By: #### P RBC #### [facility] [address] [place] [address] Dr. Ros Jorge PRBC LEUKOREDUCED Cross Match Result Compatible Unit Blood Type A Pos Unit Number [id number] Status Information Transfused Product ID Red Blood Cells Product Code [id number] [facility] Comment on above: Performed By: #### C XIANG ROGERS LIPA #### [facility] [address] [place] [address] Dr. Ros Jorge CBC AUTO DIFFon 05-18-2021 BASO # 0.1 103/ul Normal 0.0-0.1 [facility] Comment on above: Performed By: #### C XIANG ROGERS, LIPA #### [facility] [address] [place] [address] Dr. Ros Jorge Basophils/100 WBC (Bld) 0.4 % Normal 0.2-2.0 [facility] Comment on above: Performed By: #### C XIANG ROGERS LIPA #### [facility] [address] [place] [address] Dr. Ros Jorge EO # 0.0 103/ul Normal 0.0-0.7 [facility] Comment on above: Performed By: #### C XIANG ROGERS LIPA #### [facility] [address] [place] [address] Dr. Ros Joreg Eosinophils/100 WBC (Bld) 0.1 % Critically low 0.9-7.0 [facility] Comment on above: Performed By: #### C XIANG ROGERS LIPA #### [facility] [address] [place] [address] Dr. Ros Jorge Erythrocyte distribution width (RBC) [Ratio] 15.4 % Critically high 11.0-15.0 [facility] Comment on above: Performed By: #### C XIANG ROGERS LIPA #### [facility] [address] [place] [address] Dr. Ros Jorge Hematocrit (Bld) [Volume fraction] 23.0 % Critically low 42.0-54.0 [facility] Comment on above: Result Comment: test repeated critical value verified Performed By: #### C XIANG ROGERS LIPA #### [facility] [address] [place] [address] Dr. Ros Jorge Hemoglobin (Bld) [Mass/Vol] 7.8 g/dL Critically low 14.0-18.0 [facility] Comment on above: Performed By: #### C XIANG ROGERS LIPA #### [facility] [address] [address] [address] Ros Jorge IG # 1.10 10e3/ul Critically high 0.00-0.03 [facility] Comment on above: Performed By: #### C MP, XIANG, LIPA #### [facility] [address] [address] [address] Ros Jorge IG % 6.7 % Critically high 0.0-0.5 [facility] Comment on above: Performed By: #### C MP, XIANG, LIPA #### [facility] [address] [place] [address] Dr. Ros Jorge LYMPH # 2.7 103/ul Normal 1.2-3.8 [facility] Comment on above: Performed By: #### C MP, XIANG, LIPA #### [facility] [address] [place] [address] Dr. Ros Jorge Lymphocytes/100 WBC (Bld) 16.3 % Critically low 20.5-60.0 [facility] Comment on above: Performed By: #### C MP, XIANG, LIPA #### [facility] [address] [place] [address] Dr. Ros Jorge MANUAL DIFF REQ NO Normal [facility] Comment on above: Performed By: #### C MP, XIANG, LIPA #### [facility] [address] [place] [address] Dr. Ros Jorge MCH (RBC) [Entitic mass] 31.1 pg Normal 25.9-34.0 [facility] Comment on above: Performed By: #### C MP, XIANG, LIPA #### [facility] [address] [place] [address] Dr. Ros Jorge MCHC (RBC) [Mass/Vol] 33.9 g/dL Normal 29.9-35.2 [facility] Comment on above: Performed By: #### C MP, XIANG, LIPA #### [facility] [address] [place] [address] Dr. Ros Jorge MCV (RBC) [Entitic vol] 91.6 fL Normal 80.0-94.0 [facility] Comment on above: Performed By: #### C XIANG ROGERS, LIPA #### [facility] [address] [place] [address] Dr. Ros Jorge MONO # 1.5 103/ul Critically high 0.3-0.8 [facility] Comment on above: Performed By: #### C XIANG ROGERS, LIPA #### [facility] [address] [place] [address] Dr. Ros Jorge Monocytes/100 WBC (Bld) 9.1 % Normal 1.7-12.0 [facility] Comment on above: Performed By: #### C XIANG ROGERS, LIPA #### [facility] [address] [place] [address] Dr. Ros Jorge NEUT # 11.1 103/ul Critically high 1.4-6.5 [facility] Comment on above: Performed By: #### C XIANG ROGERS LIPA #### [facility] [address] [place] [address] Dr. Ros Jorge Neutrophils/100 WBC (Bld) 67.4 % Normal 43.0-75.0 [facility] Comment on above: Performed By: #### C XIANG ROGERS LIPA #### [facility] [address] [place] [address] Dr. Ros Jorge PLT 10 103/ul Critically low 150-[address] [facility] Comment on above: Result Comment: test repeated critical value verified Performed By: #### C XIANG ROGERS, LIPA #### [facility] [address] [place] [address] Dr. Ros Jorge RBC 2.51 106/ul Critically low 4.70-6.10 [facility] Comment on above: Performed By: #### C XIANG ROGERS, LIPA #### [facility] [address] [place] [address] Dr. Ros Jorge WBC 16.5 103/ul Critically high 4.0-11.0 [facility] Comment on above: Performed By: #### C XIANG ROGERS, LIPA #### [facility] [address] [place] [address] Dr. Ros Jorge FRESH FROZ PLASMAon 05-18-20 21 FRESH FROZ PLASMA Unit Blood Type A Pos Unit Number [id number] Status Information Ready Product ID FFP Product Code [id number] [facility] Comment on above: Performed By: #### F FP #### [facility] [address] [place] [address] Dr. Ros Jorge HAPTOGLOBINon 05-18-2021 Haptoglobin <10 Critically low 17-317 [facility] Comment on above: Performed By: #### P RBC #### [facility] [address] [place] [address] Dr. Ros Jorge LAB TESTINGon 05-18-2021 RECV HEADER SEE SCANNED REPORT IN HPF [facility] Comment on above: Performed By: #### C VDAGA #### [facility] [address] [place] [address] Ken Fry REV FROM REF LAB 06/27/2021 [facility] Comment on above: Performed By: #### C VDAGA #### [facility] [address] [place] [address] Kenstephanie Fry SENT TO REF LAB 05/18/2021 [facility] Comment on above: Performed By: #### C VDAGA #### [facility] [address] [place] [address] Ken Fry LIPASEon 05-18-2021 Lipase [Catalytic activity/Vol] 353.0 U/L Critically high 23.0-300.0 [facility] Comment on above: Performed By: #### C MP XIANG, LIPA #### [facility] [address] [place] [address] Dr. Ros Jorge PROF 14(COMP METB)on 021 Albumin [Mass/Vol] 3.1 g/dL Critically low 3.5-5.0 Th e [facility] Comment on above: Performed By: #### C KEN XIANG, LIPA #### [facility] [address] [place] [address] Dr. Ros Jorge Albumin/Globulin [Mass ratio] 0.7 {ratio} Normal [facility] Comment on above: Performed By: #### C MP, XIANG, LIPA #### [facility] [address] [place] [address] Dr. Ros Jorge ALP [Catalytic activity/Vol] 109 U/L Normal 38-126 [facility] Comment on above: Performed By: #### C MP, XIANG, LIPA #### [facility] [address] [place] [address] Dr. Ros Jorge ALT [Catalytic activity/Vol] 53 U/L Normal 21-72 [facility] Comment on above: Performed By: #### C MP, XIANG, LIPA #### [facility] [address] [place] [address] Dr. Ros Jorge Anion gap [Moles/Vol] 12.6 mmol/L Normal [facility] Comment on above: Performed By: #### C MP, XIANG, LIPA #### [facility] [address] [place] [address] Dr. Ros Jorge AST [Catalytic activity/Vol] 48 U/L Normal 17-59 [facility] Comment on above: Performed By: #### C MP, XIANG, LIPA #### [facility] [address] [place] [address] Dr. Ros Jorge Bilirubin [Mass/Vol] 3.9 mg/dL Critically high 0.2-1.3 [facility] Comment on above: Performed By: #### C MP, XIANG, LIPA #### [facility] [address] [place] [address] Dr. Ros Jorge Calcium [Mass/Vol] 8.7 mg/dL Normal 8.4-10.2 [facility] Comment on above: Performed By: #### C MP, XIANG, LIPA #### [facility] [address] [place] [address] Dr. Ros Jorge Chloride [Moles/Vol] 107 mmol/L Normal 98-107 [facility] Comment on above: Performed By: #### C MP, XIANG, LIPA #### [facility] [address] [place] [address] Dr. Ros Jorge CO2 [Moles/Vol] 24.3 mmol/L Normal 22.0-30.0 [facility] Comment on above: Performed By: #### C XIANG ROGERS LIPA #### [facility] [address] [address] [address] Ros Jorge Creatinine [Mass/Vol] 1.22 mg/dL Normal 0.66-1.25 [facility] Comment on above: Performed By: #### C XIANG ROGERS LIPA #### [facility] [address] [address] [address] Ros Jorge EGFR-AF MONGOLIAN >60 Normal >=60 [facility] Comment on above: Performed By: #### C XIANG ROGERS LIPA #### [facility] [address] [address] [address] Ros Jorge EGFR-NON AF MONGOLIAN >60 Normal >=60 [facility] Comment on above: Performed By: #### C XIANG ROGERS LIPA #### [facility] [address] [address] [address] Ros Jorge Globulin (S) [Mass/Vol] 4.3 g/dL Normal [facility] Comment on above: Performed By: #### C XIANG ROGERS LIPA #### [facility] [address] [address] [address] Ros Jorge Glucose [Mass/Vol] 121 mg/dL Critically high 74-106 [facility] Comment on above: Performed By: #### C XIANG ROGERS LIPA #### [facility] [address] [address] [address] Ros Jorge Potassium [Moles/Vol] 3.9 mmol/L Normal 3.4-5.0 [facility] Comment on above: Performed By: #### C XIANG ROGERS, LIPA #### [facility] [address] [address] [address] Ros Jorge Protein [Mass/Vol] 7.4 g/dL Normal 6.1-8.2 [facility] Comment on above: Performed By: #### C XIANG ROGERS, LIPA #### [facility] [address] [place] [address] Dr. Ros Jorge Sodium [Moles/Vol] 140 mmol/L Normal 137-145 [facility] Comment on above: Performed By: #### C MP, XIANG, LIPA #### [facility] [address] [place] [address] Dr. Ros Jorge Urea nitrogen [Mass/Vol] 32.0 mg/dL Critically high 9.0-20.0 [facility] Comment on above: Performed By: #### C MP, XIANG, LIPA #### [facility] [address] [place] [address] Dr. Ros Jorge Urea nitrogen/Creatinine [Mass ratio] 26.2 mg/mg Normal [facility] Comment on above: Performed By: #### C MP, XIANG, LIPA #### [facility] [address] [place] [address] Dr. Ros Jorge CBC AUTO DIFFon 05-17-2021 BASO # 0.1 103/ul Normal 0.0-0.1 [facility] Comment on above: Performed By: #### C MP, XIANG, LIPA #### [facility] [address] [place] [address] Dr. Ros Jorge Basophils/100 WBC (Bld) 0.4 % Normal 0.2-2.0 [facility] Comment on above: Performed By: #### C MP, XIANG, LIPA #### [facility] [address] [place] [address] Dr. Ros Jorge EO # 0.0 103/ul Normal 0.0-0.7 [facility] Comment on above: Performed By: #### C MP, XIANG, LIPA #### [facility] [address] [place] [address] Dr. Ros Jorge Eosinophils/100 WBC (Bld) 0.0 % Critically low 0.9-7.0 [facility] Comment on above: Performed By: #### C MP, XIANG, LIPA #### [facility] [address] [place] [address] Dr. Ros Jorge Erythrocyte distribution width (RBC) [Ratio] 15.6 % Critically high 11.0-15.0 [facility] Comment on above: Performed By: #### C XIANG ROGERS LIPA #### [facility] [address] [address] [address] Ros Jorge Hematocrit (Bld) [Volume fraction] 22.1 % Critically low 42.0-54.0 [facility] Comment on above: Result Comment: test repeated critical value verified Performed By: #### C XIANG ROGERS LIPA #### [facility] [address] [address] [address] Ros Jorge Hemoglobin (Bld) [Mass/Vol] 7.6 g/dL Critically low 14.0-18.0 [facility] Comment on above: Performed By: #### C XIANG ROGERS LIPA #### [facility] [address] [place] [address] Dr. Ros Jorge IG # 0.80 10e3/ul Critically high 0.00-0.03 [facility] Comment on above: Performed By: #### C XIANG ROGERS LIPA #### [facility] [address] [address] [address] Ros Jorge IG % 4.8 % Critically high 0.0-0.5 [facility] Comment on above: Performed By: #### C XIANG ROGERS, LIPA #### [facility] [address] [place] [address] Dr. Ros Jorge LYMPH # 1.8 103/ul Normal 1.2-3.8 [facility] Comment on above: Performed By: #### C XIANG ROGERS, LIPA #### [facility] [address] [place] [address] Dr. Ros Jorge Lymphocytes/100 WBC (Bld) 10.8 % Critically low 20.5-60.0 [facility] Comment on above: Performed By: #### C XIANG ROGERS, LIPA #### [facility] [address] [place] [address] Dr. Ros Jorge MANUAL DIFF REQ NO Normal [facility] Comment on above: Performed By: #### C XIANG ROGERS, LIPA #### [facility] [address] [place] [address] Dr. Ros Jorge MCH (RBC) [Entitic mass] 30.9 pg Normal 25.9-34.0 [facility] Comment on above: Performed By: #### C XIANG ROGERS, LIPA #### [facility] [address] [place] [address] Dr. Ros Jorge MCHC (RBC) [Mass/Vol] 34.4 g/dL Normal 29.9-35.2 [facility] Comment on above: Performed By: #### C XIANG ROGERS, LIPA #### [facility] [address] [place] [address] Dr. Ros Jorge MCV (RBC) [Entitic vol] 89.8 fL Normal 80.0-94.0 [facility] Comment on above: Performed By: #### C XIANG ROGERS LIPA #### [facility] [address] [place] [address] Dr. Ros Jorge MONO # 0.7 103/ul Normal 0.3-0.8 [facility] Comment on above: Performed By: #### C XIANG ROGERS LIPA #### [facility] [address] [place] [address] Dr. Ros Jorge Monocytes/100 WBC (Bld) 4.4 % Normal 1.7-12.0 [facility] Comment on above: Performed By: #### C XIANG ROGERS, LIPA #### [facility] [address] [place] [address] Dr. Ros Jorge NEUT # 13.4 103/ul Critically high 1.4-6.5 [facility] Comment on above: Performed By: #### C XIANG ROGERS, LIPA #### [facility] [address] [place] [address] Dr. Ros Jorge Neutrophils/100 WBC (Bld) 79.6 % Critically high 43.0-75.0 [facility] Comment on above: Performed By: #### C XIANG ROGERS, LIPA #### [facility] [address] [address] [address] Ros Jorge PLT 16 103/ul Critically low 150-[address] [facility] Comment on above: Result Comment: test repeated critical value verified Performed By: #### C XIANG ROGERS, LIPA #### [facility] [facility] [address] [place] [address] Dr. Ros Jorge RBC 2.46 106/ul Critically low 4.70-6.10 [facility] Comment on above: Performed By: #### C XIANG ROGERS, LIPA #### [facility] [address] [address] [address] Ros Jorge WBC 16.8 103/ul Critically high 4.0-11.0 [facility] Comment on above: Performed By: #### C KEN XIANG, LIPA #### [facility] [address] [place] [address] Dr. Ros Jorge BASO # 0.1 103/ul Normal 0.0-0.1 [facility] Comment on above: Performed By: #### C KEN XIANG, LIPA #### [facility] [address] [place] [address] Dr. Ros Jorge Basophils/100 WBC (Bld) 0.4 % Normal 0.2-2.0 [facility] Comment on above: Performed By: #### C KEN XIANG, LIPA #### [facility] [address] [place] [address] Dr. Ros Jorge EO # 0.0 103/ul Normal 0.0-0.7 [facility] Comment on above: Performed By: #### C KEN XIANG, LIPA #### [facility] [address] [place] [address] Dr. Ros Jorge Eosinophils/100 WBC (Bld) 0.2 % Critically low 0.9-7.0 [facility] Comment on above: Performed By: #### C KEN XIANG, LIPA #### [facility] [address] [place] [address] Dr. Ros Jorge Erythrocyte distribution width (RBC) [Ratio] 15.8 % Critically high 11.0-15.0 [facility] Comment on above: Performed By: #### C XIANG ROGERS, LIPA #### [facility] [address] [place] [address] Dr. Ros Jorge Hematocrit (Bld) [Volume fraction] 22.2 % Critically low 42.0-54.0 [facility] Comment on above: Performed By: #### C XIANG ROGERS, LIPA #### [facility] [address] [place] [address] Dr. Ros Jorge Hemoglobin (Bld) [Mass/Vol] 7.4 g/dL Critically low 14.0-18.0 [facility] Comment on above: Performed By: #### C XIANG ROGERS LIPA #### [facility] [address] [place] [address] Dr. Ros Jorge IG # 0.43 10e3/ul Critically high 0.00-0.03 [facility] Comment on above: Performed By: #### C XIANG ROGERS LIPA #### [facility] [address] [place] [address] Dr. Ros Jorge IG % 3.5 % Critically high 0.0-0.5 [facility] Comment on above: Performed By: #### C XIANG ROGERS LIPA #### [facility] [address] [place] [address] Dr. Ros Jorge LYMPH # 1.2 103/ul Normal 1.2-3.8 [facility] Comment on above: Performed By: #### C XIANG ROGERS LIPA #### [facility] [address] [place] [address] Dr. Ros Jorge Lymphocytes/100 WBC (Bld) 9.5 % Critically low 20.5-60.0 [facility] Comment on above: Performed By: #### C XIANG ROGERS, LIPA #### [facility] [address] [place] [address] Dr. Ros Jorge MANUAL DIFF REQ NO Normal [facility] Comment on above: Performed By: #### C XIANG ROGERS, LIPA #### [facility] [address] [place] [address] Dr. Ros Jorge MCH (RBC) [Entitic mass] 30.3 pg Normal 25.9-34.0 [facility] Comment on above: Performed By: #### C MP, XIANG, LIPA #### [facility] [address] [address] [address] Ros Jorge MCHC (RBC) [Mass/Vol] 33.3 g/dL Normal 29.9-35.2 [facility] Comment on above: Performed By: #### C MP, XIANG, LIPA #### [facility] [address] [address] [address] Ros Jorge MCV (RBC) [Entitic vol] 91.0 fL Normal 80.0-94.0 [facility] Comment on above: Performed By: #### C MP, XIANG, LIPA #### [facility] [address] [place] [address] Dr. Ros Jorge MONO # 0.4 103/ul Normal 0.3-0.8 [facility] Comment on above: Performed By: #### C MP, XIANG, LIPA #### [facility] [address] [address] [address] Ros Jorge Monocytes/100 WBC (Bld) 2.9 % Normal 1.7-12.0 [facility] Comment on above: Performed By: #### C MP, XIANG, LIPA #### [facility] [address] [place] [address] Dr. Ros Jorge NEUT # 10.3 103/ul Critically high 1.4-6.5 [facility] Comment on above: Performed By: #### C MP, XIANG, LIPA #### [facility] [address] [place] [address] Dr. Ros Jorge Neutrophils/100 WBC (Bld) 83.5 % Critically high 43.0-75.0 [facility] Comment on above: Performed By: #### C MP, XIANG, LIPA #### [facility] [address] [address] [address] Ros Jorge Platelet mean volume (Bld) [Entitic vol] 7.8 fL Critically low 9.5-13.5 [facility] Comment on above: Performed By: #### C XIANG ROGERS LIPA #### [facility] [address] [address] [address] Ros Jorge PLT 12 103/ul Critically low 150-[address] [facility] Comment on above: Result Comment: PLAT ELETS RECEIVED Performed By: #### C XIANG ROGERS LIPA #### [facility] [address] [address] [address] Ros Jorge RBC 2.44 106/ul Critically low 4.70-6.10 [facility] Comment on above: Performed By: #### C XIANG ROGERS LIPA #### [facility] [address] [address] [address] Ros Jorge WBC 12.4 103/ul Critically high 4.0-11.0 [facility] [place] Comment on above: Performed By: #### C XIANG ROGERS LIPA #### [facility] [address] [address] [address] Ros Jorge [facility] SARS-CoV-2 (COVID-19) RNA SOLO+probe Ql (Unsp spec) Not detected Normal NOT DETECTED [facility] Comment on above: Result Comment: This test is not yet approved or cleared by the [place] FDA. When there are no FDA-approved or cleared tests available, and other criteria are met, FDA can make tests available under an emergency access mechanism called an Emergency Use Authorization (EUA). The EUA for this test is supported by the [place] of Health and Human Service's (HHS's) declaration that circumstances exist to justify the emergency use of in vitro diagnostics for the detection and/or diagnosis of the virus that causes COVID-19. This EUA will remain in effect (meaning this test can be used) for the duration of the COVID-19 declaration justifying emergency of IVDs, unless it is terminated or revoked by FDA (after which the test may no longer be used). When diagnostic testing is negative, the possibility of a false negative should be considered in the context of a patient's recent exposures and the presence of clinical signs and symptoms consistent with SARS-CoV-2. Performed By: #### C MP XIANG, LIPA #### [facility] [address] [place] [address] Dr. Ros Jorge DIRECT COOMBSon 05-17-2021 DIRECT NATHAN Direct Nathan Negative Blood Bank Notes PERFORMED BY MARIO [facility] Comment on above: Performed By: #### D IRCMB #### [facility] [address] [place] [address] Dr. Ros Jorge LIPASEon 05-17-2021 Lipase [Catalytic activity/Vol] 480.0 U/L Critically high 23.0-300.0 [facility] Comment on above: Performed By: #### C KEN XIANG, LIPA #### [facility] [address] [place] [address] Dr. Ros Jorge PROF 14(COMP METB)on 021 Albumin [Mass/Vol] 3.4 g/dL Critically low 3.5-5.0 [facility] Comment on above: Performed By: #### C KEN XIANG, LIPA #### [facility] [address] [place] [address] Dr. Ros Jorge Albumin/Globulin [Mass ratio] 0.8 {ratio} [facility] Comment on above: Performed By: #### C KEN XIANG, LIPA #### [facility] [address] [place] [address] Dr. Ros Jorge ALP [Catalytic activity/Vol] 114 U/L Normal 38-126 [facility] Comment on above: Performed By: #### C MP, XIANG, LIPA #### [facility] [address] [place] [address] Dr. Ros Jorge ALT [Catalytic activity/Vol] 54 U/L Normal 21-72 [facility] Comment on above: Performed By: #### C MP, XIANG, LIPA #### [facility] [address] [place] [address] Dr. Ros Jorge Anion gap [Moles/Vol] 12.6 mmol/L Normal [facility] Comment on above: Performed By: #### C MP, XIANG, LIPA #### [facility] [address] [address] [address] Ros Jorge AST [Catalytic activity/Vol] 54 U/L Normal 17-59 [facility] Comment on above: Performed By: #### C MP, XIANG, LIPA #### [facility] [address] [place] [address] Dr. Ros Jorge Bilirubin [Mass/Vol] 3.9 mg/dL Critically high 0.2-1.3 [facility] Comment on above: Performed By: #### C MP, XIANG, LIPA #### [facility] [address] [address] [address] Ros Jorge Calcium [Mass/Vol] 9.3 mg/dL Normal 8.4-10.2 [facility] Comment on above: Performed By: #### C MP, XIANG, LIPA #### [facility] [address] [place] [address] Dr. Ros Jorge Chloride [Moles/Vol] 104 mmol/L Normal 98-107 [facility] Comment on above: Performed By: #### C MP, XIANG, LIPA #### [facility] [address] [place] [address] Dr. Ros Jorge CO2 [Moles/Vol] 24.7 mmol/L Normal 22.0-30.0 [facility] Comment on above: Performed By: #### C MP, XIANG, LIPA #### [facility] [address] [place] [address] Dr. Ros Jorge Creatinine [Mass/Vol] 1.24 mg/dL Normal 0.66-1.25 [facility] Comment on above: Performed By: #### C MP, XIANG, LIPA #### [facility] [address] [place] [address] Dr. Ros Jorge EGFR-AF MONGOLIAN >60 Normal >=60 [facility] [place] Comment on above: Performed By: #### C MP, XIANG, LIPA #### [facility] [address] [place] [address] Dr. Ros Jorge EGFR-NON AF MONGOLIAN >60 Normal >=60 [facility] Comment on above: Performed By: #### C XIANG ROGERS, LIPA #### [facility] [address] [place] [address] Dr. Ros Jorge Globulin (S) [Mass/Vol] 4.4 g/dL Normal [facility] Comment on above: Performed By: #### C KEN XIANG, LIPA #### [facility] [address] [place] [address] Dr. Ros Jorge Glucose [Mass/Vol] 118 mg/dL Critically high 74-106 [facility] Comment on above: Performed By: #### C XIANG ROGERS, LIPA #### [facility] [address] [place] [address] Dr. Ros Jorge Potassium [Moles/Vol] 4.3 mmol/L Normal 3.4-5.0 [facility] Comment on above: Performed By: #### C KEN XIANG, LIPA #### [facility] [address] [place] [address] Dr. Ros Jorge Protein [Mass/Vol] 7.8 g/dL Normal 6.1-8.2 [facility] Comment on above: Performed By: #### C XIANG ROGERS, LIPA #### [facility] [address] [place] [address] Dr. Ros Jorge Sodium [Moles/Vol] 137 mmol/L Normal 137-145 [facility] Comment on above: Performed By: #### C KEN XIANG, LIPA #### [facility] [address] [place] [address] Dr. Ros Jorge Urea nitrogen [Mass/Vol] 31.0 mg/dL Critically high 9.0-20.0 [facility] Comment on above: Performed By: #### C KEN XIANG, LIPA #### [facility] [address] [place] [address] Dr. Ros Jorge Urea nitrogen/Creatinine [Mass ratio] 25.0 mg/mg Normal [facility] Comment on above: Performed By: #### C KEN XIANG, LIPA #### [facility] [address] [place] [address] Dr. Ros Jorge AMYLASEon 05-16-2021 Amylase [Catalytic activity/Vol] 112 U/L Critically high 31-110 [facility] Comment on above: Performed By: #### C XIANG ROGERS LIPA #### [facility] [address] [place] [address] Dr. Ros Jorge BILIRUBIN CONJUGATED (DIRECT )on 05-16-2021 BILI, CONJUGATED 0.6 mg/dL Critically high 0.0-0.3 [facility] Comment on above: Result Comment: TEST REPEATED; CRITICAL VALUE VERIFIED Performed By: #### C XIANG ROGERS LIPA #### [facility] [address] [place] [address] Dr. Ros Jorge CBC AUTO DIFFon 05-16-2021 BASO # 0.1 103/ul Normal 0.0-0.1 [facility] Comment on above: Performed By: #### C XIANG ROGERS LIPA #### [facility] [address] [place] [address] Dr. Ros Jorge Basophils/100 WBC (Bld) 0.6 % Normal 0.2-2.0 [facility] Comment on above: Performed By: #### C XIANG ROGERS LIPA #### [facility] [address] [place] [address] Dr. Ros Jorge EO # 0.2 103/ul Normal 0.0-0.7 [facility] Comment on above: Performed By: #### C XIANG ROGERS LIPA #### [facility] [address] [place] [address] Dr. Ros Jorge Eosinophils/100 WBC (Bld) 1.2 % Normal 0.9-7.0 [facility] Comment on above: Performed By: #### C XIANG ROGERS LIPA #### [facility] [address] [place] [address] Dr. Ros Jorge Erythrocyte distribution width (RBC) [Ratio] 15.1 % Critically high 11.0-15.0 [facility] Comment on above: Performed By: #### C XIANG ROGERS LIPA #### [facility] [address] [place] [address] Dr. Ros Jorge Hematocrit (Bld) [Volume fraction] 25.0 % Critically low 42.0-54.0 [facility] Comment on above: Performed By: #### C MP, XIANG, LIPA #### [facility] [address] [place] [address] Dr. Ros Jorge Hemoglobin (Bld) [Mass/Vol] 8.4 g/dL Critically low 14.0-18.0 [facility] Comment on above: Performed By: #### C MP, XIANG, LIPA #### [facility] [address] [place] [address] Dr. Ros Jorge IG # 0.29 10e3/ul Critically high 0.00-0.03 [facility] Comment on above: Performed By: #### C MP, XIANG, LIPA #### [facility] [address] [place] [address] Dr. Ros Jorge IG % 2.4 % Critically high 0.0-0.5 [facility] Comment on above: Performed By: #### C MP, XIANG, LIPA #### [facility] [address] [place] [address] Dr. Ros Jorge LYMPH # 2.4 103/ul Normal 1.2-3.8 [facility] Comment on above: Performed By: #### C KEN XIANG, LIPA #### [facility] [address] [place] [address] Dr. Ros Jorge Lymphocytes/100 WBC (Bld) 19.9 % Critically low 20.5-60.0 [facility] Comment on above: Performed By: #### C MP, XIANG, LIPA #### [facility] [address] [place] [address] Dr. Ros Jorge MANUAL DIFF REQ NO Normal [facility] Comment on above: Performed By: #### C MP, XIANG, LIPA #### [facility] [address] [place] [address] Dr. Ros Jorge MCH (RBC) [Entitic mass] 30.3 pg Normal 25.9-34.0 [facility] Comment on above: Performed By: #### C XIANG ROGERS LIPA #### [facility] [address] [place] [address] Dr. Ros Jorge MCHC (RBC) [Mass/Vol] 33.6 g/dL Normal 29.9-35.2 [facility] Comment on above: Performed By: #### C XIANG ROGERS LIPA #### [facility] [address] [place] [address] Dr. Ros Jorge MCV (RBC) [Entitic vol] 90.3 fL Normal 80.0-94.0 [facility] Comment on above: Performed By: #### C XIANG ROGERS LIPA #### [facility] [address] [place] [address] Dr. Ros Jorge MONO # 1.2 103/ul Critically high 0.3-0.8 [facility] Comment on above: Performed By: #### C XIANG ROGERS LIPA #### [facility] [address] [place] [address] Dr. Ros Jorge Monocytes/100 WBC (Bld) 9.7 % Normal 1.7-12.0 [facility] Comment on above: Performed By: #### C XIANG ROGERS LIPA #### [facility] [address] [place] [address] Dr. Ros Jorge NEUT # 8.1 103/ul Critically high 1.4-6.5 [facility] Comment on above: Performed By: #### C XIANG ROGERS LIPA #### [facility] [address] [place] [address] Dr. Ros Jorge Neutrophils/100 WBC (Bld) 66.2 % Normal 43.0-75.0 [facility] Comment on above: Performed By: #### C XIANG ROGERS LIPA #### [facility] [address] [place] [address] Dr. Ros Jorge Platelet mean volume (Bld) [Entitic vol] 7.7 fL Critically low 9.5-13.5 [facility] Comment on above: Performed By: #### C XIANG ROGERS, LIPA #### [facility] [address], [place] [address] Dr. Ros Jorge PLT 6 103/ul Critically low 150-[address] [facility] Comment on above: Result Comment: TEST REPEATED CRITICAL VALUE VERIFIED / CONFIRMED BY PERIPHERAL SMEAR Performed By: #### C MP, XIANG, LIPA #### [facility] [address], [place] [address] Dr. Ros Jorge RBC 2.77 106/ul Critically low 4.70-6.10 [facility] Comment on above: Performed By: #### C MP, XIANG, LIPA #### [facility] [address] [address] [address] Ros Jorge WBC 12.2 103/ul Critically high 4.0-11.0 [facility] [place] Comment on above: Performed By: #### C MP, XIANG, LIPA #### [facility] [address] [address] [address] ABD/PELV W CONon 05-16-[address] ABD/PELV W CON CT ABD/PELV W CON CLINICAL HISTORY: Abdominal pain for one week. COMPARISON: 05/07/2021. TECHNIQUE: Axial CT from lung bases through symphysis pubis following the injection of 100 mL of Omnipaque iodinated contrast material. No oral contrast. Coronal and sagittal reconstructions generated. Dose reduction techniques were achieved by using automated exposure control and/or adjustment of mA and/or kV according to patient size and/or use of iterative reconstruction technique. FINDINGS: CT ABDOMEN FINDINGS: Normal heart size. Mild bilateral posterior lower lobe opacities, probable small amount of atelectasis. Similar to prior. Normal hepatic and splenic size and enhancement. Normal-sized adrenal glands. Normal pancreatic enhancement without convincing peripancreatic edema. Normal bilateral renal enhancement without hydronephrosis. Normal caliber abdominal aorta with patent branch vessels. Interval cholecystectomy with normal common duct size of 5 mm. There is minimal postoperative change and edema in the gallbladder fossa without significant drainable collection. There are associated postoperative changes and edema over the ventral abdominal wall and subcutaneous soft tissues. Most significant at the periumbilical region with a few locules of gas and there appears to be a small 12 mm hematoma in the subcutaneous soft tissues. GI tract is nondilated without obstruction. Appendix is negative. No other significant inflammatory changes or drainable ascites. No free intraperitoneal air. CT PELVIS FINDINGS: Normal-sized prostate. Urinary bladder not well distended but grossly unremarkable. Trace free fluid in the pelvis nonspecific but probably related to recent postoperative change. No acute bony process. IMPRESSION: Interval cholecystectomy with trace postoperative changes in the gallbladder fossa but no drainable collection. Also associated postoperative changes of the abdominal wall and subcutaneous soft tissues with a tiny hematoma. Trace free fluid in the pelvis probably postoperative. Normal common duct size. No bowel obstruction or free air. Slight bibasilar atelectasis similar to prior. Electronically authenticated by: CLEVELAND YBARRA Date: 2021-05-16 19:05 Normal [facility] CULTURE URINEon 05-16-2021 CULTURE URINE Culture Observations: NO GROWTH. Normal [facility] [facility] Comment on above: Performed By: #### C VDAGA #### [facility] [place] [facility] [address] [address] Ken SHELL URINE PROFILEon 1 Bilirubin Ql (U) Negative Normal NEGATIVE [facility] Comment on above: Performed By: #### C MP, XIANG, LIPA #### [facility] [place] [facility] [address] [address] [address] Ros Jorge Clarity (U) SL CLOUDY Abnormal CLEAR [facility] Comment on above: Performed By: #### C MP, XIANG, LIPA #### [facility] [place] [facility] [address] [place] [address] Dr. Ros Jorge Color (U) BROWN Abnormal YELLOW [facility] [place] Comment on above: Performed By: #### C MP, XIANG, LIPA #### [facility] [place] [facility] [address] [address] [address] Ros Jorge ERUAHD A micrscopic examination will be performed if indicated. Normal The [facility] [place] Comment on above: Performed By: #### C MP, XIANG, LIPA #### [facility] [place] Laboratory [address] [place] [address] Dr. Ros Jorge Glucose Ql (U) Negative Normal NEGATIVE [facility] Comment on above: Performed By: #### C MP, XIANG, LIPA #### [facility] [place] [facility] [address] [address] [address] Ros Jorge Hemoglobin Ql (U) LARGE Abnormal NEGATIVE [facility] Comment on above: Performed By: #### C XIANG ROGERS, LIPA #### [facility] [place] [facility] [address] [place] [address] Dr. Ros Jorge Ketones Ql (U) Negative Normal NEGATIVE [facility] Comment on above: Performed By: #### C XIANG ROGERS, LIPA #### [facility] [place] [facility] [address] [place] [address] Dr. Ros Jorge LEUKOCYTES Negative Normal NEGATIVE [facility] Comment on above: Performed By: #### C XIANG ROGERS LIPA #### [facility] [place] [facility] [address] [place] [address] Dr. Ros Jorge Nitrite Ql (U) Positive Abnormal NEGATIVE [facility] Comment on above: Performed By: #### C XIANG ROGERS LIPA #### [facility] [place] [facility] [address] [place] [address] Dr. Ros Jorge pH (U) 5.5 [pH] Normal 5-9 [facility] [place] Comment on above: Performed By: #### C XIANG ROGERS LIPA #### [facility] [place] [facility] [address] [place] [address] Dr. Ros Jorge SPEC GRAVITY 1.020 Normal 1.005-<=1.025 [facility] Comment on above: Performed By: #### C XIANG ROGERS LIPA #### [facility] [place] [facility] [address] [place] [address] Dr. Ros Jorge UA PROTEIN >300 Abnormal NEGATIVE/ TRACE The [facility] [place] Comment on above: Performed By: #### C XIANG ROGERS, LIPA #### [facility] [place] [facility] [address] [place] [address] Dr. Ros Jorge UR MICRO IND INDICATED Normal The [facility] [place] Comment on above: Performed By: #### C XIANG ROGERS, LIPA #### [facility] [place] [facility] [address] [place] [address] Dr. Ros Jorge Urobilinogen Qn (U) 1.0 {Marina'U}/dL Normal 0.2 - 1. 0 [facility] Comment on above: Performed By: #### C XIANG ROGERS LIPA #### [facility] [place] [facility] [address] [place] [address] Dr. Ros Jorge LACTATE/LACTIC ACIDon 2020 Lactate [Moles/Vol] 0.7 mmol/L Normal 0.7-2.0 [facility] Comment on above: Performed By: #### C XIANG ROGERS, LIPA #### [facility] [place] [facility] [address] [place] [address] Dr. Ros Jorge LDHon 05-16-2021 LDH 1461 U/L Critically high 122-222 [facility] Comment on above: Performed By: #### C XIANG ROGERS LIPA #### [facility] [place] [facility] [address] [place] [address] Dr. Ros Jorge LIPASEon 05-16-2021 Lipase [Catalytic activity/Vol] 781.0 U/L Critically high 23.0-300.0 [facility] Comment on above: Performed By: #### C XIANG ROGERS LIPA #### [facility] [place] [facility] [address] [place] [address] Dr. Ros Jorge LIVER PROFILEon 05-16-2021 Albumin [Mass/Vol] 3.6 g/dL Normal 3.5-5.0 [facility] Comment on above: Performed By: #### P RBC #### [facility] [place] [facility] [address] [place] [address] Dr. Ros Jorge Albumin/Globulin [Mass ratio] 1.0 {ratio} Normal [facility] Comment on above: Performed By: #### P RBC #### [facility] [place] [facility] [address] [place] [address] Dr. Ros Jorge ALP [Catalytic activity/Vol] 125 U/L Normal 38-126 [facility] Comment on above: Performed By: #### P RBC #### [facility] [place] [facility] [address] [place] [address] Dr. Ros Jorge ALT [Catalytic activity/Vol] 60 U/L Normal 21-72 [facility] Comment on above: Performed By: #### P RBC #### [facility] [place] [facility] [address] [place] [address] Dr. Ros Jorge AST [Catalytic activity/Vol] 58 U/L Normal 17-59 [facility] Comment on above: Performed By: #### P RBC #### [facility] [place] [facility] [address] [place] [address] Dr. Ros Jroge BILI, CONJUGATED 0.6 mg/dL Critically high 0.0-0.3 [facility] Comment on above: Result Comment: TEST REPEATED; CRITICAL VALUE VERIFIED Performed By: #### P RBC #### [facility] [place] [facility] [address] [place] [address] Dr. Ros Jorge Bilirubin [Mass/Vol] 5.0 mg/dL Critically high 0.2-1.3 [facility] Comment on above: Performed By: #### P RBC #### [facility] [place] [facility] [address] [place] [address] Dr. Ros Jorge Performed By: #### C MP, XIANG, LIPA #### [facility] [place] [facility] [address] [place] [address] Dr. Ros Jorge Globulin (S) [Mass/Vol] 3.7 g/dL Normal [facility] Comment on above: Performed By: #### P RBC #### [facility] [place] [facility] [address] [place] [address] Dr. Ros Jorge Performed By: #### C MP, XIANG, LIPA #### [facility] [place] [facility] [address] [place] [address] Dr. Ros Jorge Protein [Mass/Vol] 7.3 g/dL Normal 6.1-8.2 [facility] Comment on above: Performed By: #### P RBC #### [facility] [place] [facility] [address] [place] [address] Dr. Ros Jorge PROF 14(COMP METB)on 021 Albumin [Mass/Vol] 3.4 g/dL Critically low 3.5-5.0 [facility] Comment on above: Performed By: #### C MP, XIANG, LIPA #### [facility] [place] Laboratory [address] [place], [place] [id number] Dr. Ros Jorge Albumin/Globulin [Mass ratio] 0.9 {ratio} Normal [facility] Comment on above: Performed By: #### C XIANG ROGERS LIPA #### [facility] [place] [facility] [address] [address] [address] Ros Jorge ALP [Catalytic activity/Vol] 123 U/L Normal 38-126 [facility] Comment on above: Performed By: #### C XIANG ROGERS LIPA #### [facility] [place] [facility] [address] [address] [address] Ros Jorge ALT [Catalytic activity/Vol] 57 U/L Normal 21-72 [facility] Comment on above: Performed By: #### C XIANG ROGERS LIPA #### [facility] [place] Laboratory [address] [place] [address] Dr. Ros Jorge Anion gap [Moles/Vol] 11.5 mmol/L Normal [facility] Comment on above: Performed By: #### C XIANG ROGERS LIPA #### [facility] [place] [facility] [address] [place] [address] Dr. Ros Jorge AST [Catalytic activity/Vol] 53 U/L Normal 17-59 [facility] Comment on above: Performed By: #### C XIANG ROGERS LIPA #### [facility] [place] [facility] [address] [place] [address] Dr. Ros Jorge Calcium [Mass/Vol] 9.0 mg/dL Normal 8.4-10.2 [facility] Comment on above: Performed By: #### C XIANG ROGERS, LIPA #### [facility] [place] [facility] [address] [place] [address] Dr. Ros Jorge Chloride [Moles/Vol] 105 mmol/L Normal 98-107 [facility] Comment on above: Performed By: #### C XIANG ROGERS LIPA #### [facility] [place] [facility] [address] [place] [address] Dr. Ros Jorge CO2 [Moles/Vol] 26.4 mmol/L Normal 22.0-30.0 [facility] Comment on above: Performed By: #### C XIANG ROGERS LIPA #### [facility] [place] [facility] [address] [address] [address] Ros Jorge Creatinine [Mass/Vol] 1.46 mg/dL Critically high 0.66-1.25 [facility] Comment on above: Performed By: #### C MP, XIANG, LIPA #### [facility] [place] [facility] [address] [address] [address] Ros Jorge EGFR-AF MONGOLIAN >60 Normal >=60 [facility] Comment on above: Performed By: #### C MP, XIANG, LIPA #### [facility] [place] [facility] [address] [address] [address] Ros Jorge EGFR-NON AF MONGOLIAN 56 mL/min/1.73m2 Critically low >=60 [facility] Comment on above: Performed By: #### C MP, XIANG, LIPA #### [facility] [place] [facility] [address] [address] [address] Ros Jorge Glucose [Mass/Vol] 100 mg/dL Normal 74-106 [facility] Comment on above: Performed By: #### C MP, XIANG, LIPA #### [facility] [place] [facility] [address] [address] [address] Ros Jorge Potassium [Moles/Vol] 3.9 mmol/L Normal 3.4-5.0 [facility] Comment on above: Performed By: #### C MP, XIANG, LIPA #### [facility] [place] [facility] [address] [address] [address] Ros Jorge Protein [Mass/Vol] 7.1 g/dL Normal 6.1-8.2 [facility] Comment on above: Performed By: #### C MP, XIANG, LIPA #### [facility] [place] [facility] [address] [address] [address] Ros Jorge Sodium [Moles/Vol] 139 mmol/L Normal 137-145 [facility] Comment on above: Performed By: #### C MP, XIANG, LIPA #### [facility] [place] [facility] [address] [address] [address] Ros Jorge Urea nitrogen [Mass/Vol] 34.0 mg/dL Critically high 9.0-20.0 [facility] Comment on above: Performed By: #### C XIANG ROGERS LIPA #### [facility] [place] [facility] [address] [address] [address] Ros Jorge Urea nitrogen/Creatinine [Mass ratio] 23.2 mg/mg Normal [facility] [place] Comment on above: Performed By: #### C XIANG ROGERS LIPA #### [facility] [place] [facility] [address] [address] [address] Ros Jorge PROTIMEon 05-16-2021 INR Coag (PPP) [Relative time] 1.02 {INR} Normal The [facility] [place] Comment on above: Performed By: #### C VDAGA #### [facility] [place] [facility] [address] [place] [address] Kenstephanie Fry INR GUIDELINES SEE BELOW Normal [facility] Comment on above: Result Comment: LULÚ RED INR: 2.0 - 3.0 CONDITIONS NOT LISTED BELOW 2.5 - 3.5 FOR PROSTHETIC HEART VALVE REPLACEMENT 2.5 - 3.5 RECURRENT THROMBOSIS Performed By: #### C VDAGA #### [facility] [place] [facility] [address] [place] [address] Ken Fry PT Coag (PPP) [Time] 11.0 s Normal 9.0-11.6 [facility] [place] Comment on above: Performed By: #### C VDAGA #### [facility] [place] [facility] [address] [place] [address] Ken Izaguirreen PTTon 05-16-2021 aPTT Coag (Bld) [Time] 26.6 s Normal 22.3-36.2 [facility] [place] Comment on above: Performed By: #### C VDAGA #### [facility] [place] Laboratory [address] [id number] Kenstephanie Fry RETICULOCYTEon 05-16-2021 RETIC 6.04 % Critically high 0.60-3.10 [facility] Comment on above: Performed By: #### C XIANG ROGERS, LIPA #### [facility] [place] [facility] [address] [address] [address] Ros Jorge SYMPTOMATIC COVID-19 ANTIGEN on 05-16-2021 EUA Statement SEE BELOW Normal The [facility] Comment on above: Result Comment: This test has not been FDA cleared or approved, but has been authorized by the FDA under an Emergency Use Authorization (EUA) for use by authorized laboratories certified under CLIA that meet the requirements to perform moderate or high complexity testing. This test has been authorized only for the detection of proteins from SARS-CoV-2, not for any other viruses or pathogens. The emergency use of this test is authorized for the duration of the declaration that circumstances exist justifying the authorization of emergency use of in vitro diagnostic tests for detection and/or diagnosis of Covid-19 under section 564(b)(1) of the Act, 21 U.S.C. 360bbb-3(b)(1), unless the declaration is terminated or authorization is revoked sooner. Performed By: #### C XIANG ROGERS LIPA #### [facility] [place] [facility] [address] [place] [address] Dr. Ros Jorge SARS-CoV-2 (COVID-19) RNA SOLO+probe Ql (Unsp spec) Negative Normal NEGATIVE The [facility] [place] Comment on above: Result Comment: CONF IRMATION BY PCR PENDING PER CDC GUIDELINES/ SYMPTOMATIC PATIENT. Performed By: #### C XIANG ROGERS LIPA #### [facility] [place] Laboratory [address] [place] [address] Dr. Ros Jorge TYPE AND SCREENon 05-16-2021 TYPE AND SCREEN Antibody Screen NEGATIVE ABO Rh Typing A Rh Positive Blood Bank Notes . Normal The [facility] [place] Comment on above: Performed By: #### C VDAGA #### [facility] [place] Laboratory [address] [place] [address] Ken Fry URINE MICROSCOPIC ONLYon AMORPHOUS CRYSTALS MODERATE Normal [facility] Comment on above: Performed By: #### C XIANG ROGERS LIPA #### [facility] [place] [facility] [address] [place] [address] Dr. Ros Jorge BACTERIA LARGE Abnormal NONE SEEN The [facility] [place] Comment on above: Performed By: #### C XIANG ROGERS LIPA #### [facility] [place] Laboratory [address] [place] [address] Dr. Ros Jorge Bacteria identified Cx Nom (U) INDICATED Normal The [facility] [place] Comment on above: Performed By: #### C MP, XIANG, LIPA #### [facility] [place] Laboratory [address] [place] [address] Dr. Ros Jorge CAST NONE SEEN Normal NONE SEEN The [facility] [place] Comment on above: Performed By: #### C MP, XIANG, LIPA #### [facility] [place] Laboratory [address] [address] [address] Ros Jorge Crystals LM Nom (Urine sed) SEEN Abnormal NONE SEEN The [facility] [place] Comment on above: Performed By: #### C MP, XIANG, LIPA #### [facility] [place] [facility] [address] [address] [address] Ros Jorge Epithelial cells LM Ql (Urine sed) FEW Abnormal NONE SEEN /RARE The [facility] [place] Comment on above: Performed By: #### C MP, XIANG, LIPA #### [facility] [place] Laboratory [address] [place] [address] Dr. Ros Jorge MUCOUS NONE SEEN Normal NONE SEEN The [facility] [place] Comment on above: Performed By: #### C MP, XIANG, LIPA #### [facility] [place] Laboratory [address] [place] [address] Dr. Ros Jorge RBC 10-20 Abnormal 0-2 The [facility] [place] Comment on above: Performed By: #### C MP, XIANG, LIPA #### [facility] [place] [facility] [address] [place] [address] Dr. Ros Jorge WBC NONE SEEN Normal NONE SEEN The [facility] [place] Comment on above: Performed By: #### C MP, XIANG, LIPA #### [facility] [place] [facility] [address] [place] [address] Dr. Ros Jorge YEAST PRESENT Abnormal NONE SEEN The [facility] [place] Comment on above: Performed By: #### C MP, XIANG, LIPA #### [facility] [place] Laboratory [address] [place] [address] Dr. Ros Jorge XR ABD FLAT UP_PA Jae 05-15 XR ABD FLAT UP_PA CH EXAM: XR ABD FLAT UP_PA CH HISTORY: UNSPECIFIED ABDOMINAL PAIN COMPARISON: None. TECHNIQUE: Single frontal view of the chest as well as upright and supine views of the abdomen are submitted for review. FINDINGS: The heart size is normal. No dense focal consolidation, pneumothorax or significant pleural effusion is seen. Nonspecific bowel gas pattern is seen. No air-filled distended loops of bowel is seen to suggest bowel obstruction. Surgical clips are seen in the right upper abdomen, likely related to prior cholecystectomy. No definite pathologic calcification is seen. The visualized osseous structures appear unremarkable. IMPRESSION: No evidence for acute abnormality. Electronically authenticated by: SHANIKA RHOADES Date: 2021-05-14 22:56 Normal The [facility] [place] CBC AUTO DIFFon 05-14-2021 BASO # 0.1 103/ul Normal 0.0-0.1 [facility] [place] Comment on above: Performed By: #### C XIANG ROGERS LIPA #### [facility] [place] [facility] [address] [address] [address] Ros Jorge Basophils/100 WBC (Bld) 0.4 % Normal 0.2-2.0 [facility] [place] Comment on above: Performed By: #### C XIANG ROGERS LIPA #### [facility] [place] Laboratory [address] [address] [address] Ros Jorge EO # 0.2 103/ul Normal 0.0-0.7 [facility] [place] Comment on above: Performed By: #### C XIANG ROGERS LIPA #### [facility] [place] Laboratory [address] [place] [address] Dr. Ros Jorge Eosinophils/100 WBC (Bld) 1.4 % Normal 0.9-7.0 [facility] [place] Comment on above: Performed By: #### C XIANG ROGERS LIPA #### [facility] [place] [facility] [address] [place] [address] Dr. Ros Jorge Erythrocyte distribution width (RBC) [Ratio] 14.3 % Normal 11.0-15.0 [facility] [place] Comment on above: Performed By: #### C XIANG ROGERS LIPA #### [facility] [place] [facility] [address] [place] [address] Dr. Ros Jorge Hematocrit (Bld) [Volume fraction] 31.2 % Critically low 42.0-54.0 [facility] [place] Comment on above: Performed By: #### C XIANG ROGERS LIPA #### [facility] [place] [facility] [address] [place] [address] Dr. Ros Jorge Hemoglobin (Bld) [Mass/Vol] 10.8 g/dL Critically low 14.0-18.0 [facility] Comment on above: Performed By: #### C MP, XIANG, LIPA #### [facility] [place] [facility] [address] [place] [address] Dr. Ros Jorge IG # 0.19 10e3/ul Critically high 0.00-0.03 [facility] Comment on above: Performed By: #### C MP, XIANG, LIPA #### [facility] [place] [facility] [address] [place] [address] Dr. Ros Jorge IG % 1.6 % Critically high 0.0-0.5 [facility] Comment on above: Performed By: #### C MP, XIANG, LIPA #### [facility] [place] [facility] [address] [place] [address] Dr. Ros Jorge LYMPH # 2.8 103/ul Normal 1.2-3.8 [facility] Comment on above: Performed By: #### C MP XIANG, LIPA #### [facility] [place] [facility] [address] [place] [address] Dr. Ros Jorge Lymphocytes/100 WBC (Bld) 23.9 % Normal 20.5-60.0 [facility] Comment on above: Performed By: #### C MP, XIANG, LIPA #### [facility] [place] [facility] [address] [place] [address] Dr. Ros Jorge MANUAL DIFF REQ NO Normal [facility] Comment on above: Performed By: #### C MP, XIANG, LIPA #### [facility] [place] [facility] [address] [place] [address] Dr. Ros Jorge MCH (RBC) [Entitic mass] 30.7 pg Normal 25.9-34.0 [facility] Comment on above: Performed By: #### C MP, XIANG, LIPA #### [facility] [place] [facility] [address] [place] [address] Dr. Ros Jorge MCHC (RBC) [Mass/Vol] 34.6 g/dL Normal 29.9-35.2 [facility] [place] Comment on above: Performed By: #### C XIANG ROGERS LIPA #### [facility] [place] [facility] [address] [place] [address] Dr. Ros Jorge MCV (RBC) [Entitic vol] 88.6 fL Normal 80.0-94.0 [facility] Comment on above: Performed By: #### C XIANG ROGERS LIPA #### [facility] [place] [facility] [address] [place] [address] Dr. Ros Jorge MONO # 1.2 103/ul Critically high 0.3-0.8 [facility] Comment on above: Performed By: #### C XIANG ROGERS LIPA #### [facility] [place] [facility] [address] [place] [address] Dr. Ros Jorge Monocytes/100 WBC (Bld) 10.5 % Normal 1.7-12.0 [facility] Comment on above: Performed By: #### C XIANG ROGERS LIPA #### [facility] [facility] [address] [place] [address] Dr. Ros Jorge NEUT # 7.4 103/ul Critically high 1.4-6.5 [facility] Comment on above: Performed By: #### C XIANG ROGERS LIPA #### [facility] [address] [place] [address] Dr. Ros Jorge Neutrophils/100 WBC (Bld) 62.2 % Normal 43.0-75.0 [facility] Comment on above: Performed By: #### C XIANG ROGERS, LIPA #### [facility] [address] [place] [address] Dr. Ros Jorge Platelet mean volume (Bld) [Entitic vol] 0.0 fL Critically low 9.5-13.5 [facility] Comment on above: Performed By: #### C XIANG ROGERS, LIPA #### [facility] [address] [place] [address] Dr. Ros Jorge PLT 3 103/ul Critically low 150-[address] [facility] Comment on above: Result Comment: Test Repeated. Critical Value Verified. Performed By: #### C XIANG ROGERS, LIPA #### [facility] [address] [address] [address] Ros Jorge RBC 3.52 106/ul Critically low 4.70-6.10 [facility] Comment on above: Performed By: #### C KEN XIANG, LIPA #### [facility] [address] [address] [address] Ros Jorge WBC 11.8 103/ul Critically high 4.0-11.0 [facility] Comment on above: Performed By: #### C XIANG ROGERS, LIPA #### [facility] [address] [address] [address] Ros Jorge LACTATE/LACTIC ACIDon 2020 Lactate [Moles/Vol] 0.8 mmol/L Normal 0.7-2.0 [facility] Comment on above: Performed By: #### C XIANG ROGERS, LIPA #### [facility] [address] [address] [address] Ros Jorge PROF 14(COMP METB)on 021 Albumin [Mass/Vol] 3.2 g/dL Critically low 3.5-5.0 [facility] Comment on above: Performed By: #### C XIANG ROGERS, LIPA #### [facility] [address] [place] [address] Dr. Ros Jorge Albumin/Globulin [Mass ratio] 0.9 {ratio} Normal [facility] Comment on above: Performed By: #### C KEN XIANG, LIPA #### [facility] [address] [place] [address] Dr. Ros Jorge ALP [Catalytic activity/Vol] 121 U/L Normal 38-126 [facility] Comment on above: Performed By: #### C XIANG ROGERS, LIPA #### [facility] [address] [place] [address] Dr. Ros Jorge ALT [Catalytic activity/Vol] 63 U/L Normal 21-72 [facility] Comment on above: Performed By: #### C MP, XIANG, LIPA #### [facility] [address] [address] [address] Ros Jorge Anion gap [Moles/Vol] 14.2 mmol/L Normal [facility] Comment on above: Performed By: #### C MP, XIANG, LIPA #### [facility] [address] [address] [address] Ros Jorge AST [Catalytic activity/Vol] 43 U/L Normal 17-59 [facility] Comment on above: Performed By: #### C MP, XIANG, LIPA #### [facility] [address] [address] [address] Ros Jorge Bilirubin [Mass/Vol] 3.6 mg/dL Critically high 0.2-1.3 [facility] Comment on above: Performed By: #### C MP, XIANG, LIPA #### [facility] [address] [address] [address] Ros Jorge Calcium [Mass/Vol] 8.9 mg/dL Normal 8.4-10.2 [facility] Comment on above: Performed By: #### C MP, XIANG, LIPA #### [facility] [address] [address] [address] Ros Jorge Chloride [Moles/Vol] 102 mmol/L Normal 98-107 [facility] Comment on above: Performed By: #### C MP, XIANG, LIPA #### [facility] [address] [address] [address] Ros Jorge CO2 [Moles/Vol] 24.3 mmol/L Normal 22.0-30.0 [facility] Comment on above: Performed By: #### C MP, XIANG, LIPA #### [facility] [address] [address] [address] Ros Jorge Creatinine [Mass/Vol] 1.71 mg/dL Critically high 0.66-1.25 [facility] Comment on above: Performed By: #### C MP, XIANG, LIPA #### [facility] [address] [address] [address] Ros Jorge EGFR-AF MONGOLIAN 56 mL/min/1.73m2 Critically low >=60 [facility] Comment on above: Performed By: #### C XIANG ROGERS LIPA #### [facility] [address] [place] [address] Dr. Ros Jorge EGFR-NON AF MONGOLIAN 46 mL/min/1.73m2 Critically low >=60 [facility] Comment on above: Performed By: #### C XIANG ROGERS LIPA #### [facility] [address] [place] [address] Dr. Ros Jorge Globulin (S) [Mass/Vol] 3.7 g/dL Normal [facility] Comment on above: Performed By: #### C XIANG ROGERS LIPA #### [facility] [address] [place] [address] Dr. Ros Jorge Glucose [Mass/Vol] 102 mg/dL Normal 74-106 [facility] Comment on above: Performed By: #### C XIANG ROGERS LIPA #### [facility] [address] [place] [address] Dr. Ros Jorge Potassium [Moles/Vol] 3.5 mmol/L Normal 3.4-5.0 [facility] Comment on above: Performed By: #### C XIANG ROGERS LIPA #### [facility] [address] [place] [address] Dr. Ros Jorge Protein [Mass/Vol] 6.9 g/dL Normal 6.1-8.2 [facility] Comment on above: Performed By: #### C XIANG ROGERS LIPA #### [facility] [address] [place] [address] Dr. Ros Jorge Sodium [Moles/Vol] 137 mmol/L Normal 137-145 [facility] Comment on above: Performed By: #### C XIANG ROGERS LIPA #### [facility] [address] [place] [address] Dr. Ros Jorge Urea nitrogen [Mass/Vol] 47.0 mg/dL Critically high 9.0-20.0 [facility] Comment on above: Performed By: #### C XIANG ROGERS LIPA #### [facility] [address] [place], [place] [id number] Dr. Ros Jorge Urea nitrogen/Creatinine [Mass ratio] 27.5 mg/mg Normal [facility] Comment on above: Performed By: #### C XIANG ROGERS LIPA #### [facility] [address] [place], [place] [id number] Dr. Ros Jorge CBC AUTO DIFFon 05-08-2021 BASO # 0.1 103/ul Normal 0.0-0.1 [facility] Comment on above: Performed By: #### C BC #### [facility] [address] [place] [address] Ken Lisandra Basophils/100 WBC (Bld) 0.9 % Normal 0.2-2.0 [facility] Comment on above: Performed By: #### C BC #### [facility] [address] [place] [address] Ken Lisandra EO # 0.5 103/ul Normal 0.0-0.7 [facility] Comment on above: Performed By: #### C BC #### [facility] [address] [place] [address] Ken Lisandra Eosinophils/100 WBC (Bld) 4.3 % Normal 0.9-7.0 [facility] Comment on above: Performed By: #### C BC #### [facility] [address] [place] [address] Ken Lisandra Erythrocyte distribution width (RBC) [Ratio] 13.3 % Normal 11.0-15.0 [facility] Comment on above: Performed By: #### C BC #### [facility] [address] [place] [address] Ken Lisandra Hematocrit (Bld) [Volume fraction] 43.3 % Normal 42.0-54.0 [facility] Comment on above: Performed By: #### C BC #### [facility] [address] [place], [place] [id number] Ken Lisandra Hemoglobin (Bld) [Mass/Vol] 14.2 g/dL Normal 14.0-18.0 [facility] Comment on above: Performed By: #### C BC #### [facility] [address] [address] Ken Lisandra IG # 0.04 10e3/ul Critically high 0.00-0.03 [facility] Comment on above: Performed By: #### C BC #### [facility] [address] [id number] Ken Lisandra IG % 0.4 % Normal 0.0-0.5 [facility] Comment on above: Performed By: #### C BC #### [facility] [address] [place] [address] Ken Lisandra LYMPH # 3.4 103/ul Normal 1.2-3.8 [facility] Comment on above: Performed By: #### C BC #### [facility] [address] [place] [address] Ken Lisandra Lymphocytes/100 WBC (Bld) 31.9 % Normal 20.5-60.0 [facility] Comment on above: Performed By: #### C BC #### [facility] [address] [place] [address] Ken Lisandra MANUAL DIFF REQ NO Normal [facility] Comment on above: Performed By: #### C BC #### [facility] [address] [place] [address] Ken Lisandra MCH (RBC) [Entitic mass] 30.5 pg Normal 25.9-34.0 [facility] Comment on above: Performed By: #### C BC #### [facility] [address] [place] [address] Ken Lisandra MCHC (RBC) [Mass/Vol] 32.8 g/dL Normal 29.9-35.2 [facility] Comment on above: Performed By: #### C BC #### [facility] [address] [place], [place] [id number] Ken Lisandra MCV (RBC) [Entitic vol] 93.1 fL Normal 80.0-94.0 [facility] Comment on above: Performed By: #### C BC #### [facility] [address] [place] [address] Ken Fry MONO # 1.0 103/ul Critically high 0.3-0.8 [facility] Comment on above: Performed By: #### C BC #### [facility] [address] [id number] Ken Fry Monocytes/100 WBC (Bld) 9.3 % Normal 1.7-12.0 [facility] Comment on above: Performed By: #### C BC #### [facility] [address] [address] Ken Fry NEUT # 5.6 103/ul Normal 1.4-6.5 [facility] Comment on above: Performed By: #### C BC #### [facility] [address] [place] [address] Ken Fry Neutrophils/100 WBC (Bld) 53.2 % Normal 43.0-75.0 [facility] Comment on above: Performed By: #### C BC #### [facility] [address] [place] [address] Ken Fry Platelet mean volume (Bld) [Entitic vol] 9.5 fL Normal 9.5-13.5 [facility] Comment on above: Performed By: #### C BC #### [facility] [address] [place], [place] [id number] Ken Fry PLT 112 103/ul Critically low 150-[address] [facility] Comment on above: Performed By: #### C BC #### [facility] [address] [place], [place] [id number] Ken Izaguirreen RBC 4.65 106/ul Critically low 4.70-6.10 [facility] Comment on above: Performed By: #### C BC #### [facility] [address] [place], [place] [id number] Kenstephanie Izaguirreen WBC 10.5 103/ul Normal 4.0-11.0 [facility] Comment on above: Performed By: #### C BC #### [facility] [address] [place] [address] Ken Izaguirreen PROF 14(COMP METB)on 021 Albumin [Mass/Vol] 3.2 g/dL Critically low 3.5-5.0 [facility] Comment on above: Performed By: #### C XIANG ROGERS LIPA #### [facility] [address] [address] [address] Ros Jorge Albumin/Globulin [Mass ratio] 1.0 {ratio} Normal [facility] Comment on above: Performed By: #### C KEN XIANG, LIPA #### [facility] [address] [address] [address] Ros Jorge ALP [Catalytic activity/Vol] 103 U/L Normal 38-126 [facility] Comment on above: Performed By: #### C XIANG ROGERS LIPA #### [facility] [address] [place] [address] Dr. Ros Jorge ALT [Catalytic activity/Vol] 62 U/L Normal 21-72 [facility] Comment on above: Performed By: #### C XIANG ROGERS LIPA #### [facility] [address] [address] [address] Ros Jorge Anion gap [Moles/Vol] 11.0 mmol/L Normal [facility] Comment on above: Performed By: #### C XIANG ROGERS, LIPA #### [facility] [address] [place] [address] Dr. Ros Jorge AST [Catalytic activity/Vol] 26 U/L Normal 17-59 [facility] Comment on above: Performed By: #### C XIANG ROGERS, LIPA #### [facility] [address] [place] [address] Dr. Ros Jorge Bilirubin [Mass/Vol] 1.1 mg/dL Normal 0.2-1.3 [facility] Comment on above: Performed By: #### C XIANG ROGERS, LIPA #### [facility] [address] [place] [address] Dr. Ros Jorge Calcium [Mass/Vol] 8.4 mg/dL Normal 8.4-10.2 [facility] Comment on above: Performed By: #### C KEN XIANG, LIPA #### [facility] [address] [address] [address] Ros Jorge Chloride [Moles/Vol] 105 mmol/L Normal 98-107 [facility] Comment on above: Performed By: #### C XIANG ROGERS, LIPA #### [facility] [address] [address] [address] Ros Jorge CO2 [Moles/Vol] 28.4 mmol/L Normal 22.0-30.0 [facility] Comment on above: Performed By: #### C XIANG ROGERS, LIPA #### [facility] [address] [address] [address] Ros Jorge Creatinine [Mass/Vol] 0.94 mg/dL Normal 0.66-1.25 [facility] Comment on above: Performed By: #### C XIANG ROGERS, LIPA #### [facility] [address] [place] [address] Dr. Ros Jorge EGFR-AF MONGOLIAN >60 Normal >=60 [facility] Comment on above: Performed By: #### C XIANG ROGERS, LIPA #### [facility] [address] [place] [address] Dr. Ros Jorge EGFR-NON AF MONGOLIAN >60 Normal >=60 [facility] Comment on above: Performed By: #### C XIANG ROGERS, LIPA #### [facility] [address] [place] [address] Dr. Ros Jorge Globulin (S) [Mass/Vol] 3.3 g/dL Normal [facility] Comment on above: Performed By: #### C XIANG ROGERS, LIPA #### [facility] [address] [place] [address] Dr. Ros Jorge Glucose [Mass/Vol] 87 mg/dL Normal 74-106 [facility] Comment on above: Performed By: #### C XIANG ROGERS, LIPA #### [facility] [address] [place] [address] Dr. Ros Jorge Potassium [Moles/Vol] 4.4 mmol/L Normal 3.4-5.0 [facility] Comment on above: Performed By: #### C XIANG ROGERS LIPA #### [facility] [address] [place] [address] Dr. Ros Jorge Protein [Mass/Vol] 6.5 g/dL Normal 6.1-8.2 [facility] Comment on above: Performed By: #### C MP, XIANG, LIPA #### [facility] [address] [place] [address] Dr. Ros Jorge Sodium [Moles/Vol] 140 mmol/L Normal 137-145 [facility] Comment on above: Performed By: #### C MP, XIANG, LIPA #### [facility] [address] [place] [address] Dr. Ros Jorge Urea nitrogen [Mass/Vol] 17.0 mg/dL Normal 9.0-20.0 [facility] Comment on above: Performed By: #### C MP, XIANG, LIPA #### [facility] [address] [place] [address] Dr. Ros Jorge Urea nitrogen/Creatinine [Mass ratio] 18.1 mg/mg Normal [facility] Comment on above: Performed By: #### C MP, XIANG, LIPA #### [facility] [address] [place] [address] Dr. Ros Jorge AMYLASEon 05-07-2021 Amylase [Catalytic activity/Vol] 38 U/L Normal 31-110 [facility] Comment on above: Performed By: #### P RBC #### [facility] [address] [place] [address] Dr. Ros Jorge ASYMPTOMATIC COVID-19 ANTIGE Non 05-07-2021 EUA Statement SEE BELOW Normal [facility] Comment on above: Result Comment: This test has not been FDA cleared or approved, but has been authorized by the FDA under an Emergency Use Authorization (EUA) for use by authorized laboratories certified under CLIA that meet the requirements to perform moderate or high complexity testing. This test has been authorized only for the detection of proteins from SARS-CoV-2, not for any other viruses or pathogens. The emergency use of this test is authorized for the duration of the declaration that circumstances exist justifying the authorization of emergency use of in vitro diagnostic tests for detection and/or diagnosis of Covid-19 under section 564(b)(1) of the Act, 21 U.S.C. 360bbb-3(b)(1), unless the declaration is terminated or authorization is revoked sooner. Performed By: #### C VDAGA #### [facility] [address] [place] [address] Ken Fry SARS-CoV-2 (COVID-19) RNA SOLO+probe Ql (Unsp spec) Negative Normal NEGATIVE [facility] Comment on above: Result Comment: Nega tive results are presumptive. They do not preclude infection and should not be used as the sole basis for treatment decisions. Additional confirmatory testing by a molecular method should be considered. Performed By: #### C VDAGA #### [facility] [address] [place] [address] Ken Fry CBC AUTO DIFFon 05-07-2021 BASO # 0.1 103/ul Normal 0.0-0.1 [facility] Comment on above: Performed By: #### C XIANG ROGERS LIPA #### [facility] [address] [place] [address] Dr. Ros Jorge Basophils/100 WBC (Bld) 0.7 % Normal 0.2-2.0 [facility] Comment on above: Performed By: #### C XIANG ROGERS LIPA #### [facility] [address] [place] [address] Dr. Ros Jorge EO # 0.2 103/ul Normal 0.0-0.7 [facility] Comment on above: Performed By: #### C XIANG ROGERS LIPA #### [facility] [address] [place] [address] Dr. Ros Jorge Eosinophils/100 WBC (Bld) 0.8 % Critically low 0.9-7.0 [facility] Comment on above: Performed By: #### C XIANG ROGERS LIPA #### [facility] [address] [place] [address] Dr. Ros Jorge Erythrocyte distribution width (RBC) [Ratio] 13.2 % Normal 11.0-15.0 [facility] Comment on above: Performed By: #### C XIANG ROGERS, LIPA #### [facility] [address] [place] [address] Dr. Ros Jorge Hematocrit (Bld) [Volume fraction] 47.2 % Normal 42.0-54.0 [facility] Comment on above: Performed By: #### C XIANG ROGERS, LIPA #### [facility] [address] [place] [address] Dr. Ros Jorge Hemoglobin (Bld) [Mass/Vol] 15.8 g/dL Normal 14.0-18.0 [facility] Comment on above: Performed By: #### C XIANG ROGERS, LIPA #### [facility] [address] [place] [address] Dr. Ros Jorge IG # 0.10 10e3/ul Critically high 0.00-0.03 [facility] Comment on above: Performed By: #### C XIANG ROGERS LIPA #### [facility] [address] [place] [address] Dr. Ros Jorge IG % 0.6 % Critically high 0.0-0.5 [facility] Comment on above: Performed By: #### C XIANG ROGERS LIPA #### [facility] [address] [place] [address] Dr. Ros Jorge LYMPH # 4.1 103/ul Critically high 1.2-3.8 [facility] Comment on above: Performed By: #### C XIANG ROGERS LIPA #### [facility] [address] [place] [address] Dr. Ros Jorge Lymphocytes/100 WBC (Bld) 22.9 % Normal 20.5-60.0 [facility] Comment on above: Performed By: #### C XIANG ROGERS LIPA #### [facility] [address] [place] [address] Dr. Ros Jorge MANUAL DIFF REQ NO Normal [facility] Comment on above: Performed By: #### C XIANG ROGERS, LIPA #### [facility] [address] [place] [address] Dr. Ros Jorge MCH (RBC) [Entitic mass] 31.0 pg Normal 25.9-34.0 [facility] Comment on above: Performed By: #### C XIANG ROGERS, LIPA #### [facility] [address] [place] [address] Dr. Ros Jorge MCHC (RBC) [Mass/Vol] 33.5 g/dL Normal 29.9-35.2 [facility] Comment on above: Performed By: #### C KEN XIANG, LIPA #### [facility] [address] [place] [address] Dr. Ros Jorge MCV (RBC) [Entitic vol] 92.5 fL Normal 80.0-94.0 [facility] Comment on above: Performed By: #### C KEN XIANG, LIPA #### [facility] [address] [place] [address] Dr. Ros Jorge MONO # 1.6 103/ul Critically high 0.3-0.8 [facility] Comment on above: Performed By: #### C KEN XIANG, LIPA #### [facility] [address] [place] [address] Dr. Ros Jorge Monocytes/100 WBC (Bld) 8.9 % Normal 1.7-12.0 [facility] Comment on above: Performed By: #### C KEN XIANG, LIPA #### [facility] [address] [place] [address] Dr. Ros Jorge NEUT # 11.7 103/ul Critically high 1.4-6.5 [facility] Comment on above: Performed By: #### C MP, XIANG, LIPA #### [facility] [address] [place] [address] Dr. Ros Jorge Neutrophils/100 WBC (Bld) 66.1 % Normal 43.0-75.0 [facility] Comment on above: Performed By: #### C MP, XIANG, LIPA #### [facility] [address] [place] [address] Dr. Ros Jorge Platelet mean volume (Bld) [Entitic vol] 9.3 fL Critically low 9.5-13.5 [facility] Comment on above: Performed By: #### C XIANG ROGERS, LIPA #### [facility] [address] [place] [address] Dr. Ros Jorge PLT 147 103/ul Critically low 150-450 [facility] Comment on above: Performed By: #### C MP XIANG, LIPA #### [facility] [address] [place] [address] Dr. Ros Jorge RBC 5.10 106/ul Normal 4.70-6.10 [facility] Comment on above: Performed By: #### C XIANG ROGERS, LIPA #### [facility] [address] [place] [address] Dr. Ros Jorge WBC 17.7 103/ul Critically high 4.0-11.0 [facility] [place] Comment on above: Performed By: #### C XIANG ROGERS, LIPA #### [facility] [address] [place] [address] Dr. Ros Jorge BASO # 0.1 103/ul Normal 0.0-0.1 [facility] Comment on above: Performed By: #### C VDAGA #### [facility] [address] [place] [address] Ken Lisandra Basophils/100 WBC (Bld) 0.8 % Normal 0.2-2.0 [facility] Comment on above: Performed By: #### C VDAGA #### [facility] [address] [place] [address] Kenstephanie Fry EO # 0.3 103/ul Normal 0.0-0.7 [facility] Comment on above: Performed By: #### C VDAGA #### [facility] [address] [place] [address] Ken Lisandra Eosinophils/100 WBC (Bld) 2.2 % Normal 0.9-7.0 [facility] Comment on above: Performed By: #### C VDAGA #### [facility] [address] [place] [address] Ken Lisandra Erythrocyte distribution width (RBC) [Ratio] 13.2 % Normal 11.0-15.0 [facility] Comment on above: Performed By: #### C VDAGA #### [facility] [address] [place] [address] Ken Fry Hematocrit (Bld) [Volume fraction] 49.2 % Normal 42.0-54.0 [facility] Comment on above: Performed By: #### C VDAGA #### [facility] [address] [place] [address] Ken Fry Hemoglobin (Bld) [Mass/Vol] 16.4 g/dL Normal 14.0-18.0 [facility] Comment on above: Performed By: #### C VDAGA #### [facility] [address] [place] [address] Ken Fry IG # 0.06 10e3/ul Critically high 0.00-0.03 [facility] Comment on above: Performed By: #### C VDAGA #### [facility] [address] [place] [address] Ken Fry IG % 0.4 % Normal 0.0-0.5 [facility] Comment on above: Performed By: #### C VDAGA #### [facility] [address] [place] [address] Ken Fry LYMPH # 3.7 103/ul Normal 1.2-3.8 [facility] Comment on above: Performed By: #### C VDAGA #### [facility] [address] [place] [address] Ken Fry Lymphocytes/100 WBC (Bld) 27.9 % Normal 20.5-60.0 [facility] Comment on above: Performed By: #### C VDAGA #### [facility] [address] [place] [address] Ken Fry MANUAL DIFF REQ NO Normal [facility] Comment on above: Performed By: #### C VDAGA #### [facility] [address] [place] [address] Ken Fry MCH (RBC) [Entitic mass] 30.8 pg Normal 25.9-34.0 [facility] Comment on above: Performed By: #### C VDAGA #### [facility] [address], [place] [address] Ken Fry MCHC (RBC) [Mass/Vol] 33.3 g/dL Normal 29.9-35.2 [facility] Comment on above: Performed By: #### C VDAGA #### [facility] [address], [place] [address] Ken Fry MCV (RBC) [Entitic vol] 92.3 fL Normal 80.0-94.0 [facility] Comment on above: Performed By: #### C VDAGA #### [facility] [address] [id number] Ken Fry MONO # 1.1 103/ul Critically high 0.3-0.8 [facility] Comment on above: Performed By: #### C VDAGA #### [facility] [address] [id number] Ken Fry Monocytes/100 WBC (Bld) 8.1 % Normal 1.7-12.0 [facility] Comment on above: Performed By: #### C VDAGA #### [facility] [address] [id number] Ken Fry NEUT # 8.1 103/ul Critically high 1.4-6.5 [facility] Comment on above: Performed By: #### C VDAGA #### [facility] [address] [phone] Ken Fry Neutrophils/100 WBC (Bld) 60.6 % Normal 43.0-75.0 [facility] Comment on above: Performed By: #### C VDAGA #### [facility] [address] [place], [place] [address] Kenstephanie Fry Platelet mean volume (Bld) [Entitic vol] 9.5 fL Normal 9.5-13.5 [facility] Comment on above: Performed By: #### C VDAGA #### [facility] [address] [phone] Ken Lisandra PLT 177 103/ul Normal 150-450 [facility] Comment on above: Performed By: #### C VDAGA #### [facility] [address] [place], [place] [address] Ken Fry RBC 5.33 106/ul Normal 4.70-6.10 [facility] Comment on above: Performed By: #### C VDAGA #### [facility] [address], [place] [address] Ken Fry WBC 13.4 103/ul Critically high 4.0-11.0 [facility] Comment on above: Performed By: #### C VDAGA #### [facility] [address], [place] [address] ABD/PELV W CONon 05-07-[address] ABD/PELV W CON CT OF ABDOMEN AND PELVIS WITH CONTRAST HISTORY: Right-sided abdominal pain. Epigastric pain. COMPARISON: None. TECHNIQUE: CT examination of the abdomen and pelvis following the administration of intravenous contrast. Coronal and sagittal reformations were performed. FINDINGS: The liver, spleen, bilateral kidneys and pancreas are unremarkable. There is no biliary ductal dilatation or hydronephrosis. Bilateral adrenal glands are within normal limits. No enlarged abdominal or pelvic lymph nodes. Mild indistinctness in the retroperitoneal fat around the pancreas. No free fluid or free intraperitoneal gas. No loculated fluid collections. No dilated loops of bowel. No bowel inflammation. Appendix is within normal limits. No aggressive osseous lesions. Bibasilar atelectasis. Small hiatal hernia. IMPRESSION: 1. Mild indistinctness in the retroperitoneal fat around the pancreas, question pancreatitis. 2. Small hiatal hernia. Electronically authenticated by: CLEVELAND GARCIA Date: 2021-05-07 17:29 Normal The [facility] Covid-19 PCR (CVDTBH)on 04-25 SARS-CoV-2 (COVID-19) RNA SOLO+probe Ql (Unsp spec) Not detected Normal NOT DETECTED The [facility] Comment on above: Result Comment: This test is not yet approved or cleared by the [place] FDA. When there are no FDA-approved or cleared tests available, and other criteria are met, FDA can make tests available under an emergency access mechanism called an Emergency Use Authorization (EUA). The EUA for this test is supported by the [place] of Health and Human Service's (HHS's) declaration that circumstances exist to justify the emergency use of in vitro diagnostics for the detection and/or diagnosis of the virus that causes COVID-19. This EUA will remain in effect (meaning this test can be used) for the duration of the COVID-19 declaration justifying emergency of IVDs, unless it is terminated or revoked by FDA (after which the test may no longer be used). When diagnostic testing is negative, the possibility of a false negative should be considered in the context of a patient's recent exposures and the presence of clinical signs and symptoms consistent with SARS-CoV-2. Performed By: #### C VDAGA #### [facility] [address] [place] [address] Ken Fry LIPASEon 05-07-2021 Lipase [Catalytic activity/Vol] 55.0 U/L Normal 23.0-300.0 [facility] Comment on above: Performed By: #### C XIANG ROGERS LIPA #### [facility] [address] [place] [address] Dr. Ros Jorge Lipase [Catalytic activity/Vol] 71.0 U/L Normal 23.0-300.0 [facility] Comment on above: Performed By: #### P RBC #### [facility] [address] [place] [address] Dr. Ros Jorge PROF 14(COMP METB)on 021 Albumin [Mass/Vol] 3.8 g/dL Normal 3.5-5.0 [facility] Comment on above: Performed By: #### C XIANG ROGERS LIPA #### [facility] [address] [place] [address] Dr. Ros Jorge Albumin/Globulin [Mass ratio] 1.0 {ratio} Normal [facility] Comment on above: Performed By: #### C XIANG ROGERS LIPA #### [facility] [address] [place] [address] Dr. Ros Jorge ALP [Catalytic activity/Vol] 120 U/L Normal 38-126 [facility] Comment on above: Performed By: #### C XIANG ROGERS LIPA #### [facility] [address] [address] [address] Ros Jorge ALT [Catalytic activity/Vol] 77 U/L Critically high 21-72 [facility] Comment on above: Performed By: #### C XIANG ROGERS LIPA #### [facility] [address] [place] [address] Dr. Ros Jorge Anion gap [Moles/Vol] 12.4 mmol/L Normal [facility] Comment on above: Performed By: #### C XIANG ROGERS, LIPA #### [facility] [address] [place] [address] Dr. Ros Jorge AST [Catalytic activity/Vol] 41 U/L Normal 17-59 [facility] Comment on above: Performed By: #### C XIANG ROGERS, LIPA #### [facility] [address] [place] [address] Dr. Ros Jorge Bilirubin [Mass/Vol] 1.5 mg/dL Critically high 0.2-1.3 [facility] Comment on above: Performed By: #### C XIANG ROGERS, LIPA #### [facility] [address] [place] [address] Dr. Ros Jorge Calcium [Mass/Vol] 9.4 mg/dL Normal 8.4-10.2 [facility] Comment on above: Performed By: #### C XIANG ROGERS, LIPA #### [facility] [address] [place] [address] Dr. Ros Jorge Chloride [Moles/Vol] 103 mmol/L Normal 98-107 [facility] Comment on above: Performed By: #### C KEN XIANG, LIPA #### [facility] [address] [place] [address] Dr. Ros Jorge CO2 [Moles/Vol] 27.7 mmol/L Normal 22.0-30.0 [facility] [place] Comment on above: Performed By: #### C KEN XIANG, LIPA #### [facility] [address] [place] [address] Dr. Ros Jorge Creatinine [Mass/Vol] 0.92 mg/dL Normal 0.66-1.25 [facility] Comment on above: Performed By: #### C MP, XIANG, LIPA #### [facility] [address] [address] [address] Ros Jorge EGFR-AF MONGOLIAN >60 Normal >=60 [facility] [place] Comment on above: Performed By: #### C MP, XIANG, LIPA #### [facility] [address] [address] [address] Ros Jorge EGFR-NON AF MONGOLIAN >60 Normal >=60 [facility] Comment on above: Performed By: #### C MP, XIANG, LIPA #### [facility] [address] [address] [address] Ros Jorge Globulin (S) [Mass/Vol] 3.8 g/dL Normal [facility] Comment on above: Performed By: #### C MP, XIANG, LIPA #### [facility] [address] [address] [address] Ros Jorge Glucose [Mass/Vol] 99 mg/dL Normal 74-106 [facility] Comment on above: Performed By: #### C MP, XIANG, LIPA #### [facility] [address] [address] [address] Ros Jorge Potassium [Moles/Vol] 4.1 mmol/L Normal 3.4-5.0 [facility] Comment on above: Performed By: #### C MP, XIANG, LIPA #### [facility] [address] [address] [address] Ros Jorge Protein [Mass/Vol] 7.6 g/dL Normal 6.1-8.2 [facility] Comment on above: Performed By: #### C MP, XIANG, LIPA #### [facility] [address] [address] [address] Ros Jorge Sodium [Moles/Vol] 139 mmol/L Normal 137-145 [facility] Comment on above: Performed By: #### C MP, XIANG, LIPA #### [facility] [address] [address] [address] Ros Jorge Urea nitrogen [Mass/Vol] 12.0 mg/dL Normal 9.0-20.0 [facility] Comment on above: Performed By: #### C XIANG ROGERS, LIPA #### [facility] [address] [place] [address] Dr. Ros Jorge Urea nitrogen/Creatinine [Mass ratio] 13.0 mg/mg Normal [facility] Comment on above: Performed By: #### C XIANG ROGERS, LIPA #### [facility] [address] [place] [address] Dr. Ros Jorge Albumin [Mass/Vol] 3.9 g/dL Normal 3.5-5.0 [facility] Comment on above: Performed By: #### P RBC #### [facility] [address] [place] [address] Dr. Ros Jorge Albumin/Globulin [Mass ratio] 1.0 {ratio} Normal [facility] Comment on above: Performed By: #### P RBC #### [facility] [address] [place] [address] Dr. Ros Jorge ALP [Catalytic activity/Vol] 127 U/L Critically high 38-126 [facility] Comment on above: Performed By: #### P RBC #### [facility] [address] [place] [address] Dr. Ros Jorge ALT [Catalytic activity/Vol] 65 U/L Normal 21-72 [facility] Comment on above: Performed By: #### P RBC #### [facility] [address] [place] [address] Dr. Ros Jorge Anion gap [Moles/Vol] 11.8 mmol/L Normal [facility] Comment on above: Performed By: #### P RBC #### [facility] [address] [place] [address] Dr. Ros Jorge AST [Catalytic activity/Vol] 30 U/L Normal 17-59 [facility] Comment on above: Performed By: #### P RBC #### [facility] [address] [place] [address] Dr. Ros Jorge Bilirubin [Mass/Vol] 0.7 mg/dL Normal 0.2-1.3 [facility] Comment on above: Performed By: #### P RBC #### [facility] [address] [address] [address] Ros Jorge Calcium [Mass/Vol] 9.2 mg/dL Normal 8.4-10.2 [facility] Comment on above: Performed By: #### P RBC #### [facility] [address] [address] [address] Ros Jorge Chloride [Moles/Vol] 103 mmol/L Normal 98-107 [facility] Comment on above: Performed By: #### P RBC #### [facility] [address] [address] [address] Ros Jorge CO2 [Moles/Vol] 27.2 mmol/L Normal 22.0-30.0 [facility] [place] Comment on above: Performed By: #### P RBC #### [facility] [address] [place] [address] Dr. Ros Jorge Creatinine [Mass/Vol] 1.03 mg/dL Normal 0.66-1.25 [facility] Comment on above: Performed By: #### P RBC #### [facility] [address] [address] [address] Ros Jorge EGFR-AF MONGOLIAN >60 Normal >=60 [facility] [place] Comment on above: Performed By: #### P RBC #### [facility] [address] [place] [address] Dr. Ros Jorge EGFR-NON AF MONGOLIAN >60 Normal >=60 [facility] Comment on above: Performed By: #### P RBC #### [facility] [address] [address] [address] Ros Jorge Globulin (S) [Mass/Vol] 4.0 g/dL Normal [facility] Comment on above: Performed By: #### P RBC #### [facility] [address] [place] [address] Dr. Ros Jorge Glucose [Mass/Vol] 125 mg/dL Critically high 74-106 [facility] Comment on above: Performed By: #### P RBC #### [facility] [address] [address] [address] Ros Jorge Potassium [Moles/Vol] 4.0 mmol/L Normal 3.4-5.0 [facility] Comment on above: Performed By: #### P RBC #### [facility] [address] [address] [address] Ros Jorge Protein [Mass/Vol] 7.9 g/dL Normal 6.1-8.2 [facility] Comment on above: Performed By: #### P RBC #### [facility] [address] [address] [address] Ros Jorge Sodium [Moles/Vol] 138 mmol/L Normal 137-145 [facility] Comment on above: Performed By: #### P RBC #### [facility] [address] [place] [address] Dr. Ros Jorge Urea nitrogen [Mass/Vol] 16.0 mg/dL Normal 9.0-20.0 [facility] Comment on above: Performed By: #### P RBC #### [facility] [address] [place] [address] Dr. Ros Jorge Urea nitrogen/Creatinine [Mass ratio] 15.5 mg/mg Normal [facility] Comment on above: Performed By: #### P RBC #### [facility] [address] [place] [address] Dr. Ros Jorge US SINGLE QUAD RT UPPERon US SINGLE QUAD RT UPPER EXAMINATION: US SINGLE QUAD RT UPPER HISTORY: Right side abdominal pain , epigastric pain COMPARISON: No relevant comparison available. TECHNIQUE: Transabdominal evaluation of the right upper quadrant. FINDINGS: LIVER: Slightly increased echogenicity suggestive of fatty infiltration. Color Doppler demonstrates patent hepatic veins. PORTAL VEIN: Duplex Doppler demonstrates normal hepatopetal flow pattern with flow velocity averaging 26 cm/s. GALLBLADDER: Area of wall thickening involving the anterior wall, 9 mm. No stones or free fluid. No tenderness while imaging over the gallbladder. BILIARY: No abnormal dilation or stones. Common bile duct diameter is within normal limits. PANCREASE: No visible mass, abnormal atrophy, or duct dilation. KIDNEY: No hydronephrosis. No visible mass or stones. Size: 10.5 x 5.1 x 5.3 cm IMPRESSION: 1. Abnormal thickening of gallbladder wall adjacent surface of liver; inflammatory changes versus tumor. No stones, free fluid, or tenderness while imaging over the gallbladder. Consider follow-up CT imaging of the abdomen with IV contrast. 2. No additional specific findings to account for patient's symptoms. Electronically authenticated by: WANDA BRITT Date: 2021-05-07 15:48 Normal [facility] Covid-19 PCR (CVDTB)on 08-26 EUA Statement SEE BELOW Normal The [facility] Comment on above: Result Comment: This test is not yet approved or cleared by the [place] FDA. When there are no FDA-approved or cleared tests available, and other criteria are met, FDA can make tests available under an emergency access mechanism called an Emergency Use Authorization (EUA). The EUA for this test is supported by the [place] of Health and Human Service?s (HHS?s) declaration that circumstances exist to justify the emergency use of in vitro diagnostics for the detection and/or diagnosis of the virus that causes COVID-19. This EUA will remain in effect (meaning this test can be used) for the duration of the COVID-19 declaration justifying emergency of IVDs, unless it is terminated or revoked by FDA (after which the test may no longer be used). When diagnostic testing is negative, the possibility of a false negative should be considered in the context of a patients recent exposures and the presence of clinical signs and symptoms consistent with SARS-CoV-2. Performed By: #### C XIANG ROGERS LIPA #### [facility] Laboratory [address] [place] [address] Dr. Ros Jorge SARS-CoV-2 (COVID-19) RNA SOLO+probe Ql (Unsp spec) Not detected Normal NOT DETECTED The [facility] Comment on above: Result Comment: This test is not yet approved or cleared by the [place] FDA. When there are no FDA-approved or cleared tests available, and other criteria are met, FDA can make tests available under an emergency access mechanism called an Emergency Use Authorization (EUA). The EUA for this test is supported by the [employer] of Health and Human Service's (HHS's) declaration that circumstances exist to justify the emergency use of in vitro diagnostics for the detection and/or diagnosis of the virus that causes COVID-19. This EUA will remain in effect (meaning this test can be used) for the duration of the COVID-19 declaration justifying emergency of IVDs, unless it is terminated or revoked by FDA (after which the test may no longer be used). Performed By: #### C XIANG ROGERS LIPA #### [facility] Laboratory [address] [address] [address] Ros Jorge Covid-19 PCR (CVDTB)on 08-25 EUA Statement SEE BELOW Normal The [facility] Comment on above: Result Comment: This test is not yet approved or cleared by the [place] FDA. When there are no FDA-approved or cleared tests available, and other criteria are met, FDA can make tests available under an emergency access mechanism called an Emergency Use Authorization (EUA). The EUA for this test is supported by the [place] of Health and Human Service?s (HHS?s) declaration that circumstances exist to justify the emergency use of in vitro diagnostics for the detection and/or diagnosis of the virus that causes COVID-19. This EUA will remain in effect (meaning this test can be used) for the duration of the COVID-19 declaration justifying emergency of IVDs, unless it is terminated or revoked by FDA (after which the test may no longer be used). When diagnostic testing is negative, the possibility of a false negative should be considered in the context of a patients recent exposures and the presence of clinical signs and symptoms consistent with SARS-CoV-2. Performed By: #### C XIANG ROGERS LIPA #### [facility] [address] [address] [address] Ros Jorge SARS-CoV-2 (COVID-19) RNA SOLO+probe Ql (Unsp spec) Detected Abnormal NOT DETECTED The [facility] Comment on above: Result Comment: This test is not yet approved or cleared by the [place] FDA. When there are no FDA-approved or cleared tests available, and other criteria are met, FDA can make tests available under an emergency access mechanism called an Emergency Use Authorization (EUA). The EUA for this test is supported by the [place] of Health and Human Service's (HHS's) declaration that circumstances exist to justify the emergency use of in vitro diagnostics for the detection and/or diagnosis of the virus that causes COVID-19. This EUA will remain in effect (meaning this test can be used) for the duration of the COVID-19 declaration justifying emergency of IVDs, unless it is terminated or revoked by FDA (after which the test may no longer be used). Performed By: #### C XIANG ROGERS LIPA #### [facility] Laboratory [address] [place] [address] Dr. Ros Jorge Vital Signs Date Time Vital Sign Value Performing Clinician Facility 01-28-2025 14:35-0400 Body mass index (BMI) [Ratio] 39.1 kg/m2 Marta Elderzoni DO Work Phone: [facility] 01-28-2025 14:35-0400 Body temperature 97.5 [degF] Marta Elderzoni DO Work Phone: [facility] 01-28-2025 14:35-0400 Body weight 134.7 kg Marta Elderzoni DO Work Phone: [facility] 01-28-2025 14:35-0400 Diastolic blood pressure 79 mm[Hg] Marta Mazzoni DO Work Phone: [facility] 01-28-2025 14:35-0400 Heart rate 79 /min Marta Elderzoni DO Work Phone: [facility] 01-28-2025 14:35-0400 Respiratory rate 15 /min Marta Elderzoni DO Work Phone: [facility] 01-28-2025 14:35-0400 SaO2% (BldA) [Mass fraction] 97 % Marta Mazzoni DO Work Phone: [facility] 01-28-2025 14:35-0400 Systolic blood pressure 122 mm[Hg] Marta Mazzoni DO Work Phone: [facility] 01-07-2025 13:56-0400 Body temperature 98.2 [degF] Chair Kaylah Work Phone: [facility] 01-07-2025 13:56-0400 Diastolic blood pressure 80 mm[Hg] Chair [place] Work Phone: [facility] 01-07-2025 13:56-0400 Heart rate 83 /min Chair [place] Work Phone: [facility] 01-07-2025 13:56-0400 Respiratory rate 16 /min Chair [place] Work Phone: [facility] 01-07-2025 13:56-0400 SaO2% (BldA) [Mass fraction] 96 % Chair [place]lah Work Phone: [facility] 01-07-2025 13:56-0400 Systolic blood pressure 119 mm[Hg] Chair [place] Work Phone: [facility] 12-31-2024 13:22-0400 Body temperature 98.1 [degF] Chair [place] Work Phone: [facility] 12-31-2024 13:22-0400 Diastolic blood pressure 73 mm[Hg] Chair [place] Work Phone: [facility] 12-31-2024 13:22-0400 Heart rate 85 /min Chair [place] Work Phone: [facility] 12-31-2024 13:22-0400 Respiratory rate 16 /min Chair [place] Work Phone: [facility] 12-31-2024 13:22-0400 SaO2% (BldA) [Mass fraction] 95 % Chair [place] Work Phone: [facility] 12-31-2024 13:22-0400 Systolic blood pressure 112 mm[Hg] Chair [place] Work Phone: [facility] 12-24-2024 12:45-0400 Body temperature 97.81 [degF] Chair [place] Work Phone: [facility] 12-24-2024 12:45-0400 Diastolic blood pressure 71 mm[Hg] Chair [place]lah Work Phone: [facility] 12-24-2024 12:45-0400 Heart rate 79 /min Chair [place] Work Phone: [facility] 12-24-2024 12:45-0400 Respiratory rate 16 /min Chair [place] Work Phone: [facility] 12-24-2024 12:45-0400 SaO2% (BldA) [Mass fraction] 95 % Chair [place] Work Phone: [facility] 12-24-2024 12:45-0400 Systolic blood pressure 110 mm[Hg] Chair [place] Work Phone: [facility] 12-17-2024 08:47-0400 Body mass index (BMI) [Ratio] 38.89 kg/m2 Eliza Montoya APRN.CONFIGURATION TECHNICIAN Work Phone: [facility] 12-17-2024 08:47-0400 Body temperature 97.7 [degF] Eliza Montoya CLEANING TECHNICIAN.CONFIGURATION TECHNICIAN Work Phone: [facility] 12-17-2024 08:47-0400 Body weight 133.7 kg Eliza Montoya CLEANING TECHNICIAN.CONFIGURATION TECHNICIAN Work Phone: [facility] 12-17-2024 08:47-0400 Diastolic blood pressure 89 mm[Hg] Eliza Montoya CLEANING TECHNICIAN.CONFIGURATION TECHNICIAN Work Phone: [facility] 12-17-2024 08:47-0400 Heart rate 60 /min Eliza Montoya CLEANING TECHNICIAN.CONFIGURATION TECHNICIAN Work Phone: [facility] 12-17-2024 08:47-0400 Respiratory rate 20 /min Eliza Montoya CLEANING TECHNICIAN.CONFIGURATION TECHNICIAN Work Phone: [facility] 12-17-2024 08:47-0400 SaO2% (BldA) [Mass fraction] 100 % Eliza Montoya CLEANING TECHNICIAN.CONFIGURATION TECHNICIAN Work Phone: [facility] 12-17-2024 08:47-0400 Systolic blood pressure 129 mm[Hg] Elizaradha Montoya APRN.CONFIGURATION TECHNICIAN Work Phone: [facility] 12-09-2024 14:30-0400 Body height 185.4 cm Marta Mazzoni DO Work Phone: [facility] 12-09-2024 14:30-0400 Body mass index (BMI) [Ratio] 38.86 kg/m2 Marta Mazzoni DO Work Phone: [facility] 12-09-2024 14:30-0400 Body temperature 97 [degF] Marta Mazzoni DO Work Phone: [facility] 12-09-2024 14:30-0400 Body weight 133.6 kg Marta Mazzoni DO Work Phone: [facility] 12-09-2024 14:30-0400 Diastolic blood pressure 93 mm[Hg] Marta Mazzoni DO Work Phone: [facility] 12-09-2024 14:30-0400 Heart rate 76 /min Marta Mazzoni DO Work Phone: [facility] 12-09-2024 14:30-0400 Respiratory rate 15 /min Marta Mazzoni DO Work Phone: [facility] 12-09-2024 14:30-0400 SaO2% (BldA) [Mass fraction] 99 % Marta Mazzoni DO Work Phone: [facility] 12-09-2024 14:30-0400 Systolic blood pressure 132 mm[Hg] Marta Mazzoni DO Work Phone: [facility] 04-16-2024 07:55-0400 Body mass index (BMI) [Ratio] 37.15 kg/m2 Marta Mazzoni DO Work Phone: [facility] 04-16-2024 07:55-0400 Body temperature 96.8 [degF] Marta Mazzoni DO Work Phone: [facility] 04-16-2024 07:55-0400 Body weight 127.7 kg Marta Mazzoni DO Work Phone: [facility] 04-16-2024 07:55-0400 Diastolic blood pressure 85 mm[Hg] Marta Mazzoni DO Work Phone: [facility] 04-16-2024 07:55-0400 Heart rate 80 /min Marta Mazzoni DO Work Phone: [facility] 04-16-2024 07:55-0400 Respiratory rate 20 /min Marta Mazzoni DO Work Phone: [facility] 04-16-2024 07:55-0400 SaO2% (BldA) [Mass fraction] 98 % Marta Mazzoni DO Work Phone: [facility] 04-16-2024 07:55-0400 Systolic blood pressure 139 mm[Hg] Marta Mazzoni DO Work Phone: [facility] 12-26-2023 15:13-0400 Body mass index (BMI) [Ratio] 37.73 kg/m2 Marta Mazzoni DO Work Phone: [facility] 12-26-2023 15:13-0400 Body temperature 97.2 [degF] Marta Mazzoni DO Work Phone: [facility] 12-26-2023 15:13-0400 Body weight 129.7 kg Marta Mazzoni DO Work Phone: [facility] Comment on above: with shoes 12-26-2023 15:13-0400 Diastolic blood pressure 87 mm[Hg] Marta Mazzoni DO Work Phone: [facility] 12-26-2023 15:13-0400 Heart rate 76 /min Marta Mazzoni DO Work Phone: [facility] 12-26-2023 15:13-0400 Respiratory rate 18 /min Marta Mazzoni DO Work Phone: [facility] 12-26-2023 15:13-0400 SaO2% (BldA) [Mass fraction] 97 % Marta Mazzoni DO Work Phone: [facility] Comment on above: RA 12-26-2023 15:13-0400 Systolic blood pressure 130 mm[Hg] Marta Mazzoni DO Work Phone: [facility] 11-11-2023 10:22-0400 Body height 185.4 cm Marta Mazzoni DO Work Phone: [facility] 11-11-2023 10:22-0400 Body temperature 97.81 [degF] Marta Mazzoni DO Work Phone: [facility] 11-11-2023 10:22-0400 Body weight 127.5 kg Marta Mazzoni DO Work Phone: [facility] 11-11-2023 10:22-0400 Diastolic blood pressure 94 mm[Hg] Marta Mazzoni DO Work Phone: [facility] 11-11-2023 10:22-0400 Heart rate 105 /min Marta Mazzoni DO Work Phone: [facility] 11-11-2023 10:22-0400 Respiratory rate 21 /min Marta Mazzoni DO Work Phone: [facility] 11-11-2023 10:22-0400 SaO2% (BldA) [Mass fraction] 98 % Marta Mazzoni DO Work Phone: [facility] 11-11-2023 10:22-0400 Systolic blood pressure 136 mm[Hg] Marta Mazzoni DO Work Phone: [facility] 10-23-2023 11:09-0500 Body height 185.4 cm Sanju Rees MD Work Phone: [facility] 10-23-2023 11:09-0500 Body temperature 97.9 [degF] Sanju Rees MD Work Phone: [facility] 10-23-2023 11:09-0500 Body weight 122.3 kg Sanju Rees MD Work Phone: [facility] 10-23-2023 11:09-0500 Diastolic blood pressure 93 mm[Hg] Sanju Rees MD Work Phone: [facility] 10-23-2023 11:09-0500 Heart rate 94 /min Sanju Rees MD Work Phone: [facility] 10-23-2023 11:09-0500 Respiratory rate 16 /min Sanju Rees MD Work Phone: [facility] 10-23-2023 11:09-0500 SaO2% (BldA) [Mass fraction] 99 % Sanju Rees MD Work Phone: [facility] 10-23-2023 11:09-0500 Systolic blood pressure 130 mm[Hg] Sanju Rees MD Work Phone: [facility] Encounters Encounter Date Encounter Type Care Provider Facility Start: 03-11-2025 End: 03-11-2025 ambulatory KOKO LANDRY Facility:[facility] Start: 01-28-2025 End: 01-28-2025 Patient encounter procedure Marta Krishna DO Work Phone: Hematology/Oncology Start: 01-28-2025 End: 01-29-2025 ambulatory Marta Krishna DO Work Phone: Hematology/Oncology Comment on above: TTP (thrombotic thro mbopenic purpura) (HCC) Start: 01-14-2025 End: 01-14-2025 ambulatory KOKO LANDRY Facility:[facility] Start: 01-07-2025 End: 01-10-2025 ambulatory Chair 3 Kaylah Work Phone: Hematology/Oncology Comment on above: TTP (thrombotic thro mbopenic purpura) (HCC) (Primary Dx) Start: 12-31-2024 End: 12-31-2024 ambulatory Chair 3 [place] Work Phone: Hematology/Oncology Comment on above: TTP (thrombotic thro mbopenic purpura) (HCC) (Primary Dx) Start: 12-24-2024 End: 12-27-2024 ambulatory Chair 2 Kaylah Work Phone: Hematology/Oncology Comment on above: TTP (thrombotic thro mbopenic purpura) (HCC) (Primary Dx) Start: 12-17-2024 End: 12-17-2024 Patient encounter procedure Eliza Montoya CLEANING TECHNICIAN.CONFIGURATION TECHNICIAN Work Phone: Hematology/Oncology Start: 12-17-2024 End: 12-18-2024 ambulatory Eliza Montoya CLEANING TECHNICIAN.CONFIGURATION TECHNICIAN Work Phone: Hematology/Oncology Comment on above: TTP (thrombotic thro mbocytopenic purpura) (HCC) (Primary Dx) Start: 12-09-2024 End: 12-09-2024 Patient encounter procedure Marta Krishna DO Work Phone: Hematology/Oncology Start: 12-09-2024 End: 12-09-2024 ambulatory Marta Krishna DO Work Phone: Hematology/Oncology Comment on above: TTP (thrombotic thro mbocytopenic purpura) (HCC) (Primary Dx) Start: 12-03-2024 End: 12-03-2024 ambulatory KOKO LANDRY Facility:[facility] Start: 11-24-2024 End: 11-24-2024 ambulatory Cydney Gray RN Hematology/Oncology Comment on above: prednisone Start: 11-24-2024 End: 11-24-2024 E-mail encounter from caregiver Cydney Gray RN Hematology/Oncology Start: 11-19-2024 End: 11-19-2024 ambulatory KOKO LANDRY Facility:[facility] Start: 10-29-2024 End: 10-29-2024 ambulatory KOKO LANDRY Facility:[facility] Start: 10-08-2024 End: 10-08-2024 ambulatory KOKO LANDRY Facility:[facility] Start: 09-21-2024 End: 09-21-2024 Telemedicine consultation with patient Marta Friedmanskylar DO Work Phone: Hematology/Oncology Start: 09-21-2024 End: 01-28-2025 ambulatory Marta Krishna DO Work Phone: Hematology/Oncology Comment on above: TTP (thrombotic thro mbocytopenic purpura) (HCC) (Primary Dx) Start: 09-20-2024 End: 09-20-2024 Telephone encounter Marta Friedmanskylar DO Work Phone: Hematology/Oncology Comment on above: Medical Review Coordinator - O ther Start: 09-17-2024 End: 09-17-2024 ambulatory KOKO LANDRY Facility:[facility] Start: 07-20-2024 End: 07-20-2024 ambulatory KOKO LANDRY Facility:[facility] Start: 07-05-2024 End: 07-05-2024 ambulatory KOKO LANDRY Facility:[facility] Start: 06-24-2024 End: 06-24-2024 ambulatory Juani Hall APRN.CONFIGURATION TECHNICIAN Work Phone: Hematology/Oncology Comment on above: TTP (thrombotic thro mbocytopenic purpura) (HCC) Start: 06-24-2024 End: 06-24-2024 Telemedicine consultation with patient Juani Hall APRN.CONFIGURATION TECHNICIAN Work Phone: Hematology/Oncology Start: 06-21-2024 End: 06-21-2024 ambulatory KOKO LANDRY Facility:[facility] Start: 06-04-2024 End: 06-04-2024 ambulatory KOKO LANDRY Facility:[facility] Start: 05-20-2024 End: 05-20-2024 Telephone encounter Cydney Gray RN Hematology/Oncology Comment on above: Medical Review Coordinator - O ther; Orders Start: 05-19-2024 End: 05-19-2024 ambulatory KOKO LANDRY Facility:[facility] Start: 05-19-2024 End: 05-19-2024 Patient encounter procedure Lab Ignacio Adrian Mc Work Phone: [facility] Comment on above: TTP (thrombotic thro mbopenic purpura) (HCC) Start: 04-16-2024 End: 04-16-2024 ambulatory Marta Krishna DO Work Phone: Hematology/Oncology Comment on above: TTP (thrombotic thro mbopenic purpura) (HCC) (Primary Dx) Start: 04-16-2024 End: 04-16-2024 Patient encounter procedure Marta Krishna DO Work Phone: Hematology/Oncology Start: 03-09-2024 End: 03-09-2024 ambulatory Not Available Start: 12-26-2023 End: 12-27-2023 ambulatory Marta Krishna DO Work Phone: Hematology/Oncology Comment on above: TTP (thrombotic thro mbopenic purpura) (HCC) (Primary Dx) Start: 12-26-2023 End: 12-27-2023 Patient encounter procedure Marta Krishna DO Work Phone: Hematology/Oncology Start: 11-11-2023 End: 11-11-2023 ambulatory Marta Krishna DO Work Phone: Hematology/Oncology Comment on above: TTP (thrombotic thro mbopenic purpura) (HCC) (Primary Dx) Start: 11-11-2023 End: 11-11-2023 Patient encounter procedure Marta Krishna DO Work Phone: [facility] Start: 10-27-2023 ambulatory Eugene Adams [facility] Start: 10-27-2023 Patient encounter procedure Eugene Patricio ch [facility] Comment on above: SPP Injectab Oncolog y/hematology-Treatment Referral (Cablivi); Insurance Authorization (NO INSURANCE); SPP Injectable Oncology/hematology - No-go Start: 10-23-2023 Telephone encounter [facility]aj[facility]ley [facility] Comment on [facility]: Results Start: 10-23-2023 End: 10-23-2023 Office outpatient visit 40 minutes Sanju Rees MD Work Phone: Hematology/Oncology Comment on above: TTP (thrombotic thro mbopenic purpura) (HCC) (Primary Dx); Lymphocytosis; Acquired TTP (HCC) Start: 06-20-2023 End: 06-21-2023 ambulatory Mel Parnell Facility[place] Start: 06-20-2023 End: 06-20-2023 Lab Drop off Mel Parnell [facility] Start: 02-12-2022 Telephone encounter Guanako Troy MD Work Phone: Hematology/Oncology Comment on above: Question Start: 12-03-2021 Telephone encounter Guanako Troy MD Work Phone: Hematology/Oncology Comment on above: Medical Review Coordinator - O ther Start: 05-17-2021 End: 05-18-2021 Evaluation and management of inpatient DR KOKO LANDRY Facility:[facility] Start: 05-14-2021 End: 05-15-[address] XAVIER CELESTIN Facility:[facility] Start: 05-07-2021 End: 05-08-[address] KOKO LANDRY Facility:[facility] Start: 05-07-2021 End: 05-07-[address] KOKO LANDRY Facility:[facility] Start: 09-15-2020 End: 09-15-[address] KOKO LANDRY Facility:[facility] Start: 09-11-2020 End: 09-11-[address] KOKO LANDRY Facility:[facility] Procedures Date Procedure Procedure Detail Performing Clinician Start: 01-07-2025 Blood count complete auto&auto difrntl wbc Marta Krishna DO Work Phone: Start: 12-31-2024 Blood count complete auto&auto difrntl wbc Marta Krishna DO Work Phone: Start: 12-24-2024 [id number] EVALUATION Joel dra Krishna DO Work Phone: Start: 12-24-2024 Blood count complete auto&auto difrntl wbc Marta Krishna DO Work Phone: Start: 05-19-2024 Basic metabolic pane l calcium total Dorita Manzo DO Work Phone: Start: 08-03-2021 Adult depression scr eening assessment Guanako Troy MD Work Phone: Start: 05-18-2021 Transfusion of Nonau tologous Frozen Plasma into Peripheral Vein, Percutaneous Approach DR KOKO LANDRY Start: 05-17-2021 Transfusion of Nonau tologous Red Blood Cells into Peripheral Vein, Percutaneous Approach DR KOKO LANDRY Cholecystostomy Mel Parnell Plan of Treatment Date Care Activity Detail Author Start: 06-24-2025 End: 06-24-2025 ambulatory 06/24/2025 9:30 AM EDT Infusion Center Hematology/Oncology [address] [place] [address] [place] [address] RUXIENCE (weekly x4) Hematology/Oncology Comment on above: RUXIENCE (weekly x4) Start: 06-17-2025 End: 06-17-2025 ambulatory 06/17/2025 9:30 AM EDT Infusion Center Hematology/Oncology [address] [place] [address] [place] [address] RUXIENCE (weekly x4) Hematology/Oncology Comment on above: RUXIENCE (weekly x4) Start: 06-10-2025 End: 06-10-2025 ambulatory 06/10/2025 9:30 AM EDT Infusion Center Hematology/Oncology [address] [place] [address] [place] [address] RUXIENCE (weekly x4) Hematology/Oncology Comment on above: RUXIENCE (weekly x4) Start: 06-03-2025 End: 06-03-2025 ambulatory 06/03/2025 9:30 AM EDT Infusion Center Hematology/Oncology [address] [place] [address] [place] [address] RUXIENCE (weekly x4) Hematology/Oncology Comment on above: RUXIENCE (weekly x4) Start: 05-27-2025 End: 05-27-2025 Follow-up encounter 05/27/2025 8:30 AM EDT Visit (SP) Office Hematology/Oncology [address] [place] [address] Marta Krishna DO [address] [place] [address] Follow up per wq Hematology/Oncology Comment on above: Follow up per wq Start: 04-25-2025 Influenza vaccination Influenz a Vaccine (Season Ended) [facility] Start: 01-28-2025 End: 01-28-2025 Follow-up encounter 01/28/2025 3:00 PM EDT Visit (SP) Office Hematology/Oncology [address] [place] [address] Marta Krishna DO [address] [place], [place] [id number] FOLLOW UP Hematology/Oncology Comment on above: FOLLOW UP Start: 01-28-2025 End: 01-28-2025 ambulatory 01/28/2025 2:00 PM EDT Results Only [facility] [address] [place] [id number] [facility] Comment on above: LAB Start: 01-07-2025 End: 01-07-2025 ambulatory 01/07/2025 9:30 AM EDT Infusion Center Hematology/Oncology [address] [place] [address] [place] [address] RUXIENCE (weekly x3) Hematology/Oncology Comment on above: RUXIENCE (weekly x3) Start: 12-31-2024 End: 12-31-2024 ambulatory 12/31/2024 9:30 AM EDT Infusion Center Hematology/Oncology [address] [place] [address] [place] [address] RUXIENCE (weekly x3) Hematology/Oncology Comment on above: RUXIENCE (weekly x3) Start: 12-24-2024 End: 12-24-2024 ambulatory 12/24/2024 8:00 AM EDT Infusion Center Hematology/Oncology [address] [place] [address] [place] [address] RUXIENCE (weekly x3) Hematology/Oncology Comment on above: RUXIENCE (weekly x3) Start: 12-09-2024 End: 12-09-2024 Follow-up encounter 12/09/2024 3:00 PM EDT Visit (SP) Office Hematology/Oncology [address] [place] [id number] Marta Krishna DO [address] [place] [address] Follow up Hematology/Oncology Comment on above: Follow up Start: 12-09-2024 End: 03-10-2025 Chronic hepatitis differentiation between hepatitis B and C virus panel - Serum or Plasma HEP REMOTE PANEL BL Lab Routine TTP (thrombotic thrombocytopenic purpura) (HCC) Expected: 12/09/2024, Expires: 03/10/2025 [facility] Work Phone: Comment on above: Expected: 12/09/2024 , Expires: 03/10/2025 Start: 09-21-2024 End: 09-21-2024 Follow-up encounter 09/21[facility] [address] [place] [address] Marta Krishna DO [address] [place], [place] [id number] follow up Hematology/Oncology Comment on above: follow up Start: 04-25-2024 Covid-19 Vaccine ( season) Covid-19 Vaccine ( season) [facility] Start: 04-25-2024 Influenza vaccination C [facility] Start: 08-25-2023 Behavioral Health Screening Behavioral Health Screening [facility] Start: 08-25-2023 Depression Assessment Depression Ass essment [facility] Start: 04-25-2023 Covid-19 Vaccine ( season) Covid-19 Vaccine ( season) [facility] Start: 04-25-2023 Influenza vaccination Influenza Vacc ine (#1) [facility] Start: 2023 Lipid panel Lipid Screening [facility] Start: 08-03-2022 Adult depression screening assessment DEPRESSION SCREENING [facility] Start: 04-25-2022 Influenza vaccination INFLUENZA (Sea son Ended) [facility] Start: 2007 Pneumococcal vaccination Pneum ococcal Vaccine (1 of 2 - PCV) [facility] Start: 2007 Shingrix Vaccine (1 of 2) Shingrix Vaccine (1 of 2) [facility] Start: 2007 Urine microalbumin profile [facility] Start: 2006 Anxiety Screening Anxiety Screening [facility] Start: 2006 Depression Screening Depression Scre ening [facility] Start: 1994 PNEUMOCOCCAL (1 - PCV) PNEUMOCOCCAL (1 - PCV) [facility] Start: 1994 Pneumococcal vaccination Pneum ococcal Vaccine (1 of 2 - PCV) [facility] Start: 1993 COVID-19 VACCINE (#1) COVID-19 VACCI NE (#1) [facility] Start: 1993 COVID-19 VACCINE (1) COVID-19 VACCIN E (1) [facility] Start: 1988 Covid-19 Vaccine (#1) Covid-19 Vacci ne (#1) [facility] [id number] EVAL INTERP [id number] EV AL INTERP Lab Routine TTP (thrombotic thrombopenic purpura) ([facility]) 12/24/2024 8:37 AM EDT [facility] [id number] EVAL INTERP [id number] EV AL INTERP Lab Routine TTP (thrombotic thrombopenic purpura) ([facility]) 12/31/2024 9:08 AM EDT [facility] [id number] EVAL INTERP [id number] EV AL INTERP Lab Routine TTP (thrombotic thrombopenic purpura) ([facility]) 01/07/2025 9:45 AM EDT [facility] End: 09-21-2025 [id number] EVALUATION [id number] EVALUATION Lab Routine TTP (thrombotic thrombocytopenic purpura) ([facility]) Every other week for 2 Occurrences starting 09/21/2024 until 09/21/2025 [facility] Comment on above: Every other week for 2 Occurrences starting 09/21/2024 until 09/21/2025 [id number] EVALUATION [id number] IRMA LUATION Lab Routine TTP (thrombotic thrombopenic purpura) ([facility]) 12/24/2024 8:37 AM EDT [facility] [id number] EVALUATION [id number] IRMA LUATION Lab Routine TTP (thrombotic thrombopenic purpura) ([facility]) 12/31/2024 9:08 AM EDT [facility] [id number] EVALUATION [id number] IRMA LUATION Lab Routine TTP (thrombotic thrombopenic purpura) ([facility]) 01/07/2025 9:45 AM EDT [facility] End: 12-25-2024 CBC W Auto Differential panel - Blood COMPLETE BLOOD COUNT AND DIFFERENTIAL Lab Routine TTP (thrombotic thrombopenic purpura) ([facility]) Once per month for 12 Occurrences starting 12/26/2023 until 12/25/2024 [facility] Work Phone: Comment on above: Once per month for 1 2 Occurrences starting 12/26/2023 until 12/25/2024 End: 09-21-2025 CBC W Auto Differential panel - Blood COMPLETE BLOOD COUNT AND DIFFERENTIAL Lab Routine TTP (thrombotic thrombocytopenic purpura) ([facility]) Every other week for 2 Occurrences starting 09/21/2024 until 09/21/2025 [facility] Comment on above: Every other week for 2 Occurrences starting 09/21/2024 until 09/21/2025 End: 01-28-2026 CBC W Auto Differential panel - Blood COMPLETE BLOOD COUNT AND DIFFERENTIAL Lab Routine TTP (thrombotic thrombopenic purpura) ([facility]) Once per month for 12 Occurrences starting 01/28/2025 until 01/28/2026 [facility] Work Phone: Comment on above: Once per month for 1 2 Occurrences starting 01/28/2025 until 01/28/2026 End: 09-21-2025 Haptoglobin [Mass/volume] in Serum or Plasma HAPTOGLOBIN Lab Routine TTP (thrombotic thrombocytopenic purpura) ([facility]) Once per month for 12 Occurrences starting 09/21/2024 until 09/21/2025 [facility] Work Phone: Comment on above: Once per month for 1 2 Occurrences starting 09/21/2024 until 09/21/2025 Haptoglobin [Mass/volume] in Serum or Plasma HAPTOGLOBIN Lab Routine TTP (thrombotic thrombopenic purpura) ([facility]) 12/24/2024 8:37 AM [facility] Work Phone: Haptoglobin [Mass/volume] in Serum or Plasma HAPTOGLOBIN Lab Routine TTP (thrombotic thrombopenic purpura) ([facility]) 12/31/2024 9:08 AM [facility] Work Phone: Haptoglobin [Mass/volume] in Serum or Plasma HAPTOGLOBIN Lab Routine TTP (thrombotic thrombopenic purpura) ([facility]) 01/07/2025 9:45 AM EDT [facility] Work Phone: [facility] Immunizations Immunization Date Immunization Notes Care Provider Rafael [email or web address] 09-04-2001 hepatitis B vaccine, pediatric or pediatric/adolescent dosage Mel Soheila [facility] 04-15-2001 hepatitis B vaccine, pediatric or pediatric/adolescent dosage Mel Soheila [facility] 03-11-2001 hepatitis B vaccine, pediatric or pediatric/adolescent dosage Mel Soheila [facility] 03-11-2001 measles, mumps and rubella virus vaccine Mel Soheila [facility] 04-22-1994 DTaP, unspecified formulation Mel Soheila [facility] 04-22-1994 poliovirus vaccine, unspecified formulation Mel Soheila [facility] 06-09-1991 diphtheria and tetan us toxoids, adsorbed for pediatric use Mel Soheila [facility] 05-31-1991 Hib, unspecified formulation Mel Soheila [facility] 12-01-1989 measles, mumps and rubella virus vaccine Mel Soheila [facility] 12-01-1989 poliovirus vaccine, unspecified formulation Mel Soheila [facility] 1988 poliovirus vaccine, unspecified formulation Mel Soheila [facility] 1988 poliovirus vaccine, unspecified formulation Mel Soheila [facility] Payers Date Payer Category Payer Unknown MMO MMO [employer] PPO [id number] 2023-Present [phone] [address] [place] [address] PPO [id number] 2023 Unknown [id number] 2021 Medicaid MEDICAID [facility] MEDICAID [id number] 2021-Present [phone] [address] [place] [address] Medicaid [id number] 2019 Unknown [id number] 1988 Unknown [id number] 1988 Unknown [id number] 1988 Unknown [id number] 1988 Unknown [id number] 1988 Unknown [id number] 1988 Unknown [id number] 1988 Unknown [id number] 1988 Unknown [id number] 1959 Self-pay [id number] Social History Date Type Detail Facility Start: 05-28-2021 End: 08-03-2021 Tobacco smoking status WAIS Smokes tobacco daily [facility] History of tobacco use [facility]igarette Sm[facility] Start: 05-28-2021 End: 10-14-2023 Cigarettes smoked current (pack per day) - Reported 1.5 [facility] Start: 05-28-2021 End: 04-16-2024 Tobacco use and exposure Former smokeless tobacco user [facility] Start: 10-29-2021 End: 12-17-2024 Alcohol intake Current drinker of alcohol (finding) [facility] Start: 1990 Sex Assigned At Not on file C [facility] Start: 06-20-2023 Tobacco smoking status Heavy t obacco smoker (finding) [facility] Start: 10-29-2021 End: 10-14-2023 Sex Assigned At Male [facility] Adult Depression Screening Assessment 1 [facility] Start: 04-16-2024 Tobacco smoking stat us WAIS Ex-smoker [facility] Work Phone: History of tobacco use Current smoker [facility] History of tobacco use Passive smoker [facility] Functional Status Date Assessment Result Facility 05-24-2021 Are you deaf, or do you have serious difficulty hearing No 05/24/2021 5:11 PM Phuong Jaramillo RN No [facility] 05-24-2021 Are you blind, or do you have serious difficulty seeing, even when wearing glasses No 05/24/2021 5:11 PM Phuong Jaramillo RN No [facility] 05-24-2021 Do you have serious difficulty walking or climbing stairs No 05/24/2021 5:11 PM Phuong Jaramillo RN No [facility] 05-24-2021 Do you have difficul ty dressing or bathing No 05/24/2021 5:11 PM Phuong Jaramillo RN No [facility] 05-24-2021 Because of a physica l, mental, or emotional condition, do you have difficulty doing errands alone such as visiting a physician's office or shopping No 05/24/2021 5:11 PM Phuong Jaramillo RN No [facility] Mental Status Date Assessment Result Facility 05-24-2021 Because of a physica l, mental, or emotional condition, do you have serious difficulty concentrating, remembering, or making decisions No 05/24/2021 5:11 PM EDT Phuong Tinsley RN No [facility] Clinical Notes 05-07-2021 to 01-28-2025 Marta Krishna DO - 01/28/2025 3:00 PM Dianne Dubon LPN - 01/28/2025 2:33 PM Eliza Ramirez, CLEANING TECHNICIAN.CONFIGURATION TECHNICIAN - 12/17/2024 9:07 AM Ozzie Brown RN - 12/17/2024 8:45 AM EDT Note Date & Type Note Facility 01-28-2025 History of Presen t illness Narrative Images from the original note were not included. Hematologic Oncology and Blood Disorders PATIENT NAME: Kwaku Nichols III DATE OF : 1990 ATTENDING STAFF: Lizette Krishna DO DATE OF SERVICE: January 28, 2025 REASON FOR VISIT: Scheduled follow up for relapsed TTP INTERVAL HISTORY: Kwaku returns today for scheduled follow up via virtual visit with his , kayley Jin. He was last seen on December 09, 2024 via virtual visit with me. Since that visit he completed the 4 weekly doses of Rituxan 12/16-01/07/25. He feels like he has more energy since receiving the Rituxan. No issues with rash, diarrhea or bruising. HISTORY OF PRESENT ILLNESS: This patient was seen initially as a hospital consult by the hematology service. History was obtained from the patient and from review of the patient s old medical records. Kwaku Nichols III is a 34 year old male with past medical history pertinent for tobacco use disorder and TTP. Initial TTP occurrence on 05/18/21. Responded to steroids+PLEX and completed 30 days of Cablivi at that time. Relapse occurred on 10/23/23 and again responded well to PLEX. REVIEW OF SYSTEMS: Review of Systems Constitutional: Negative for appetite change, diaphoresis, fatigue, fever and unexpected weight change. Respiratory: Negative for cough and shortness of breath. Cardiovascular: Negative for leg swelling. Gastrointestinal: Negative for abdominal pain, constipation, diarrhea and nausea. Musculoskeletal: Negative for arthralgias and back pain. Skin: Negative for rash. Neurological: Positive for headaches. Negative for dizziness and light-headedness. Psychiatric/Behavioral: Negative for confusion and decreased concentration. The patient is not nervous/anxious. The remainder of the review of systems is negative. ALLERGIES: ALLERGIES No Known Allergies MEDICATIONS: Medications were reviewed and updated. Current Outpatient Medications on File Prior to Visit Medication Sig nicotine polacrilex (NICORETTE) 2 mg gum Take 2 Each by mouth every 2 hours as needed. predniSONE (DELTASONE) 10 mg tablet Take 8 tablets by mouth once daily for 3 days, THEN 7 tablets once daily for 7 days, THEN 6 tablets once daily for 7 days, THEN 5 tablets once daily for 7 days, THEN 4 tablets once daily for 7 days, THEN 3 tablets once daily for 7 days, THEN 2 tablets once daily for 7 days, THEN 1 tablet once daily for 7 days. Patient should start on October 30, 2023. sulfamethoxazole-trimethoprim (BACTRIM DS) 800-160 mg per tablet Take 1 tablet by mouth every Friday, Friday, and Friday. pantoprazole DR (PROTONIX) 40 mg tablet Take 1 tablet by mouth once daily. caplacizumab-yhdp (CABLIVI) 11 mg injection Inject 11 mg subcutaneously every 24 hours. Add diluent as directed. Swirl, but do NOT shake. Refrigerate. No current facility-administered medications on file prior to visit. PREFERRED PHARMACY: e- [facility]/pharmacy #[id number] - [address] [phone] [place] [id number] [facility] [id number] [place] [address] [facility] [address] [address] [place], [place] [id number] PAST MEDICAL HISTORY Diagnosis Date Abnormal laboratory test 04/2021 PAST SURGICAL HISTORY Procedure Laterality Date REMOVAL GALLBLADDER 04/2021 TONSILLECTOMY HX FAMILY HISTORY Problem Relation Age of Onset Heart Attack Maternal Grandfather Cancer Paternal Grandfather Leukemia Maternal Aunt Cancer Maternal Aunt Lung Cancer Maternal Uncle Prostate Cancer Maternal Uncle Social History Tobacco Use Smoking status: Former Current packs/day: 1.50 Types: Cigarettes Passive exposure: Past Smokeless tobacco: Former Vaping Use Vaping status: current everyday user Substances: Nicotine Devices: Disposable Substance Use Topics Alcohol use: Yes PHYSICAL EXAM: There were no vitals filed for this visit. Physical Exam Constitutional: Appearance: Normal appearance. He is obese. HENT: Head: Normocephalic and atraumatic. Eyes: Extraocular Movements: Extraocular movements intact. Conjunctiva/sclera: Conjunctivae normal. Cardiovascular: Pulses: Normal pulses. Pulmonary: Effort: Pulmonary effort is normal. Musculoskeletal: Right lower leg: No edema. Left lower leg: No edema. Skin: General: Skin is warm and dry. Coloration: Skin is not jaundiced or pale. Findings: No bruising or rash. Neurological: General: No focal deficit present. Mental Status: He is alert and oriented to person, place, and time. Mental status is at baseline. Psychiatric: Mood and Affect: Mood normal. Behavior: Behavior normal. Thought Content: Thought content normal. Judgment: Judgment normal. DATA REVIEW: I personally reviewed the patient s labs and medical record at [facility]. LAB DATA: Basic Labs: Hemoglobin Date Value Ref Range Status 01/14/2025 14.7 13.0 - 17.0 g/dL Final 01/07/2025 14.5 13.0 - 17.0 g/dL Final 12/31/2024 14.7 13.0 - 17.0 g/dL Final 12/24/2024 13.0 13.0 - 17.0 g/dL Final 12/17/2024 14.5 13.0 - 17.0 g/dL Final Hematocrit Date Value Ref Range Status 01/14/2025 43.6 39.0 - 51.0 % Final 01/07/2025 42.6 39.0 - 51.0 % Final 12/31/2024 43.0 39.0 - 51.0 % Final 12/24/2024 38.1 (L) 39.0 - 51.0 % Final 12/17/2024 42.4 39.0 - 51.0 % Final MCV Date Value Ref Range Status 01/14/2025 91.2 80.0 - 100.0 fL Final 01/07/2025 90.3 80.0 - 100.0 fL Final 12/31/2024 90.0 80.0 - 100.0 fL Final 12/24/2024 90.5 80.0 - 100.0 fL Final 12/17/2024 89.1 80.0 - 100.0 fL Final Retic % Date Value Ref Range Status 10/23/2023 13.8 (H) 0.4 - 2.0 % Final Comment: Results checked and verified.No clot detected. 12/11/2021 1.8 0.4 - 2.0 % Final 10/29/2021 2.8 (H) 0.4 - 2.0 % Final 09/03/2021 1.4 0.4 - 2.0 % Final 07/06/2021 1.4 0.4 - 2.0 % Final WBC Date Value Ref Range Status 01/14/2025 8.74 3.70 - 11.00 k/uL Final 01/07/2025 7.69 3.70 - 11.00 k/uL Final 12/31/2024 7.56 3.70 - 11.00 k/uL Final 12/24/2024 7.42 3.70 - 11.00 k/uL Final 12/17/2024 8.10 3.70 - 11.00 k/uL Final Abs Neut Date Value Ref Range Status 01/14/2025 4.46 1.45 - 7.50 k/uL Final 01/07/2025 3.77 1.45 - 7.50 k/uL Final 12/31/2024 4.34 1.45 - 7.50 k/uL Final 12/24/2024 3.38 1.45 - 7.50 k/uL Final 12/17/2024 3.28 1.45 - 7.50 k/uL Final Platelet Count Date Value Ref Range Status 01/14/2025 299 150 - 400 k/uL Final 01/07/2025 267 150 - 400 k/uL Final 12/31/2024 288 150 - 400 k/uL Final 12/24/2024 257 150 - 400 k/uL Final 12/17/2024 274 150 - 400 k/uL Final Creatinine Date Value Ref Range Status 01/14/2025 0.82 0.73 - 1.22 mg/dL Final 01/07/2025 0.73 0.73 - 1.22 mg/dL Final 12/31/2024 0.76 0.73 - 1.22 mg/dL Final 12/24/2024 0.58 (L) 0.73 - 1.22 mg/dL Final 12/17/2024 0.83 0.73 - 1.22 mg/dL Final BUN Date Value Ref Range Status 01/14/2025 8 (L) 9 - 24 mg/dL Final 01/07/2025 10 9 - 24 mg/dL Final 12/31/2024 12 9 - 24 mg/dL Final 12/24/2024 11 9 - 24 mg/dL Final 12/17/2024 12 9 - 24 mg/dL Final AST Date Value Ref Range Status 01/14/2025 29 14 - 40 U/L Final 01/07/2025 45 (H) 14 - 40 U/L Final 12/31/2024 39 14 - 40 U/L Final 12/24/2024 29 14 - 40 U/L Final 12/17/2024 40 14 - 40 U/L Final ALT Date Value Ref Range Status 01/14/2025 88 (H) 10 - 54 U/L Final 01/07/2025 91 (H) 10 - 54 U/L Final 12/31/2024 99 (H) 10 - 54 U/L Final 12/24/2024 73 (H) 10 - 54 U/L Final 12/17/2024 97 (H) 10 - 54 U/L Final [facility] Labs: PT INR Date Value Ref Range Status 05/21/2021 1.1 0.9 - 1.3 Final Comment: Vitamin K Antagonist (VKA) Therapeutic Range: INR 2 to 3 (Target INR of 2.5) Note: For patients treated with VKA drugs, such as warfarin, the [employer] [employer] 2012 Guideline recommends a therapeutic INR range of 2 to 3 (target INR of 2.5). This recommendation includes high-risk patients with antiphospholipid syndrome with previous arterial or venous thromboembolism, current-generation mechanical or bioprosthetic aortic heart valve replacement. Note: Patients with mechanical aortic valve replacement and additional risk factors for thromboembolic events (atrial fibrillation, previous thromboembolism, LV dysfunction, hypercoagulable conditions) or an older generation mechanical AVR (i.e., ball in-Cage) or any mechanical MVR should have a INR therapeutic range of 2.5 to 3.5 (target INR of 3). umesh Vergara maninder. Chest 2012, 141:7S-47S Gallo SAUNDERS et maninder. [facility] 2017, 70: 252-289 05/19/2021 1.1 0.9 - 1.3 Final Comment: Vitamin K Antagonist (VKA) Therapeutic Range: INR 2 to 3 (Target INR of 2.5) Note: For patients treated with VKA drugs, such as warfarin, the [place] [employer] 2012 Guideline recommends a therapeutic INR range of 2 to 3 (target INR of 2.5). This recommendation includes high-risk patients with antiphospholipid syndrome with previous arterial or venous thromboembolism, current-generation mechanical or bioprosthetic aortic heart valve replacement. Note: Patients with mechanical aortic valve replacement and additional risk factors for thromboembolic events (atrial fibrillation, previous thromboembolism, LV dysfunction, hypercoagulable conditions) or an older generation mechanical AVR (i.e., ball in-Cage) or any mechanical MVR should have a INR therapeutic range of 2.5 to 3.5 (target INR of 3). Wilfredo LAMBERT et maninder. Chest 2012, 141:7S-47S Gallo SAUNDERS et al. [facility] 2017, 70: 252-289 INR Date Value Ref Range Status 10/23/2023 1.0 0.9 - 1.3 Final Comment: Vitamin K Antagonist (VKA) Therapeutic Range: INR 2 to 3 (Target INR of 2.5) Note: For patients treated with VKA drugs, such as warfarin, the [employer] [employer] 2012 Guideline recommends a therapeutic INR range of 2 to 3 (target INR of 2.5). This recommendation includes high-risk patients with antiphospholipid syndrome with previous arterial or venous thromboembolism, current-generation mechanical or bioprosthetic aortic heart valve replacement. Note: Patients with mechanical aortic valve replacement and additional risk factors for thromboembolic events (atrial fibrillation, previous thromboembolism, LV dysfunction, hypercoagulable conditions) or an older generation mechanical AVR (i.e., ball in-Cage) or any mechanical MVR should have a INR therapeutic range of 2.5 to 3.5 (target INR of 3). hiren Vergara. Chest 2012, 141:7S-47S Gallo SAUNDERS et al. [facility] 2017, 70: 252-289 APTT Date Value Ref Range Status 10/23/2023 26.9 23.0 - 32.4 sec Final 05/24/2021 24.0 23.0 - 32.4 sec Final Comment: Unfractionated Heparin Therapeutic Ranges: Standard Heparin Nomogram: 53 to 78 seconds (anti-Xa level of 0.3 to 0.7 U/ml) Low Dose/ACS Nomogram: 49 to 67 seconds (anti-Xa level of 0.2 to 0.5 U/ml) Stroke Treatment Nomogram: 49 to 67 seconds (anti-Xa level of 0.2 to 0.5 U/ml) Note: The APTT therapeutic range has been determined for the current lot of laboratory APTT reagent in use throughout the [facility]. 05/23/2021 23.4 23.0 - 32.4 sec Final Comment: Unfractionated Heparin Therapeutic Ranges: Standard Heparin Nomogram: 53 to 78 seconds (anti-Xa level of 0.3 to 0.7 U/ml) Low Dose/ACS Nomogram: 49 to 67 seconds (anti-Xa level of 0.2 to 0.5 U/ml) Stroke Treatment Nomogram: 49 to 67 seconds (anti-Xa level of 0.2 to 0.5 U/ml) Note: The APTT therapeutic range has been determined for the current lot of laboratory APTT reagent in use throughout the [facility]. d Dimer Date Value Ref Range Status 05/22/2021 860 (H) <500 ng/mL FEU Final Comment: 500 ng/mL FEU is the D Dimer cutoff to exclude DVT (deep vein thrombosis) and PE (pulmonary embolism) in patients with a low pre test probability. Supplemental Comment: In patients over 50 years with a low pre test probability for DVT and/or PE, an age adjusted D dimer cutoff can be calculated as [age x 10] ng/mL FEU. For example, a patient of 88 years would have an age adjusted D dimer cutoff of 880 ng/mL FEU. For patients with a suspected DVT, a D dimer level below 500 ng/mL FEU has a negative predictive value of >98.9%, a sensitivity of >96.9% and a specificity of >35.7%. For patients with a suspected PE, a D dimer level below 500 ng/mL FEU has a negative predictive value of >98.5%, and a sensitivity of >96.5% and a specificity of >38.8%. Reference: Emily M, et al. ADRIANA 2014 311:1117 and Van Jane N, et al. [facility] Int [facility] 2016 165:253. 05/18/2021 6,570 (H) <500 ng/mL FEU Final Comment: 500 ng/mL FEU is the D Dimer cutoff to exclude DVT (deep vein thrombosis) and PE (pulmonary embolism) in patients with a low pre test probability. Supplemental Comment: In patients over 50 years with a low pre test probability for DVT and/or PE, an age adjusted D dimer cutoff can be calculated as [age x 10] ng/mL FEU. For example, a patient of 88 years would have an age adjusted D dimer cutoff of 880 ng/mL FEU. For patients with a suspected DVT, a D dimer level below 500 ng/mL FEU has a negative predictive value of >98.9%, a sensitivity of >96.9% and a specificity of >35.7%. For patients with a suspected PE, a D dimer level below 500 ng/mL FEU has a negative predictive value of >98.5%, and a sensitivity of >96.5% and a specificity of >38.8%. Reference: Emily M, et al. ADRIANA 2014 311:1117 and Van Jane N, et al. [facility] Int [facility] 2016 165:253. Result rechecked. Sample checked for a clot. D Dimer Date Value Ref Range Status 10/23/2023 1,010 (H) <500 ng/mL FEU Final Thrombosis Labs: d Dimer Date Value Ref Range Status 05/22/2021 860 (H) <500 ng/mL FEU Final Comment: 500 ng/mL FEU is the D Dimer cutoff to exclude DVT (deep vein thrombosis) and PE (pulmonary embolism) in patients with a low pre test probability. Supplemental Comment: In patients over 50 years with a low pre test probability for DVT and/or PE, an age adjusted D dimer cutoff can be calculated as [age x 10] ng/mL FEU. For example, a patient of 88 years would have an age adjusted D dimer cutoff of 880 ng/mL FEU. For patients with a suspected DVT, a D dimer level below 500 ng/mL FEU has a negative predictive value of >98.9%, a sensitivity of >96.9% and a specificity of >35.7%. For patients with a suspected PE, a D dimer level below 500 ng/mL FEU has a negative predictive value of >98.5%, and a sensitivity of >96.5% and a specificity of >38.8%. Reference: Emily M, et al. ADRIANA 2014 311:1117 and Lucio Singh et al. [facility] Int [facility] 2016 165:253. 05/18/2021 6,570 (H) <500 ng/mL FEU Final Comment: 500 ng/mL FEU is the D Dimer cutoff to exclude DVT (deep vein thrombosis) and PE (pulmonary embolism) in patients with a low pre test probability. Supplemental Comment: In patients over 50 years with a low pre test probability for DVT and/or PE, an age adjusted D dimer cutoff can be calculated as [age x 10] ng/mL FEU. For example, a patient of 88 years would have an age adjusted D dimer cutoff of 880 ng/mL FEU. For patients with a suspected DVT, a D dimer level below 500 ng/mL FEU has a negative predictive value of >98.9%, a sensitivity of >96.9% and a specificity of >35.7%. For patients with a suspected PE, a D dimer level below 500 ng/mL FEU has a negative predictive value of >98.5%, and a sensitivity of >96.5% and a specificity of >38.8%. Reference: Emily Castellon, et al. ADRIANA 2013 311:1117 and Lucio Singh et al. [facility] Int [facility] 2016 165:253. Result rechecked. Sample checked for a clot. D Dimer Date Value Ref Range Status 10/23/2023 1,010 (H) <500 ng/mL FEU Final Anemia Labs: No results found for: ANKUR , FE , SAT , COPPER , B12 , FOLATE , METHYLMAL , HPYA , INTFABINTL , TSH , FREET4 , SMEARINTL , EPOIEINTL , HBA12R , HGBEVAL , HGBELECINTL Hemolysis/TMA Labs: Retic % Date Value Ref Range Status 10/23/2023 13.8 (H) 0.4 - 2.0 % Final Comment: Results checked and verified.No clot detected. 12/11/2021 1.8 0.4 - 2.0 % Final 10/29/2021 2.8 (H) 0.4 - 2.0 % Final d Dimer Date Value Ref Range Status 05/22/2021 860 (H) <500 ng/mL FEU Final Comment: 500 ng/mL FEU is the D Dimer cutoff to exclude DVT (deep vein thrombosis) and PE (pulmonary embolism) in patients with a low pre test probability. Supplemental Comment: In patients over 50 years with a low pre test probability for DVT and/or PE, an age adjusted D dimer cutoff can be calculated as [age x 10] ng/mL FEU. For example, a patient of 88 years would have an age adjusted D dimer cutoff of 880 ng/mL FEU. For patients with a suspected DVT, a D dimer level below 500 ng/mL FEU has a negative predictive value of >98.9%, a sensitivity of >96.9% and a specificity of >35.7%. For patients with a suspected PE, a D dimer level below 500 ng/mL FEU has a negative predictive value of >98.5%, and a sensitivity of >96.5% and a specificity of >38.8%. Reference: Emily Castellon, et al. ADRIANA 2014 311:1117 and Van Jane N, et al. Paz Int Med 2016 165:253. 05/18/2021 6,570 (H) <500 ng/mL FEU Final Comment: 500 ng/mL FEU is the D Dimer cutoff to exclude DVT (deep vein thrombosis) and PE (pulmonary embolism) in patients with a low pre test probability. Supplemental Comment: In patients over 50 years with a low pre test probability for DVT and/or PE, an age adjusted D dimer cutoff can be calculated as [age x 10] ng/mL FEU. For example, a patient of 88 years would have an age adjusted D dimer cutoff of 880 ng/mL FEU. For patients with a suspected DVT, a D dimer level below 500 ng/mL FEU has a negative predictive value of >98.9%, a sensitivity of >96.9% and a specificity of >35.7%. For patients with a suspected PE, a D dimer level below 500 ng/mL FEU has a negative predictive value of >98.5%, and a sensitivity of >96.5% and a specificity of >38.8%. Reference: Emily M, et al. ADRIANA 2014 311:1117 and Van Jane N, et al. Paz Int Med 2016 165:253. Result rechecked. Sample checked for a clot. D Dimer Date Value Ref Range Status 10/23/2023 1,010 (H) <500 ng/mL FEU Final Neutropenia Labs: No results found for: FOLATE , B12 , CUONG , HIV , HEPCAB , HEPATI , EBVDQ , CMVQT , PARVOV , COPPER , MYMRES , MYPRES Thrombocytopenia Labs: No results found for: PF4COM , SERHEP , PLTCO , PLTAS , PLA1AG , HIV , EBVDQ Monoclonal Gammopathy Labs: Hemoglobin Date Value Ref Range Status 01/14/2025 14.7 13.0 - 17.0 g/dL Final 01/07/2025 14.5 13.0 - 17.0 g/dL Final 12/31/2024 14.7 13.0 - 17.0 g/dL Final Creatinine Date Value Ref Range Status 01/14/2025 0.82 0.73 - 1.22 mg/dL Final 01/07/2025 0.73 0.73 - 1.22 mg/dL Final 12/31/2024 0.76 0.73 - 1.22 mg/dL Final Calcium, Total Date Value Ref Range Status 01/14/2025 9.6 8.5 - 10.2 mg/dL Final 01/07/2025 9.4 8.5 - 10.2 mg/dL Final 12/31/2024 9.7 8.5 - 10.2 mg/dL Final MPN Labs: No results found for: JAK2SP , JAK2E , JAK2I , CALRM , MPLMU , MPNFMR , MPNRES , MPNMRS BM BIOPSY: N/A IMAGING DATA: N/A ASSESSMENT/RECOMMENDATIONS: Kwaku Nichols III is a 34 year old male with past medical history pertinent for tobacco use disorder and TTP. #Thrombotic Thrombocytopenic Purpura, Relapsed: Initial TTP occurrence on 05/18/21. Responded to steroids+PLEX and completed 30 days of Cablivi at that time. Relapse occurred on 10/23/23 and again responded well to PLEX. He is now on 60 mg of prednisone and completing the 30-days of Cablivi. -We discussed at length the reasoning to use Rituxan 375 mg/m2 weekly x 4 weeks to prolong remission of TTP and to provide a steroid sparing immune suppression option. He is hesitant to use Rituxan due to the prolonged affect on his immune system. We discussed that although this could affect how he responds to vaccines, it has the best chance at prolonging his disease from relapse. -ADAMTS activity from 11/19/24 was 27%--He began a course of Prednisone 80 mg with taper on 10/27/24. He has since weaned off prednisone and completed a course of 4 weekly doses of Rituxan 12/16-01/07/25. -He is not interested in participating in the TTP registry -Continue to monitor labs closely, CBC, haptoglobin, CMP and ADAMTS panel monthly RTC 4 months The patient's questions were answered. Total time 30 minutes, this included time preparing for the visit by reviewing the patient's chart and the time spent during the visit counseling and coordinating care. Lizette Krishna DO Staff Physician, [facility] cell: [phone] [facility] [address] [facility], [address] [address] [place] [address] Additional intake questions: Has the patient had fever, nausea, vomiting, diarrhea, constipation, fatigue for > 1 week? No Does the patient have a decreased appetite? No Does patient want to see a Pvc Monitor? No (yes to any of above refer patient to schedulers for dietitian appointment) ) Does patient have any new or increased numbness or tingling of extremities? No Is patient interested in fertility information? No Does patient need any prescription refills? No Does patient have an advanced directive in place? no documented in this encounter [facility] 01-28-2025 Note [facility] 01-28-2025 Note [facility] 12-17-2024 Note [facility] 12-17-2024 History of Presen t illness Narrative [facility] Hematology Oncology & Blood Disorders Established Patient Visit Note (Elements copied from the notes of other providers, have been reviewed and updated where appropriate, and all reflect current assessment and medical decision making during today's encounter, 12/17/2024.) PATIENT NAME: Kwaku Nichols III DATE OF SERVICE: December 17, 2024 REASON FOR VISIT: TTP HISTORY OF THE PRESENT ILLNESS: Kwaku Nichols III is a 34 year old male who presents for follow up of TTP. He has a past medical history pertinent for tobacco use disorder and TTP. Initial TTP occurrence on 05/18/21. Responded to steroids+PLEX and completed 30 days of Cablivi at that time. Relapse occurred on 10/23/23 and again responded well to PLEX. He saw Dr. Krishna in 08/2024. At that time he had early evidence of disease relapse. His [id number] activity was 36%. He was started on a course of prednisone 20 mg daily for 2 weeks then 10 mg for 1 week. [id number] activity was 27 on 11/19/2024. He saw Dr. Krishna on 12/09/2024 to discuss treatment with Rituximab to prolong TTP remission. He declined to participate in the TTP Registry. [id number] activity improved to 32 on 12/03/2024. He starts course of Rituximab 375 mg/m2 weekly times 4 weeks today. He says he is doing well. PAST MEDICAL HISTORY: PAST MEDICAL HISTORY Diagnosis Date Abnormal laboratory test 04/2021 PAST SURGICAL HISTORY: PAST SURGICAL HISTORY Procedure Laterality Date REMOVAL GALLBLADDER 04/2021 TONSILLECTOMY HX CURRENT MEDICATIONS: sulfamethoxazole-trimethoprim (BACTRIM DS) 800-160 mg per tablet Take 1 tablet by mouth every Friday, Friday, and Friday. (Patient not taking: Reported on 04/16/2024) pantoprazole DR (PROTONIX) 40 mg tablet Take 1 tablet by mouth once daily. (Patient not taking: Reported on 04/16/2024) ALLERGIES: ALLERGIES No Known Allergies FAMILY HISTORY: FAMILY HISTORY Problem Relation Age of Onset Heart Attack Maternal Grandfather Cancer Paternal Grandfather Leukemia Maternal Aunt Cancer Maternal Aunt Lung Cancer Maternal Uncle Prostate Cancer Maternal Uncle SOCIAL HISTORY: Social History Tobacco Use Smoking status: Former Current packs/day: 1.50 Types: Cigarettes Passive exposure: Past Smokeless tobacco: Former Vaping Use Vaping status: current everyday user Substances: Nicotine Devices: Disposable Substance Use Topics Alcohol use: Yes REVIEW OF SYSTEMS REVIEW OF SYSTEMS GENERAL: No weight loss, malaise or fevers RESPIRATORY: Negative for cough, hemoptysis, wheezing, shortness of breath CARDIOVASCULAR: Negative for chest pain, leg swelling, or palpitations MUSCULOSKELETAL: Negative for joint pain or swelling, back pain or muscle pain SKIN: Negative for lesions, rash, and itching PSYCH: Negative for sleep disturbance, mood disorder and recent psychosocial stressors NEURO: Negative for lightheadedness or dizziness Ten systems reviewed and negative except for those recorded in the HPI. PHYSICAL EXAMINATION: BP 129/89 Pulse 60 Temp 36.5 C (97.7 F) (Temporal) Resp 20 Wt 133.7 kg (294 lb 12.1 oz) SpO2 100% BMI 38.89 kg/m Gen: well-nourished, well-developed 34 year old male in no acute distress who is alert and cooperative throughout the interview HEENT: normocephalic, atraumatic, PERRL, EOMI, pharynx clear with pink mucosa and no lesions Nodes: cervical, supraclavicular, axillary and inguinal nodes non-palpable Lungs: CTA without adventitial breath sounds Heart: RRR without murmurs, gallops or rubs Abdomen: soft, non-tender without masses. No palpable HSM, BS normal Musculoskeletal: no significant joint deformities Skin: no rashes, bruising or petechiae Extremities: non-cyanotic; no edema Neuro: CN II-XII grossly intact Psych: mood and affect normal Laboratory: Latest Ref Rn 12/17/2024 WBC 3.70 - 11.00 k/uL 8.10 RBC 4.20 - 6.00 m/uL 4.76 Hemoglobin 13.0 - 17.0 g/dL 14.5 Hematocrit 39.0 - 51.0 % 42.4 MCV 80.0 - 100.0 fL 89.1 MCH 26.0 - 34.0 pg 30.5 MCHC 30.5 - 36.0 g/dL 34.2 RDW-CV 11.5 - 15.0 % 12.7 Platelet Count 150 - 400 k/uL 274 MPV 9.0 - 12.7 fL 9.3 Neut% % 40.6 Abs Neut (ANC) 1.45 - 7.50 k/uL 3.28 Lymph% % 43.2 Abs Lymph 1.00 - 4.00 k/uL 3.50 Clare% % 9.0 Abs Clare <0.87 k/uL 0.73 Eosin% % 5.8 Abs Eosin <0.46 k/uL 0.47 (H) Baso% % 1.2 Abs Baso <0.11 k/uL 0.10 Immature Gran % % 0.2 IMMATURE GRANS (ABS) <0.10 k/uL <0.03 NRBC /100 WBC 0.0 Absolute nRBC <0.01 k/uL <0.01 DTYPE Auto Assessment and Plan: Kwaku Nichols III is a 34 year old male who presents for follow up of TTP. He has a past medical history pertinent for tobacco use disorder and TTP. Initial TTP occurrence on 05/18/21. Responded to steroids+PLEX and completed 30 days of Cablivi at that time. Relapse occurred on 10/23/23 and again responded well to PLEX. He saw Dr. Krishna in 08/2024. At that time he had early evidence of disease relapse. His [id number] activity was 36%. He was started on a course of prednisone 20 mg daily for 2 weeks then 10 mg for 1 week. [id number] activity was 27 on 11/19/2024. He saw Dr. Krishna on 12/09/2024 to discuss treatment with Rituximab to prolong TTP remission. He declined to participate in the TTP Registry. [id number] activity improved to 32 on 12/03/2024. -Rituximab 375 mg/m2 weekly times 4 weeks. -CBC, haptoglobin, CMP and ADAMTS panel once a week. -Follow up with Dr. Krishna in 5 weeks. The patient's questions were answered to satisfaction. I spent a total of 15 minutes on the date of the service which included preparing to see the patient, [id number] patient care, completing clinical documentation, obtaining and/or reviewing separately obtained history, performing a medically appropriate examination, counseling and educating the patient/family/caregiver, and ordering medications, tests, or procedures. Eliza Montoya APRN.[facility] Department of Benign Hematology CC: [place] [id number] [facility] [id number] Additional intake questions: Has the patient had fever, nausea, vomiting, diarrhea, constipation, fatigue for > 1 week? No Does the patient have a decreased appetite? No Does patient want to see a Pvc Monitor? No (yes to any of above refer patient to schedulers for dietitian appointment) ) Does patient have any new or increased numbness or tingling of extremities? No Is patient interested in fertility information? No Does patient need any prescription refills? No Does patient have an advanced directive in place? No, Patient refused referral to Social Work or Resource Center documented in this encounter [facility] 12-17-2024 Note [facility] 12-09-2024 History of Presen t illness Narrative Images from the original note were not included. Hematologic Oncology and Blood Disorders PATIENT NAME: Kwaku Nichols III DATE OF : 1990 ATTENDING STAFF: Lizette Krishna DO DATE OF SERVICE: December 09, 2024 REASON FOR VISIT: Scheduled follow up for relapsed TTP INTERVAL HISTORY: Kwaku returns today for scheduled follow up via virtual visit with his , kayley Jin. He was last seen on September 21, 2024 via virtual visit with me. Since that visit he again had early evidence of his disease starting to relapse with a decline in [id number] activity. He was started back on prednisone 80 mg with taper on 10/30/23. He is here today to discuss Rituxan. HISTORY OF PRESENT ILLNESS: This patient was seen initially as a hospital consult by the hematology service. History was obtained from the patient and from review of the patient s old medical records. Kwaku Nichols III is a 34 year old male with past medical history pertinent for tobacco use disorder and TTP. Initial TTP occurrence on 05/18/21. Responded to steroids+PLEX and completed 30 days of Cablivi at that time. Relapse occurred on 10/23/23 and again responded well to PLEX. REVIEW OF SYSTEMS: Review of Systems Constitutional: Negative for appetite change, diaphoresis, fatigue, fever and unexpected weight change. Respiratory: Negative for cough and shortness of breath. Cardiovascular: Negative for leg swelling. Gastrointestinal: Negative for abdominal pain, constipation, diarrhea and nausea. Musculoskeletal: Negative for arthralgias and back pain. Skin: Negative for rash. Neurological: Positive for headaches. Negative for dizziness and light-headedness. Psychiatric/Behavioral: Negative for confusion and decreased concentration. The patient is not nervous/anxious. The remainder of the review of systems is negative. ALLERGIES: ALLERGIES No Known Allergies MEDICATIONS: Medications were reviewed and updated. Current Outpatient Medications on File Prior to Visit Medication Sig nicotine polacrilex (NICORETTE) 2 mg gum Take 2 Each by mouth every 2 hours as needed. predniSONE (DELTASONE) 10 mg tablet Take 8 tablets by mouth once daily for 3 days, THEN 7 tablets once daily for 7 days, THEN 6 tablets once daily for 7 days, THEN 5 tablets once daily for 7 days, THEN 4 tablets once daily for 7 days, THEN 3 tablets once daily for 7 days, THEN 2 tablets once daily for 7 days, THEN 1 tablet once daily for 7 days. Patient should start on October 30, 2023. sulfamethoxazole-trimethoprim (BACTRIM DS) 800-160 mg per tablet Take 1 tablet by mouth every Friday, Friday, and Friday. pantoprazole DR (PROTONIX) 40 mg tablet Take 1 tablet by mouth once daily. caplacizumab-yhdp (CABLIVI) 11 mg injection Inject 11 mg subcutaneously every 24 hours. Add diluent as directed. Swirl, but do NOT shake. Refrigerate. No current facility-administered medications on file prior to visit. PREFERRED PHARMACY: [facility]/pharmacy #[id number] [place] [address] - [address] [facility] - [phone] [facility] [address] [facility] [address] [facility] [id number] [facility] [address] [facility] [address] [place] [id number] PAST MEDICAL HISTORY Diagnosis Date Abnormal laboratory test 04/2021 PAST SURGICAL HISTORY Procedure Laterality Date REMOVAL GALLBLADDER 04/2021 TONSILLECTOMY HX FAMILY HISTORY Problem Relation Age of Onset Heart Attack Maternal Grandfather Cancer Paternal Grandfather Leukemia Maternal Aunt Cancer Maternal Aunt Lung Cancer Maternal Uncle Prostate Cancer Maternal Uncle Social History Tobacco Use Smoking status: Former Current packs/day: 1.50 Types: Cigarettes Passive exposure: Past Smokeless tobacco: Former Vaping Use Vaping status: current everyday user Substances: Nicotine Devices: Disposable Substance Use Topics Alcohol use: Yes PHYSICAL EXAM: 12/09/24 1430 BP: 132/93 Pulse: 76 Resp: 15 Temp: 36.1 C (97 F) TempSrc: Temporal SpO2: 99% Weight: 133.6 kg (294 lb 8.6 oz) Height: 185.4 cm (6' 1 ) Physical Exam Constitutional: Appearance: Normal appearance. He is obese. HENT: Head: Normocephalic and atraumatic. Eyes: Extraocular Movements: Extraocular movements intact. Conjunctiva/sclera: Conjunctivae normal. Cardiovascular: Pulses: Normal pulses. Pulmonary: Effort: Pulmonary effort is normal. Musculoskeletal: Right lower leg: No edema. Left lower leg: No edema. Skin: General: Skin is warm and dry. Coloration: Skin is not jaundiced or pale. Findings: No bruising or rash. Neurological: General: No focal deficit present. Mental Status: He is alert and oriented to person, place, and time. Mental status is at baseline. Psychiatric: Mood and Affect: Mood normal. Behavior: Behavior normal. Thought Content: Thought content normal. Judgment: Judgment normal. DATA REVIEW: I personally reviewed the patient s labs and medical record at [facility]. LAB DATA: Basic Labs: Hemoglobin Date Value Ref Range Status 12/09/2024 15.1 13.0 - 17.0 g/dL Final 12/03/2024 14.6 13.0 - 17.0 g/dL Final 11/19/2024 14.7 13.0 - 17.0 g/dL Final 10/29/2024 14.7 13.0 - 17.0 g/dL Final 10/08/2024 14.3 13.0 - 17.0 g/dL Final Hematocrit Date Value Ref Range Status 12/09/2024 45.0 39.0 - 51.0 % Final 12/03/2024 43.4 39.0 - 51.0 % Final 11/19/2024 44.6 39.0 - 51.0 % Final 10/29/2024 44.7 39.0 - 51.0 % Final 10/08/2024 44.1 39.0 - 51.0 % Final MCV Date Value Ref Range Status 12/09/2024 91.5 80.0 - 100.0 fL Final 12/03/2024 90.8 80.0 - 100.0 fL Final 11/19/2024 93.3 80.0 - 100.0 fL Final 10/29/2024 93.3 80.0 - 100.0 fL Final 10/08/2024 94.2 80.0 - 100.0 fL Final Retic % Date Value Ref Range Status 10/23/2023 13.8 (H) 0.4 - 2.0 % Final Comment: Results checked and verified.No clot detected. 12/11/2021 1.8 0.4 - 2.0 % Final 10/29/2021 2.8 (H) 0.4 - 2.0 % Final 09/03/2021 1.4 0.4 - 2.0 % Final 07/06/2021 1.4 0.4 - 2.0 % Final WBC Date Value Ref Range Status 12/09/2024 9.65 3.70 - 11.00 k/uL Final 12/03/2024 9.90 3.70 - 11.00 k/uL Final 11/19/2024 9.37 3.70 - 11.00 k/uL Final 10/29/2024 10.07 3.70 - 11.00 k/uL Final 10/08/2024 8.92 3.70 - 11.00 k/uL Final Abs Neut Date Value Ref Range Status 12/09/2024 4.52 1.45 - 7.50 k/uL Final 12/03/2024 5.44 1.45 - 7.50 k/uL Final 11/19/2024 4.07 1.45 - 7.50 k/uL Final 10/29/2024 4.44 1.45 - 7.50 k/uL Final 10/08/2024 5.29 1.45 - 7.50 k/uL Final Platelet Count Date Value Ref Range Status 12/09/2024 288 150 - 400 k/uL Final 12/03/2024 310 150 - 400 k/uL Final 11/19/2024 302 150 - 400 k/uL Final 10/29/2024 314 150 - 400 k/uL Final 10/08/2024 297 150 - 400 k/uL Final Creatinine Date Value Ref Range Status 12/09/2024 0.89 0.73 - 1.22 mg/dL Final 12/03/2024 0.87 0.73 - 1.22 mg/dL Final 11/19/2024 0.94 0.73 - 1.22 mg/dL Final 10/08/2024 0.89 0.73 - 1.22 mg/dL Final 09/17/2024 1.07 0.73 - 1.22 mg/dL Final BUN Date Value Ref Range Status 12/09/2024 13 9 - 24 mg/dL Final 12/03/2024 12 9 - 24 mg/dL Final 11/19/2024 14 9 - 24 mg/dL Final 10/08/2024 13 9 - 24 mg/dL Final 09/17/2024 12 9 - 24 mg/dL Final AST Date Value Ref Range Status 12/09/2024 38 14 - 40 U/L Final 12/03/2024 39 14 - 40 U/L Final 11/19/2024 54 (H) 14 - 40 U/L Final 10/08/2024 44 (H) 14 - 40 U/L Final 09/17/2024 20 14 - 40 U/L Final ALT Date Value Ref Range Status 12/09/2024 94 (H) 10 - 54 U/L Final 12/03/2024 106 (H) 10 - 54 U/L Final 11/19/2024 124 (H) 10 - 54 U/L Final 10/08/2024 142 (H) 10 - 54 U/L Final 09/17/2024 81 (H) 10 - 54 U/L Final Hemostasis Labs: PT INR Date Value Ref Range Status 05/21/2021 1.1 0.9 - 1.3 Final Comment: Vitamin K Antagonist (VKA) Therapeutic Range: INR 2 to 3 (Target INR of 2.5) Note: For patients treated with VKA drugs, such as warfarin, the [place] [employer] 2012 Guideline recommends a therapeutic INR range of 2 to 3 (target INR of 2.5). This recommendation includes high-risk patients with antiphospholipid syndrome with previous arterial or venous thromboembolism, current-generation mechanical or bioprosthetic aortic heart valve replacement. Note: Patients with mechanical aortic valve replacement and additional risk factors for thromboembolic events (atrial fibrillation, previous thromboembolism, LV dysfunction, hypercoagulable conditions) or an older generation mechanical AVR (i.e., ball in-Cage) or any mechanical MVR should have a INR therapeutic range of 2.5 to 3.5 (target INR of 3). Wilfredo LAMBERT et maninder. Chest 2012, 141:7S-47S Gallo SAUNDERS et al. [facility] 2017, 70: 252-289 05/19/2021 1.1 0.9 - 1.3 Final Comment: Vitamin K Antagonist (VKA) Therapeutic Range: INR 2 to 3 (Target INR of 2.5) Note: For patients treated with VKA drugs, such as warfarin, the [place] [employer] 2012 Guideline recommends a therapeutic INR range of 2 to 3 (target INR of 2.5). This recommendation includes high-risk patients with antiphospholipid syndrome with previous arterial or venous thromboembolism, current-generation mechanical or bioprosthetic aortic heart valve replacement. Note: Patients with mechanical aortic valve replacement and additional risk factors for thromboembolic events (atrial fibrillation, previous thromboembolism, LV dysfunction, hypercoagulable conditions) or an older generation mechanical AVR (i.e., ball in-Cage) or any mechanical MVR should have a INR therapeutic range of 2.5 to 3.5 (target INR of 3). Wilfredo LAMBERT et maninder. Chest 2012, 141:7S-47S Gallo SAUNDERS et al. [facility] 2017, 70: 252-289 INR Date Value Ref Range Status 10/23/2023 1.0 0.9 - 1.3 Final Comment: Vitamin K Antagonist (VKA) Therapeutic Range: INR 2 to 3 (Target INR of 2.5) Note: For patients treated with VKA drugs, such as warfarin, the [place] [employer] 2012 Guideline recommends a therapeutic INR range of 2 to 3 (target INR of 2.5). This recommendation includes high-risk patients with antiphospholipid syndrome with previous arterial or venous thromboembolism, current-generation mechanical or bioprosthetic aortic heart valve replacement. Note: Patients with mechanical aortic valve replacement and additional risk factors for thromboembolic events (atrial fibrillation, previous thromboembolism, LV dysfunction, hypercoagulable conditions) or an older generation mechanical AVR (i.e., ball in-Cage) or any mechanical MVR should have a INR therapeutic range of 2.5 to 3.5 (target INR of 3). Wilfredo GH, et al. Chest 2012, 141:7S-47S Gallo RA, et al. [facility] 2017, 70: 252-289 APTT Date Value Ref Range Status 10/23/2023 26.9 23.0 - 32.4 sec Final 05/24/2021 24.0 23.0 - 32.4 sec Final Comment: Unfractionated Heparin Therapeutic Ranges: Standard Heparin Nomogram: 53 to 78 seconds (anti-Xa level of 0.3 to 0.7 U/ml) Low Dose/ACS Nomogram: 49 to 67 seconds (anti-Xa level of 0.2 to 0.5 U/ml) Stroke Treatment Nomogram: 49 to 67 seconds (anti-Xa level of 0.2 to 0.5 U/ml) Note: The APTT therapeutic range has been determined for the current lot of laboratory APTT reagent in use throughout the [facility]. 05/23/2021 23.4 23.0 - 32.4 sec Final Comment: Unfractionated Heparin Therapeutic Ranges: Standard Heparin Nomogram: 53 to 78 seconds (anti-Xa level of 0.3 to 0.7 U/ml) Low Dose/ACS Nomogram: 49 to 67 seconds (anti-Xa level of 0.2 to 0.5 U/ml) Stroke Treatment Nomogram: 49 to 67 seconds (anti-Xa level of 0.2 to 0.5 U/ml) Note: The APTT therapeutic range has been determined for the current lot of laboratory APTT reagent in use throughout the [facility]. d Dimer Date Value Ref Range Status 05/22/2021 860 (H) <500 ng/mL FEU Final Comment: 500 ng/mL FEU is the D Dimer cutoff to exclude DVT (deep vein thrombosis) and PE (pulmonary embolism) in patients with a low pre test probability. Supplemental Comment: In patients over 50 years with a low pre test probability for DVT and/or PE, an age adjusted D dimer cutoff can be calculated as [age x 10] ng/mL FEU. For example, a patient of 88 years would have an age adjusted D dimer cutoff of 880 ng/mL FEU. For patients with a suspected DVT, a D dimer level below 500 ng/mL FEU has a negative predictive value of >98.9%, a sensitivity of >96.9% and a specificity of >35.7%. For patients with a suspected PE, a D dimer level below 500 ng/mL FEU has a negative predictive value of >98.5%, and a sensitivity of >96.5% and a specificity of >38.8%. Reference: Emily M, et al. ADRIANA 2014 311:1117 and Lucio Singh et al. Paz Int Med 2016 165:253. 05/18/2021 6,570 (H) <500 ng/mL FEU Final Comment: 500 ng/mL FEU is the D Dimer cutoff to exclude DVT (deep vein thrombosis) and PE (pulmonary embolism) in patients with a low pre test probability. Supplemental Comment: In patients over 50 years with a low pre test probability for DVT and/or PE, an age adjusted D dimer cutoff can be calculated as [age x 10] ng/mL FEU. For example, a patient of 88 years would have an age adjusted D dimer cutoff of 880 ng/mL FEU. For patients with a suspected DVT, a D dimer level below 500 ng/mL FEU has a negative predictive value of >98.9%, a sensitivity of >96.9% and a specificity of >35.7%. For patients with a suspected PE, a D dimer level below 500 ng/mL FEU has a negative predictive value of >98.5%, and a sensitivity of >96.5% and a specificity of >38.8%. Reference: Emily M, et al. ADRIANA 2014 [id number] and Lucio Lara N, et al. Paz Int Med 2016 165:253. Result rechecked. Sample checked for a clot. D Dimer Date Value Ref Range Status 10/23/2023 1,010 (H) <500 ng/mL FEU Final Thrombosis Labs: d Dimer Date Value Ref Range Status 05/22/2021 860 (H) <500 ng/mL FEU Final Comment: 500 ng/mL FEU is the D Dimer cutoff to exclude DVT (deep vein thrombosis) and PE (pulmonary embolism) in patients with a low pre test probability. Supplemental Comment: In patients over 50 years with a low pre test probability for DVT and/or PE, an age adjusted D dimer cutoff can be calculated as [age x 10] ng/mL FEU. For example, a patient of 88 years would have an age adjusted D dimer cutoff of 880 ng/mL FEU. For patients with a suspected DVT, a D dimer level below 500 ng/mL FEU has a negative predictive value of >98.9%, a sensitivity of >96.9% and a specificity of >35.7%. For patients with a suspected PE, a D dimer level below 500 ng/mL FEU has a negative predictive value of >98.5%, and a sensitivity of >96.5% and a specificity of >38.8%. Reference: Emily M, et al. ADRIANA 2014 [id number] and Van Jane N, et al. Paz Int Med 2016 165:253. 05/18/2021 6,570 (H) <500 ng/mL FEU Final Comment: 500 ng/mL FEU is the D Dimer cutoff to exclude DVT (deep vein thrombosis) and PE (pulmonary embolism) in patients with a low pre test probability. Supplemental Comment: In patients over 50 years with a low pre test probability for DVT and/or PE, an age adjusted D dimer cutoff can be calculated as [age x 10] ng/mL FEU. For example, a patient of 88 years would have an age adjusted D dimer cutoff of 880 ng/mL FEU. For patients with a suspected DVT, a D dimer level below 500 ng/mL FEU has a negative predictive value of >98.9%, a sensitivity of >96.9% and a specificity of >35.7%. For patients with a suspected PE, a D dimer level below 500 ng/mL FEU has a negative predictive value of >98.5%, and a sensitivity of >96.5% and a specificity of >38.8%. Reference: Emily M, et al. ADRIANA 2014 [id number] and Lucio Lara N, et al. Paz Int Med 2016 165:253. Result rechecked. Sample checked for a clot. D Dimer Date Value Ref Range Status 10/23/2023 1,010 (H) <500 ng/mL FEU Final Anemia Labs: No results found for: ANKUR , FE , SAT , COPPER , B12 , FOLATE , METHYLMAL , HPYA , INTFABINTL , TSH , FREET4 , SMEARINTL , EPOIEINTL , HBA12R , HGBEVAL , HGBELECINTL Hemolysis/TMA Labs: Retic % Date Value Ref Range Status 10/23/2023 13.8 (H) 0.4 - 2.0 % Final Comment: Results checked and verified.No clot detected. 12/11/2021 1.8 0.4 - 2.0 % Final 10/29/2021 2.8 (H) 0.4 - 2.0 % Final d Dimer Date Value Ref Range Status 05/22/2021 860 (H) <500 ng/mL FEU Final Comment: 500 ng/mL FEU is the D Dimer cutoff to exclude DVT (deep vein thrombosis) and PE (pulmonary embolism) in patients with a low pre test probability. Supplemental Comment: In patients over 50 years with a low pre test probability for DVT and/or PE, an age adjusted D dimer cutoff can be calculated as [age x 10] ng/mL FEU. For example, a patient of 88 years would have an age adjusted D dimer cutoff of 880 ng/mL FEU. For patients with a suspected DVT, a D dimer level below 500 ng/mL FEU has a negative predictive value of >98.9%, a sensitivity of >96.9% and a specificity of >35.7%. For patients with a suspected PE, a D dimer level below 500 ng/mL FEU has a negative predictive value of >98.5%, and a sensitivity of >96.5% and a specificity of >38.8%. Reference: Emily M, et al. ADRIANA 2014 [id number] and Van Jane N, et al. Paz Int Med 2016 165:253. 05/18/2021 6,570 (H) <500 ng/mL FEU Final Comment: 500 ng/mL FEU is the D Dimer cutoff to exclude DVT (deep vein thrombosis) and PE (pulmonary embolism) in patients with a low pre test probability. Supplemental Comment: In patients over 50 years with a low pre test probability for DVT and/or PE, an age adjusted D dimer cutoff can be calculated as [age x 10] ng/mL FEU. For example, a patient of 88 years would have an age adjusted D dimer cutoff of 880 ng/mL FEU. For patients with a suspected DVT, a D dimer level below 500 ng/mL FEU has a negative predictive value of >98.9%, a sensitivity of >96.9% and a specificity of >35.7%. For patients with a suspected PE, a D dimer level below 500 ng/mL FEU has a negative predictive value of >98.5%, and a sensitivity of >96.5% and a specificity of >38.8%. Reference: Emily M, et al. ADRIANA 2014 [id number] and Lucio Lara N, et al. Paz Int Med 2016 165:253. Result rechecked. Sample checked for a clot. D Dimer Date Value Ref Range Status 10/23/2023 1,010 (H) <500 ng/mL FEU Final Neutropenia Labs: No results found for: FOLATE , B12 , CUONG , HIV , HEPCAB , HEPATI , EBVDQ , CMVQT , PARVOV , COPPER , MYMRES , MYPRES Thrombocytopenia Labs: No results found for: PF4COM , SERHEP , PLTCO , PLTAS , PLA1AG , HIV , EBVDQ Monoclonal Gammopathy Labs: Hemoglobin Date Value Ref Range Status 12/09/2024 15.1 13.0 - 17.0 g/dL Final 12/03/2024 14.6 13.0 - 17.0 g/dL Final 11/19/2024 14.7 13.0 - 17.0 g/dL Final Creatinine Date Value Ref Range Status 12/09/2024 0.89 0.73 - 1.22 mg/dL Final 12/03/2024 0.87 0.73 - 1.22 mg/dL Final 11/19/2024 0.94 0.73 - 1.22 mg/dL Final Calcium, Total Date Value Ref Range Status 12/09/2024 10.0 8.5 - 10.2 mg/dL Final 12/03/2024 10.4 (H) 8.5 - 10.2 mg/dL Final 11/19/2024 10.2 8.5 - 10.2 mg/dL Final MPN Labs: No results found for: JAK2SP , JAK2E , JAK2I , CALRM , MPLMU , MPNFMR , MPNRES , MPNMRS BM BIOPSY: N/A IMAGING DATA: N/A ASSESSMENT/RECOMMENDATIONS: Kwaku Nichols III is a 34 year old male with past medical history pertinent for tobacco use disorder and TTP. #Thrombotic Thrombocytopenic Purpura, Relapsed: Initial TTP occurrence on 05/18/21. Responded to steroids+PLEX and completed 30 days of Cablivi at that time. Relapse occurred on 10/23/23 and again responded well to PLEX. He is now on 60 mg of prednisone and completing the 30-days of Cablivi. -We discussed at length the reasoning to use Rituxan 375 mg/m2 weekly x 4 weeks to prolong remission of TTP and to provide a steroid sparing immune suppression option. He is hesitant to use Rituxan due to the prolonged affect on his immune system. We discussed that although this could affect how he responds to vaccines, it has the best chance at prolonging his disease from relapse. -As his disease has shown early signs of relapse twice in the past 6 months, we are discussing Rituxan today. He is agreeable to the plan but is worried about getting it covered as his insurance is very limited -His most recent ADAMTS activity from 11/19/24 is 27%--He began a course of Prednisone 80 mg with taper on 10/27/24 -He is not interested in participating in the TTP registry -Continue to monitor labs closely, CBC, haptoglobin, CMP and ADAMTS panel monthly, while on steroids we will monitor the ADAMTS panel and CBC every two weeks RTC ~6 weeks The patient's questions were answered. Total time 40 minutes, this included time preparing for the visit by reviewing the patient's chart and the time spent during the visit counseling and coordinating care. Lizette Krishna DO Staff Physician, [facility] cell: [phone] [facility] [address] [place] [address] [facility] [address] [place] [address] Additional intake questions: Has the patient had fever, nausea, vomiting, diarrhea, constipation, fatigue for > 1 week? No Does the patient have a decreased appetite? No Does patient want to see a Pvc Monitor? No (yes to any of above refer patient to schedulers for dietitian appointment) ) Does patient have any new or increased numbness or tingling of extremities? No Is patient interested in fertility information? No Does patient need any prescription refills? No Does patient have an advanced directive in place? no documented in this encounter [facility] 12-09-2024 Note [facility] 12-09-2024 Note [facility] 09-21-2024 History of Presen t illness Narrative Images from the original note were not included. [facility] This is a video encounter initiated for an established patient, parent or guardian not originating from a related Evaluation & Management service provided within the previous 7 days nor leading to an Evaluation & Management service or procedure within the next 24 hours or soonest available appointment. Kwaku has consented to this video encounter. PATIENT NAME: Kwaku Nichols III DATE OF : 1990 ATTENDING STAFF: Lizette Krishna DO DATE OF SERVICE: September 21, 2024 REASON FOR VISIT: Scheduled follow up for relapsed TTP INTERVAL HISTORY: Kwaku returns today for scheduled follow up via virtual visit with his , kaylye Jin. He was last seen on June 24, 2024 via virtual visit with MAGALY Hall. He had two upper respiratory infections since that visit. One right around Arleen and another with a fever last week. He feels well now. He gets occasional headaches, but this has been a chronic issue for him. He picked up the prednisone script that I sent and started the 20 mg yesterday evening. He has been getting his labs once a month and got the repeat labs I requested yesterday and will monitor the labs every two weeks while on steroids. HISTORY OF PRESENT ILLNESS: This patient was seen initially as a hospital consult by the hematology service. History was obtained from the patient and from review of the patient s old medical records. Kwaku Nichols III is a 34 year old male with past medical history pertinent for tobacco use disorder and TTP. Initial TTP occurrence on 05/18/21. Responded to steroids+PLEX and completed 30 days of Cablivi at that time. Relapse occurred on 10/23/23 and again responded well to PLEX. REVIEW OF SYSTEMS: Review of Systems Constitutional: Negative for appetite change, diaphoresis, fatigue, fever and unexpected weight change. Respiratory: Negative for cough and shortness of breath. Cardiovascular: Negative for leg swelling. Gastrointestinal: Negative for abdominal pain, constipation, diarrhea and nausea. Musculoskeletal: Negative for arthralgias and back pain. Skin: Negative for rash. Neurological: Positive for headaches. Negative for dizziness and light-headedness. Psychiatric/Behavioral: Negative for confusion and decreased concentration. The patient is not nervous/anxious. The remainder of the review of systems is negative. ALLERGIES: ALLERGIES No Known Allergies MEDICATIONS: Medications were reviewed and updated. Current Outpatient Medications on File Prior to Visit Medication Sig nicotine polacrilex (NICORETTE) 2 mg gum Take 2 Each by mouth every 2 hours as needed. predniSONE (DELTASONE) 10 mg tablet Take 8 tablets by mouth once daily for 3 days, THEN 7 tablets once daily for 7 days, THEN 6 tablets once daily for 7 days, THEN 5 tablets once daily for 7 days, THEN 4 tablets once daily for 7 days, THEN 3 tablets once daily for 7 days, THEN 2 tablets once daily for 7 days, THEN 1 tablet once daily for 7 days. Patient should start on October 30, 2023. sulfamethoxazole-trimethoprim (BACTRIM DS) 800-160 mg per tablet Take 1 tablet by mouth every Friday, Friday, and Friday. pantoprazole DR (PROTONIX) 40 mg tablet Take 1 tablet by mouth once daily. caplacizumab-yhdp (CABLIVI) 11 mg injection Inject 11 mg subcutaneously every 24 hours. Add diluent as directed. Swirl, but do NOT shake. Refrigerate. No current facility-administered medications on file prior to visit. PREFERRED PHARMACY: [facility]/pharmacy #[id number] [place] [address] [address] [facility] [phone] [place] [id number] [facility] [address] [place] [id number] [facility] [address] [facility] [address] [address] [facility] [address] PAST MEDICAL HISTORY Diagnosis Date Abnormal laboratory test 04/2021 PAST SURGICAL HISTORY Procedure Laterality Date REMOVAL GALLBLADDER 04/2021 TONSILLECTOMY HX FAMILY HISTORY Problem Relation Age of Onset Heart Attack Maternal Grandfather Cancer Paternal Grandfather Leukemia Maternal Aunt Cancer Maternal Aunt Lung Cancer Maternal Uncle Prostate Cancer Maternal Uncle Social History Tobacco Use Smoking status: Former Current packs/day: 1.50 Types: Cigarettes Passive exposure: Past Smokeless tobacco: Former Vaping Use Vaping status: current everyday user Substances: Nicotine Devices: Disposable Substance Use Topics Alcohol use: Yes PHYSICAL EXAM: There were no vitals filed for this visit. Physical Exam Constitutional: Appearance: Normal appearance. He is obese. HENT: Head: Normocephalic and atraumatic. Eyes: Extraocular Movements: Extraocular movements intact. Conjunctiva/sclera: Conjunctivae normal. Cardiovascular: Pulses: Normal pulses. Pulmonary: Effort: Pulmonary effort is normal. Musculoskeletal: Right lower leg: No edema. Left lower leg: No edema. Skin: General: Skin is warm and dry. Coloration: Skin is not jaundiced or pale. Findings: No bruising or rash. Neurological: General: No focal deficit present. Mental Status: He is alert and oriented to person, place, and time. Mental status is at baseline. Psychiatric: Mood and Affect: Mood normal. Behavior: Behavior normal. Thought Content: Thought content normal. Judgment: Judgment normal. DATA REVIEW: I personally reviewed the patient s labs and medical record at [facility]. LAB DATA: Basic Labs: Hemoglobin Date Value Ref Range Status 09/17/2024 15.5 13.0 - 17.0 g/dL Final 07/05/2024 14.7 13.0 - 17.0 g/dL Final 06/21/2024 15.5 13.0 - 17.0 g/dL Final 06/04/2024 15.6 13.0 - 17.0 g/dL Final 05/19/2024 14.9 13.0 - 17.0 g/dL Final Hematocrit Date Value Ref Range Status 09/17/2024 45.9 39.0 - 51.0 % Final 07/05/2024 43.2 39.0 - 51.0 % Final 06/21/2024 44.8 39.0 - 51.0 % Final 06/04/2024 46.2 39.0 - 51.0 % Final 05/19/2024 42.9 39.0 - 51.0 % Final MCV Date Value Ref Range Status 09/17/2024 91.1 80.0 - 100.0 fL Final 07/05/2024 91.5 80.0 - 100.0 fL Final 06/21/2024 90.3 80.0 - 100.0 fL Final 06/04/2024 91.5 80.0 - 100.0 fL Final 05/19/2024 90.1 80.0 - 100.0 fL Final Retic % Date Value Ref Range Status 10/23/2023 13.8 (H) 0.4 - 2.0 % Final Comment: Results checked and verified.No clot detected. 12/11/2021 1.8 0.4 - 2.0 % Final 10/29/2021 2.8 (H) 0.4 - 2.0 % Final 09/03/2021 1.4 0.4 - 2.0 % Final 07/06/2021 1.4 0.4 - 2.0 % Final WBC Date Value Ref Range Status 09/17/2024 10.46 3.70 - 11.00 k/uL Final 07/05/2024 15.97 (H) 3.70 - 11.00 k/uL Final 06/21/2024 12.04 (H) 3.70 - 11.00 k/uL Final 06/04/2024 9.82 3.70 - 11.00 k/uL Final 05/19/2024 8.19 3.70 - 11.00 k/uL Final Abs Neut Date Value Ref Range Status 09/17/2024 6.75 1.45 - 7.50 k/uL Final 07/05/2024 10.52 (H) 1.45 - 7.50 k/uL Final 06/21/2024 6.50 1.45 - 7.50 k/uL Final 06/04/2024 5.86 1.45 - 7.50 k/uL Final 05/19/2024 3.79 1.45 - 7.50 k/uL Final Platelet Count Date Value Ref Range Status 09/17/2024 246 150 - 400 k/uL Final 07/05/2024 335 150 - 400 k/uL Final 06/21/2024 297 150 - 400 k/uL Final 06/04/2024 281 150 - 400 k/uL Final 05/19/2024 288 150 - 400 k/uL Final Creatinine Date Value Ref Range Status 09/17/2024 1.07 0.73 - 1.22 mg/dL Final 07/20/2024 0.85 0.73 - 1.22 mg/dL Final 07/05/2024 0.83 0.73 - 1.22 mg/dL Final 06/21/2024 0.95 0.73 - 1.22 mg/dL Final 06/04/2024 0.95 0.73 - 1.22 mg/dL Final BUN Date Value Ref Range Status 09/17/2024 12 9 - 24 mg/dL Final 07/20/2024 17 9 - 24 mg/dL Final 07/05/2024 21 9 - 24 mg/dL Final 06/21/2024 13 9 - 24 mg/dL Final 06/04/2024 13 9 - 24 mg/dL Final AST Date Value Ref Range Status 09/17/2024 20 14 - 40 U/L Final 07/20/2024 23 14 - 40 U/L Final 07/05/2024 25 14 - 40 U/L Final 06/21/2024 27 14 - 40 U/L Final 06/04/2024 33 14 - 40 U/L Final ALT Date Value Ref Range Status 09/17/2024 81 (H) 10 - 54 U/L Final 07/20/2024 67 (H) 10 - 54 U/L Final 07/05/2024 72 (H) 10 - 54 U/L Final 06/21/2024 75 (H) 10 - 54 U/L Final 06/04/2024 92 (H) 10 - 54 U/L Final Hemostasis Labs: PT INR Date Value Ref Range Status 05/21/2021 1.1 0.9 - 1.3 Final Comment: Vitamin K Antagonist (VKA) Therapeutic Range: INR 2 to 3 (Target INR of 2.5) Note: For patients treated with VKA drugs, such as warfarin, the [employer] 2012 Guideline recommends a therapeutic INR range of 2 to 3 (target INR of 2.5). This recommendation includes high-risk patients with antiphospholipid syndrome with previous arterial or venous thromboembolism, current-generation mechanical or bioprosthetic aortic heart valve replacement. Note: Patients with mechanical aortic valve replacement and additional risk factors for thromboembolic events (atrial fibrillation, previous thromboembolism, LV dysfunction, hypercoagulable conditions) or an older generation mechanical AVR (i.e., ball in-Cage) or any mechanical MVR should have a INR therapeutic range of 2.5 to 3.5 (target INR of 3). Wilfredo LAMBERT et maninder. Chest 2012, 141:7S-47S Gallo SAUNDERS, et al. [facility] 2017, 70: 252-289 05/19/2021 1.1 0.9 - 1.3 Final Comment: Vitamin K Antagonist (VKA) Therapeutic Range: INR 2 to 3 (Target INR of 2.5) Note: For patients treated with VKA drugs, such as warfarin, the [employer] 2012 Guideline recommends a therapeutic INR range of 2 to 3 (target INR of 2.5). This recommendation includes high-risk patients with antiphospholipid syndrome with previous arterial or venous thromboembolism, current-generation mechanical or bioprosthetic aortic heart valve replacement. Note: Patients with mechanical aortic valve replacement and additional risk factors for thromboembolic events (atrial fibrillation, previous thromboembolism, LV dysfunction, hypercoagulable conditions) or an older generation mechanical AVR (i.e., ball in-Cage) or any mechanical MVR should have a INR therapeutic range of 2.5 to 3.5 (target INR of 3). Wilfredo LAMBERT et al. Chest 2012, 141:7S-47S Gallo SAUNDERS et al. [facility] 2017, 70: 252-289 INR Date Value Ref Range Status 10/23/2023 1.0 0.9 - 1.3 Final Comment: Vitamin K Antagonist (VKA) Therapeutic Range: INR 2 to 3 (Target INR of 2.5) Note: For patients treated with VKA drugs, such as warfarin, the [employer] [employer] 2012 Guideline recommends a therapeutic INR range of 2 to 3 (target INR of 2.5). This recommendation includes high-risk patients with antiphospholipid syndrome with previous arterial or venous thromboembolism, current-generation mechanical or bioprosthetic aortic heart valve replacement. Note: Patients with mechanical aortic valve replacement and additional risk factors for thromboembolic events (atrial fibrillation, previous thromboembolism, LV dysfunction, hypercoagulable conditions) or an older generation mechanical AVR (i.e., ball in-Cage) or any mechanical MVR should have a INR therapeutic range of 2.5 to 3.5 (target INR of 3). Wilfredo GH, et al. Chest 2012, 141:7S-47S Gallo RA, et al. [facility] 2017, 70: 252-289 APTT Date Value Ref Range Status 10/23/2023 26.9 23.0 - 32.4 sec Final 05/24/2021 24.0 23.0 - 32.4 sec Final Comment: Unfractionated Heparin Therapeutic Ranges: Standard Heparin Nomogram: 53 to 78 seconds (anti-Xa level of 0.3 to 0.7 U/ml) Low Dose/ACS Nomogram: 49 to 67 seconds (anti-Xa level of 0.2 to 0.5 U/ml) Stroke Treatment Nomogram: 49 to 67 seconds (anti-Xa level of 0.2 to 0.5 U/ml) Note: The APTT therapeutic range has been determined for the current lot of laboratory APTT reagent in use throughout the [facility]. 05/23/2021 23.4 23.0 - 32.4 sec Final Comment: Unfractionated Heparin Therapeutic Ranges: Standard Heparin Nomogram: 53 to 78 seconds (anti-Xa level of 0.3 to 0.7 U/ml) Low Dose/ACS Nomogram: 49 to 67 seconds (anti-Xa level of 0.2 to 0.5 U/ml) Stroke Treatment Nomogram: 49 to 67 seconds (anti-Xa level of 0.2 to 0.5 U/ml) Note: The APTT therapeutic range has been determined for the current lot of laboratory APTT reagent in use throughout the [facility]. d Dimer Date Value Ref Range Status 05/22/2021 860 (H) <500 ng/mL FEU Final Comment: 500 ng/mL FEU is the D Dimer cutoff to exclude DVT (deep vein thrombosis) and PE (pulmonary embolism) in patients with a low pre test probability. Supplemental Comment: In patients over 50 years with a low pre test probability for DVT and/or PE, an age adjusted D dimer cutoff can be calculated as [age x 10] ng/mL FEU. For example, a patient of 88 years would have an age adjusted D dimer cutoff of 880 ng/mL FEU. For patients with a suspected DVT, a D dimer level below 500 ng/mL FEU has a negative predictive value of >98.9%, a sensitivity of >96.9% and a specificity of >35.7%. For patients with a suspected PE, a D dimer level below 500 ng/mL FEU has a negative predictive value of >98.5%, and a sensitivity of >96.5% and a specificity of >38.8%. Reference: Emily M, et al. ADRIANA 2014 [id number] and Van Jane N, et al. Paz Int Med 2016 165:253. 05/18/2021 6,570 (H) <500 ng/mL FEU Final Comment: 500 ng/mL FEU is the D Dimer cutoff to exclude DVT (deep vein thrombosis) and PE (pulmonary embolism) in patients with a low pre test probability. Supplemental Comment: In patients over 50 years with a low pre test probability for DVT and/or PE, an age adjusted D dimer cutoff can be calculated as [age x 10] ng/mL FEU. For example, a patient of 88 years would have an age adjusted D dimer cutoff of 880 ng/mL FEU. For patients with a suspected DVT, a D dimer level below 500 ng/mL FEU has a negative predictive value of >98.9%, a sensitivity of >96.9% and a specificity of >35.7%. For patients with a suspected PE, a D dimer level below 500 ng/mL FEU has a negative predictive value of >98.5%, and a sensitivity of >96.5% and a specificity of >38.8%. Reference: Emily M, et al. ADRIANA 2014 [id number] and Van Jane N, et al. Paz Int Med 2016 165:253. Result rechecked. Sample checked for a clot. D Dimer Date Value Ref Range Status 10/23/2023 1,010 (H) <500 ng/mL FEU Final Thrombosis Labs: d Dimer Date Value Ref Range Status 05/22/2021 860 (H) <500 ng/mL FEU Final Comment: 500 ng/mL FEU is the D Dimer cutoff to exclude DVT (deep vein thrombosis) and PE (pulmonary embolism) in patients with a low pre test probability. Supplemental Comment: In patients over 50 years with a low pre test probability for DVT and/or PE, an age adjusted D dimer cutoff can be calculated as [age x 10] ng/mL FEU. For example, a patient of 88 years would have an age adjusted D dimer cutoff of 880 ng/mL FEU. For patients with a suspected DVT, a D dimer level below 500 ng/mL FEU has a negative predictive value of >98.9%, a sensitivity of >96.9% and a specificity of >35.7%. For patients with a suspected PE, a D dimer level below 500 ng/mL FEU has a negative predictive value of >98.5%, and a sensitivity of >96.5% and a specificity of >38.8%. Reference: Emily Castellon, et al. ADRIANA 2014 [id number] and Van Jane N, et al. Paz Int Med 2016 165:253. 05/18/2021 6,570 (H) <500 ng/mL FEU Final Comment: 500 ng/mL FEU is the D Dimer cutoff to exclude DVT (deep vein thrombosis) and PE (pulmonary embolism) in patients with a low pre test probability. Supplemental Comment: In patients over 50 years with a low pre test probability for DVT and/or PE, an age adjusted D dimer cutoff can be calculated as [age x 10] ng/mL FEU. For example, a patient of 88 years would have an age adjusted D dimer cutoff of 880 ng/mL FEU. For patients with a suspected DVT, a D dimer level below 500 ng/mL FEU has a negative predictive value of >98.9%, a sensitivity of >96.9% and a specificity of >35.7%. For patients with a suspected PE, a D dimer level below 500 ng/mL FEU has a negative predictive value of >98.5%, and a sensitivity of >96.5% and a specificity of >38.8%. Reference: Righini M, et al. ADRIANA 2014 311:1117 and Lucio Singh et al. Paz Int Med 2016 165:253. Result rechecked. Sample checked for a clot. D Dimer Date Value Ref Range Status 10/23/2023 1,010 (H) <500 ng/mL FEU Final Anemia Labs: No results found for: ANKUR , FE , SAT , COPPER , B12 , FOLATE , METHYLMAL , HPYA , INTFABINTL , TSH , FREET4 , SMEARINTL , EPOIEINTL , HBA12R , HGBEVAL , HGBELECINTL Hemolysis/TMA Labs: Retic % Date Value Ref Range Status 10/23/2023 13.8 (H) 0.4 - 2.0 % Final Comment: Results checked and verified.No clot detected. 12/11/2021 1.8 0.4 - 2.0 % Final 10/29/2021 2.8 (H) 0.4 - 2.0 % Final d Dimer Date Value Ref Range Status 05/22/2021 860 (H) <500 ng/mL FEU Final Comment: 500 ng/mL FEU is the D Dimer cutoff to exclude DVT (deep vein thrombosis) and PE (pulmonary embolism) in patients with a low pre test probability. Supplemental Comment: In patients over 50 years with a low pre test probability for DVT and/or PE, an age adjusted D dimer cutoff can be calculated as [age x 10] ng/mL FEU. For example, a patient of 88 years would have an age adjusted D dimer cutoff of 880 ng/mL FEU. For patients with a suspected DVT, a D dimer level below 500 ng/mL FEU has a negative predictive value of >98.9%, a sensitivity of >96.9% and a specificity of >35.7%. For patients with a suspected PE, a D dimer level below 500 ng/mL FEU has a negative predictive value of >98.5%, and a sensitivity of >96.5% and a specificity of >38.8%. Reference: Emily Castellon, umesh al. ADRIANA 2014 311:1117 and Lucio Singh et al. Paz Int Med 2016 165:253. 05/18/2021 6,570 (H) <500 ng/mL FEU Final Comment: 500 ng/mL FEU is the D Dimer cutoff to exclude DVT (deep vein thrombosis) and PE (pulmonary embolism) in patients with a low pre test probability. Supplemental Comment: In patients over 50 years with a low pre test probability for DVT and/or PE, an age adjusted D dimer cutoff can be calculated as [age x 10] ng/mL FEU. For example, a patient of 88 years would have an age adjusted D dimer cutoff of 880 ng/mL FEU. For patients with a suspected DVT, a D dimer level below 500 ng/mL FEU has a negative predictive value of >98.9%, a sensitivity of >96.9% and a specificity of >35.7%. For patients with a suspected PE, a D dimer level below 500 ng/mL FEU has a negative predictive value of >98.5%, and a sensitivity of >96.5% and a specificity of >38.8%. Reference: Emily M, et al. ADRIANA 2014 311:1117 and Lucio Lara N, et al. Paz Int Med 2016 165:253. Result rechecked. Sample checked for a clot. D Dimer Date Value Ref Range Status 10/23/2023 1,010 (H) <500 ng/mL FEU Final Neutropenia Labs: No results found for: FOLATE , B12 , CUONG , HIV , HEPCAB , HEPATI , EBVDQ , CMVQT , PARVOV , COPPER , MYMRES , MYPRES Thrombocytopenia Labs: No results found for: PF4COM , SERHEP , PLTCO , PLTAS , PLA1AG , HIV , EBVDQ Monoclonal Gammopathy Labs: Hemoglobin Date Value Ref Range Status 09/17/2024 15.5 13.0 - 17.0 g/dL Final 07/05/2024 14.7 13.0 - 17.0 g/dL Final 06/21/2024 15.5 13.0 - 17.0 g/dL Final Creatinine Date Value Ref Range Status 09/17/2024 1.07 0.73 - 1.22 mg/dL Final 07/20/2024 0.85 0.73 - 1.22 mg/dL Final 07/05/2024 0.83 0.73 - 1.22 mg/dL Final Calcium, Total Date Value Ref Range Status 09/17/2024 9.7 8.5 - 10.2 mg/dL Final 07/20/2024 9.3 8.5 - 10.2 mg/dL Final 07/05/2024 10.1 8.5 - 10.2 mg/dL Final MPN Labs: No results found for: JAK2SP , JAK2E , JAK2I , CALRM , MPLMU , MPNFMR , MPNRES , MPNMRS BM BIOPSY: N/A IMAGING DATA: N/A ASSESSMENT/RECOMMENDATIONS: Kwaku Nichols III is a 34 year old male with past medical history pertinent for tobacco use disorder and TTP. #Thrombotic Thrombocytopenic Purpura, Relapsed: Initial TTP occurrence on 05/18/21. Responded to steroids+PLEX and completed 30 days of Cablivi at that time. Relapse occurred on 10/23/23 and again responded well to PLEX. He is now on 60 mg of prednisone and completing the 30-days of Cablivi. -We discussed at length the reasoning to use Rituxan 375 mg/m2 weekly x 4 weeks to prolong remission of TTP and to provide a steroid sparing immune suppression option. He is hesitant to use Rituxan due to the prolonged affect on his immune system. We discussed that although this could affect how he responds to viral illness it has the best chance at prolonging his disease from relapse. -If his disease is showing early signs of relapse he prefers to be placed back on a course of steroids and further discuss with his family my recommendation to use Rituxan -His most recent ADAMTS activity from 09/17/24 is 36%--He began a course of Prednisone 20 mg x 2 weeks--> 10 mg x 1 week -He is not interested in participating in the TTP registry -Continue to monitor labs closely, CBC, haptoglobin, CMP and ADAMTS panel monthly, while on steroids we will monitor the ADAMTS panel and CBC every two weeks RTC 12/20/24 in person to discuss Rituxan The patient's questions were answered. Total time 30 minutes, this included time preparing for the visit by reviewing the patient's chart and the time spent during the visit counseling and coordinating care. Lizette Krishna DO Staff Physician, [facility] cell: [phone] [facility] [address] [place] [address] [facility] [address] [place] [address] documented in this encounter [facility] 09-21-2024 Note [facility] 09-20-2024 Telephone encounter Note Called and spoke with pt and he's at work right now, but was able to talk briefly. I'll send him a [employer] message with more info as well. Reviewed his [id number] level has decreased to 36%, but no inhibitor was reported (sent a message to pathologist Dr. Damon), but his plts are [place] 246K. Dr. Krishna would like him to start back on Prednisone 20 mg daily x 2 weeks, then 10 mg x 1 week He is out of prednisone, so will pend script [facility] his [facility] now. Dr. Krishna wanted him to recheck CBC and [id number] Eval panel, but he works from 7-3pm and the closest [facility] lab is 30 minutes from him ([place]) and they take their last lab pt at 3:45pm so he likely can't make it. Trish Magana RN September 20, 2024 11:39 AM [facility] 09-20-2024 Miscellaneous Notes Called and spoke with pt and he's at work right now, but was able to talk briefly. I'll send him a [employer] message with more info as well. Reviewed his [id number] level has decreased to 36%, but no inhibitor was reported (sent a message to pathologist Dr. Damon), but his plts are normal at 246K. Dr. Krishna would like him to start back on Prednisone 20 mg daily x 2 weeks, then 10 mg x 1 week He is out of prednisone, so will pend script to his [facility] now. Dr. Krishna wanted him to recheck CBC and [id number] Eval panel, but he works from 7-3pm and the closest [facility] lab is 30 minutes from him ([place]) and they take their last lab pt at 3:45pm so he likely can't make it. Trish Magana RN September 20, 2024 11:39 AM documented in this encounter [facility] 09-20-2024 Telephone encounter Note OPENED IN ERROR Trish Magana RN September 20, 2024 11:42 AM [facility] 09-20-2024 Miscellaneous Notes OPENED IN ERROR Trish Magana RN September 20, 2024 11:42 AM documented in this encounter [facility] 06-24-2024 History of Presen t illness Narrative [facility] Hematology Oncology & Blood Disorders Established Patient Visit Note This visit is a Virtual MyChart video encounter which required patient-provider interaction for the medical decision making as documented below. Persons Present: patient Kwaku Nichols III consented to this distance health encounter. I have communicated my name and active licensure. The patient's identity and physical location were verified at the time of this visit. Either the patient or their legal maintenance representative has been informed of the risks and benefits of -- and alternatives to -- treatment through a remote evaluation and consents to proceed with the evaluation remotely. (Elements copied from Dr. Krishna note dated 04/16/24, have been reviewed and updated where appropriate, and all reflect current assessment and medical decision making during today's encounter, 06/24/2024.) PATIENT NAME: Kwaku Nichols III DATE OF SERVICE: June 24, 2024 REASON FOR VISIT: Scheduled Follow Up for relapsed TTP Interval History: Kwaku returns today for scheduled follow up. He was last seen on April 16, 2024. He has been taking 10 mg of prednisone daily since 05/20/24. He feels well and denies any complaints. He denies bruising, active signs of bleeding, fever, or symptoms of infection. HISTORY OF PRESENT ILLNESS: This patient was seen initially as a hospital consult by the hematology service. History was obtained from the patient and from review of the patient s old medical records. Kwaku Nichols III is a 33 year old male with past medical history pertinent for tobacco use disorder and TTP. Initial TTP occurrence on 05/18/21. Responded to steroids+PLEX and completed 30 days of Cablivi at that time. Relapse occurred on 10/23/23 and again responded well to PLEX. PAST MEDICAL HISTORY: PAST MEDICAL HISTORY Diagnosis Date Abnormal laboratory test 04/2021 PAST SURGICAL HISTORY: PAST SURGICAL HISTORY Procedure Laterality Date REMOVAL GALLBLADDER 04/2021 TONSILLECTOMY HX CURRENT MEDICATIONS: predniSONE (DELTASONE) 10 mg tablet Take 1 tablet by mouth once daily. nicotine polacrilex (NICORETTE) 2 mg gum Take 2 Each by mouth every 2 hours as needed. (Patient not taking: Reported on 04/16/2024) sulfamethoxazole-trimethoprim (BACTRIM DS) 800-160 mg per tablet Take 1 tablet by mouth every Friday, Friday, and Friday. (Patient not taking: Reported on 04/16/2024) pantoprazole DR (PROTONIX) 40 mg tablet Take 1 tablet by mouth once daily. (Patient not taking: Reported on 04/16/2024) ALLERGIES: ALLERGIES No Known Allergies FAMILY HISTORY: FAMILY HISTORY Problem Relation Age of Onset Heart Attack Maternal Grandfather Cancer Paternal Grandfather Leukemia Maternal Aunt Cancer Maternal Aunt Lung Cancer Maternal Uncle Prostate Cancer Maternal Uncle SOCIAL HISTORY: Social History Tobacco Use Smoking status: Former Current packs/day: 1.50 Types: Cigarettes Passive exposure: Past Smokeless tobacco: Former Vaping Use Vaping status: current everyday user Substances: Nicotine Devices: Disposable Substance Use Topics Alcohol use: Yes REVIEW OF SYSTEMS Ten systems reviewed and negative except for those recorded in the HPI. PHYSICAL EXAMINATION: virtual visit, vitals unable to be taken Gen: well-nourished, well-developed male in no acute distress who is alert and cooperative throughout the interview Resp: Breathing even and unlabored Psych: mood and affect normal Laboratory:I have personally reviewed the patients labs and reviewed them with the patient Latest Ref Rng 03/02/2024 05/19/2024 06/04/2024 06/21/2024 WBC 3.70 - 11.00 k/uL 8.87 8.19 9.82 12.04 (H) RBC 4.20 - 6.00 m/uL 4.56 4.76 5.05 4.96 Hemoglobin 13.0 - 17.0 g/dL 13.7 14.9 15.6 15.5 Hematocrit 39.0 - 51.0 % 41.5 42.9 46.2 44.8 MCV 80.0 - 100.0 fL 91.0 90.1 91.5 90.3 MCH 26.0 - 34.0 pg 30.0 31.3 30.9 31.3 MCHC 30.5 - 36.0 g/dL 33.0 34.7 33.8 34.6 RDW-CV 11.5 - 15.0 % 13.5 12.3 12.6 12.7 Platelet Count 150 - 400 k/uL 287 288 281 297 MPV 9.0 - 12.7 fL 9.1 9.2 8.9 (L) 8.8 (L) Neut% % 48.5 46.2 59.7 53.9 Abs Neut (ANC) 1.45 - 7.50 k/uL 4.30 3.79 5.86 6.50 Lymph% % 39.5 42.5 27.4 36.0 Abs Lymph 1.00 - 4.00 k/uL 3.50 3.48 2.69 4.33 (H) Clare% % 7.9 6.5 7.8 6.7 Abs Clare <0.87 k/uL 0.70 0.53 0.77 0.81 Eosin% % 2.8 3.3 3.6 2.1 Abs Eosin <0.46 k/uL 0.25 0.27 0.35 0.25 Baso% % 1.0 1.0 0.9 0.6 Abs Baso <0.11 k/uL 0.09 0.08 0.09 0.07 Immature Gran % % 0.3 0.5 0.6 0.7 IMMATURE GRANS (ABS) <0.10 k/uL 0.03 0.04 0.06 0.08 NRBC /100 WBC 0.0 0.0 0.0 0.0 Absolute nRBC <0.01 k/uL <0.01 <0.01 <0.01 <0.01 DTYPE Auto Auto Auto Auto Protein, Total 6.3 - 8.0 g/dL 7.1 7.7 Albumin 3.9 - 4.9 g/dL 4.4 4.6 Calcium 8.5 - 10.2 mg/dL 10.4 (H) 10.1 9.6 9.9 Bilirubin, Total 0.2 - 1.3 mg/dL 0.4 0.4 Alkaline Phosphatase 38 - 113 U/L 97 99 AST 14 - 40 U/L 33 27 ALT 10 - 54 U/L 92 (H) 75 (H) Glucose 74 - 99 mg/dL 95 109 (H) 153 (H) 92 BUN 9 - 24 mg/dL 14 16 13 13 Creatinine 0.73 - 1.22 mg/dL 1.22 0.97 0.95 0.95 Sodium 136 - 144 mmol/L 143 138 139 137 Potassium 3.7 - 5.1 mmol/L 4.7 4.4 4.8 4.5 Chloride 98 - 107 mmol/L 106 105 102 100 CO2 22 - 30 mmol/L 27 23 27 27 Anion Gap 8 - 15 mmol/L 10 10 10 10 eGFR >=60 mL/min/1.73m 79 104 106 106 [id number] Activity >67 % 69 50 (L) 66 (L) 40 (L) (P) [id number] Inhibitor <=0.4 [place] units 0.5 (H) 0.6 (H) <0.4 0.7 (H) (P) [id number] Interp Abnormal - see comment below. Abnormal - see comment below. Abnormal - see comment below. Abnormal - see comment below. [id number] Path Rev Reviewed by Angelica Glynn DO, MPH Reviewed by Claudia Dumont M.D., Ph.D Reviewed by Aminata Osuna MD Reviewed by Claudia Dumont M.D., Ph.D Haptoglobin 31 - 238 mg/dL 126 143 157 LD 135 - 225 U/L 202 191 Assessment and Plan: Kwaku Nichols III is a 33 year old male with past medical history pertinent for tobacco use disorder and TTP. #Thrombotic Thrombocytopenic Purpura, Relapsed: Initial TTP occurrence on 05/18/21. Responded to steroids+PLEX and completed 30 days of Cablivi at that time. Relapse occurred on 10/23/23 and again responded well to PLEX. He has completed 60 mg of prednisone and completed the 30-days of Cablivi. He has been taking 10 mg of prednisone since 05/20/24. Most recent lab work shows decreased [id number] with and [id number] inhibitor is detected. No evidence of hemolysis, platelet count is normal, bilirubin and kidney function is normal. Current lab work is indicating early signs of relapse. -Start Prednisone 40 mg x 1 week, 30 mg x 1 week, 20 mg x 1 week, 10 mg x 1 week -Recommend Rituxan 375 mg/m2 weekly x 4 weeks-at this time he is not interested- we discussed at length the importance of Rituxan to prolong remission of TTP and to provide a steroid sparing immune suppression option. Continues to be hesitant due to the prolonged affects on his immune system, especially entering flu season. We discussed that although this could affect the immune system, this is the best chance at prolonging his disease from full relapse. His disease is going to continue to try and relapse. Encouraged him to discuss with his family the recommendation to use Rituxan. If he changes his mind prior to follow up, instructed him to contact the office. -He is not interested in participating in the TTP registry -Discussed red flag symptoms when to present to ER for evaluation -Continue to monitor labs closely, CBC, haptoglobin, CMP and ADAMTS panel every other week RTC 4 weeks or sooner based on labs The patient's questions were answered to satisfaction. He is agreeable to plan of care. He is aware to contact the office if symptoms worsen prior to scheduled follow up. Total time of this visit, including time spent [id number] with the patient and/or via video/audio, and also in preparing for today's visit for medical decision making, documentation, and discussion with providers involved with the care of the patient was 30 minutes. Greater than 50% of total time was spent in counseling and/or coordination of care. Juani Hall APRN.[facility] of [facility]ology 06/24/2024 CC: Marta Krishna [address] [facility] [address] documented in this encounter [facility] 06-24-2024 Note [facility] 05-20-2024 Telephone encounter Note spoke with patient and informed him that DR. krishna would like him to start prednisone 20mg x 2weeks and then 10mg for 2weeks, lab draw every 2 weeks x 6 weeks, and to consider Ritaxan. Patient stated understanding and that he would consider the Rituxan. Cydney Gray RN May 20, 2024 3:54 PM [facility] 05-20-2024 Miscellaneous Notes spoke with patient and informed him that DR. krishna would like him to start prednisone 20mg x 2weeks and then 10mg for 2weeks, lab draw every 2 weeks x 6 weeks, and to consider Ritaxan. Patient stated understanding and that he would consider the Rituxan. Cydney Gray RN May 20, 2024 3:54 PM documented in this encounter [facility] 04-16-2024 History of Presen t illness Narrative Images from the original note were not included. Hematologic Oncology [facility] Disorders PATIENT NAME: Kwaku Nichols III DATE OF : 1990 ATTENDING STAFF: Lizette Krihsna DO DATE OF SERVICE: April 16, 2024 REASON FOR VISIT: Scheduled follow up for relapsed TTP INTERVAL HISTORY: Kwaku returns alone today for scheduled follow up. He was last seen on December 26, 2023. He has felt well since then. He gets occasional headaches, but this has been a chronic issue for him. He continues to get labs once a month. HISTORY OF PRESENT ILLNESS: This patient was seen initially as a hospital consult by the hematology service. History was obtained from the patient and from review of the patient s old medical records. Kwaku Nichols III is a 33 year old male with past medical history pertinent for tobacco use disorder and TTP. Initial TTP occurrence on 05/18/21. Responded to steroids+PLEX and completed 30 days of Cablivi at that time. Relapse occurred on 10/23/23 and again responded well to PLEX. REVIEW OF SYSTEMS: Review of Systems Constitutional: Negative for appetite change, diaphoresis, fatigue, fever and unexpected weight change. Respiratory: Negative for cough and shortness of breath. Cardiovascular: Negative for leg swelling. Gastrointestinal: Negative for abdominal pain, constipation, diarrhea and nausea. Musculoskeletal: Negative for arthralgias and back pain. Skin: Negative for rash. Neurological: Positive for headaches. Negative for dizziness and light-headedness. Psychiatric/Behavioral: Negative for confusion and decreased concentration. The patient is not nervous/anxious. The remainder of the review of systems is negative. ALLERGIES: ALLERGIES No Known Allergies MEDICATIONS: Medications were reviewed and updated. Current Outpatient Medications on File Prior to Visit Medication Sig nicotine polacrilex (NICORETTE) 2 mg gum Take 2 Each by mouth every 2 hours as needed. predniSONE (DELTASONE) 10 mg tablet Take 8 tablets by mouth once daily for 3 days, THEN 7 tablets once daily for 7 days, THEN 6 tablets once daily for 7 days, THEN 5 tablets once daily for 7 days, THEN 4 tablets once daily for 7 days, THEN 3 tablets once daily for 7 days, THEN 2 tablets once daily for 7 days, THEN 1 tablet once daily for 7 days. Patient should start on October 30, 2023. sulfamethoxazole-trimethoprim (BACTRIM DS) 800-160 mg per tablet Take 1 tablet by mouth every Friday, Friday, and Friday. pantoprazole DR (PROTONIX) 40 mg tablet Take 1 tablet by mouth once daily. caplacizumab-yhdp (CABLIVI) 11 mg injection Inject 11 mg subcutaneously every 24 hours. Add diluent as directed. Swirl, but do NOT shake. Refrigerate. No current facility-administered medications on file prior to visit. PREFERRED PHARMACY: e- [facility]/pharmacy #[id number] [place] [address] - [address] [facility] - [phone] [facility] [address] [facility] [address] [facility] [id number] [place] [id number] [facility] [address] [place] [address] PAST MEDICAL HISTORY 04/2021: Abnormal laboratory test PAST SURGICAL HISTORY 04/2021: REMOVAL GALLBLADDER No date: TONSILLECTOMY HX FAMILY HISTORY Problem Relation Age of Onset Heart Attack Maternal Grandfather Cancer Paternal Grandfather Leukemia Maternal Aunt Cancer Maternal Aunt Lung Cancer Maternal Uncle Prostate Cancer Maternal Uncle Social History Tobacco Use Smoking status: Former Current packs/day: 1.50 Types: Cigarettes Passive exposure: Past Smokeless tobacco: Former Vaping Use Vaping status: current everyday user Substances: Nicotine Devices: Disposable Substance Use Topics Alcohol use: Yes PHYSICAL EXAM: 04/16/24 0755 BP: 139/85 Pulse: 80 Resp: 20 Temp: 36 C (96.8 F) TempSrc: Temporal SpO2: 98% Weight: 127.7 kg (281 lb 8.4 oz) Physical Exam Constitutional: Appearance: Normal appearance. He is obese. HENT: Head: Normocephalic and atraumatic. Eyes: Extraocular Movements: Extraocular movements intact. Conjunctiva/sclera: Conjunctivae normal. Cardiovascular: Pulses: Normal pulses. Pulmonary: Effort: Pulmonary effort is normal. Musculoskeletal: Right lower leg: No edema. Left lower leg: No edema. Skin: General: Skin is warm and dry. Coloration: Skin is not jaundiced or pale. Findings: No bruising or rash. Neurological: General: No focal deficit present. Mental Status: He is alert and oriented to person, place, and time. Mental status is at baseline. Psychiatric: Mood and Affect: Mood normal. Behavior: Behavior normal. Thought Content: Thought content normal. Judgment: Judgment normal. DATA REVIEW: I personally reviewed the patient s labs and medical record at [facility]. LAB DATA: Basic Labs: Hemoglobin Date Value Ref Range Status 03/02/2024 13.7 13.0 - 17.0 g/dL Final 11/21/2023 13.9 13.0 - 17.0 g/dL Final 11/10/2023 14.0 13.0 - 17.0 g/dL Final 11/07/2023 13.1 13.0 - 17.0 g/dL Final 11/03/2023 12.7 (L) 13.0 - 17.0 g/dL Final Hematocrit Date Value Ref Range Status 03/02/2024 41.5 39.0 - 51.0 % Final 11/21/2023 43.4 39.0 - 51.0 % Final 11/10/2023 43.6 39.0 - 51.0 % Final 11/07/2023 40.7 39.0 - 51.0 % Final 11/03/2023 40.3 39.0 - 51.0 % Final MCV Date Value Ref Range Status 03/02/2024 91.0 80.0 - 100.0 fL Final 11/21/2023 99.3 80.0 - 100.0 fL Final 11/10/2023 101.6 (H) 80.0 - 100.0 fL Final 11/07/2023 102.0 (H) 80.0 - 100.0 fL Final 11/03/2023 104.9 (H) 80.0 - 100.0 fL Final Retic % Date Value Ref Range Status 10/23/2023 13.8 (H) 0.4 - 2.0 % Final Comment: Results checked and verified.No clot detected. 12/11/2021 1.8 0.4 - 2.0 % Final 10/29/2021 2.8 (H) 0.4 - 2.0 % Final 09/03/2021 1.4 0.4 - 2.0 % Final 07/06/2021 1.4 0.4 - 2.0 % Final WBC Date Value Ref Range Status 03/02/2024 8.87 3.70 - 11.00 k/uL Final 11/21/2023 10.60 3.70 - 11.00 k/uL Final 11/10/2023 13.71 (H) 3.70 - 11.00 k/uL Final 11/07/2023 17.20 (H) 3.70 - 11.00 k/uL Final 11/03/2023 15.88 (H) 3.70 - 11.00 k/uL Final Abs Neut Date Value Ref Range Status 03/02/2024 4.30 1.45 - 7.50 k/uL Final 11/21/2023 5.55 1.45 - 7.50 k/uL Final 11/10/2023 11.14 (H) 1.45 - 7.50 k/uL Final 11/03/2023 10.17 (H) 1.45 - 7.50 k/uL Final 10/31/2023 6.59 1.45 - 7.50 k/uL Final Platelet Count Date Value Ref Range Status 03/02/2024 287 150 - 400 k/uL Final 11/21/2023 269 150 - 400 k/uL Final 11/10/2023 384 150 - 400 k/uL Final 11/07/2023 462 (H) 150 - 400 k/uL Final 11/03/2023 605 (H) 150 - 400 k/uL Final Creatinine Date Value Ref Range Status 03/02/2024 1.22 0.73 - 1.22 mg/dL Final 12/26/2023 0.95 0.73 - 1.22 mg/dL Final 12/05/2023 0.91 0.73 - 1.22 mg/dL Final 10/31/2023 0.98 0.73 - 1.22 mg/dL Final 10/29/2023 0.88 0.73 - 1.22 mg/dL Final BUN Date Value Ref Range Status 03/02/2024 14 9 - 24 mg/dL Final 12/26/2023 16 9 - 24 mg/dL Final 12/05/2023 11 9 - 24 mg/dL Final 10/31/2023 22 9 - 24 mg/dL Final 10/29/2023 21 9 - 24 mg/dL Final AST Date Value Ref Range Status 10/29/2023 20 14 - 40 U/L Final 10/28/2023 28 14 - 40 U/L Final 10/27/2023 20 14 - 40 U/L Final 10/26/2023 19 14 - 40 U/L Final 10/25/2023 31 14 - 40 U/L Final Comment: Results may be falsely increased due to interference from hemolysis. Suggest reorder as clinically indicated. ALT Date Value Ref Range Status 10/29/2023 46 10 - 54 U/L Final 10/28/2023 41 10 - 54 U/L Final 10/27/2023 30 10 - 54 U/L Final 10/26/2023 27 10 - 54 U/L Final 10/25/2023 30 10 - 54 U/L Final Hemostasis Labs: PT INR Date Value Ref Range Status 05/21/2021 1.1 0.9 - 1.3 Final Comment: Vitamin K Antagonist (VKA) Therapeutic Range: INR 2 to 3 (Target INR of 2.5) Note: For patients treated with VKA drugs, such as warfarin, the [employer] 2012 Guideline recommends a therapeutic INR range of 2 to 3 (target INR of 2.5). This recommendation includes high-risk patients with antiphospholipid syndrome with previous arterial or venous thromboembolism, current-generation mechanical or bioprosthetic aortic heart valve replacement. Note: Patients with mechanical aortic valve replacement and additional risk factors for thromboembolic events (atrial fibrillation, previous thromboembolism, LV dysfunction, hypercoagulable conditions) or an older generation mechanical AVR (i.e., ball in-Cage) or any mechanical MVR should have a INR therapeutic range of 2.5 to 3.5 (target INR of 3). Wilfredo LAMBERT et maninder. Chest 2012, 141:7S-47S Gallo SAUNDERS et al. [facility] 2017, 70: 252-289 05/19/2021 1.1 0.9 - 1.3 Final Comment: Vitamin K Antagonist (VKA) Therapeutic Range: INR 2 to 3 (Target INR of 2.5) Note: For patients treated with VKA drugs, such as warfarin, the [employer] 2012 Guideline recommends a therapeutic INR range of 2 to 3 (target INR of 2.5). This recommendation includes high-risk patients with antiphospholipid syndrome with previous arterial or venous thromboembolism, current-generation mechanical or bioprosthetic aortic heart valve replacement. Note: Patients with mechanical aortic valve replacement and additional risk factors for thromboembolic events (atrial fibrillation, previous thromboembolism, LV dysfunction, hypercoagulable conditions) or an older generation mechanical AVR (i.e., ball in-Cage) or any mechanical MVR should have a INR therapeutic range of 2.5 to 3.5 (target INR of 3). Wilfredo LAMBERT et maninder. Chest 2012, 141:7S-47S Gallo SAUNDERS et al. [facility] 2017, 70: 252-289 INR Date Value Ref Range Status 10/23/2023 1.0 0.9 - 1.3 Final Comment: Vitamin K Antagonist (VKA) Therapeutic Range: INR 2 to 3 (Target INR of 2.5) Note: For patients treated with VKA drugs, such as warfarin, the [employer] 2012 Guideline recommends a therapeutic INR range of 2 to 3 (target INR of 2.5). This recommendation includes high-risk patients with antiphospholipid syndrome with previous arterial or venous thromboembolism, current-generation mechanical or bioprosthetic aortic heart valve replacement. Note: Patients with mechanical aortic valve replacement and additional risk factors for thromboembolic events (atrial fibrillation, previous thromboembolism, LV dysfunction, hypercoagulable conditions) or an older generation mechanical AVR (i.e., ball in-Cage) or any mechanical MVR should have a INR therapeutic range of 2.5 to 3.5 (target INR of 3). Wilfredo GH, et al. Chest 2012, 141:7S-47S Gallo RA, et al. [facility] 2017, 70: 252-289 APTT Date Value Ref Range Status 10/23/2023 26.9 23.0 - 32.4 sec Final 05/24/2021 24.0 23.0 - 32.4 sec Final Comment: Unfractionated Heparin Therapeutic Ranges: Standard Heparin Nomogram: 53 to 78 seconds (anti-Xa level of 0.3 to 0.7 U/ml) Low Dose/ACS Nomogram: 49 to 67 seconds (anti-Xa level of 0.2 to 0.5 U/ml) Stroke Treatment Nomogram: 49 to 67 seconds (anti-Xa level of 0.2 to 0.5 U/ml) Note: The APTT therapeutic range has been determined for the current lot of laboratory APTT reagent in use throughout the [facility]. 05/23/2021 23.4 23.0 - 32.4 sec Final Comment: Unfractionated Heparin Therapeutic Ranges: Standard Heparin Nomogram: 53 to 78 seconds (anti-Xa level of 0.3 to 0.7 U/ml) Low Dose/ACS Nomogram: 49 to 67 seconds (anti-Xa level of 0.2 to 0.5 U/ml) Stroke Treatment Nomogram: 49 to 67 seconds (anti-Xa level of 0.2 to 0.5 U/ml) Note: The APTT therapeutic range has been determined for the current lot of laboratory APTT reagent in use throughout the [facility]. d Dimer Date Value Ref Range Status 05/22/2021 860 (H) <500 ng/mL FEU Final Comment: 500 ng/mL FEU is the D Dimer cutoff to exclude DVT (deep vein thrombosis) and PE (pulmonary embolism) in patients with a low pre test probability. Supplemental Comment: In patients over 50 years with a low pre test probability for DVT and/or PE, an age adjusted D dimer cutoff can be calculated as [age x 10] ng/mL FEU. For example, a patient of 88 years would have an age adjusted D dimer cutoff of 880 ng/mL FEU. For patients with a suspected DVT, a D dimer level below 500 ng/mL FEU has a negative predictive value of >98.9%, a sensitivity of >96.9% and a specificity of >35.7%. For patients with a suspected PE, a D dimer level below 500 ng/mL FEU has a negative predictive value of >98.5%, and a sensitivity of >96.5% and a specificity of >38.8%. Reference: Emily M, et al. ADRIANA 2014 311:1117 and Lucio Singh et al. [facility] Int [facility] 2016 165:253. 05/18/2021 6,570 (H) <500 ng/mL FEU Final Comment: 500 ng/mL FEU is the D Dimer cutoff to exclude DVT (deep vein thrombosis) and PE (pulmonary embolism) in patients with a low pre test probability. Supplemental Comment: In patients over 50 years with a low pre test probability for DVT and/or PE, an age adjusted D dimer cutoff can be calculated as [age x 10] ng/mL FEU. For example, a patient of 88 years would have an age adjusted D dimer cutoff of 880 ng/mL FEU. For patients with a suspected DVT, a D dimer level below 500 ng/mL FEU has a negative predictive value of >98.9%, a sensitivity of >96.9% and a specificity of >35.7%. For patients with a suspected PE, a D dimer level below 500 ng/mL FEU has a negative predictive value of >98.5%, and a sensitivity of >96.5% and a specificity of >38.8%. Reference: Emily M, et al. ADRINAA 2014 311:1117 and Lucio Lara N, et al. [facility] Int [facility] 2016 165:253. Result rechecked. Sample checked for a clot. D Dimer Date Value Ref Range Status 10/23/2023 1,010 (H) <500 ng/mL FEU Final Thrombosis Labs: d Dimer Date Value Ref Range Status 05/22/2021 860 (H) <500 ng/mL FEU Final Comment: 500 ng/mL FEU is the D Dimer cutoff to exclude DVT (deep vein thrombosis) and PE (pulmonary embolism) in patients with a low pre test probability. Supplemental Comment: In patients over 50 years with a low pre test probability for DVT and/or PE, an age adjusted D dimer cutoff can be calculated as [age x 10] ng/mL FEU. For example, a patient of 88 years would have an age adjusted D dimer cutoff of 880 ng/mL FEU. For patients with a suspected DVT, a D dimer level below 500 ng/mL FEU has a negative predictive value of >98.9%, a sensitivity of >96.9% and a specificity of >35.7%. For patients with a suspected PE, a D dimer level below 500 ng/mL FEU has a negative predictive value of >98.5%, and a sensitivity of >96.5% and a specificity of >38.8%. Reference: Emily M, et al. ADRIANA 2014 311:1117 and Lucio Lara N, et al. [facility] Int [facility] 2016 165:253. 05/18/2021 6,570 (H) <500 ng/mL FEU Final Comment: 500 ng/mL FEU is the D Dimer cutoff to exclude DVT (deep vein thrombosis) and PE (pulmonary embolism) in patients with a low pre test probability. Supplemental Comment: In patients over 50 years with a low pre test probability for DVT and/or PE, an age adjusted D dimer cutoff can be calculated as [age x 10] ng/mL FEU. For example, a patient of 88 years would have an age adjusted D dimer cutoff of 880 ng/mL FEU. For patients with a suspected DVT, a D dimer level below 500 ng/mL FEU has a negative predictive value of >98.9%, a sensitivity of >96.9% and a specificity of >35.7%. For patients with a suspected PE, a D dimer level below 500 ng/mL FEU has a negative predictive value of >98.5%, and a sensitivity of >96.5% and a specificity of >38.8%. Reference: Emily M, et al. ADRIANA 2014 311:1117 and Lucio Lara N, et al. [facility] Int [facility] 2016 165:253. Result rechecked. Sample checked for a clot. D Dimer Date Value Ref Range Status 10/23/2023 1,010 (H) <500 ng/mL FEU Final Anemia Labs: No results found for: ANKUR , FE , SAT , COPPER , B12 , FOLATE , METHYLMAL , HPYA , INTFABINTL , TSH , FREET4 , SMEARINTL , EPOIEINTL , HBA12R , HGBEVAL , HGBELECINTL Hemolysis/TMA Labs: Retic % Date Value Ref Range Status 10/23/2023 13.8 (H) 0.4 - 2.0 % Final Comment: Results checked and verified.No clot detected. 12/11/2021 1.8 0.4 - 2.0 % Final 10/29/2021 2.8 (H) 0.4 - 2.0 % Final d Dimer Date Value Ref Range Status 05/22/2021 860 (H) <500 ng/mL FEU Final Comment: 500 ng/mL FEU is the D Dimer cutoff to exclude DVT (deep vein thrombosis) and PE (pulmonary embolism) in patients with a low pre test probability. Supplemental Comment: In patients over 50 years with a low pre test probability for DVT and/or PE, an age adjusted D dimer cutoff can be calculated as [age x 10] ng/mL FEU. For example, a patient of 88 years would have an age adjusted D dimer cutoff of 880 ng/mL FEU. For patients with a suspected DVT, a D dimer level below 500 ng/mL FEU has a negative predictive value of >98.9%, a sensitivity of >96.9% and a specificity of >35.7%. For patients with a suspected PE, a D dimer level below 500 ng/mL FEU has a negative predictive value of >98.5%, and a sensitivity of >96.5% and a specificity of >38.8%. Reference: Emily M, et al. ADRIANA 2014 311:1117 and Van Jane N, et al. [facility] Int [facility] 2016 165:253. 05/18/2021 6,570 (H) <500 ng/mL FEU Final Comment: 500 ng/mL FEU is the D Dimer cutoff to exclude DVT (deep vein thrombosis) and PE (pulmonary embolism) in patients with a low pre test probability. Supplemental Comment: In patients over 50 years with a low pre test probability for DVT and/or PE, an age adjusted D dimer cutoff can be calculated as [age x 10] ng/mL FEU. For example, a patient of 88 years would have an age adjusted D dimer cutoff of 880 ng/mL FEU. For patients with a suspected DVT, a D dimer level below 500 ng/mL FEU has a negative predictive value of >98.9%, a sensitivity of >96.9% and a specificity of >35.7%. For patients with a suspected PE, a D dimer level below 500 ng/mL FEU has a negative predictive value of >98.5%, and a sensitivity of >96.5% and a specificity of >38.8%. Reference: Emily M, et al. ADRIANA 2014 [id number] and Lucio Lara N, et al. [facility] Int [facility] 2016 165:253. Result rechecked. Sample checked for a clot. D Dimer Date Value Ref Range Status 10/23/2023 1,010 (H) <500 ng/mL FEU Final Neutropenia Labs: No results found for: FOLATE , B12 , CUONG , HIV , HEPCAB , HEPATI , EBVDQ , CMVQT , PARVOV , COPPER , MYMRES , MYPRES Thrombocytopenia Labs: No results found for: PF4COM , SERHEP , PLTCO , PLTAS , PLA1AG , HIV , EBVDQ Monoclonal Gammopathy Labs: Hemoglobin Date Value Ref Range Status 03/02/2024 13.7 13.0 - 17.0 g/dL Final 11/21/2023 13.9 13.0 - 17.0 g/dL Final 11/10/2023 14.0 13.0 - 17.0 g/dL Final Creatinine Date Value Ref Range Status 03/02/2024 1.22 0.73 - 1.22 mg/dL Final 12/26/2023 0.95 0.73 - 1.22 mg/dL Final 12/05/2023 0.91 0.73 - 1.22 mg/dL Final Calcium, Total Date Value Ref Range Status 03/02/2024 10.4 (H) 8.5 - 10.2 mg/dL Final 12/26/2023 9.4 8.5 - 10.2 mg/dL Final 12/05/2023 10.1 8.5 - 10.2 mg/dL Final MPN Labs: No results found for: JAK2SP , JAK2E , JAK2I , CALRM , MPLMU , MPNFMR , MPNRES , MPNMRS BM BIOPSY: N/A IMAGING DATA: N/A ASSESSMENT/RECOMMENDATIONS: Kwaku Nichols III is a 33 year old male with past medical history pertinent for tobacco use disorder and TTP. #Thrombotic Thrombocytopenic Purpura, Relapsed: Initial TTP occurrence on 05/18/21. Responded to steroids+PLEX and completed 30 days of Cablivi at that time. Relapse occurred on 10/23/23 and again responded well to PLEX. He is now on 60 mg of prednisone and completing the 30-days of Cablivi. -We discussed at length the reasoning to use Rituxan 375 mg/m2 weekly x 4 weeks to prolong remission of TTP and to provide a steroid sparing immune suppression option. He is hesitant to use Rituxan due to the prolonged affect on his immune system. We discussed that although this could affect how he responds to viral illness it has the best chance at prolonging his disease from relapse. -If his disease is showing early signs of relapse he prefers to be placed back on a course of steroids and further discuss with his family my recommendation to use Rituxan -He is not interested in participating in the TTP registry -Continue to monitor labs closely, CBC, haptoglobin, CMP and ADAMTS panel monthly RTC 6 months, return sooner if needed based on labs The patient's questions were answered. Total time 20 minutes, this included time preparing for the visit by reviewing the patient's chart and the time spent during the visit counseling and coordinating care. Lizette Krishna DO Associate Staff Physician, [facility] cell: [phone] [facility] [address] [place] [address] [facility] [address] [place] [address] documented in this encounter [facility] 04-16-2024 Note [facility] 04-16-2024 Nurse Note Additional intake questions: Has the patient had fever, nausea, vomiting, diarrhea, constipation, fatigue for > 1 week? No Does the patient have a decreased appetite? No Does patient want to see a Pvc Monitor? No (yes to any of above refer patient to schedulers for dietitian appointment) ) Does patient have any new or increased numbness or tingling of extremities? No Is patient interested in fertility information? No Does patient need any prescription refills? No Does patient have an advanced directive in place? no Electronically Signed By: Esperanza Valadez LPN [facility] 04-16-2024 Nurse Note Additional intake questions: Has the patient had fever, nausea, vomiting, diarrhea, constipation, fatigue for > 1 week? No Does the patient have a decreased appetite? No Does patient want to see a Pvc Monitor? No (yes to any of above refer patient to schedulers for dietitian appointment) ) Does patient have any new or increased numbness or tingling of extremities? No Is patient interested in fertility information? No Does patient need any prescription refills? No Does patient have an advanced directive in place? no Electronically Signed By: Esperanza Valadez LPN documented in this encounter [facility] 12-26-2023 History of Presen t illness Narrative Images from the original note were not included. [facility] PATIENT NAME: Kwaku Nichols III DATE OF : 1990 ATTENDING STAFF: Lizette Krishna DO DATE OF SERVICE: December 26, 2023 REASON FOR VISIT: Scheduled follow up for relapsed TTP INTERVAL HISTORY: Kwaku returns alone today for scheduled follow up. He was last seen on November 11, 2023. He has felt well since then. HISTORY OF PRESENT ILLNESS: This patient was seen initially as a hospital consult by the hematology service. History was obtained from the patient and from review of the patient s old medical records. Kwaku Nichols III is a 33 year old male with past medical history pertinent for tobacco use disorder and TTP. Initial TTP occurrence on 05/18/21. Responded to steroids+PLEX and completed 30 days of Cablivi at that time. Relapse occurred on 10/23/23 and again responded well to PLEX. He is now on 60 mg of prednisone and completing the 30-days of Cablivi. He feels back to himself. No new issues. He will be starting a new job on 11/24/23. REVIEW OF SYSTEMS: Review of Systems Constitutional: Negative for appetite change, diaphoresis, fatigue, fever and unexpected weight change. Respiratory: Negative for cough and shortness of breath. Cardiovascular: Negative for leg swelling. Gastrointestinal: Negative for abdominal pain, constipation, diarrhea and nausea. Musculoskeletal: Negative for arthralgias and back pain. Skin: Negative for rash. Neurological: Negative for dizziness, headaches and light-headedness. Psychiatric/Behavioral: Negative for confusion and decreased concentration. The patient is not nervous/anxious. The remainder of the review of systems is negative. ALLERGIES: ALLERGIES No Known Allergies MEDICATIONS: Medications were reviewed and updated. Current Outpatient Medications on File Prior to Visit Medication Sig nicotine polacrilex (NICORETTE) 2 mg gum Take 2 Each by mouth every 2 hours as needed. predniSONE (DELTASONE) 10 mg tablet Take 8 tablets by mouth once daily for 3 days, THEN 7 tablets once daily for 7 days, THEN 6 tablets once daily for 7 days, THEN 5 tablets once daily for 7 days, THEN 4 tablets once daily for 7 days, THEN 3 tablets once daily for 7 days, THEN 2 tablets once daily for 7 days, THEN 1 tablet once daily for 7 days. Patient should start on October 30, 2023. sulfamethoxazole-trimethoprim (BACTRIM DS) 800-160 mg per tablet Take 1 tablet by mouth every Friday, Friday, and Friday. pantoprazole DR (PROTONIX) 40 mg tablet Take 1 tablet by mouth once daily. caplacizumab-yhdp (CABLIVI) 11 mg injection Inject 11 mg subcutaneously every 24 hours. Add diluent as directed. Swirl, but do NOT shake. Refrigerate. No current facility-administered medications on file prior to visit. PREFERRED PHARMACY: e- [facility]/pharmacy #[id number] [place] [address] [address] [facility] [phone] [address] [facility] [address] [facility] [id number] [facility] [address] [facility] [address] [address] [facility] [address] [facility] [address] PAST MEDICAL HISTORY Diagnosis Date Abnormal laboratory test 04/2021 PAST SURGICAL HISTORY Procedure Laterality Date REMOVAL GALLBLADDER 04/2021 TONSILLECTOMY HX FAMILY HISTORY Problem Relation Age of Onset Heart Attack Maternal Grandfather Cancer Paternal Grandfather Leukemia Maternal Aunt Cancer Maternal Aunt Lung Cancer Maternal Uncle Prostate Cancer Maternal Uncle Social History Tobacco Use Smoking status: Every Day Packs/day: 1.5 Types: Cigarettes Smokeless tobacco: Former Substance Use Topics Alcohol use: Yes PHYSICAL EXAM: There were no vitals filed for this visit. Physical Exam Constitutional: Appearance: Normal appearance. He is obese. HENT: Head: Normocephalic and atraumatic. Eyes: Extraocular Movements: Extraocular movements intact. Conjunctiva/sclera: Conjunctivae normal. Cardiovascular: Pulses: Normal pulses. Pulmonary: Effort: Pulmonary effort is normal. Musculoskeletal: Right lower leg: No edema. Left lower leg: No edema. Skin: General: Skin is warm and dry. Coloration: Skin is not jaundiced or pale. Findings: No bruising or rash. Neurological: General: No focal deficit present. Mental Status: He is alert and oriented to person, place, and time. Mental status is at baseline. Psychiatric: Mood and Affect: Mood normal. Behavior: Behavior normal. Thought Content: Thought content normal. Judgment: Judgment normal. DATA REVIEW: I personally reviewed the patient s labs and medical record at [facility]. LAB DATA: Basic Labs: Hemoglobin Date Value Ref Range Status 11/21/2023 13.9 13.0 - 17.0 g/dL Final 11/10/2023 14.0 13.0 - 17.0 g/dL Final 11/07/2023 13.1 13.0 - 17.0 g/dL Final 11/03/2023 12.7 (L) 13.0 - 17.0 g/dL Final 10/31/2023 12.0 (L) 13.0 - 17.0 g/dL Final Hematocrit Date Value Ref Range Status 11/21/2023 43.4 39.0 - 51.0 % Final 11/10/2023 43.6 39.0 - 51.0 % Final 11/07/2023 40.7 39.0 - 51.0 % Final 11/03/2023 40.3 39.0 - 51.0 % Final 10/31/2023 38.5 (L) 39.0 - 51.0 % Final MCV Date Value Ref Range Status 11/21/2023 99.3 80.0 - 100.0 fL Final 11/10/2023 101.6 (H) 80.0 - 100.0 fL Final 11/07/2023 102.0 (H) 80.0 - 100.0 fL Final 11/03/2023 104.9 (H) 80.0 - 100.0 fL Final 10/31/2023 105.8 (H) 80.0 - 100.0 fL Final Retic % Date Value Ref Range Status 10/23/2023 13.8 (H) 0.4 - 2.0 % Final Comment: Results checked and verified.No clot detected. 12/11/2021 1.8 0.4 - 2.0 % Final 10/29/2021 2.8 (H) 0.4 - 2.0 % Final 09/03/2021 1.4 0.4 - 2.0 % Final 07/06/2021 1.4 0.4 - 2.0 % Final WBC Date Value Ref Range Status 11/21/2023 10.60 3.70 - 11.00 k/uL Final 11/10/2023 13.71 (H) 3.70 - 11.00 k/uL Final 11/07/2023 17.20 (H) 3.70 - 11.00 k/uL Final 11/03/2023 15.88 (H) 3.70 - 11.00 k/uL Final 10/31/2023 12.81 (H) 3.70 - 11.00 k/uL Final Abs Neut Date Value Ref Range Status 11/21/2023 5.55 1.45 - 7.50 k/uL Final 11/10/2023 11.14 (H) 1.45 - 7.50 k/uL Final 11/03/2023 10.17 (H) 1.45 - 7.50 k/uL Final 10/31/2023 6.59 1.45 - 7.50 k/uL Final 10/23/2023 5.94 1.45 - 7.50 k/uL Final Platelet Count Date Value Ref Range Status 11/21/2023 269 150 - 400 k/uL Final 11/10/2023 384 150 - 400 k/uL Final 11/07/2023 462 (H) 150 - 400 k/uL Final 11/03/2023 605 (H) 150 - 400 k/uL Final 10/31/2023 507 (H) 150 - 400 k/uL Final Creatinine Date Value Ref Range Status 12/05/2023 0.91 0.73 - 1.22 mg/dL Final 10/31/2023 0.98 0.73 - 1.22 mg/dL Final 10/29/2023 0.88 0.73 - 1.22 mg/dL Final 10/28/2023 0.84 0.73 - 1.22 mg/dL Final 10/27/2023 0.85 0.73 - 1.22 mg/dL Final BUN Date Value Ref Range Status 12/05/2023 11 9 - 24 mg/dL Final 10/31/2023 22 9 - 24 mg/dL Final 10/29/2023 21 9 - 24 mg/dL Final 10/28/2023 16 9 - 24 mg/dL Final 10/27/2023 17 9 - 24 mg/dL Final AST Date Value Ref Range Status 10/29/2023 20 14 - 40 U/L Final 10/28/2023 28 14 - 40 U/L Final 10/27/2023 20 14 - 40 U/L Final 10/26/2023 19 14 - 40 U/L Final 10/25/2023 31 14 - 40 U/L Final Comment: Results may be falsely increased due to interference from hemolysis. Suggest reorder as clinically indicated. ALT Date Value Ref Range Status 10/29/2023 46 10 - 54 U/L Final 10/28/2023 41 10 - 54 U/L Final 10/27/2023 30 10 - 54 U/L Final 10/26/2023 27 10 - 54 U/L Final 10/25/2023 30 10 - 54 U/L Final Hemostasis Labs: PT INR Date Value Ref Range Status 05/21/2021 1.1 0.9 - 1.3 Final Comment: Vitamin K Antagonist (VKA) Therapeutic Range: INR 2 to 3 (Target INR of 2.5) Note: For patients treated with VKA drugs, such as warfarin, the [employer] 2012 Guideline recommends a therapeutic INR range of 2 to 3 (target INR of 2.5). This recommendation includes high-risk patients with antiphospholipid syndrome with previous arterial or venous thromboembolism, current-generation mechanical or bioprosthetic aortic heart valve replacement. Note: Patients with mechanical aortic valve replacement and additional risk factors for thromboembolic events (atrial fibrillation, previous thromboembolism, LV dysfunction, hypercoagulable conditions) or an older generation mechanical AVR (i.e., ball in-Cage) or any mechanical MVR should have a INR therapeutic range of 2.5 to 3.5 (target INR of 3). Wilfredo LAMBERT et al. Chest 2012, 141:7S-47S Gallo SAUNDERS et al. [facility] 2017, 70: 252-289 05/19/2021 1.1 0.9 - 1.3 Final Comment: Vitamin K Antagonist (VKA) Therapeutic Range: INR 2 to 3 (Target INR of 2.5) Note: For patients treated with VKA drugs, such as warfarin, the [employer] 2012 Guideline recommends a therapeutic INR range of 2 to 3 (target INR of 2.5). This recommendation includes high-risk patients with antiphospholipid syndrome with previous arterial or venous thromboembolism, current-generation mechanical or bioprosthetic aortic heart valve replacement. Note: Patients with mechanical aortic valve replacement and additional risk factors for thromboembolic events (atrial fibrillation, previous thromboembolism, LV dysfunction, hypercoagulable conditions) or an older generation mechanical AVR (i.e., ball in-Cage) or any mechanical MVR should have a INR therapeutic range of 2.5 to 3.5 (target INR of 3). Wilfredo LAMBERT et maninder. Chest 2012, 141:7S-47S Gallo SAUNDERS et al. [facility] 2017, 70: 252-289 INR Date Value Ref Range Status 10/23/2023 1.0 0.9 - 1.3 Final Comment: Vitamin K Antagonist (VKA) Therapeutic Range: INR 2 to 3 (Target INR of 2.5) Note: For patients treated with VKA drugs, such as warfarin, the [employer] 2012 Guideline recommends a therapeutic INR range of 2 to 3 (target INR of 2.5). This recommendation includes high-risk patients with antiphospholipid syndrome with previous arterial or venous thromboembolism, current-generation mechanical or bioprosthetic aortic heart valve replacement. Note: Patients with mechanical aortic valve replacement and additional risk factors for thromboembolic events (atrial fibrillation, previous thromboembolism, LV dysfunction, hypercoagulable conditions) or an older generation mechanical AVR (i.e., ball in-Cage) or any mechanical MVR should have a INR therapeutic range of 2.5 to 3.5 (target INR of 3). Wilfredo GH, et al. Chest 2012, 141:7S-47S Gallo SAUNDERS et al. [facility] 2017, 70: 252-289 APTT Date Value Ref Range Status 10/23/2023 26.9 23.0 - 32.4 sec Final 05/24/2021 24.0 23.0 - 32.4 sec Final Comment: Unfractionated Heparin Therapeutic Ranges: Standard Heparin Nomogram: 53 to 78 seconds (anti-Xa level of 0.3 to 0.7 U/ml) Low Dose/ACS Nomogram: 49 to 67 seconds (anti-Xa level of 0.2 to 0.5 U/ml) Stroke Treatment Nomogram: 49 to 67 seconds (anti-Xa level of 0.2 to 0.5 U/ml) Note: The APTT therapeutic range has been determined for the current lot of laboratory APTT reagent in use throughout the [facility]. 05/23/2021 23.4 23.0 - 32.4 sec Final Comment: Unfractionated Heparin Therapeutic Ranges: Standard Heparin Nomogram: 53 to 78 seconds (anti-Xa level of 0.3 to 0.7 U/ml) Low Dose/ACS Nomogram: 49 to 67 seconds (anti-Xa level of 0.2 to 0.5 U/ml) Stroke Treatment Nomogram: 49 to 67 seconds (anti-Xa level of 0.2 to 0.5 U/ml) Note: The APTT therapeutic range has been determined for the current lot of laboratory APTT reagent in use throughout the [facility]. d Dimer Date Value Ref Range Status 05/22/2021 860 (H) <500 ng/mL FEU Final Comment: 500 ng/mL FEU is the D Dimer cutoff to exclude DVT (deep vein thrombosis) and PE (pulmonary embolism) in patients with a low pre test probability. Supplemental Comment: In patients over 50 years with a low pre test probability for DVT and/or PE, an age adjusted D dimer cutoff can be calculated as [age x 10] ng/mL FEU. For example, a patient of 88 years would have an age adjusted D dimer cutoff of 880 ng/mL FEU. For patients with a suspected DVT, a D dimer level below 500 ng/mL FEU has a negative predictive value of >98.9%, a sensitivity of >96.9% and a specificity of >35.7%. For patients with a suspected PE, a D dimer level below 500 ng/mL FEU has a negative predictive value of >98.5%, and a sensitivity of >96.5% and a specificity of >38.8%. Reference: Emily M, et al. ADRIANA 2014 311:1117 and Lucio Lara N, et al. Paz Int Med 2016 165:253. 05/18/2021 6,570 (H) <500 ng/mL FEU Final Comment: 500 ng/mL FEU is the D Dimer cutoff to exclude DVT (deep vein thrombosis) and PE (pulmonary embolism) in patients with a low pre test probability. Supplemental Comment: In patients over 50 years with a low pre test probability for DVT and/or PE, an age adjusted D dimer cutoff can be calculated as [age x 10] ng/mL FEU. For example, a patient of 88 years would have an age adjusted D dimer cutoff of 880 ng/mL FEU. For patients with a suspected DVT, a D dimer level below 500 ng/mL FEU has a negative predictive value of >98.9%, a sensitivity of >96.9% and a specificity of >35.7%. For patients with a suspected PE, a D dimer level below 500 ng/mL FEU has a negative predictive value of >98.5%, and a sensitivity of >96.5% and a specificity of >38.8%. Reference: Emily M, et al. ADRIANA 2014 [id number] and Lucio Lara N, et al. Paz Int Med 2016 165:253. Result rechecked. Sample checked for a clot. D Dimer Date Value Ref Range Status 10/23/2023 1,010 (H) <500 ng/mL FEU Final Thrombosis Labs: d Dimer Date Value Ref Range Status 05/22/2021 860 (H) <500 ng/mL FEU Final Comment: 500 ng/mL FEU is the D Dimer cutoff to exclude DVT (deep vein thrombosis) and PE (pulmonary embolism) in patients with a low pre test probability. Supplemental Comment: In patients over 50 years with a low pre test probability for DVT and/or PE, an age adjusted D dimer cutoff can be calculated as [age x 10] ng/mL FEU. For example, a patient of 88 years would have an age adjusted D dimer cutoff of 880 ng/mL FEU. For patients with a suspected DVT, a D dimer level below 500 ng/mL FEU has a negative predictive value of >98.9%, a sensitivity of >96.9% and a specificity of >35.7%. For patients with a suspected PE, a D dimer level below 500 ng/mL FEU has a negative predictive value of >98.5%, and a sensitivity of >96.5% and a specificity of >38.8%. Reference: Emily M, et al. ADRIANA 2014 311:[id number] and Lucio Singh et al. Paz Int Med 2016 165:253. 05/18/2021 6,570 (H) <500 ng/mL FEU Final Comment: 500 ng/mL FEU is the D Dimer cutoff to exclude DVT (deep vein thrombosis) and PE (pulmonary embolism) in patients with a low pre test probability. Supplemental Comment: In patients over 50 years with a low pre test probability for DVT and/or PE, an age adjusted D dimer cutoff can be calculated as [age x 10] ng/mL FEU. For example, a patient of 88 years would have an age adjusted D dimer cutoff of 880 ng/mL FEU. For patients with a suspected DVT, a D dimer level below 500 ng/mL FEU has a negative predictive value of >98.9%, a sensitivity of >96.9% and a specificity of >35.7%. For patients with a suspected PE, a D dimer level below 500 ng/mL FEU has a negative predictive value of >98.5%, and a sensitivity of >96.5% and a specificity of >38.8%. Reference: Emily M, et al. ADRIANA 2014 [id number] and Lucio Singh et al. Paz Int Med 2016 165:253. Result rechecked. Sample checked for a clot. D Dimer Date Value Ref Range Status 10/23/2023 1,010 (H) <500 ng/mL FEU Final Anemia Labs: No results found for: ANKUR , FE , SAT , COPPER , B12 , FOLATE , METHYLMAL , HPYA , INTFABINTL , TSH , FREET4 , SMEARINTL , EPOIEINTL , HBA12R , HGBEVAL , HGBELECINTL Hemolysis/TMA Labs: Retic % Date Value Ref Range Status 10/23/2023 13.8 (H) 0.4 - 2.0 % Final Comment: Results checked and verified.No clot detected. 12/11/2021 1.8 0.4 - 2.0 % Final 10/29/2021 2.8 (H) 0.4 - 2.0 % Final d Dimer Date Value Ref Range Status 05/22/2021 860 (H) <500 ng/mL FEU Final Comment: 500 ng/mL FEU is the D Dimer cutoff to exclude DVT (deep vein thrombosis) and PE (pulmonary embolism) in patients with a low pre test probability. Supplemental Comment: In patients over 50 years with a low pre test probability for DVT and/or PE, an age adjusted D dimer cutoff can be calculated as [age x 10] ng/mL FEU. For example, a patient of 88 years would have an age adjusted D dimer cutoff of 880 ng/mL FEU. For patients with a suspected DVT, a D dimer level below 500 ng/mL FEU has a negative predictive value of >98.9%, a sensitivity of >96.9% and a specificity of >35.7%. For patients with a suspected PE, a D dimer level below 500 ng/mL FEU has a negative predictive value of >98.5%, and a sensitivity of >96.5% and a specificity of >38.8%. Reference: Emily M, et al. ADRIANA 2014 [id number] and Lucio Singh et al. Paz Int Med 2016 165:253. 05/18/2021 6,570 (H) <500 ng/mL FEU Final Comment: 500 ng/mL FEU is the D Dimer cutoff to exclude DVT (deep vein thrombosis) and PE (pulmonary embolism) in patients with a low pre test probability. Supplemental Comment: In patients over 50 years with a low pre test probability for DVT and/or PE, an age adjusted D dimer cutoff can be calculated as [age x 10] ng/mL FEU. For example, a patient of 88 years would have an age adjusted D dimer cutoff of 880 ng/mL FEU. For patients with a suspected DVT, a D dimer level below 500 ng/mL FEU has a negative predictive value of >98.9%, a sensitivity of >96.9% and a specificity of >35.7%. For patients with a suspected PE, a D dimer level below 500 ng/mL FEU has a negative predictive value of >98.5%, and a sensitivity of >96.5% and a specificity of >38.8%. Reference: Emily M, et al. ADRIANA 2014 [id number] and Van Jane N, et al. Paz Int Med 2016 165:253. Result rechecked. Sample checked for a clot. D Dimer Date Value Ref Range Status 10/23/2023 1,010 (H) <500 ng/mL FEU Final Neutropenia Labs: No results found for: FOLATE , B12 , CUONG , HIV , HEPCAB , HEPATI , EBVDQ , CMVQT , PARVOV , COPPER , MYMRES , MYPRES Thrombocytopenia Labs: No results found for: PF4COM , SERHEP , PLTCO , PLTAS , PLA1AG , HIV , EBVDQ Monoclonal Gammopathy Labs: Hemoglobin Date Value Ref Range Status 11/21/2023 13.9 13.0 - 17.0 g/dL Final 11/10/2023 14.0 13.0 - 17.0 g/dL Final 11/07/2023 13.1 13.0 - 17.0 g/dL Final Creatinine Date Value Ref Range Status 12/05/2023 0.91 0.73 - 1.22 mg/dL Final 10/31/2023 0.98 0.73 - 1.22 mg/dL Final 10/29/2023 0.88 0.73 - 1.22 mg/dL Final Calcium, Total Date Value Ref Range Status 12/05/2023 10.1 8.5 - 10.2 mg/dL Final 10/31/2023 9.8 8.5 - 10.2 mg/dL Final 10/29/2023 9.4 8.5 - 10.2 mg/dL Final MPN Labs: No results found for: JAK2SP , JAK2E , JAK2I , CALRM , MPLMU , MPNFMR , MPNRES , MPNMRS BM BIOPSY: N/A IMAGING DATA: N/A ASSESSMENT/RECOMMENDATIONS: Kwaku Nichols III is a 33 year old male with past medical history pertinent for tobacco use disorder and TTP. #Thrombotic Thrombocytopenic Purpura, Relapsed: Initial TTP occurrence on 05/18/21. Responded to steroids+PLEX and completed 30 days of Cablivi at that time. Relapse occurred on 10/23/23 and again responded well to PLEX. He is now on 60 mg of prednisone and completing the 30-days of Cablivi. -Continue to taper prednisone by 10 mg weekly on each Friday -Continue PJP prophylaxis with Bactrim MWF -Complete the 30 day course of Cablivi -We discussed at length the reasoning to use Rituxan 375 mg/m2 weekly x 4 weeks to prolong remission of TTP and to provide a steroid sparing immune suppression option. He and his will discuss this and we will discuss his decision between now and then next appointment. He is hesitant to use Rituxan due to the prolonged affect on his immune system. We discussed that although this could affect how he responds to viral illness it has the best chance at prolonging his disease from relapse. He also is considering participation in the TTP registry and can sign consent at his return visit. -Continue to monitor labs closely, CBC weekly, haptoglobin, CMP and ADAMTS panel monthly RTC 12 weeks The patient's questions were answered. Total time 20 minutes, this included time preparing for the visit by reviewing the patient's chart and the time spent during the visit counseling and coordinating care. Lizette Krishna DO Associate Staff Physician, [facility] cell: [phone] [facility] [address] [place] [address] [facility] [address] [place] [address] documented in this encounter [facility] 12-26-2023 Nurse Note Additional intake questions: Has the patient had fever, nausea, vomiting, diarrhea, constipation, fatigue for > 1 week? No Does the patient have a decreased appetite? No Does patient want to see a Pvc Monitor? No (yes to any of above refer patient to schedulers for dietitian appointment) ) Does patient have any new or increased numbness or tingling of extremities? No Is patient interested in fertility information? NA Does patient need any prescription refills? No Does patient have an advanced directive in place? No, Patient refused referral to Social Work or Resource Center [facility] 12-26-2023 Nurse Note Additional intake questions: Has the patient had fever, nausea, vomiting, diarrhea, constipation, fatigue for > 1 week? No Does the patient have a decreased appetite? No Does patient want to see a Pvc Monitor? No (yes to any of above refer patient to schedulers for dietitian appointment) ) Does patient have any new or increased numbness or tingling of extremities? No Is patient interested in fertility information? NA Does patient need any prescription refills? No Does patient have an advanced directive in place? No, Patient refused referral to Social Work or Resource Center documented in this encounter [facility] 11-11-2023 History of Presen t illness Narrative Images from the original note were not included. [facility] PATIENT NAME: Kwaku Nichols III DATE OF : 1990 ATTENDING STAFF: Lizette Krishna DO DATE OF SERVICE: November 11, 2023 REASON FOR VISIT: Post-hospital follow up for relapsed TTP HISTORY OF PRESENT ILLNESS: This patient was seen initially as a hospital consult by the hematology service. History was obtained from the patient and from review of the patient s old medical records. Kwaku Nichols III is a 33 year old male with past medical history pertinent for tobacco use disorder and TTP. Initial TTP occurrence on 05/18/21. Responded to steroids+PLEX and completed 30 days of Cablivi at that time. Relapse occurred on 10/23/23 and again responded well to PLEX. He is now on 60 mg of prednisone and completing the 30-days of Cablivi. He feels back to himself. No new issues. He will be starting a new job on 11/24/23. REVIEW OF SYSTEMS: Review of Systems Constitutional: Negative for appetite change, diaphoresis, fatigue, fever and unexpected weight change. Respiratory: Negative for cough and shortness of breath. Cardiovascular: Negative for leg swelling. Gastrointestinal: Negative for abdominal pain, constipation, diarrhea and nausea. Musculoskeletal: Negative for arthralgias and back pain. Skin: Negative for rash. Neurological: Negative for dizziness, headaches and light-headedness. Psychiatric/Behavioral: Negative for confusion and decreased concentration. The patient is not nervous/anxious. The remainder of the review of systems is negative. ALLERGIES: ALLERGIES No Known Allergies MEDICATIONS: Medications were reviewed and updated. Current Outpatient Medications on File Prior to Visit Medication Sig nicotine polacrilex (NICORETTE) 2 mg gum Take 2 Each by mouth every 2 hours as needed. predniSONE (DELTASONE) 10 mg tablet Take 8 tablets by mouth once daily for 3 days, THEN 7 tablets once daily for 7 days, THEN 6 tablets once daily for 7 days, THEN 5 tablets once daily for 7 days, THEN 4 tablets once daily for 7 days, THEN 3 tablets once daily for 7 days, THEN 2 tablets once daily for 7 days, THEN 1 tablet once daily for 7 days. Patient should start on October 30, 2023. sulfamethoxazole-trimethoprim (BACTRIM DS) 800-160 mg per tablet Take 1 tablet by mouth every Friday, Friday, and Friday. pantoprazole DR (PROTONIX) 40 mg tablet Take 1 tablet by mouth once daily. caplacizumab-yhdp (CABLIVI) 11 mg injection Inject 11 mg subcutaneously every 24 hours. Add diluent as directed. Swirl, but do NOT shake. Refrigerate. No current facility-administered medications on file prior to visit. PREFERRED PHARMACY: [facility]- [id number] [place] [address] - [address] [facility] - [phone] [facility] [address] [facility] [address] [facility] [id number] [place] [id number] [facility] [address] [id number] PAST MEDICAL HISTORY Diagnosis Date Abnormal laboratory test 04/2021 PAST SURGICAL HISTORY Procedure Laterality Date REMOVAL GALLBLADDER 04/2021 TONSILLECTOMY HX FAMILY HISTORY Problem Relation Age of Onset Heart Attack Maternal Grandfather Cancer Paternal Grandfather Leukemia Maternal Aunt Cancer Maternal Aunt Lung Cancer Maternal Uncle Prostate Cancer Maternal Uncle Social History Tobacco Use Smoking status: Every Day Packs/day: 1.5 Types: Cigarettes Smokeless tobacco: Former Substance Use Topics Alcohol use: Yes PHYSICAL EXAM: 11/11/23 1022 BP: 136/94 Pulse: 105 Resp: 21 Temp: 36.6 C (97.8 F) TempSrc: Temporal SpO2: 98% Weight: 127.5 kg (281 lb 1.4 oz) Height: 185.4 cm (6' 0.99 ) Physical Exam Constitutional: Appearance: Normal appearance. He is obese. HENT: Head: Normocephalic and atraumatic. Eyes: Extraocular Movements: Extraocular movements intact. Conjunctiva/sclera: Conjunctivae normal. Cardiovascular: Pulses: Normal pulses. Pulmonary: Effort: Pulmonary effort is normal. Musculoskeletal: Right lower leg: No edema. Left lower leg: No edema. Skin: General: Skin is warm and dry. Coloration: Skin is not jaundiced or pale. Findings: No bruising or rash. Neurological: General: No focal deficit present. Mental Status: He is alert and oriented to person, place, and time. Mental status is at baseline. Psychiatric: Mood and Affect: Mood normal. Behavior: Behavior normal. Thought Content: Thought content normal. Judgment: Judgment normal. DATA REVIEW: I personally reviewed the patient s labs and medical record at [facility]. LAB DATA: Basic Labs: Hemoglobin Date Value Ref Range Status 11/10/2023 14.0 13.0 - 17.0 g/dL Final 11/07/2023 13.1 13.0 - 17.0 g/dL Final 11/03/2023 12.7 (L) 13.0 - 17.0 g/dL Final 10/31/2023 12.0 (L) 13.0 - 17.0 g/dL Final 10/29/2023 11.5 (L) 13.0 - 17.0 g/dL Final Hematocrit Date Value Ref Range Status 11/10/2023 43.6 39.0 - 51.0 % Final 11/07/2023 40.7 39.0 - 51.0 % Final 11/03/2023 40.3 39.0 - 51.0 % Final 10/31/2023 38.5 (L) 39.0 - 51.0 % Final 10/29/2023 35.9 (L) 39.0 - 51.0 % Final MCV Date Value Ref Range Status 11/10/2023 101.6 (H) 80.0 - 100.0 fL Final 11/07/2023 102.0 (H) 80.0 - 100.0 fL Final 11/03/2023 104.9 (H) 80.0 - 100.0 fL Final 10/31/2023 105.8 (H) 80.0 - 100.0 fL Final 10/29/2023 105.3 (H) 80.0 - 100.0 fL Final Retic % Date Value Ref Range Status 10/23/2023 13.8 (H) 0.4 - 2.0 % Final Comment: Results checked and verified.No clot detected. 12/11/2021 1.8 0.4 - 2.0 % Final 10/29/2021 2.8 (H) 0.4 - 2.0 % Final 09/03/2021 1.4 0.4 - 2.0 % Final 07/06/2021 1.4 0.4 - 2.0 % Final WBC Date Value Ref Range Status 11/10/2023 13.71 (H) 3.70 - 11.00 k/uL Final 11/07/2023 17.20 (H) 3.70 - 11.00 k/uL Final 11/03/2023 15.88 (H) 3.70 - 11.00 k/uL Final 10/31/2023 12.81 (H) 3.70 - 11.00 k/uL Final 10/29/2023 13.65 (H) 3.70 - 11.00 k/uL Final Abs Neut Date Value Ref Range Status 11/10/2023 11.14 (H) 1.45 - 7.50 k/uL Final 11/03/2023 10.17 (H) 1.45 - 7.50 k/uL Final 10/31/2023 6.59 1.45 - 7.50 k/uL Final 10/23/2023 5.94 1.45 - 7.50 k/uL Final 12/11/2021 6.74 1.45 - 7.50 k/uL Final Platelet Count Date Value Ref Range Status 11/10/2023 384 150 - 400 k/uL Final 11/07/2023 462 (H) 150 - 400 k/uL Final 11/03/2023 605 (H) 150 - 400 k/uL Final 10/31/2023 507 (H) 150 - 400 k/uL Final 10/29/2023 451 (H) 150 - 400 k/uL Final Creatinine Date Value Ref Range Status 10/31/2023 0.98 0.73 - 1.22 mg/dL Final 10/29/2023 0.88 0.73 - 1.22 mg/dL Final 10/28/2023 0.84 0.73 - 1.22 mg/dL Final 10/27/2023 0.85 0.73 - 1.22 mg/dL Final 10/26/2023 0.96 0.73 - 1.22 mg/dL Final BUN Date Value Ref Range Status 10/31/2023 22 9 - 24 mg/dL Final 10/29/2023 21 9 - 24 mg/dL Final 10/28/2023 16 9 - 24 mg/dL Final 10/27/2023 17 9 - 24 mg/dL Final 10/26/2023 18 9 - 24 mg/dL Final AST Date Value Ref Range Status 10/29/2023 20 14 - 40 U/L Final 10/28/2023 28 14 - 40 U/L Final 10/27/2023 20 14 - 40 U/L Final 10/26/2023 19 14 - 40 U/L Final 10/25/2023 31 14 - 40 U/L Final Comment: Results may be falsely increased due to interference from hemolysis. Suggest reorder as clinically indicated. ALT Date Value Ref Range Status 10/29/2023 46 10 - 54 U/L Final 10/28/2023 41 10 - 54 U/L Final 10/27/2023 30 10 - 54 U/L Final 10/26/2023 27 10 - 54 U/L Final 10/25/2023 30 10 - 54 U/L Final Hemostasis Labs: PT INR Date Value Ref Range Status 05/21/2021 1.1 0.9 - 1.3 Final Comment: Vitamin K Antagonist (VKA) Therapeutic Range: INR 2 to 3 (Target INR of 2.5) Note: For patients treated with VKA drugs, such as warfarin, the [employer] 2012 Guideline recommends a therapeutic INR range of 2 to 3 (target INR of 2.5). This recommendation includes high-risk patients with antiphospholipid syndrome with previous arterial or venous thromboembolism, current-generation mechanical or bioprosthetic aortic heart valve replacement. Note: Patients with mechanical aortic valve replacement and additional risk factors for thromboembolic events (atrial fibrillation, previous thromboembolism, LV dysfunction, hypercoagulable conditions) or an older generation mechanical AVR (i.e., ball in-Cage) or any mechanical MVR should have a INR therapeutic range of 2.5 to 3.5 (target INR of 3). Wilfredo GH, et al. Chest 2012, 141:7S-47S Gallo RA, et al. [facility] 2017, 70: 252-289 05/19/2021 1.1 0.9 - 1.3 Final Comment: Vitamin K Antagonist (VKA) Therapeutic Range: INR 2 to 3 (Target INR of 2.5) Note: For patients treated with VKA drugs, such as warfarin, the [employer] 2012 Guideline recommends a therapeutic INR range of 2 to 3 (target INR of 2.5). This recommendation includes high-risk patients with antiphospholipid syndrome with previous arterial or venous thromboembolism, current-generation mechanical or bioprosthetic aortic heart valve replacement. Note: Patients with mechanical aortic valve replacement and additional risk factors for thromboembolic events (atrial fibrillation, previous thromboembolism, LV dysfunction, hypercoagulable conditions) or an older generation mechanical AVR (i.e., ball in-Cage) or any mechanical MVR should have a INR therapeutic range of 2.5 to 3.5 (target INR of 3). Wilfredo LAMBERT et maninder. Chest 2012, 141:7S-47S Gallo SAUNDERS et al. [facility] 2017, 70: 252-289 INR Date Value Ref Range Status 10/23/2023 1.0 0.9 - 1.3 Final Comment: Vitamin K Antagonist (VKA) Therapeutic Range: INR 2 to 3 (Target INR of 2.5) Note: For patients treated with VKA drugs, such as warfarin, the [employer] 2012 Guideline recommends a therapeutic INR range of 2 to 3 (target INR of 2.5). This recommendation includes high-risk patients with antiphospholipid syndrome with previous arterial or venous thromboembolism, current-generation mechanical or bioprosthetic aortic heart valve replacement. Note: Patients with mechanical aortic valve replacement and additional risk factors for thromboembolic events (atrial fibrillation, previous thromboembolism, LV dysfunction, hypercoagulable conditions) or an older generation mechanical AVR (i.e., ball in-Cage) or any mechanical MVR should have a INR therapeutic range of 2.5 to 3.5 (target INR of 3). Wilfredo LAMBERT et maninder. Chest 2012, 141:7S-47S Gallo SAUNDERS et al. [facility] 2017, 70: 252-289 APTT Date Value Ref Range Status 10/23/2023 26.9 23.0 - 32.4 sec Final 05/24/2021 24.0 23.0 - 32.4 sec Final Comment: Unfractionated Heparin Therapeutic Ranges: Standard Heparin Nomogram: 53 to 78 seconds (anti-Xa level of 0.3 to 0.7 U/ml) Low Dose/ACS Nomogram: 49 to 67 seconds (anti-Xa level of 0.2 to 0.5 U/ml) Stroke Treatment Nomogram: 49 to 67 seconds (anti-Xa level of 0.2 to 0.5 U/ml) Note: The APTT therapeutic range has been determined for the current lot of laboratory APTT reagent in use throughout the [facility]. 05/23/2021 23.4 23.0 - 32.4 sec Final Comment: Unfractionated Heparin Therapeutic Ranges: Standard Heparin Nomogram: 53 to 78 seconds (anti-Xa level of 0.3 to 0.7 U/ml) Low Dose/ACS Nomogram: 49 to 67 seconds (anti-Xa level of 0.2 to 0.5 U/ml) Stroke Treatment Nomogram: 49 to 67 seconds (anti-Xa level of 0.2 to 0.5 U/ml) Note: The APTT therapeutic range has been determined for the current lot of laboratory APTT reagent in use throughout the [facility]. d Dimer Date Value Ref Range Status 05/22/2021 860 (H) <500 ng/mL FEU Final Comment: 500 ng/mL FEU is the D Dimer cutoff to exclude DVT (deep vein thrombosis) and PE (pulmonary embolism) in patients with a low pre test probability. Supplemental Comment: In patients over 50 years with a low pre test probability for DVT and/or PE, an age adjusted D dimer cutoff can be calculated as [age x 10] ng/mL FEU. For example, a patient of 88 years would have an age adjusted D dimer cutoff of 880 ng/mL FEU. For patients with a suspected DVT, a D dimer level below 500 ng/mL FEU has a negative predictive value of >98.9%, a sensitivity of >96.9% and a specificity of >35.7%. For patients with a suspected PE, a D dimer level below 500 ng/mL FEU has a negative predictive value of >98.5%, and a sensitivity of >96.5% and a specificity of >38.8%. Reference: Galohijuliana M, et al. ADRIANA 2014 [id number] and Van Jane N, et al. Paz Int Med 2016 165:253. 05/18/2021 6,570 (H) <500 ng/mL FEU Final Comment: 500 ng/mL FEU is the D Dimer cutoff to exclude DVT (deep vein thrombosis) and PE (pulmonary embolism) in patients with a low pre test probability. Supplemental Comment: In patients over 50 years with a low pre test probability for DVT and/or PE, an age adjusted D dimer cutoff can be calculated as [age x 10] ng/mL FEU. For example, a patient of 88 years would have an age adjusted D dimer cutoff of 880 ng/mL FEU. For patients with a suspected DVT, a D dimer level below 500 ng/mL FEU has a negative predictive value of >98.9%, a sensitivity of >96.9% and a specificity of >35.7%. For patients with a suspected PE, a D dimer level below 500 ng/mL FEU has a negative predictive value of >98.5%, and a sensitivity of >96.5% and a specificity of >38.8%. Reference: Emily M, et al. ADRIANA 2014 311:1117 and Lucio Singh et al. Paz Int Med 2016 165:253. Result rechecked. Sample checked for a clot. D Dimer Date Value Ref Range Status 10/23/2023 1,010 (H) <500 ng/mL FEU Final Thrombosis Labs: d Dimer Date Value Ref Range Status 05/22/2021 860 (H) <500 ng/mL FEU Final Comment: 500 ng/mL FEU is the D Dimer cutoff to exclude DVT (deep vein thrombosis) and PE (pulmonary embolism) in patients with a low pre test probability. Supplemental Comment: In patients over 50 years with a low pre test probability for DVT and/or PE, an age adjusted D dimer cutoff can be calculated as [age x 10] ng/mL FEU. For example, a patient of 88 years would have an age adjusted D dimer cutoff of 880 ng/mL FEU. For patients with a suspected DVT, a D dimer level below 500 ng/mL FEU has a negative predictive value of >98.9%, a sensitivity of >96.9% and a specificity of >35.7%. For patients with a suspected PE, a D dimer level below 500 ng/mL FEU has a negative predictive value of >98.5%, and a sensitivity of >96.5% and a specificity of >38.8%. Reference: Emily M, et al. ADRIANA 2014 311:1117 and Lucio Singh, et al. Paz Int Med 2016 165:253. 05/18/2021 6,570 (H) <500 ng/mL FEU Final Comment: 500 ng/mL FEU is the D Dimer cutoff to exclude DVT (deep vein thrombosis) and PE (pulmonary embolism) in patients with a low pre test probability. Supplemental Comment: In patients over 50 years with a low pre test probability for DVT and/or PE, an age adjusted D dimer cutoff can be calculated as [age x 10] ng/mL FEU. For example, a patient of 88 years would have an age adjusted D dimer cutoff of 880 ng/mL FEU. For patients with a suspected DVT, a D dimer level below 500 ng/mL FEU has a negative predictive value of >98.9%, a sensitivity of >96.9% and a specificity of >35.7%. For patients with a suspected PE, a D dimer level below 500 ng/mL FEU has a negative predictive value of >98.5%, and a sensitivity of >96.5% and a specificity of >38.8%. Reference: Emily M, et al. ADRIANA 2014 311:1117 and Van Jane N, et al. Paz Int Med 2016 165:253. Result rechecked. Sample checked for a clot. D Dimer Date Value Ref Range Status 10/23/2023 1,010 (H) <500 ng/mL FEU Final Anemia Labs: No results found for: ANKUR , FE , SAT , COPPER , B12 , FOLATE , METHYLMAL , HPYA , INTFABINTL , TSH , FREET4 , SMEARINTL , EPOIEINTL , HBA12R , HGBEVAL , HGBELECINTL Hemolysis/TMA Labs: Retic % Date Value Ref Range Status 10/23/2023 13.8 (H) 0.4 - 2.0 % Final Comment: Results checked and verified.No clot detected. 12/11/2021 1.8 0.4 - 2.0 % Final 10/29/2021 2.8 (H) 0.4 - 2.0 % Final d Dimer Date Value Ref Range Status 05/22/2021 860 (H) <500 ng/mL FEU Final Comment: 500 ng/mL FEU is the D Dimer cutoff to exclude DVT (deep vein thrombosis) and PE (pulmonary embolism) in patients with a low pre test probability. Supplemental Comment: In patients over 50 years with a low pre test probability for DVT and/or PE, an age adjusted D dimer cutoff can be calculated as [age x 10] ng/mL FEU. For example, a patient of 88 years would have an age adjusted D dimer cutoff of 880 ng/mL FEU. For patients with a suspected DVT, a D dimer level below 500 ng/mL FEU has a negative predictive value of >98.9%, a sensitivity of >96.9% and a specificity of >35.7%. For patients with a suspected PE, a D dimer level below 500 ng/mL FEU has a negative predictive value of >98.5%, and a sensitivity of >96.5% and a specificity of >38.8%. Reference: Emily M, et al. ADRIANA 2014 311:1117 and Lucio Singh et al. Paz Int Med 2016 165:253. 05/18/2021 6,570 (H) <500 ng/mL FEU Final Comment: 500 ng/mL FEU is the D Dimer cutoff to exclude DVT (deep vein thrombosis) and PE (pulmonary embolism) in patients with a low pre test probability. Supplemental Comment: In patients over 50 years with a low pre test probability for DVT and/or PE, an age adjusted D dimer cutoff can be calculated as [age x 10] ng/mL FEU. For example, a patient of 88 years would have an age adjusted D dimer cutoff of 880 ng/mL FEU. For patients with a suspected DVT, a D dimer level below 500 ng/mL FEU has a negative predictive value of >98.9%, a sensitivity of >96.9% and a specificity of >35.7%. For patients with a suspected PE, a D dimer level below 500 ng/mL FEU has a negative predictive value of >98.5%, and a sensitivity of >96.5% and a specificity of >38.8%. Reference: Emily Castellon, et al. ADRIANA 2013 311:1117 and Lucio Singh et al. Paz Int Med 2016 165:253. Result rechecked. Sample checked for a clot. D Dimer Date Value Ref Range Status 10/23/2023 1,010 (H) <500 ng/mL FEU Final Neutropenia Labs: No results found for: FOLATE , B12 , CUONG , HIV , HEPCAB , HEPATI , EBVDQ , CMVQT , PARVOV , COPPER , MYMRES , MYPRES Thrombocytopenia Labs: No results found for: PF4COM , SERHEP , PLTCO , PLTAS , PLA1AG , HIV , EBVDQ Monoclonal Gammopathy Labs: Hemoglobin Date Value Ref Range Status 11/10/2023 14.0 13.0 - 17.0 g/dL Final 11/07/2023 13.1 13.0 - 17.0 g/dL Final 11/03/2023 12.7 (L) 13.0 - 17.0 g/dL Final Creatinine Date Value Ref Range Status 10/31/2023 0.98 0.73 - 1.22 mg/dL Final 10/29/2023 0.88 0.73 - 1.22 mg/dL Final 10/28/2023 0.84 0.73 - 1.22 mg/dL Final Calcium, Total Date Value Ref Range Status 10/31/2023 9.8 8.5 - 10.2 mg/dL Final 10/29/2023 9.4 8.5 - 10.2 mg/dL Final 10/28/2023 9.0 8.5 - 10.2 mg/dL Final MPN Labs: No results found for: JAK2SP , JAK2E , JAK2I , CALRM , MPLMU , MPNFMR , MPNRES , MPNMRS BM BIOPSY: N/A IMAGING DATA: N/A ASSESSMENT/RECOMMENDATIONS: Kwaku Nichols III is a 33 year old male with past medical history pertinent for tobacco use disorder and TTP. #Thrombotic Thrombocytopenic Purpura, Relapsed: Initial TTP occurrence on 05/18/21. Responded to steroids+PLEX and completed 30 days of Cablivi at that time. Relapse occurred on 10/23/23 and again responded well to PLEX. He is now on 60 mg of prednisone and completing the 30-days of Cablivi. -Continue to taper prednisone by 10 mg weekly on each Friday -Continue PJP prophylaxis with Bactrim MWF -Complete the 30 day course of Cablivi -We discussed at length the reasoning to use Rituxan 375 mg/m2 weekly x 4 weeks to prolong remission of TTP and to provide a steroid sparing immune suppression option. He and his will discuss this and we will discuss his decision in about a week. He is hesitant to use Rituxan due to the prolonged affect on his immune system which we discussed and that although this could affect how he responds to viral illness it has the best chance at prolonging his disease from relapse. -Continue to monitor labs closely, CBC weekly, haptoglobin, CMP and ADAMTS panel monthly RTC 4 weeks The patient's questions were answered. Total time 30 minutes, this included time preparing for the visit by reviewing the patient's chart and the time spent during the visit counseling and coordinating care. Lziette Krishna DO Associate Staff Physician, [facility] cell: [phone] [facility] [address] [place] [address] [place] [address] [place] [id number] documented in this encounter [facility] 11-11-2023 Nurse Note Additional intake questions: Has the patient had fever, nausea, vomiting, diarrhea, constipation, fatigue for > 1 week? No Does the patient have a decreased appetite? No Does patient want to see a Pvc Monitor? No (yes to any of above refer patient to schedulers for dietitian appointment) ) Does patient have any new or increased numbness or tingling of extremities? No Is patient interested in fertility information? No Does patient need any prescription refills? Yes, Pt is requesting Bactrim. Does patient have an advanced directive in place? yes documented in this encounter [facility] 10-27-2023 History of Presen t illness Narrative Images from the original note were not included. [facility] received prescription(s) for Cablivi from Dr. Krishna's office. Benefits investigation was conducted, and the patient confirmed that he is UNINSURED. I placed a call to [employer], the patient was enrolled for free medication approximately 2 years ago. He will need to be RE-ENROLLED at this time. As a courtesy our specialty pharmacy, we will help with the initial PAP application, but the re-enrollment will have to be coordinated by the patient's provider. I will message the [facility] pool to contact Dr. Krishna and her team to start his re-enrollment. Tegan Rios (Edger Feeder) Addendum October 27, 2023 1:54 PM : Will message team to ensure continuity of care. For reference, their contact information is as follows: No further follow up required from [facility]. Zeinab Darnell RPh PharmD, BCPS Clinical Pharmacist, Oncology [facility] P: , F: Pool: P CC [facility] Pool #: [id number] documented in this encounter [facility] 10-26-2023 History of Past i llness Narrative Problem Noted Date Diagnosed Date Resolved Date Bandemia 10/26/2023 10/28/2023 VERONICA (acute kidney injury) 10/24/2023 Thrombotic thrombocytopenic purpura (TTP) 05/18/2021 05/23/2021 documented as of this encounter (statuses as of 11/12/2023) [facility]02-29-2024 Miscellaneous Notes* Telephone Encounter - Annemarie Sinha, LOBO - 10/23/2023 1:20 PM EST Labs reviewed per Dr Rees. Per , pt may be in need of plasma exchange. Recommends he go to [facility] ER. Pt notified and verbalizes understanding. Agrees to go as recommended. Report phoned to LOBO Burton @ ER. Annemarie Sinha RN * Telephone Encounter - Patt Castro - 10/23/2023 11:55 AM EST Please call lab results immediately per Dr Ortiz. Patient may need to go to ER at [facility] for PEX and TTP [facility] Instructions* Patient Instructions* Daisy Zepeda - 10/23/2023 11:47 AM EST Labs today Triage to call results immediately May need ER at [facility] for PEX for TTP [facility] History of Present illness Narrative* Sanju Rees MD - 10/23/2023 11:15 AM EST Images from the original note were not included. NAME: Kwaku Nichols [facility] NO.: [id number] DATE OF SERVICE: October 23, 2023 (Negrita) Additional Clinicians involved in Kwaku Nichols [facility]'s care: DIAGNOSIS: Relapsing TTP ASSESSMENT: 33 year old man with apparent relapse of his previously treated TTP approximately 2 years ago. He presented to his local ER with acute drop in platelets and I noted his labs indicate end-organ damage and hemolytic changes that will need more intensive care. Labs wre initially pending and so I directed him to the ER once they came back. Anticipate that he will be getting PEX with Caplacizumab-yhdp and steroids. Since his platelets had improved from a carmen of 22 a few days ago, and he was to head to the ER, I didn't give him IV steroids immediately. PLAN: Labs today Triage to call results immediately May need ER at [facility] for PEX for TTP HPI: CASE HISTORY: Reverse Chronological Order 10/12/2023 - CBC: 14.2 > 9.8 / 30.6 < 22, ALS 3.9, ANC 1.5; PT 10.9, INR 1.03, aPTT 27.3; T.bili 2.6, AST 62, ALT 98, Alk Phos 132 12/11/2021 - JUVGKX08 activity 102% but inhibitor levels were 0.7 units. Normal platelets, hemoglobin and markers of hemolysis 09/03/2021 - OITHKG16 activity 93% with absence of inhibitor (<0.4 units). Normal CBC and markers of hemolysis. Prednisone taper discontinued on September 21, 2021 07/06/2021 - FUNRAJ11 activity 76% with absence of inhibitor (<0.4 units). Normal CBC and markers of hemolysis. Prednisone continued 06/15/2021 - XTSNAT26 activity 6% with presence of inhibitor (2.1 units). Normal CBC and markers ofhemolysis (remission). Caplacizumab-yhdp discontinued given normal platelets and markers of hemolysis. Prednisone continued. Recommended rituximab but declined 05/18/2021 - Initiated with caplacizumab, prednisone 120 mg and PEX (completed 6 exchanges) with improvement in platelet counts, anemia and markers of hemolysis; KTIMKJ94 activity <5% with presence of inhibitor (2.4 units); discharged on prednisone and caplacizumab 05/16/2021 - Admitted on with bruising and petechiae; hemoglobin of 8 g/dL and platelet count of 6,000. No response noted to platelet or RBC transfusions. Peripheral smear was notable for schistocytes. VICTOR MANUEL was negative and bilirubin was 4.4. Patient was given IVIG x 1 and prednisone 100 mg, and transferred to [facility] ICU for consideration of PEX. 05/14/2021 - Presented to [facility] (6 days post cholecystectomy) with nausea and vomiting;Hgb normal and platelet count was 3,000 Initial Visit, October 23, 2023: Kwaku Nichols III presents today with his father, Kwaku, for a Hematology and Oncology evaluation. He is a 33 year old male who has a history of acquired TTP presents to re-establish care today for Recent platelets are 22k. Denies bleeding, endorses bruising. He does not drink alcohol but does drinkenergy drinks and soda. He went to [facility] around 10/12 for chest pain. Cardiac workup was negative - laboratories were concerning with platelt count of 22k and he was sent here for consultation. He should probably have been transferred to for PEX. He has had PEX in the past and may need again today. Will get labs now to determine. Had 104 degree fever and sinus symptoms in August 2023 that may have prompted this relapse. From Dr. Troy's Progress Notes on 12/17/2021: ASSESSMENT AND RECOMMENDATIONS 31 male with acquired TTP He was diagnosed based on platelet count 3000, elevated markers of hemolysis and positive LORFAJ18 screen (activity <5% and inhibitor 2.4 units). He completed 6 PEX treatments end of April 2021 and 3 weeks of caplacizumab. He declined rituximab due to concern of side effects. He is in clinical remission based on normalization of platelet count and absence of hemolysis. Starting July, there was no evidence of VJKTCR02 inhibitor. He discontinued prednisone taper in end of August 2021. Labs today show normal CBC and normal TAFWAU03 activity. However, there is a measurable WAYPQQ90 inhibitor (0.7 units). Continue surveillance with monthly labs. Patient educated on signs and symptomsof a relapse. CBC shows lymphocytosis, which is not new. I will check a flow cytometry and monoclonal protein analysis at next visit. Follow-up in in a month with labs prior. He continues to smoke and is trying to quit. He has cut down to 1 pack a day from his previous 2-3 packs a day. REVIEW OF SYSTEMS Per HPI and otherwise negative by full review of organ systems. ECOG PERFORMANCE STATUS: 0 PHYSICAL EXAMINATION: Vitals: BP 130/93 Pulse 94 Temp (Src) 97.9 (Temporal) Resp 16 Ht 6' 1 (1.85m) Wt 269 lb 10 oz (122.3kg) SpO2 99% BMI 35.58 kg/(m^2). Body surface area is 2.51 meters squared. Exam limited to gross visualization where appropriate. Gen.: This is an age-appropriate patient in no acute distress. Head: Appears atraumatic with no visible lesions. Eyes: Pupils equally round and reactive to light, extraocular muscles are intact. Neck: Supple. Respiratory: Appears to be respiring comfortably. Neurologic: Nonfocal to gross visualization. Alert and oriented 3. Psychiatric: No evidence of inappropriate anxiety or depression. Skin: Visible areas of skin without rash, lesions, wounds or petechiae. ALLERGIES: ALLERGIES No Known Allergies MEDICATIONS: omeprazole (PRILOSEC) 20 mg capsule^Take 20 mg by mouth once daily.^Disp: ^Rfl: IBUPROFEN-ACETAMINOPHEN ORAL^Take by mouth.^Disp: ^Rfl: pantoprazole DR (PROTONIX) 40 mg tablet^Take 1 tablet by mouth DAILY (6 AM).^Disp: 30 tablet^Rfl: 2 PREDNISONE ORAL^Take by mouth every other day.^Disp: ^Rfl: LABORATORY VALUES: WBC (k/uL) Date Value 10/25/2023 19.90 (H) RBC (m/uL) Date Value 10/25/2023 3.12 (L) Hemoglobin (g/dL) Date Value 10/25/2023 10.4 (L) Hematocrit (%) Date Value 10/25/2023 31.8 (L) MCV (fL) Date Value 10/25/2023 101.9 (H) MCH (pg) Date Value 10/25/2023 33.3 MCHC (g/dL) Date Value 10/25/2023 32.7 RDW-CV (%) Date Value 10/25/2023 17.0 (H) Platelet Count (k/uL) Date Value 10/25/2023 86 (L) MPV (fL) Date Value 10/25/2023 13.2 (H) Glucose (mg/dL) Date Value 10/25/2023 121 (H) BUN (mg/dL) Date Value 10/25/2023 17 Creatinine (mg/dL) Date Value 10/25/2023 0.89 Sodium (mmol/L) Date Value 10/25/2023 140 Potassium (mmol/L) Date Value 10/25/2023 4.2 Chloride (mmol/L) Date Value 10/25/2023 103 CO2 (mmol/L) Date Value 10/25/2023 24 Protein, Total (g/dL) Date Value 10/25/2023 6.2 (L) Albumin (g/dL) Date Value 10/25/2023 4.0 Calcium, Total (mg/dL) Date Value 10/25/2023 9.3 Alkaline Phosphatase (U/L) Date Value 10/25/2023 74 Bilirubin, Total (mg/dL) Date Value 10/25/2023 0.5 AST (U/L) Date Value 10/25/2023 31 ALT (U/L) Date Value 10/25/2023 30 DIAGNOSIS: (M31.19) TTP (thrombotic thrombopenic purpura) (HCC) (primary encounter diagnosis) Plan: [id number] ACTIVITY ASSAY, [id number] INHIBITOR ASSAY, FLOW CYTOMETRY FOR LEUKEMIA/LYMPHOMA (FCLL), RETIC COUNT, HAPTOGLOBIN BLD, LD LACTATE DEHYDRO, CBC + DIFF, COMP METABOLIC PANEL (D72.820) Lymphocytosis Plan: [id number] ACTIVITY ASSAY, [id number] INHIBITOR ASSAY, FLOW CYTOMETRY FOR LEUKEMIA/LYMPHOMA (FCLL), RETIC COUNT, HAPTOGLOBIN BLD, LD LACTATE DEHYDRO, CBC + DIFF, COMP METABOLIC PANEL (M31.19) Acquired TTP (HCC) PAST MEDICAL HISTORY Diagnosis Date Abnormal laboratory test 04/2021 PAST SURGICAL HISTORY Procedure Laterality Date REMOVAL GALLBLADDER 04/2021 TONSILLECTOMY HX Social History Tobacco Use Smoking status: Every Day Packs/day: 1.5 Types: Cigarettes Smokeless tobacco: Former Substance Use Topics Alcohol use: Yes FAMILY HISTORY Problem Relation Age of Onset Heart Attack Maternal Grandfather Cancer Paternal Grandfather Leukemia Maternal Aunt Cancer Maternal Aunt Lung Cancer Maternal Uncle Prostate Cancer Maternal Uncle I spent a total of 70 minutes on the date of the service which included preparing to see the patient, [id number] patient care, completing clinical documentation, obtaining and/or reviewing separately obtained history, performing a medically appropriate examination, counseling and educating the pat ient/family/caregiver, ordering medications, tests, or procedures, communicating with other HCPs (not separately reported), independently interpreting results (not separately reported), communicatingresults to the patient/family/caregiver, and care coordination (not separately reported). Sanju Rees MD, CPE [facility] Provided at: [place], [place] Scribe Attestation: This note was scribed by Daisy Zepeda on October 23, 2023 under the direction and supervisionof Dr. Sanju Rees. I attest that all of the information documented is correct to the best of my knowledge. Provider Attestation: I, Sanju Rees MD, attest that all information documented by the above scribe is correct, and was supervised by me and under my direction. CC: SELF documented in this encounterGreen [facility]06-[facility]-2022 Miscellaneous Notes* Telephone Encounter - Sarah Stafford Sec - 02/12/2022 9:34 AM EDT Patient is scheduled for appointments * Telephone Encounter - Sarah Aranda RN - 02/12/2022 9:20 AM EDT Pt notified and is agreeable to this. Call transferred to PSS to schedule. Sarah Aranda RN * Telephone Encounter - Guanako Troy MD - 02/12/2022 9:03 AM EDT Okay to get allergy shot. I can call him with the results but he needs repeat labs done. Would he be willing to make a follow up appt for labs and then to see me a week later? Thanks, SJK * Telephone Encounter - Sarah Aranda RN - 02/12/2022 8:58 AM EDT Pt was due to be seen in December and no-showed his appointment. Pt is calling to go over his lab results from November as well as ask if it's ok for him to get his allergy shot by his PCP? Please advise Sarah Aranda RN documented in this encounterGreen [facility] Hospital04-11-2022 Miscellaneous Notes* Telephone Encounter - Sarah Kc - 12/03/2021 12:53 PM EDT Called patient and scheduled him for labs and another followup * Telephone Encounter - Guanako Troy MD - 12/03/2021 12:46 PM EDT I spoke with the patient regarding today's appointment. He has not had labs done since my last visit. I have recommended scheduling the labs and following up with me via a telephone or in person encounter a week after the labs. Patient is in agreement with this plan. PSS could you please help? Thanks documented in this encounterGreen [facility] Hospital09-24-[facility]21 History of Past illness Narrative* Problem Noted Date Resolved Date Thrombotic thrombocytopenic purpura (TTP) 202005/23/2021 documented as of this encounter (statuses as of 12/03/2021) [facility] History of Past illness Narrative* Problem Noted Date Resolved Date Thrombotic thrombocytopenic purpura (TTP) 202005/23/2021 documented as of this encounter (statuses as of 02/12/2022) [facility] History of Past illness Narrative* Problem Noted Date Diagnosed Date Resolved Date Thrombotic thrombocytopenic purpura (TTP) 05/18/2021 05/23/2021 documented as of this encounter (statuses as of 10/23/2023) [facility] History of Past illness Narrative* Problem Noted Date Diagnosed Date Resolved Date Thrombotic thrombocytopenic purpura (TTP) 05/18/2021 05/23/2021 documented as of this encounter (statuses as of 10/27/2023) [facility] History of Past illness Narrative* Problem Noted Date Diagnosed Date Resolved Date Thrombotic thrombocytopenic purpura (TTP) 05/18/2021 05/23/2021 documented as of this encounter (statuses as of 10/25/2023) [facility] NoteDISCHARGE SUMMARY Discharge Date: 05-08-21 HISTORY OF PRESENT ILLNESS: The patient was admitted with acute choledocholithiasis. PAST MEDICAL HISTORY / SIGNIFICANT PHYSICAL EXAM FINDINGS ON ADMISSION: See admitting H AND P. LABS ON ADMISSION: See labs. HOSPITAL COURSE: The patient was admitted, started on IV fluids and IV antibiotics, consult with surgery. Overnight his pain improved, he was taken to surgery, had laparoscopic cholecystectomy without difficulty. Blood work was much improved, he was able to eat, get up and around on his own and was discharged to home. DISCHARGE DIAGNOSIS: Acute choledocholithiasis. OPERATIONS: Laparoscopic cholecystectomy. COMPLICATIONS: None. DISCHARGE CONDITION: Good. DISCHARGE CONDITION: FOLLOWUP: Followup with surgeon. Appointment was made. Return to primary care doctor as needed and that was explained. [facility] Signed and Approved by: DR KOKO LANDRY . 05/26/2021 13:36:00[facility]09-13-2021 NoteOPERATIVE NOTE OPERATION DATE: 05-08-21 ANESTHETIC:General endotracheal, 0.50% Marcaine. DIRECTOR OF PROGRAM MANAGEMENT:BACILIO Orosco PREOPERATIVE DIAGNOSIS:Cholecystitis. POSTOPERATIVE DIAGNOSIS:Acute cholecystitis. PROCEDURE NAME:Laparoscopic cholecystomy. SPECIMEN:Gallbladder. DISPOSITION: The patient was extubated in the OR and taken to the PACU in fair condition. PROCEDURE: The patient was brought into the OR and placed supine on the OR table. After establishment of general endotracheal anesthesia the patient's abdomen was shaved with clippers, prepped and draped in a sterile fashion. An infraumbilical incision was made, the incision was carried down through the skin using sharp dissection through the soft tissue using electrocautery Bovie until reaching the anterior rectus fascia. The fascia was scored in the midline with the electrocautery Bovie, grasped with Ponce clamps and elevated. #0 Vicryl stay sutures were placed using blunt dissection the posterior sheath was opened, a 12 mm Becca balloon port was placed into the abdominal cavity. The balloon was insufflated with air and the abdominal cavity was insufflated with CO2 gas. Under direct laparoscopic visualization an 11 mm port was placed to the right of the midline in the epigastric area and two 5 mm ports were placed, one in the right anterior axillary line and one in the right midclavicular line. The operating table was then placed in reverse Trendelenburg position and tilted to the left. The gallbladder was grasped and elevated in a cephalad fashion and a second grasper was used to retract the gallbladder laterally. The gallbladder appeared to be acutely inflamed, the wall was thickened but wall was not tense. The cystic duct and artery were visualized, they were further dissected free using a curved dissector. Surgical clips were placed both distally and proximally on the cystic duct and it was transected. The cystic artery was also clipped and transected using laparoscopic scissors in a similar fashion. The gallbladder was removed from the liver bed using the electrocautery spatula, the gallbladder was placed in an EndoCatch bag and removed via the intraumbilical port. The port was replaced and the abdomen reinflated with CO2 gas. The liver was elevated, hemostasis was evident, the gallbladder fossa and lateral aspect of the liver were irrigated with normal saline and suctioned. The epigastric ports were removed, there was no evidence of any bleeding. The infraumbilical port was removed and the fascia was reapproximated using the previously places stay sutures. All the wounds were anesthetized with 0.50% Marcaine, the skin was reapproximated using 4-0 Monocryl in a subcuticular fashion. The incisions were cleaned with normal saline and dried. TinCoBen was placed on both sides of the incisions and 1/2 inch Steri-Strips were placed along with dry sterile dressings. All instrument and sponge counts were correct at the end to the case. The patient was extubated in the OR and taken to the PACU in fair condition. [facility] Signed and Approved by: DR OLGA BELL . 05/09/2021 20:43:00[facility] + Plan note No data available for this section [facility] note* Diagnosis TTP (thrombotic thrombocytopenic purpura) (HCC)- Primary Thrombotic microangiopathy [facility] Diagnosis TTP (thrombotic thrombopenic purpura) (HCC)- Primary Thrombotic microangiopathy [facility] Diagnosis TTP (thrombotic thrombopenic purpura) (HCC)- Primary Thrombotic microangiopathy [facility] Diagnosis TTP (thrombotic thrombopenic purpura) (HCC)- Primary Thrombotic microangiopathy [facility]* Diagnosis TTP (thrombotic thrombopenic purpura) (HCC) Thrombotic microangiopathy [facility] Diagnosis TTP (thrombotic thrombocytopenic purpura) (HCC) Thrombotic microangiopathy [facility] Diagnosis TTP (thrombotic thrombopenic purpura) (HCC)- Primary Thrombotic microangiopathy Lymphocytosis Lymphocytosis (symptomatic) Acquired TTP (HCC) Thrombotic microangiopathy [facility] Diagnosis TTP (thrombotic thrombocytopenic purpura) (HCC)- Primary Thrombotic microangiopathy [facility] Diagnosis TTP (thrombotic thrombocytopenic purpura) (HCC)- Primary Thrombotic microangiopathy [facility] Diagnosis TTP (thrombotic thrombocytopenic purpura) (HCC)- Primary Thrombotic microangiopathy [facility] Diagnosis TTP (thrombotic thrombopenic purpura) (HCC)- Primary Thrombotic microangiopathy [facility] Diagnosis TTP (thrombotic thrombopenic purpura) (HCC)- Primary [facility]rombotic [facility]angiopathy [facility] (thrombotic thrombopenic purpura) (HCC)- Primary Thrombotic microangiopathy documented in this encounter [facility] note* Diagnosis TTP (thrombotic thrombopenic purpura) (HCC) Thrombotic microangiopathy [facility] No data available for this section [facility] No data available for this section [facility] Narrative* Financial Clearance (Routine) - Authorized Specialty Diagnoses / Procedures Referred By Contjulio t Referred To Contact Hematology / HEMATOLOGY/ONCOLOGY Diagnoses TRX FOLLOW UP PER WQ Procedures [place] [address] [place] [address] Phone: tel: Eliza Montoya, CLEANING TECHNICIAN.CONFIGURATION TECHNICIAN [address] [place] [address] Phone: tel: fax: Referral ID Status Reason Start Date Expiration Date Visits Requested Visits Authorized [id number] Authorized Financial Clearance Required - Self Pay Patient Cleared - Qualified HCAP/FA 12/16/2024 03/16/2025 99 99 [facility] Summary Purpose Family History No Family History Records Found No data available for this section No Family History Records FoundNo Family History Records FoundNo Family History Records Found Advance Directives No Advanced Directives Records FoundDocuments on File Type Date Recorded Patient Extruder Operator Horizontal Expl anation Advance Directive(s) 05/19/2021 7:59 PM Latest Code Status on File Code Status Date Activated Date Inactivated Comments Full Code 05/18/2021 6:11 PM 05/24/2021 7:59 PM Full Code Order Discussed With: Patient Latest Code Status on File Code Status Date Activated Date Inactivated Comments Full Code 05/18/2021 6:11 PM 05/24/2021 7:59 PM Question Answer Comments Full Code Order Discussed With: Patient Latest Code Status on File Code Status Date Activated Date Inactivated Comments Full Code 10/25/2023 4:30 PM Question Answer Comments Full Code Order Discussed With: Patient Code Status History Code Status Date Activated Date Inactivated Comments Full Code 05/18/2021 6:11 PM 05/24/2021 7:59 PM Question Answer Comments Full Code Order Discussed With: Patient Date Activated Date Inactivated Comments 10/25/2023 4:30 PM 10/29/2023 6:33 PM Question Answer Comments Full Code Order Discussed With: Patient Date Activated Date Inactivated Comments 05/18/2021 6:11 PM 05/24/2021 7:59 PM Question Answer Comments Full Code Order Discussed With: Patient Latest Code Status on File Code Status Date Activated Date Inactivated Comments Full Code 05/18/2021 6:11 PM 05/24/2021 7:59 PM Question Answer Comments Full Code Order Discussed With: Patient Date Activated Date Inactivated Comments 10/25/2023 4:30 PM 10/29/2023 6:33 PM Question Answer Comments Full Code Order Discussed With: Patient Date Activated Date Inactivated Comments 05/18/2021 6:11 PM 05/24/2021 7:59 PM Question Answer Comments Full Code Order Discussed With: Patient Additional Source Comments (unrecognized sect ion and content) No Status Records FoundNo Status Records FoundNo Status Records FoundNo Status Records Found INFORMATION SOURCE (unrecogn ized section and content) DATE CREATED AUTHOR [facility]2021 [facility] DATE CREATED AUTHOR AUTHOR'S ORGANIZ ATION 10/13/2023 [facility] DATE CREATED AUTHOR AUTHOR'S ORGANIZ ATION 03/13/2024 [facility] DATE CREATED AUTHOR AUTHOR'S ORGANIZ ATION 03/16/2025 [facility] Source Comments (unrecognize d section and content) In the event this informatio n is protected by the Federal Confidentiality of Alcohol and Drug Abuse Patient Records regulations: The Federal rules restrict any use of the information to criminally investigate or prosecute any alcohol or drug abuse patient.[facility] the event this information is protected by the Federal Confidentiality of Alcohol and Drug Abuse Patient Records regulations: The Federal rules restrict any use of the information to criminally investigate or prosecute any alcohol or drug abuse patient.[facility] the event this information is protected by the Federal Confidentiality of Alcohol and Drug Abuse Patient Records regulations: The Federal rules restrict any use of the information to criminally investigate or prosecute any alcohol or drug abuse patient.[facility] the event this information is protected by the Federal Confidentiality of Alcohol and Drug Abuse Patient Records regulations: The Federal rules restrict any use of the information to criminally investigate or prosecute any alcohol or drug abuse patient.[facility] the event this information is protected by the Federal Confidentiality of Alcohol and Drug Abuse Patient Records regulations: The Federal rules restrict any use of the information to criminally investigate or prosecute any alcohol or drug abuse patient.[facility] the event this information is protected by the Federal Confidentiality of Alcohol and Drug Abuse Patient Records regulations: The Federal rules restrict any use of the information to criminally investigate or prosecute any alcohol or drug abuse patient.[facility] the event this information is protected by the Federal Confidentiality of Alcohol and Drug Abuse Patient Records regulations: The Federal rules restrict any use of the information to criminally investigate or prosecute any alcohol or drug abuse patient.[facility] the event this information is protected by the Federal Confidentiality of Alcohol and Drug Abuse Patient Records regulations: The Federal rules restrict any use of the information to criminally investigate or prosecute any alcohol or drug abuse patient.[facility] the event this information is protected by the Federal Confidentiality of Alcohol and Drug Abuse Patient Records regulations: The Federal rules restrict any use of the information to criminally investigate or prosecute any alcohol or drug abuse patient.[facility] the event this information is protected by the Federal Confidentiality of Alcohol and Drug Abuse Patient Records regulations: The Federal rules restrict any use of the information to criminally investigate or prosecute any alcohol or drug abuse patient.[facility] the event this information is protected by the Federal Confidentiality of Alcohol and Drug Abuse Patient Records regulations: The Federal rules restrict any use of the information to criminally investigate or prosecute any alcohol or drug abuse patient.[facility] the event this information is protected by the Federal Confidentiality of Alcohol and Drug Abuse Patient Records regulations: The Federal rules restrict any use of the information to criminally investigate or prosecute any alcohol or drug abuse patient.[facility] the event this information is protected by the Federal Confidentiality of Alcohol and Drug Abuse Patient Records regulations: The Federal rules restrict any use of the information to criminally investigate or prosecute any alcohol or drug abuse patient.[facility] the event this information is protected by the Federal Confidentiality of Alcohol and Drug Abuse Patient Records regulations: The Federal rules restrict any use of the information to criminally investigate or prosecute any alcohol or drug abuse patient.[facility] the event this information is protected by the Federal Confidentiality of Alcohol and Drug Abuse Patient Records regulations: The Federal rules restrict any use of the information to criminally investigate or prosecute any alcohol or drug abuse patient.[facility] HospitalIn the event this information is protected by the Federal Confidentiality of Alcohol and Drug Abuse Patient Records regulations: The Federal rules restrict any use of the information to criminally investigate or prosecute any alcohol or drug abuse patient.[facility] Hospital[facility] the event this information is protected by the Federal Confidentiality of Alcohol and Drug Abuse Patient Records regulations: The Federal rules restrict any use of the information to criminally investigate or prosecute any alcohol or drug abuse patient.[facility] HospitalIn the event this information is protected by the Federal Confidentiality of Alcohol and Drug Abuse Patient Records regulations: The Federal rules restrict any use of the information to criminally investigate or prosecute any alcohol or drug abuse patient.[facility] HospitalIn the event this information is protected by the Federal Confidentiality of Alcohol and Drug Abuse Patient Records regulations: The Federal rules restrict any use of the information to criminally investigate or prosecute any alcohol or drug abuse patient.[facility] HospitalIn the event this information is protected by the Federal Confidentiality of Alcohol and Drug Abuse Patient Records regulations: The Federal rules restrict any use of the information to criminally investigate or prosecute any alcohol or drug abuse patient.[facility] HospitalIn the event this information is protected by the Federal Confidentiality of Alcohol and Drug Abuse Patient Records regulations: The Federal rules restrict any use of the information to criminally investigate or prosecute any alcohol or drug abuse patient.[facility] Reason for Visit (unrecogniz ed section and content) Reason Comments Established Patient Specialty Diagnoses / Procedures Referred By Contac t Referred To Contact HEMATOLOGY/ONCOLOGY Diagnoses [M31.19] Procedures FOLLOW-UP E-ASSESSMENT Marta Krishna DO [address] [place] [address] [place] [place] [address] [address] [place] [address] Referral ID Status Reason Start Date Expiration Date Visits Requested Visits Authorized [id number] Authorized Financial Clearance Required - Self Pay Patient Cleared - Qualified HCAP/501/FA 02/17/2024 05/17/2024 99 99 Reason Comments Medical Review Coordinator - Other Reason Comments Question Reason Comments Results Reason Onset Date Comments SPP Injectab Oncology/hematology-Treatment Refer ral 10/27/2023 [employer] Insurance Authorization 10/27/2023 NO INSUR ANCE SPP Injectable Oncology/hematology - No-go 10/26 Specialty Diagnoses / Procedures Referred By Contac t Referred To Contact [facility] DEPARTMENT Diagnoses est Procedures [place] [address] Referral ID Status Reason Start Date Expiration Date Visits Requested Visits Authorized [id number] Authorized Financial Clearance Required - Self Pay Patient Cleared - Qualified HCAP/501/FA 10/14/2023 01/12/2024 99 99 Reason Comments Medical Review Coordinator - Other Orders Reason Comments TTP Specialty Diagnoses / Procedures Referred By Contac t Referred To Contact HEMATOLOGY/ONCOLOGY Diagnoses Other thrombotic microangiopathy Procedures FOLLOW-UP/REASSESSMENT Marta Krishna DO [address] [place] [address] [address] [place] [address] [address] [place] [address] Referral ID Status Reason Start Date Expiration Date Visits Requested Visits Authorized [id number] Authorized Financial Clearance Required - Self Pay Patient Cleared - Qualified HCAP/501/FA 05/27/2024 08/25/2024 99 99 Specialty Diagnoses / Procedures Referred By Connieac t Referred To Contact [facility] DEPARTMENT Diagnoses est Procedures [place] [address] Specialty Diagnoses / Procedures Referred By Contac t Referred To Contact Hematology/Oncology / HEMATOLOGY/ONCOLOGY Diagnoses follow up per wq Procedures [place] [address] [place] [address] Marta Krishna, DO [address] [place] [address] Referral ID Status Reason Start Date Expiration Date Visits Requested Visits Authorized [id number] Authorized Financial Clearance Required - Self Pay Patient Cleared - Qualified HCAP/FA 09/17/2024 12/16/2024 99 99 Specialty Diagnoses / Procedures Referred By Connieac t Referred To Contact Hematology/Oncology / HEMATOLOGY/ONCOLOGY Diagnoses follow up per wq [place] [address] [place] [address] Phone: tel: Marta Krishna, DO [address] [place] [address] Phone: tel: fax: Referral ID Status Reason Start Date Expiration Date Visits Requested Visits Authorized [id number] Authorized Financial Clearance Required - Self Pay Patient Cleared - Qualified HCAP/FA 09/17/2024 12/16/2024 99 99 Specialty Diagnoses / Procedures Referred By Contac t Referred To Contact Hematology / HEMATOLOGY/ONCOLOGY Diagnoses TRX FOLLOW UP PER WQ Procedures EST [place] [address] [place] [address] Phone: tel: Eliza Montoya APRN.CONFIGURATION TECHNICIAN [address] [place] [address] Phone: tel: fax: Referral ID Status Reason Start Date Expiration Date Visits Requested Visits Authorized [id number] Authorized Financial Clearance Required - Self Pay Patient Cleared - Qualified HCAP/FA 12/16/2024 03/16/2025 99 99 Care Teams (unrecognized sec tion and content) Junior Project Manager Relationship Specialty Start Date End Date Koko Landry MD [address], [place] [address] PCP - General Family Practice 03/16/15 Junior Project Manager Relationship Specialty Start Date End Date Koko Landry MD [address], [place] [address] PCP - General Family Practice 03/16/15 Junior Project Manager Relationship Specialty Start Date End Date Koko Landry MD [address], [facility] PCP - General Family Medicine 03/16/15 Junior Project Manager Relationship Specialty Start Date End Date Koko Landry MD [address], [place] [address] PCP - General Family Medicine 03/16/15 Junior Project Manager Relationship Specialty Start Date End Date Koko Landry MD [address], [place] [address] PCP - General Family Medicine 03/16/15 Junior Project Manager Relationship Specialty Start Date End Date Koko Landry MD [address], [facility] PCP - General Family Medicine 03/16/15 Junior Project Manager Relationship Specialty Start Date End Date Koko Landry MD [address], [facility] PCP - General Family Medicine 03/16/15 Junior Project Manager Relationship Specialty Start Date End Date Koko Landry MD [address] [place] [address] PCP - General Family Medicine 03/16/15 Junior Project Manager Relationship Specialty Start Date End Date Koko Landry MD [address] [place] [address] PCP - General Family Medicine 03/16/15 Junior Project Manager Relationship Specialty Start Date End Date Koko Landry MD [address] [place] [address] PCP - General Family Medicine 03/16/15 Junior Project Manager Relationship Specialty Start Date End Date Koko Landry MD [address], [facility] PCP - General Family Medicine 03/16/15 Junior Project Manager Relationship Specialty Start Date End Date Koko Landry MD [address] [place] [address] PCP - General Family Medicine 03/16/15 Junior Project Manager Relationship Specialty Start Date End Date Koko Landry MD [address] [place] [address] PCP - General Family Medicine 03/16/15 Junior Project Manager Relationship Specialty Start Date End Date Kkoo Landry MD [address] [place] [address] PCP - General Family Medicine 03/16/15 Junior Project Manager Relationship Specialty Start Date End Date Koko Landry MD [address] [place] [address] PCP - General Family Medicine 03/16/15 Cydney Gray RN Specialty Medical Review Coordinator Hematology 12/18/24 Junior Project Manager Relationship Specialty Start Date End Date Koko Landry MD [address] [place] [address] PCP - General Family Medicine 03/16/15 Cydney Gray RN Specialty Medical Review Coordinator Hematology 12/18/24 Junior Project Manager Relationship Specialty Start Date End Date Koko Landry MD [address] [place] [address] PCP - General Family Medicine 03/16/15 Cydney Gray RN Specialty Medical Review Coordinator Hematology 12/18/24 Junior Project Manager Relationship Specialty Start Date End Date Koko Landry MD [address] [place] [address] PCP - General Family Medicine 03/16/15 Cydney Gray RN Specialty Medical Review Coordinator Hematology 12/18/24 FOR RECORDS PERTAINING TO PATIENTS WHO ARE OR HAVE BEEN ENROLLED IN A CHEMICAL DEPENDENCY/SUBSTANCEABUSE PROGRAM, SOME INFORMATION MAY BE OMITTED. This clinical summary was aggregated from multiple sources. Caution should be exercised in using it in the provision of clinical care. This summary normalizes information from multiple sources, and as a consequence, information in this document may materially change the coding, format and clinical context of patient data. In addition, data may be omitted in some cases. CLINICAL DECISIONS SHOULD BE BASED ON THE PRIMARY CLINICAL RECORDS. [facility]. provides no warranty or guarantee of the accuracy or completeness of information in this document.
--- NOTE | 2025-03-20 11:16 | XR_ITS ---
The [address] [address] Patient Name: KWAKU DURBIN MRN: [id number] date: 1990 Sex: M Assigned Patient Location: ED.MAIN Current Patient Location: ED.MAIN Accession/Order Number: [id number] Exam Date: 03/20/2025 11:44 Report Date: 03/20/2025 11:45 At the request of: SOHAM LONG MD Procedure: XR ankle LT min 3V LEFT ANKLE - 3 views CLINICAL HISTORY: Twisted ankle COMPARISON: None FINDINGS: Diffuse soft tissue swelling is present. Ankle mortise appears intact without acute bony process. Plantar spurring. XR/XR ankle LT min 3V IMPRESSION: SOFT TISSUE SWELLING. NO ACUTE BONY PROCESS. Impression dictated by: Jose L Iyer Jr. DGeoffreyOGeoffrey 03/20/2025 11:45 AM Dictation Location: [email or web address] Electronically authenticated by: [id number] Y Date: 03/20/2025 11:45
--- NOTE | 2025-03-20 11:17 | ED_ITS ---
HPI HPI - General Adult General Chief complaint: Extremity Injury, Lower Stated complaint: LOWER EXTREMITY INJURY Time Seen by Provider: 03/20/25 11:14 Source: patient Mode of arrival: walk-in History of Present Illness HPI narrative: 34-year-old male presents for left ankle pain. 2 days ago he twisted his ankle and has pain over the lateral malleolus. No pain in the knee or foot. It has been swollen and bruised so he came in here to get checked. He has never fractured that ankle previously. Related Data Home Medications ?Medication ?Instructions ?Recorded ?Confirmed No Known Home Medications 10/12/2309/25 Allergies Allergy/AdvReac Type Severity Reaction Status Date / Time No Known Drug Allergies Allergy Verified 10/12/23 20:50 Review of Systems ROS Narrative A ten point review of systems is negative except as noted above. PFSH PFS Social History Smoking status: Current every day smoker Little interest or pleasure in doing things: not at all Feeling down, depressed, or hopeless: not at all Exam Narrative Exam Narrative: Nurses note and vital signs reviewed and patient is not hypoxic. General: The patient appears well and in no apparent distress. Patient is resting comfortably on cart. Skin: Warm, dry, no pallor noted. There is no rash noted. Head: Normocephalic, atraumatic Eye: Normal conjunctiva, no drainage Ears, Nose, Mouth, and Throat: oral mucosa is moist. Nares patent. Cardiovascular: Regular Rate and Rhythm Respiratory: Patient is in no distress, no accessory muscle use, lungs are clear to auscultation, no wheezing, rales or rhonchi Back: non-tender GI: Soft and nontender Musculoskeletal: He has swelling and bruising over the left lateral malleolus. Skin intact. No tenderness in the foot including the fifth metatarsal area. Neurological: A&O, normal speech Psychiatric: Cooperative Constitutional Vital Signs, click to edit/add: Last Vital Signs Temp 98.5 F 03/20/25 11:08 Pulse 87 03/20/25 11:08 Resp 18 03/20/25 11:08 BP 146/90 H 03/20/25 11:08 Pulse Ox 100 03/20/25 11:08 O2 Del Method Room Air 03/20/25 11:08 Course Vital Signs Vital signs: Vital Signs Temperature 98.5 F 03/20/25 11:08 Pulse Rate 87 03/20/25 11:08 Respiratory Rate 18 03/20/25 11:08 Blood Pressure 146/90 H 03/20/25 11:08 Pulse Oximetry 100 03/20/25 11:08 Oxygen Delivery Method Room Air 03/20/25 11:08 Temperature 98.5 F 03/20/25 11:08 Pulse Rate 87 03/20/25 11:08 Respiratory Rate 18 03/20/25 11:08 Blood Pressure 146/90 H 03/20/25 11:08 Pulse Oximetry 100 03/20/25 11:08 Oxygen Delivery Method Room Air 03/20/25 11:08 Medical Decision Making MDM Narrative Medical decision making narrative: X-ray shows no fracture. Juancarlos wrap and air splint were applied, application checked by me and found to be appropriate, he is neurovascular intact. Treatment diagnosis and follow-up were discussed with the patient. Differential Diagnosis Differential Diagnosis: Ankle sprain, ankle fracture Imaging Data Left ankle x-ray: Radiologist's impression: ITS Impressions Ankle X-Ray 03/20/25 11:16 IMPRESSION: SOFT TISSUE SWELLING. NO ACUTE BONY PROCESS. Impression dictated by: Jose L Iyer Jr., D.O. 03/20/2025 11:45 AM Dictation Location: [facility] [employer] Electronically authenticated by: [id number] Y Date: 03/20/2025 11:45 Discharge Plan Discharge Chief Complaint: Extremity Injury, Lower Clinical Impression: Left ankle sprain Patient Disposition: Home, Self-Care Time of Disposition Decision: 12:06 Condition: Good Mode of Transportation: Private Vehicle Prescriptions / Home Meds: No Action No Known Home Medications Print Language: Wallisian Instructions: Ankle Sprain (ED) Referrals: ABBIE RIVERA [Primary Care Provider, [facility]] - 1 week
== END 2025-03-20 12:27 | disposition home or self-care (01) ==
PROVIDERS: Emergency Provider Emergency Medicine; PCP Nurse Practitioner
DX: S93.402A Sprain of unspecified ligament of left ankle, initial encounter (principal); X50.1XXA Overexertion from prolonged static or awkward postures, initial encounter; F17.200 Nicotine dependence, unspecified, uncomplicated
CPT/HCPCS: 73610; 99283